=== PATIENT | male | born 1945 | race Caucasian/White ===

== ENCOUNTER 2020-09-04 09:40 | IRF | payer MEDICARE, SELFPAY ==
--- NOTE | 2020-09-04 10:21 | ADMGEN ---
This patient, Matti Vergara, was admitted to [facility] Room 230-02. Patient/family oriented to hospital policies and general routines including ID bracelet, bed and alarms, visiting hours, pain management, procedures, bathroom and other care routines, personal items, smoking policy, room service/diet, and visiting hours. Information on how to activate the Rapid Response Team has been discussed. Patient/Family are encouraged to report perceived risks to care and to ask questions if they do not understand what they are told or what they should do. patient arrived at 0940 via w/c van, accompanied by self only. belongings are with patient. Has no c/o pain.
[2020-09-04 10:33] VITALS: BMI 27.9
[2020-09-04 10:34] VITALS: BP 139/71; PULSE 78; RESP 18; TEMP 36; O2SAT 95; BMI 27.9
[2020-09-04 13:27] VITALS: BMI 27.9
[2020-09-04 14:00] VITALS: BP 111/74; PULSE 80; RESP 20; TEMP 36.2; O2SAT 94
--- NOTE | 2020-09-04 14:24 | PCNSR ---
On 09/04/20, the student, Olinda Nagel, provided care and completed [facility] documentation on this patient. I have reviewed the student's documentation and agree with the findings.
--- NOTE | 2020-09-04 15:07 | WPDREHABHP ---
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 NIHSS was [address] was unremarkable. MRI showed evidence of diffusion restriction in the left anterior medulla without flare correlation. Patient fell outside the windows of the tPA utilization. MRA showed no evidence of large vessel occlusion, though perfusion scanning showed delayed filling affecting a large portion of the left cerebellum. 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 Patient was admitted under Neurology and placed on aspirin atorvastatin. Lovenox for DVT PPX. CAROLA showed normal ejection fraction with diastolic dysfunction. Cardiology recommended a 30 day event monitor in an outpatient setting. This will need to be arranged at time of discharge from ARU. Patient was discharged from [place] to [place] on 08/01/2020. Patient began showing improvements in mobility and function. care home facility course demonstrated muscle spasm being treated with p.r.n. Flexeril and acetaminophen. Elevated transaminase felt to be due to initiation of a statin. Weight loss of approximately 25 lb. Decreased appetite due to change in taste and smell patient was placed on a Mepron sole, Reglan, and nutritional juice b.i.d. per dietary recommendation. Patient was noted to have severe profound vitamin-D deficiency and was started on agustin dosing D2 3 times per week for 1 month with repeat vitamin-D level in [facility]. Plans are for patient to be discharged home with hired caregivers 247. Patient is to follow up with [facility] as an outpatient on 09/27 at 3:55 p.m. 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 COVID the patient has not traveled outside the [place] or had contact with someone who is ill that his travel outside the [place] in the post 21 days. The patient has not traveled to an area of the [place] that is experiencing no transmission of COVID and has not had close personal contact with anyone with COVID. The patient does not have a fever nor lower expiratory respiratory illness. Negative COVID test performed on 09/03/2020. Therapy was initiated at the acute care facility and the patient transferred to us from [facility] on 09/04/2020 FALLS OR SURGERIES: the patient has had no major surgeries in the last 100 days. The patient has had no falls nor injuries from falls within the past year. PRIOR LEVEL OF FUNCTION: Eating was [INDEPENDENT] Oral Care was [INDEPENDENT] Toileting Hygiene was [INDEPENDENT] Shower/Bathing was [INDEPENDENT] Upper Body Dressing was [INDEPENDENT] Lower Body Dressing was [INDEPENDENT] Donning/Clancy Footwear was [INDEPENDENT] Rolling Left and Right was [INDEPENDENT] Sit to Lying was [INDEPENDENT] Lying to Sitting was [INDEPENDENT] Sit to Stand was [INDEPENDENT] Bed to Chair Transfers was [INDEPENDENT] Toilet Transfers was [INDEPENDENT] Walking was [INDEPENDENT] [>500 feet] with [NO DEVICE] Wheelchair Mobility was [NOT APPLICABLE PRIOR TO ADMISSION] Stairs were [INDEPENDENT] 12 steps CURRENT LEVEL OF FUNCTION: Eating was setup Oral Care was set Toileting Hygiene was substantial to max assist Shower/Bathing was substantial to max assist Upper Body Dressing was partial to moderate assist Lower Body Dressing was substantial to max assist Donning/Clancy Footwear was dependent Rolling Left and Right was partial to moderate assist Sit to Lying was partial to moderate assist Lying to Sitting was partial to moderate ass
[2020-09-04 18:05] LABS: Vitamin D 25 Hydroxy 44.5 ng/mL
[2020-09-04 21:30] VITALS: PULSE 82; RESP 18; O2SAT 95
[2020-09-04 22:00] VITALS: BP 121/81; PULSE 82; RESP 18; TEMP 36.3; O2SAT 95
[2020-09-05 05:38] LABS: Basophils Absolute Auto 0.1 K/mm3 (0.0-0.1); Basophils Percent Auto 0.9 % (0.2-1.2); Eosinophils Absolute Auto 0.2 K/mm3 (0-0.3); Eosinophils Percent Auto 2.2 % (0-4.4); Hematocrit 45.8 % (42.0-52.0); Hemoglobin 15.4 g/dL (14.0-18.0); Immature Granulocyte Absolute 0.03 K/mm3 (0.00-0.031); Immature Granulocyte Percent A 0.3 % (0-0.5); Lymphocytes Absolute Auto 1.81 K/mm3 (0.9-3.2); Lymphocytes Percent Auto 20.2 % (18.3-44.2); Mean Corpuscular HGB Conc 33.6 g/dl (32-36); Mean Corpuscular Hemoglobin 30.1 pg (26-34); Mean Corpuscular Volume 89.6 fl (80-100); Mean Platelet Volume 11.3 fl (7.4-10.4); Monocytes Absolute Auto 1.6 K/mm3 (0.1-0.6); Monocytes Percent Auto 17.3 % (2.6-8.5); Neutrophils Absolute Auto 5.3 K/mm3 (1.3-6.7); Neutrophils Percent Auto 59.1 % (45.5-73.1); Platelet Count Result 180 k/mm3 (150-375); Red Blood Count 5.11 M/mm3 (4.6-6.20)
[2020-09-05 05:40] LABS: Alanine Aminotransferase 96 U/L (4-50); Albumin Level 3.7 g/dL (3.5-5.1); Alkaline Phosphatase 100 U/L (38-126); Anion Gap 7 mmol/L (8-16); Aspartate Amino Transferase 59 U/L (17-59); Bilirubin,Total 1.1 mg/dL (0.2-1.3); Blood Urea Nitrogen 9 mg/dL (9-20); Calcium 9.7 mg/dL (8.4-10.2); Carbon Dioxide 28 mmol/L (22-30); Chloride 100 mmol/L (98-107); Cholesterol 104 mg/dL (0-200); Estimated CRCL calculation 76 ml/min; Estimated Glomerular Filt Rate > 60; Glucose 102 mg/dL (75-110); HDL Direct 32 mg/dL; Potassium 3.8 mmol/L (3.4-5.0); Sodium 135 mmol/L (137-145); Triglycerides 83 mg/dL (<150)
[2020-09-05 05:51] LABS: LDL Cholesterol Direct 47 mg/dL
[2020-09-05 06:00] VITALS: BP 140/74; PULSE 76; RESP 18; TEMP 36.1; O2SAT 97
[2020-09-05 08:00] VITALS: PULSE 76; RESP 18; O2SAT 97
[2020-09-05] MEDS: ATORVASTATIN 40 MG TABLET 80 MG PO (09:48)
[2020-09-05] MEDS: PANTOPRAZOLE 40 MG TABLET PO (09:48)
[2020-09-05] MEDS: ASPIRIN 325 MG TABLET PO (09:48)
[2020-09-05] MEDS: POTASSIUM CHLORIDE 20 MEQ TABLET.ER PO (09:48)
[2020-09-05] MEDS: amLODIPine BESYLATE 5 MG TABLET PO (09:49)
[2020-09-05] MEDS: polyethylene glycoL 3350 17 GM POWD.PACK PO (09:49)
[2020-09-05] MEDS: METOCLOPRAMIDE HCL 5 MG TABLET PO (09:49)
[2020-09-05 14:00] VITALS: BP 147/72; PULSE 82; RESP 20; TEMP 36.5; O2SAT 97
--- NOTE | 2020-09-05 17:08 | WPDNEURORHBP ---
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 NIHSS was [address] was unremarkable. MRI showed evidence of diffusion restriction in the left anterior medulla without flare correlation. Patient fell outside the windows of the tPA utilization. MRA showed no evidence of large vessel occlusion, though perfusion scanning showed delayed filling affecting a large portion of the left cerebellum. 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 Patient was admitted under Neurology and placed on aspirin, atorvastatin. Lovenox for DVT PPX. CAROLA showed normal ejection fraction with diastolic dysfunction. Cardiology recommended a 30 day event monitor in an outpatient setting. This will need to be arranged at time of discharge from ARU. Patient was discharged from [facility] to [facility] on 08/01/2020. Patient began showing improvements in mobility and function. snf facility course demonstrated muscle spasm being treated with p.r.n. Flexeril and acetaminophen. Elevated transaminase felt to be due to initiation of a statin. Weight loss of approximately 25 lb. Decreased appetite due to change in taste and smell patient was placed on a Mepron sole, Reglan, and nutritional juice b.i.d. per dietary recommendation. Patient was noted to have severe profound vitamin-D deficiency and was started on agustin dosing D2 3 times per week for 1 month with repeat vitamin-D level in [facility]. Plans are for patient to be discharged home with hired caregivers 247. Patient is to follow up with [facility] as an outpatient on 09/27 at 3:55 p.m. 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 Patient has poor appetite. Review of Systems Constitutional: Constitutional: Reports weakness ENT: Reports dysphagia ( resolved) Cardiovascular: Cardiovascular: Reports no additional cardiovascular complaints Respiratory: Respiratory: Reports no additional respiratory complaints Gastrointestinal: Gastrointestinal: Reports dysphagia ( resolved) Genitourinary: Genitourinary: Reports no additional male genitourinary complaints Neurologic: Reports weakness Psychiatric: Psychiatric: Reports no additional psychiatric complaints Functional Status Ambulation Ability Ambulation Assistive Devices: Parallel Bars Exam Const: General: comfortable and no acute distress Eyes: EOM: EOMs intact bilaterally Neck: Neck: supple Resp: Auscultation: clear to auscultation bilaterally Cardio: Rate: regular rate Rhythm: regular rhythm GI: Auscultation: normal bowel sounds Other: Obese Neuro: Cognition (Neuro): abnormal cognition Speech: normal speech Other: Right upper extremity is in a flexor synergy pattern. Deep tendon reflexes are brisk to the right upper extremity. Shoulder shrug is trace. Elbow flexion and extension are 2/5 wrist flexion and extension is 1/5. Finger flexion is 2/5 with extension 0/5. Right hip extension is 3 flexion is 2/5 knee flexion and extension are 1/5 ankle 0/5 Extrem: Other: LUE/LLE 4/5 Psych: Affect: normal affect Objective Data Vital Signs Vital Signs: Vital Signs - 24 hr 09/04/20 21:30 09/04/20 22:00 09/05/20 06:00 Temperature 36.3 C L 36.1 C L Pulse Rate 82 82 76 Respiratory Rate 18 18 18 Blood Pressure 121/81 140/74 Pulse Oximetry 95 95 97 09/05/20 08:00 09/05/20 14:00 Temperature 36.5 C Pulse Rate 76 82 Respiratory Rate 18 20 Blood Pressure 147/72 H Pulse Oximetry 97 97 Intake/Output Intake/Output: Intake & Output 09/02/20 09/03/20 09/04/20 09/05/20 23:59 23:59 23:59 23:59 Intake Total 240 120 Balance 240 120 Meds/Results Medica
[2020-09-05 20:00] VITALS: PULSE 77; RESP 16; O2SAT 97
[2020-09-05 21:39] VITALS: BP 129/88; PULSE 77; RESP 16; TEMP 36.1; O2SAT 97
[2020-09-06 06:00] VITALS: BP 117/68; PULSE 73; RESP 16; TEMP 36.1; O2SAT 97
[2020-09-06] MEDS: ASPIRIN 325 MG TABLET PO (10:01)
[2020-09-06] MEDS: PANTOPRAZOLE 40 MG TABLET PO (10:01)
[2020-09-06] MEDS: POTASSIUM CHLORIDE 20 MEQ TABLET.ER PO (10:01)
[2020-09-06] MEDS: amLODIPine BESYLATE 5 MG TABLET PO (10:01)
[2020-09-06] MEDS: ATORVASTATIN 40 MG TABLET 80 MG PO (10:01)
[2020-09-06] MEDS: polyethylene glycoL 3350 17 GM POWD.PACK PO (10:02)
[2020-09-06] MEDS: METOCLOPRAMIDE HCL 5 MG TABLET PO (10:02)
[2020-09-06 14:00] VITALS: BP 155/86; PULSE 78; RESP 18; TEMP 36.2; O2SAT 99
--- NOTE | 2020-09-06 14:33 | RPD ---
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 The patient requires physician services for medical oversight and coordination of care. Emotional needs will be monitored as depression is a common sequelae of stroke. The patient needs physician monitoring and treatment of monitoring for adverse reactions to new medications, monitoring of infection, monitoring of skin integrity, vitamin D deficiency, muscle spasms, new onset anorexia, weight loss, neurological issues, cardiac, hypertension, and pain control. The patient requires nursing services for frequent neuro checks, anticoagulation therapy, medication management and education, pressure relief and skin care management, monitoring of labs, bowel and bladder training, and fall/safety precautions. Deficits include: ADLs, Balance, Cognition, Endurance, Mobility, Pain Management, ROM, Safety, Speech, Strength, Transfers Screen Vent Binder/Case Management for: Discharge Planning and Patient/Family Counseling Physical Therapy: 5 days per week for 60 minutes for the patient's length of stay. Treatments may include: Therapeutic Exercise, Gait Training, Neuromuscular Re-education, Transfer Training, Community Reintegration, Bed Mobility, Patient/Family Education, Wheelchair Mobility Group Therapy/Concurrent Therapy Rationales: -Improve attention span during functional activities in a distracted environment. -Enhance problem solving and/or adequate judgment skills during functional activities in a distracted environment. -Promote increased safety awareness in a distracted environment to reduce fall risk with functional tasks, transfers, and ambulation to allow a more safe, self-sufficient return to the home environment. -Improve dynamic balance skills to promote safety and independence with functional activities in a distracted environment for maximum gain. Occupational Therapy: 5 days per week for 60 minutes for the patient's length of stay. Treatments may include: Therapeutic Exercise, Therapeutic Activity, Cognitive Training, Self-Care Transfer Training, Community Reintegration, Home Management, Patient/Family Education, Wheelchair Mobility Training, Energy Conservation Training Group Therapy/Concurrent Therapy Rationales: -Allow therapist to observe and teach generalization and carry-over of skills learned in individual therapy. -Enhance problem solving and sequencing skills during therapeutic activities in a distracted environment. -Promote increased safety awareness in a realistic setting to reduce fall risk with functional tasks due to visual and verbal distractions. -Increase functional level with ADLs, ADL transfers and use of adaptive equipment through therapeutic activities with others while promoting safety to allow a more safe, self-sufficient return home. Speech Therapy: 5 days per week for 60 minutes for the patient's length of stay. Treatments may include: Dysphasia Therapy, Speech/Language/Communication Therapy, Cognitive Training, Patient/Family Education Group Therapy/Concurrent Therapy - Rationale: -Allow therapist to observe and teach generalization and carry-over of skills learned in individual therapy. -Improve comprehension skills with complex or abstract ideas through discussion in a realistic setting. -Enhance problem solving skills with complex issues during activities in a distracted environment. -Promote increased memory skills and con
--- NOTE | 2020-09-06 15:26 | WPDNEURORHBP ---
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 NIHSS was [address] was unremarkable. MRI showed evidence of diffusion restriction in the left anterior medulla without flare correlation. Patient fell outside the windows of the tPA utilization. MRA showed no evidence of large vessel occlusion, though perfusion scanning showed delayed filling affecting a large portion of the left cerebellum. 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 Patient was admitted under Neurology and placed on aspirin, atorvastatin. Lovenox for DVT PPX. CAROLA showed normal ejection fraction with diastolic dysfunction. Cardiology recommended a 30 day event monitor in an outpatient setting. This will need to be arranged at time of discharge from ARU. Patient was discharged from [place] to [place] on 08/01/2020. Patient began showing improvements in mobility and function. [facility] demonstrated muscle spasm being treated with p.r.n. Flexeril and acetaminophen. Elevated transaminase felt to be due to initiation of a statin. Weight loss of approximately 25 lb. Decreased appetite due to change in taste and smell patient was placed on omeprazole, Reglan, and nutritional juice b.i.d. per dietary recommendation. Patient noted to have severe profound vitamin-D deficiency and was started on agustin dosing D2 3 times per week for 1 month with repeat vitamin-D level prior to transfer. Patient's Vit D on admission was sufficient. Will supplement with Vit D and multivitamin Plans are for patient to be discharged home with hired caregivers 247. Appetite remains poor. Will continue to follow. Functional Status Ambulation Ability Ambulation Assistive Devices: Parallel Bars Exam Const: General: comfortable and no acute distress Eyes: EOM: EOMs intact bilaterally Neck: Neck: supple Resp: Auscultation: clear to auscultation bilaterally Cardio: Rate: regular rate Rhythm: regular rhythm GI: Auscultation: normal bowel sounds Other: Obese Neuro: Cognition (Neuro): abnormal cognition Speech: normal speech Other: Right upper extremity is in a flexor synergy pattern. Deep tendon reflexes are brisk to the right upper extremity. Shoulder shrug is trace. Elbow flexion and extension are 2/5 wrist flexion and extension is 1/5. Finger flexion is 2/5 with extension 0/5. Right hip extension is 3 flexion is 2/5 knee flexion and extension are 1/5 ankle 0/5 Extrem: Other: LUE/LLE 4/5 Psych: Affect: normal affect Objective Data Vital Signs Vital Signs: Vital Signs - 24 hr 09/05/20 20:00 09/05/20 21:39 09/06/20 06:00 Temperature 36.1 C L 36.1 C L Pulse Rate 77 77 73 Respiratory Rate 16 16 16 Blood Pressure 129/88 117/68 Pulse Oximetry 97 97 97 09/06/20 14:00 Temperature 36.2 C L Pulse Rate 78 Respiratory Rate 18 Blood Pressure 155/86 H Pulse Oximetry 99 Intake/Output Intake/Output: Intake & Output 09/03/20 09/04/20 09/05/20 09/06/20 23:59 23:59 23:59 23:59 Intake Total 240 240 560 Balance 240 240 560 Meds/Results Medications: Active Medications Generic Name Dose Route Start Last Admin Trade Name Freq PRN Reason Stop Dose Admin Acetaminophen 650 mg 09/04/20 15:53 Acetaminophen 325 Mg Tablet PO Q4H PRN Pain (Scale Score 1-3) Amlodipine Besylate 5 mg 09/05/20 09:00 09/06/20 10:01 Amlodipine Besylate 5 Mg Tablet PO 5 mg DAILY LUI Administration Aspirin 325 mg 09/05/20 09:00 09/06/20 10:01 Aspirin 325 Mg Tablet PO 325 mg DAILY LUI Administration Atorvastatin Calcium 80 mg 09/05/20 09:00 09/06/20 10:01 Atorvastatin 40 Mg Tablet PO 80 mg DAILY LUI Administration Dronabinol 0 mg 09/05/20 16:30 09/06/20 12:38
[2020-09-06 20:50] VITALS: PULSE 77; RESP 18; O2SAT 95
[2020-09-06 21:41] VITALS: BP 121/65; PULSE 77; RESP 18; TEMP 36; O2SAT 95
[2020-09-07 06:00] VITALS: BP 104/59; PULSE 65; RESP 16; TEMP 36.6; O2SAT 96
[2020-09-07] MEDS: MULTIVITAMINS THERAPEUTIC TAB (*BKC) 1 TABLET PO (10:02)
[2020-09-07] MEDS: METOCLOPRAMIDE HCL 5 MG TABLET PO (10:02)
[2020-09-07] MEDS: amLODIPine BESYLATE 5 MG TABLET PO (10:02)
[2020-09-07] MEDS: POTASSIUM CHLORIDE 20 MEQ TABLET.ER PO (10:02)
[2020-09-07] MEDS: ATORVASTATIN 40 MG TABLET 80 MG PO (10:02)
[2020-09-07] MEDS: PANTOPRAZOLE 40 MG TABLET PO (10:02)
[2020-09-07] MEDS: ASPIRIN 325 MG TABLET PO (10:02)
[2020-09-07] MEDS: polyethylene glycoL 3350 17 GM POWD.PACK PO (10:03)
--- NOTE | 2020-09-07 11:52 | PCNFU ---
Nutrition Follow-Up Complete: Nutrition Diagnosis: Difficulty swallowing related to recent stroke as evidenced by patient consuming 20% of meals and stating having troubles swallowing. Goal: Patient to consume at least 75% of meals. Goal was not met, patient is consuming an average of 50% of his meals. Will continue to motivate. Pt current nutrition is Regular, Level 7 Diet, which is appropriate per speech therapy, with a Frozen Treat supplement BID. Nutrition recommendation: Continue with current diet plan and supplement. Last recorded weight is 96.1 kg. Bowel Motility: Last reported on 09/06 Labs Reviewed: Na (135) Meds Noted: Norvasc, Lipitor, Marinol, Reglan, Zofran, Senokot, Protonix, Miralax, Potassium Chloride Additional Notes: Patient reported poor appetite, but continues to try to consume his meals. He currently consume about 50% of his meals. Patient stated he likes the Frozen Treat supplement, so will continue sending that BID. Will follow up in 5 days.
--- NOTE | 2020-09-07 12:41 | PCNSR ---
On 09/07/20, the student, Olinda Nagel, provided care and completed [facility] documentation on this patient. I have reviewed the student's documentation and agree with the findings.
[2020-09-07 14:00] VITALS: BP 117/64; PULSE 84; RESP 14; TEMP 36.6; O2SAT 98
--- NOTE | 2020-09-07 15:29 | WPDNEURORHBP ---
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 NIHSS was [address] was unremarkable. MRI showed evidence of diffusion restriction in the left anterior medulla without flare correlation. Patient fell outside the windows of the tPA utilization. MRA showed no evidence of large vessel occlusion, though perfusion scanning showed delayed filling affecting a large portion of the left cerebellum. 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 Patient was admitted under Neurology and placed on aspirin, atorvastatin. Lovenox for DVT PPX. CAROLA showed normal ejection fraction with diastolic dysfunction. Cardiology recommended a 30 day event monitor in an outpatient setting. This will need to be arranged at time of discharge from ARU. Patient was discharged from [place] to [place] on 08/01/2020. Patient began showing improvements in mobility and function. residential facility course demonstrated muscle spasm being treated with p.r.n. Flexeril and acetaminophen. Elevated transaminase felt to be due to initiation of a statin. Weight loss of approximately 25 lb. Decreased appetite due to change in taste and smell patient was placed on omeprazole, Reglan, and nutritional juice b.i.d. per dietary recommendation. Patient noted to have severe profound vitamin-D deficiency and was started on agustin dosing D2 3 times per week for 1 month with repeat vitamin-D level prior to transfer. Patient's Vit D on admission was sufficient. Will supplement with Vit D and multivitamin Plans are for patient to be discharged home with hired caregivers 247. Appetite remains poor. Will obtain calorie count Functional Status Ambulation Ability Ability to Ambulate 10 Feet: Minimum Assistance X 1 Ambulation Assistive Devices: Parallel Bars Exam Const: General: comfortable and no acute distress Eyes: EOM: EOMs intact bilaterally Neck: Neck: supple Resp: Auscultation: clear to auscultation bilaterally Cardio: Rate: regular rate Rhythm: regular rhythm GI: Auscultation: normal bowel sounds Other: Obese Neuro: Cognition (Neuro): abnormal cognition Speech: normal speech Other: Right upper extremity is in a flexor synergy pattern. Deep tendon reflexes are brisk to the right upper extremity. Shoulder shrug is trace. Elbow flexion and extension are 2/5 wrist flexion and extension is 1/5. Finger flexion is 2/5 with extension 0/5. Right hip extension is 3 flexion is 2/5 knee flexion and extension are 1/5 ankle 0/5 Endurance is improving Extrem: Other: LUE/LLE 4/5 Psych: Affect: normal affect Objective Data Vital Signs Vital Signs: Vital Signs - 24 hr 09/06/20 20:50 09/06/20 21:41 09/07/20 06:00 Temperature 36.0 C L 36.6 C Pulse Rate 77 77 65 Respiratory Rate 18 18 16 Blood Pressure 121/65 104/59 L Pulse Oximetry 95 95 96 Intake/Output Intake/Output: Intake & Output 09/04/20 09/05/20 09/06/20 09/07/20 23:59 23:59 23:59 23:59 Intake Total 240 240 560 Balance 240 240 560 Meds/Results Medications: Active Medications Generic Name Dose Route Start Last Admin Trade Name Freq PRN Reason Stop Dose Admin Acetaminophen 650 mg 09/04/20 15:53 Acetaminophen 325 Mg Tablet PO Q4H PRN Pain (Scale Score 1-3) Amlodipine Besylate 5 mg 09/05/20 09:00 09/07/20 10:02 Amlodipine Besylate 5 Mg Tablet PO 5 mg DAILY LUI Administration Aspirin 325 mg 09/05/20 09:00 09/07/20 10:02 Aspirin 325 Mg Tablet PO 325 mg DAILY LUI Administration Atorvastatin Calcium 80 mg 09/05/20 09:00 09/07/20 10:02 Atorvastatin 40 Mg Tablet PO 80 mg DAILY LUI Administration Dronabinol 0 mg 09/05/20 16:30 09/07/20 12:47 Dronabinol (*Crx) 2.5 Mg Capsule PO 2.5 m
--- NOTE | 2020-09-07 15:37 | PCDIET ---
Consult for calorie count received. Will follow up 09/10/20 with results.
[2020-09-07 22:00] VITALS: BP 106/43; PULSE 74; RESP 16; TEMP 36.2; O2SAT 98
[2020-09-08 06:00] VITALS: BP 107/61; PULSE 65; RESP 16; TEMP 36.2; O2SAT 94
[2020-09-08] MEDS: ATORVASTATIN 40 MG TABLET 80 MG PO (09:38)
[2020-09-08] MEDS: METOCLOPRAMIDE HCL 5 MG TABLET PO (09:38)
[2020-09-08] MEDS: MULTIVITAMINS THERAPEUTIC TAB (*BKC) 1 TABLET PO (09:38)
[2020-09-08] MEDS: amLODIPine BESYLATE 5 MG TABLET PO (09:38)
[2020-09-08] MEDS: ASPIRIN 325 MG TABLET PO (09:38)
[2020-09-08] MEDS: PANTOPRAZOLE 40 MG TABLET PO (09:38)
[2020-09-08] MEDS: polyethylene glycoL 3350 17 GM POWD.PACK PO (09:39)
[2020-09-08] MEDS: POTASSIUM CHLORIDE 20 MEQ TABLET.ER PO (09:39)
--- NOTE | 2020-09-08 11:53 | WPDNEURORHBP ---
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 NIHSS was [address] was unremarkable. MRI showed evidence of diffusion restriction in the left anterior medulla without flare correlation. Patient fell outside the windows of the tPA utilization. MRA showed no evidence of large vessel occlusion, though perfusion scanning showed delayed filling affecting a large portion of the left cerebellum. 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 Patient was admitted under Neurology and placed on aspirin, atorvastatin. Lovenox for DVT PPX. CAROLA showed normal ejection fraction with diastolic dysfunction. Cardiology recommended a 30 day event monitor in an outpatient setting. This will need to be arranged at time of discharge from ARU. Patient was discharged from [place] to [place] on 08/01/2020. Patient began showing improvements in mobility and function. care home facility course demonstrated muscle spasm being treated with p.r.n. Flexeril and acetaminophen. Elevated transaminase felt to be due to initiation of a statin. Weight loss of approximately 25 lb. Decreased appetite due to change in taste and smell patient was placed on omeprazole, Reglan, and nutritional juice b.i.d. per dietary recommendation. Patient noted to have severe profound vitamin-D deficiency and was started on agustin dosing D2 3 times per week for 1 month with repeat vitamin-D level prior to transfer. Patient's Vit D on admission was sufficient. Will supplement with Vit D and multivitamin Plans are for patient to be discharged home with hired caregivers 247. Appetite remains poor. Will obtain calorie count Review of Systems Constitutional: Constitutional: Reports weakness ENT: Reports dysphagia ( resolved) Cardiovascular: Cardiovascular: Reports no additional cardiovascular complaints Respiratory: Respiratory: Reports no additional respiratory complaints Gastrointestinal: Gastrointestinal: Reports dysphagia ( resolved) Comments: poor appetite Genitourinary: Genitourinary: Reports no additional male genitourinary complaints Neurologic: Reports weakness Psychiatric: Psychiatric: Reports no additional psychiatric complaints Functional Status Ambulation Ability Ability to Ambulate 10 Feet: Minimum Assistance X 1 Ambulation Assistive Devices: Parallel Bars Exam Const: General: comfortable and no acute distress Eyes: EOM: EOMs intact bilaterally Neck: Neck: supple Resp: Auscultation: clear to auscultation bilaterally Cardio: Rate: regular rate Rhythm: regular rhythm GI: Auscultation: normal bowel sounds Other: Obese Neuro: Cognition (Neuro): abnormal cognition Speech: normal speech Other: Right upper extremity is in a flexor synergy pattern. Deep tendon reflexes are brisk to the right upper extremity. Shoulder shrug is trace. Elbow flexion and extension are 2/5 wrist flexion and extension is 1/5. Finger flexion is 2/5 with extension 0/5. Right hip extension is 3 flexion is 2/5 knee flexion and extension are 1/5 ankle 0/5 Transfers vary to dependent to min assist Extrem: Other: LUE/LLE 4/5 Psych: Affect: normal affect Objective Data Vital Signs Vital Signs: Vital Signs - 24 hr 09/07/20 14:00 09/07/20 22:00 09/08/20 06:00 Temperature 36.6 C 36.2 C L 36.2 C L Pulse Rate 84 74 65 Respiratory Rate 14 16 16 Blood Pressure 117/64 106/43 L 107/61 Pulse Oximetry 98 98 94 Intake/Output Intake/Output: Intake & Output 09/05/20 09/06/20 09/07/20 09/08/20 23:59 23:59 23:59 23:59 Intake Total 240 560 240 Balance 240 560 240 Meds/Results Medications: Active Medications Generic Name Dose Route Start Last Admin Trade Name Freq PRN Reason Stop Dose Admin Acetaminoph
[2020-09-08 14:00] VITALS: BP 123/71; PULSE 73; RESP 18; TEMP 36.2; O2SAT 98
[2020-09-08 21:52] VITALS: BP 134/67; PULSE 66; RESP 16; TEMP 36.1; O2SAT 99
[2020-09-09 06:00] VITALS: BP 106/58; PULSE 72; RESP 18; TEMP 35.9; O2SAT 99
[2020-09-09] MEDS: ATORVASTATIN 40 MG TABLET 80 MG PO (10:07)
[2020-09-09] MEDS: ASPIRIN 325 MG TABLET PO (10:07)
[2020-09-09] MEDS: amLODIPine BESYLATE 5 MG TABLET PO (10:07)
[2020-09-09] MEDS: PANTOPRAZOLE 40 MG TABLET PO (10:07)
[2020-09-09] MEDS: MULTIVITAMINS THERAPEUTIC TAB (*BKC) 1 TABLET PO (10:07)
[2020-09-09] MEDS: POTASSIUM CHLORIDE 20 MEQ TABLET.ER PO (10:07)
[2020-09-09] MEDS: METOCLOPRAMIDE HCL 5 MG TABLET PO (10:07)
[2020-09-09] MEDS: polyethylene glycoL 3350 17 GM POWD.PACK PO (10:08)
[2020-09-09 14:00] VITALS: BP 136/70; PULSE 84; RESP 14; TEMP 36.2; O2SAT 96
--- NOTE | 2020-09-09 15:56 | WPDNEURORHBP ---
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 The patient is a 74-year-old male with past medical history of hypertension who presented to [facility] on 07/22/2020 with right hemiplegia. NIHSS was [address] was unremarkable. MRI showed evidence of diffusion restriction in the left anterior medulla without flare correlation. Patient fell outside the windows of the tPA utilization. MRA showed no evidence of large vessel occlusion, though perfusion scanning showed delayed filling affecting a large portion of the left cerebellum. 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 Patient was admitted under Neurology and placed on aspirin, atorvastatin. Lovenox for DVT PPX. CAROLA showed normal ejection fraction with diastolic dysfunction. Cardiology recommended a 30 day event monitor in an outpatient setting. This will need to be arranged at time of discharge from ARU. Patient was discharged from [place] to [place] on 08/01/2020. Patient began showing improvements in mobility and function. [facility] facility course demonstrated muscle spasm being treated with p.r.n. Flexeril and acetaminophen. Elevated transaminase felt to be due to initiation of a statin. Weight loss of approximately 25 lb. Decreased appetite due to change in taste and smell patient was placed on omeprazole, Reglan, and nutritional juice b.i.d. per dietary recommendation. Patient noted to have severe profound vitamin-D deficiency and was started on augstin dosing D2 3 times per week for 1 month with repeat vitamin-D level prior to transfer. Patient's Vit D on admission was sufficient. Will supplement with Vit D and multivitamin Plans are for patient to be discharged home with hired caregivers 247. Appetite slightly improved. Transfers were at min assist of 2. Review of Systems Constitutional: Constitutional: Reports weakness ENT: Reports dysphagia ( resolved) Cardiovascular: Cardiovascular: Reports no additional cardiovascular complaints Respiratory: Respiratory: Reports no additional respiratory complaints Gastrointestinal: Gastrointestinal: Reports dysphagia ( resolved) Genitourinary: Genitourinary: Reports no additional male genitourinary complaints Neurologic: Reports weakness Psychiatric: Psychiatric: Reports no additional psychiatric complaints Functional Status Ambulation Ability Ability to Ambulate 10 Feet: Minimum Assistance X 1 Ambulation Assistive Devices: Parallel Bars Exam Const: General: comfortable and no acute distress Eyes: EOM: EOMs intact bilaterally Neck: Neck: supple Resp: Auscultation: clear to auscultation bilaterally Cardio: Rate: regular rate Rhythm: regular rhythm GI: Auscultation: normal bowel sounds Other: Obese Neuro: Cognition (Neuro): abnormal cognition Speech: normal speech Other: Right upper extremity is in a flexor synergy pattern. Deep tendon reflexes are brisk to the right upper extremity. Shoulder shrug is trace. Elbow flexion and extension are 2/5 wrist flexion and extension is 1/5. Finger flexion is 2/5 with extension 0/5. Right hip extension is 3 flexion is 2/5 knee flexion and extension are 1/5 ankle 0/5 Transfers min assist of two. Patient was in parallel bars Extrem: Other: LUE/LLE 4/5 Psych: Affect: normal affect Objective Data Vital Signs Vital Signs: Vital Signs - 24 hr 09/08/20 21:52 09/09/20 06:00 09/09/20 14:00 Temperature 36.1 C L 35.9 C L 36.2 C L Pulse Rate 66 72 84 Respiratory Rate 16 18 14 Blood Pressure 134/67 106/58 L 136/70 Pulse Oximetry 99 99 96 Intake/Output Intake/Output: Intake & Output 09/06/20 09/07/20 09/08/20 09/09/20 23:59 23:59 23:59 23:59 Intake Total 560 240 440 240 Balance 560 240 440 240 Meds/Results Medications: Active Medications Generic Name Dose Route Start Last Admin Trade Name Freq PRN Reason Stop Do
[2020-09-09 20:00] VITALS: PULSE 73; RESP 16; O2SAT 96
[2020-09-09 22:00] VITALS: BP 123/58; PULSE 73; RESP 16; TEMP 36.7; O2SAT 96
[2020-09-10 06:00] VITALS: BP 124/63; PULSE 71; RESP 16; TEMP 36.3; O2SAT 96
[2020-09-10] MEDS: amLODIPine BESYLATE 5 MG TABLET PO (09:45)
[2020-09-10] MEDS: METOCLOPRAMIDE HCL 5 MG TABLET PO (09:45)
[2020-09-10] MEDS: MULTIVITAMINS THERAPEUTIC TAB (*BKC) 1 TABLET PO (09:45)
[2020-09-10] MEDS: polyethylene glycoL 3350 17 GM POWD.PACK PO (09:45)
[2020-09-10] MEDS: PANTOPRAZOLE 40 MG TABLET PO (09:46)
[2020-09-10] MEDS: ASPIRIN 325 MG TABLET PO (09:46)
[2020-09-10] MEDS: POTASSIUM CHLORIDE 20 MEQ TABLET.ER PO (09:46)
[2020-09-10] MEDS: ATORVASTATIN 40 MG TABLET 80 MG PO (10:08)
--- NOTE | 2020-09-10 13:02 | PCDIET ---
Nutrition Follow-Up Complete: Nutrition Diagnosis: Difficulty swallowing related to recent stroke as evidenced by patient consuming 20% of meals and stating having troubles swallowing. Nutrition Goal: Patient to consume at least 75% of meals. Goal in progress. Total intake on 09/08/20 (only 2 meal records saved) was 452kcal and 23g protein. Total intake on 09/09/20 was 862kcal and 27g protein (3 meals). Last recorded weight is 96.1 kg. Recommend obtaining new weight. Bowel Motility: Last BM on 09/08/20. Labs Reviewed: No new labs available. Meds Noted: Norvasc, Lipitor, Marinol, Reglan, MVI, Protonix, KCl, Senna Additional Notes: No documented skin breakdown. Nutrition Monitoring and Evaluation: Will follow up in 1 day with calorie count results.
[2020-09-10 14:00] VITALS: BP 107/49; PULSE 96; RESP 18; TEMP 36.1; O2SAT 100
--- NOTE | 2020-09-10 17:25 | WPDNEURORHBP ---
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 The patient is a 74-year-old male with past medical history of hypertension who presented to [facility] on 07/22/2020 with right hemiplegia. NIHSS was [address] was unremarkable. MRI showed evidence of diffusion restriction in the left anterior medulla without flare correlation. Patient fell outside the windows of the tPA utilization. MRA showed no evidence of large vessel occlusion, though perfusion scanning showed delayed filling affecting a large portion of the left cerebellum. 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 Patient was admitted under Neurology and placed on aspirin, atorvastatin. Lovenox for DVT PPX. CAROLA showed normal ejection fraction with diastolic dysfunction. Cardiology recommended a 30 day event monitor in an outpatient setting. This will need to be arranged at time of discharge from ARU. Patient was discharged from [place] to [place] on 08/01/2020. Patient began showing improvements in mobility and function. longterm facility course demonstrated muscle spasm being treated with p.r.n. Flexeril and acetaminophen. Elevated transaminase felt to be due to initiation of a statin. Weight loss of approximately 25 lb. Decreased appetite due to change in taste and smell patient was placed on omeprazole, Reglan, and nutritional juice b.i.d. per dietary recommendation. Patient noted to have severe profound vitamin-D deficiency and was started on agustin dosing D2 3 times per week for 1 month with repeat vitamin-D level prior to transfer. Patient's Vit D on admission was sufficient. Will supplement with Vit D and multivitamin Plans are for patient to be discharged home with hired caregivers 247. Patient more talkative today. Patient voices no complaints. Review of Systems Constitutional: Constitutional: Reports weakness ENT: Reports dysphagia ( resolved) Cardiovascular: Cardiovascular: Reports no additional cardiovascular complaints Respiratory: Respiratory: Reports no additional respiratory complaints Gastrointestinal: Gastrointestinal: Reports dysphagia ( resolved) Genitourinary: Genitourinary: Reports no additional male genitourinary complaints Neurologic: Reports weakness Psychiatric: Psychiatric: Reports no additional psychiatric complaints Functional Status Ambulation Ability Ability to Ambulate 10 Feet: Minimum Assistance X 1 Ambulation Assistive Devices: Parallel Bars Exam Const: General: comfortable and no acute distress Eyes: EOM: EOMs intact bilaterally Neck: Neck: supple Resp: Auscultation: clear to auscultation bilaterally Cardio: Rate: regular rate Rhythm: regular rhythm GI: Auscultation: normal bowel sounds Other: Obese Neuro: Cognition (Neuro): abnormal cognition Speech: normal speech Other: Right upper extremity is in a flexor synergy pattern. Deep tendon reflexes are brisk to the right upper extremity. Shoulder shrug is trace. Elbow flexion and extension are 2/5 wrist flexion and extension is 1/5. Finger flexion is 2/5 with extension 0/5. Right hip extension is 3 flexion is 2/5 knee flexion and extension are 1/5 ankle 0/5 Extrem: Other: LUE/LLE 4/5 Psych: Affect: normal affect Objective Data Vital Signs Vital Signs: Vital Signs - 24 hr 09/09/20 20:00 09/09/20 22:00 09/10/20 06:00 Temperature 36.7 C 36.3 C L Pulse Rate 73 73 71 Respiratory Rate 16 16 16 Blood Pressure 123/58 L 124/63 Pulse Oximetry 96 96 96 09/10/20 14:00 Temperature 36.1 C L Pulse Rate 96 Respiratory Rate 18 Blood Pressure 107/49 L Pulse Oximetry 100 Intake/Output Intake/Output: Intake & Output 09/07/20 09/08/20 09/09/20 09/10/20 23:59 23:59 23:59 23:59 Intake Total 240 440 360 480 Balance 240 440 360 480 Meds/Results Medications: Active Medications Generic Name Dose Route Start Las
[2020-09-10 22:00] VITALS: BP 133/85; PULSE 100; RESP 18; TEMP 36.1; O2SAT 96
[2020-09-11 06:00] VITALS: BP 114/65; PULSE 91; RESP 18; TEMP 36.1; O2SAT 96
[2020-09-11 08:00] VITALS: PULSE 91; RESP 18; O2SAT 96
[2020-09-11] MEDS: POTASSIUM CHLORIDE 20 MEQ TABLET.ER PO (10:27)
[2020-09-11] MEDS: ASPIRIN 325 MG TABLET PO (10:27)
[2020-09-11] MEDS: ATORVASTATIN 40 MG TABLET 80 MG PO (10:27)
[2020-09-11] MEDS: PANTOPRAZOLE 40 MG TABLET PO (10:29)
[2020-09-11] MEDS: METOCLOPRAMIDE HCL 5 MG TABLET PO (10:29)
[2020-09-11] MEDS: polyethylene glycoL 3350 17 GM POWD.PACK PO (10:30)
[2020-09-11] MEDS: amLODIPine BESYLATE 5 MG TABLET PO (10:30)
[2020-09-11] MEDS: MULTIVITAMINS THERAPEUTIC TAB (*BKC) 1 TABLET PO (10:30)
--- NOTE | 2020-09-11 10:53 | PCNFU ---
Nutrition Follow-Up Complete: Nutrition Diagnosis: Difficulty swallowing related to recent stroke as evidenced by patient consuming 20% of meals and stating having troubles swallowing. Nutrition Goal:Patient to consume at least 75% of meals. Goal was not met. Patient has been consuming around 25% of his meals. Nutrition recommendation: Add Ensure Clear (8 grams of protein and 240 calories) to patient's meal for breakfast. Continue Frozen Treat supplement twice a day, as patient is consuming it. Last recorded weight is 96.1 kg. Bowel Motility: Last documented on 09/11 Labs Reviewed: 09/05 Na (135) Meds Noted:Norvasc, Lipitor, Marinol, Reglan, Zofran, Protonix, Miralax, Senna, Potassium Chloride, Multi Vitamin Additional Notes: From the meals that have been documented, on 09/10 patient's combined nutrition for breakfast and dinner was 11.65 grams of protein and 324 calories. On 09/11, patient consumed 9.25 grams of protein and 150 calories for his breakfast only. Patient has been consuming at least 25% of supplements given, so recommend an additional supplement for breakfast to increase patient's intake. Will follow up in 3 days.
--- NOTE | 2020-09-11 11:41 | PCNSR ---
On 09/11/20, the student, Olinda Nagel, provided care and completed [facility] documentation on this patient. I have reviewed the student's documentation and agree with the findings.
[2020-09-11 14:00] VITALS: BP 117/59; PULSE 89; RESP 20; TEMP 36.3; O2SAT 97
--- NOTE | 2020-09-11 15:47 | WPDNEURORHBP ---
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 The patient is a 74-year-old male with past medical history of hypertension who presented to [facility] on 07/22/2020 with right hemiplegia. NIHSS was [address] was unremarkable. MRI showed evidence of diffusion restriction in the left anterior medulla without flare correlation. Patient fell outside the windows of the tPA utilization. MRA showed no evidence of large vessel occlusion, though perfusion scanning showed delayed filling affecting a large portion of the left cerebellum. 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 Patient was admitted under Neurology and placed on aspirin, atorvastatin. Lovenox for DVT PPX. CAROLA showed normal ejection fraction with diastolic dysfunction. Cardiology recommended a 30 day event monitor in an outpatient setting. This will need to be arranged at time of discharge from ARU. Patient was discharged from [place] to [place] on 08/01/2020. Patient began showing improvements in mobility and function. [facility] facility course demonstrated muscle spasm being treated with p.r.n. Flexeril and acetaminophen. Elevated transaminase felt to be due to initiation of a statin. Weight loss of approximately 25 lb. Decreased appetite due to change in taste and smell patient was placed on omeprazole, Reglan, and nutritional juice b.i.d. per dietary recommendation. Patient noted to have severe profound vitamin-D deficiency and was started on agustin dosing D2 3 times per week for 1 month with repeat vitamin-D level prior to transfer. Patient's Vit D on admission was sufficient. Will supplement with Vit D and multivitamin Plans are for patient to be discharged home with hired caregivers 247. Patient more talkative today. Patient voices no complaints. Review of Systems Constitutional: Constitutional: Reports weakness ENT: Reports dysphagia ( resolved) Cardiovascular: Cardiovascular: Reports no additional cardiovascular complaints Respiratory: Respiratory: Reports no additional respiratory complaints Gastrointestinal: Gastrointestinal: Reports dysphagia ( resolved) Genitourinary: Genitourinary: Reports no additional male genitourinary complaints Neurologic: Reports weakness Psychiatric: Psychiatric: Reports no additional psychiatric complaints Functional Status Ambulation Ability Ability to Ambulate 10 Feet: Minimum Assistance X 1 Ambulation Assistive Devices: Parallel Bars Exam Const: General: comfortable and no acute distress Eyes: EOM: EOMs intact bilaterally Neck: Neck: supple Resp: Auscultation: clear to auscultation bilaterally Cardio: Rate: regular rate Rhythm: regular rhythm GI: Auscultation: normal bowel sounds Other: Obese Neuro: Cognition (Neuro): abnormal cognition Speech: normal speech Other: Right upper extremity is in a flexor synergy pattern. Deep tendon reflexes are brisk to the right upper extremity. Shoulder shrug is trace. Elbow flexion and extension are 2/5 wrist flexion and extension is 1/5. Finger flexion is 2/5 with extension 0/5. Right hip extension is 3 flexion is 2/5 knee flexion and extension are 1/5 ankle 0/5 Extrem: Other: LUE/LLE 4/5 Psych: Affect: normal affect Objective Data Vital Signs Vital Signs: Vital Signs - 24 hr 09/10/20 22:00 09/11/20 06:00 09/11/20 08:00 Temperature 36.1 C L 36.1 C L Pulse Rate 100 91 91 Respiratory Rate 18 18 18 Blood Pressure 133/85 114/65 Pulse Oximetry 96 96 96 09/11/20 14:00 Temperature 36.3 C L Pulse Rate 89 Respiratory Rate 20 Blood Pressure 117/59 L Pulse Oximetry 97 Intake/Output Intake/Output: Intake & Output 09/08/20 09/09/20 09/10/20 09/11/20 23:59 23:59 23:59 23:59 Intake Total 440 360 600 480 Balance 440 360 600 480 Meds/Results Medications: Active Medications Generic Name Dose Route Start Las
[2020-09-11 22:00] VITALS: BP 101/61; PULSE 84; RESP 20; TEMP 36; O2SAT 94
[2020-09-12 04:50] LABS: Basophils Absolute Auto 0.1 K/mm3 (0.0-0.1); Basophils Percent Auto 0.7 % (0.2-1.2); Eosinophils Absolute Auto 0.2 K/mm3 (0-0.3); Eosinophils Percent Auto 1.8 % (0-4.4); Hematocrit 43.6 % (42.0-52.0); Hemoglobin 14.7 g/dL (14.0-18.0); Immature Granulocyte Absolute 0.05 K/mm3 (0.00-0.031); Immature Granulocyte Percent A 0.5 % (0-0.5); Lymphocytes Absolute Auto 2.14 K/mm3 (0.9-3.2); Lymphocytes Percent Auto 21.8 % (18.3-44.2); Mean Corpuscular HGB Conc 33.7 g/dl (32-36); Mean Corpuscular Hemoglobin 30.2 pg (26-34); Mean Corpuscular Volume 89.5 fl (80-100); Mean Platelet Volume 11.2 fl (7.4-10.4); Monocytes Absolute Auto 1.7 K/mm3 (0.1-0.6); Monocytes Percent Auto 17.6 % (2.6-8.5); Neutrophils Absolute Auto 5.7 K/mm3 (1.3-6.7); Neutrophils Percent Auto 57.6 % (45.5-73.1); Platelet Count Result 190 k/mm3 (150-375); Red Blood Count 4.87 M/mm3 (4.6-6.20); Red Cell Distribution Width 13.5 % (11.5-14.5); White Blood Count 9.8 K/mm3 (4.5-10.0)
[2020-09-12 05:21] LABS: Alanine Aminotransferase 59 U/L (4-50); Albumin Level 3.4 g/dL (3.5-5.1); Alkaline Phosphatase 107 U/L (38-126); Anion Gap 7 mmol/L (8-16); Aspartate Amino Transferase 50 U/L (17-59); Bilirubin,Total 1.4 mg/dL (0.2-1.3); Blood Urea Nitrogen 12 mg/dL (9-20); Calcium 9.3 mg/dL (8.4-10.2); Carbon Dioxide 25 mmol/L (22-30); Chloride 105 mmol/L (98-107); Estimated CRCL calculation 76 ml/min; Estimated Glomerular Filt Rate > 60; Glucose 104 mg/dL (75-110); Potassium 3.8 mmol/L (3.4-5.0); Sodium 137 mmol/L (137-145)
[2020-09-12 06:00] VITALS: BP 109/64; PULSE 81; RESP 16; TEMP 36; O2SAT 93
--- NOTE | 2020-09-12 08:41 | WPDNEURORHBP ---
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 The patient is a 74-year-old male with past medical history of hypertension who presented to [facility] on 07/22/2020 with right hemiplegia. NIHSS was [address] was unremarkable. MRI showed evidence of diffusion restriction in the left anterior medulla without flare correlation. Patient fell outside the windows of the tPA utilization. MRA showed no evidence of large vessel occlusion, though perfusion scanning showed delayed filling affecting a large portion of the left cerebellum. 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 Patient was admitted under Neurology and placed on aspirin, atorvastatin. Lovenox for DVT PPX. CAROLA showed normal ejection fraction with diastolic dysfunction. Cardiology recommended a 30 day event monitor in an outpatient setting. This will need to be arranged at time of discharge from ARU. Patient was discharged from [place] to [place] on 08/01/2020. Patient began showing improvements in mobility and function. long-term facility course demonstrated muscle spasm being treated with p.r.n. Flexeril and acetaminophen. Elevated transaminase felt to be due to initiation of a statin. Weight loss of approximately 25 lb. Decreased appetite due to change in taste and smell patient was placed on omeprazole, Reglan, and nutritional juice b.i.d. per dietary recommendation. Patient noted to have severe profound vitamin-D deficiency and was started on agustin dosing D2 3 times per week for 1 month with repeat vitamin-D level prior to transfer. Patient's Vit D on admission was sufficient. Will supplement with Vit D and multivitamin Plans are for patient to be discharged home with hired caregivers 247. Patient more alert. Endurance is better. Review of Systems Constitutional: Constitutional: Reports weakness ENT: Reports dysphagia ( resolved) Cardiovascular: Cardiovascular: Reports no additional cardiovascular complaints Respiratory: Respiratory: Reports no additional respiratory complaints Gastrointestinal: Gastrointestinal: Reports dysphagia ( resolved) Genitourinary: Genitourinary: Reports no additional male genitourinary complaints Neurologic: Reports weakness Psychiatric: Psychiatric: Reports no additional psychiatric complaints Functional Status Ambulation Ability Ability to Ambulate 10 Feet: Minimum Assistance X 1 Ambulation Assistive Devices: Parallel Bars Exam Const: General: comfortable and no acute distress Eyes: EOM: EOMs intact bilaterally Neck: Neck: supple Resp: Auscultation: clear to auscultation bilaterally Cardio: Rate: regular rate Rhythm: regular rhythm GI: Auscultation: normal bowel sounds Other: Obese Neuro: Cognition (Neuro): abnormal cognition Speech: normal speech Other: Right upper extremity is in a flexor synergy pattern. Deep tendon reflexes are brisk to the right upper extremity. Shoulder shrug is trace. Elbow flexion and extension are 2/5 wrist flexion and extension is 1/5. Finger flexion is 2/5 with extension 0/5. Right hip extension is 4 flexion is 2/5 knee flexion 2/5and extension are 3 /5 ankle 1/5 Extrem: Other: LUE/LLE 4/5 Psych: Affect: normal affect Objective Data Vital Signs Vital Signs: Vital Signs - 24 hr 09/11/20 14:00 09/11/20 22:00 09/12/20 06:00 Temperature 36.3 C L 36.0 C L 36.0 C L Pulse Rate 89 84 81 Respiratory Rate 20 20 16 Blood Pressure 117/59 L 101/61 109/64 Pulse Oximetry 97 94 93 Intake/Output Intake/Output: Intake & Output 09/09/20 09/10/20 09/11/20 09/12/20 23:59 23:59 23:59 23:59 Intake Total 360 600 480 240 Balance 360 600 480 240 Meds/Results Medications: Active Medications Generic Name Dose Route Start Last Admin Trade Name Keyurq PRN Reason Stop Dose Admin Acetaminophen 650 mg 09/04/20 15:53 Acetaminophen 325 Mg Tab
[2020-09-12] MEDS: amLODIPine BESYLATE 5 MG TABLET PO (10:16)
[2020-09-12] MEDS: ASPIRIN 325 MG TABLET PO (10:16)
[2020-09-12] MEDS: POTASSIUM CHLORIDE 20 MEQ TABLET.ER PO (10:17)
[2020-09-12] MEDS: MULTIVITAMINS THERAPEUTIC TAB (*BKC) 1 TABLET PO (10:18)
[2020-09-12] MEDS: PANTOPRAZOLE 40 MG TABLET PO (10:18)
[2020-09-12] MEDS: METOCLOPRAMIDE HCL 5 MG TABLET PO (10:18)
[2020-09-12] MEDS: ATORVASTATIN 40 MG TABLET 80 MG PO (10:40)
--- NOTE | 2020-09-12 11:20 | PCDIET ---
Patient still c/o feeling full. 2 meal records saved from 09/11/20 with less than 200kcal and 9g protein consumed. Encouraged small, frequent calorie dense meals and Frozen Nutritional Treat. Patient did not receive Ensure Clear with breakfast and is not willing to try it. Does not feel he could tolerate it. If medically appropriate, would consider trial of alternative appetite stimulant. If no improvement, may need to consider enteral feeds. Patient did state that peanut butter cups sound good and RD provided.
[2020-09-12 14:00] VITALS: BP 137/75; PULSE 92; RESP 16; TEMP 36.4; O2SAT 96
--- NOTE | 2020-09-12 14:08 | PCPTNOTE ---
Darline Lopez PTA completed an inpatient rehab wheelchair evaluation on Matti Vergara on 09/12/2020. The patient is unable to safely and independently ambulate household distances due to their current impairments. Their diagnosis is CVA and their impairments include decreased strength, decreased endurance, decreased range of motion, decreased balance, lower extremity weakness, and ataxia. Matti's weight bearing status is weight-bearing as tolerated on the bilateral lower legs. The patient demonstrates significant functional mobility limitations that impair their ability to participate in mobility-related activities of daily living (MRADLs), including toileting, feeding, dressing, grooming, and bathing in the customary locations in the home. These limitations cannot be sufficiently resolved by the use of an appropriately fitted cane or walker. It is recommended that the patient utilize a wheelchair for functional mobility within the home in order to facilitate optimal safety, independence and participation in all MRADL's and adequately access their home environment on a regular basis. The patient's home provides adequate access between rooms, maneuvering space, and surfaces to accommodate the recommended wheelchair. The use of a wheelchair for functional mobility is strongly recommended and the patient is receptive to using the wheelchair. The use of this wheelchair will significantly improve the patient's ability to participate in MRADLS and the patient will use it on a regular basis in the home. This will facilitate optimal safety, independence, and participation. The patient has demonstrated sufficient physical and mental capabilities needed to safely propel a manual wheelchair that is provided in the home during a typical day. Recommended Wheelchair Frame: STANDARD Recommended Wheelchair Size: 18X18 INCH WIDTH AND DEPTH, 23 INCH HEIGHT, Pt's height 6ft 1in. Recommended Wheelchair Cushion: STANDARD Wheelchair Leg Recommendations: BILATERAL SWING AWAY LEG RESTS -Anti-tippers are recommended due to patient demonstrating increased risk for falls. They would benefit from anti-tippers with added safety and stabilization. -Adjustable arm height is recommended because the patient requires an arm height that is different than that which is available using non-adjustable arms. The patient spends at least 2 hours per day in the wheelchair. Darline Lopez PTA 09/12/20 Evaluating Therapist Date I agree with and certify that the above recommendation is medically necessary. Referring Physician Date I agree with and certify that the above recommendation is medically necessary. Referring Physician Date
[2020-09-12 22:00] VITALS: BP 134/106; PULSE 84; RESP 18; TEMP 36.3; O2SAT 96
[2020-09-13 06:00] VITALS: BP 109/60; PULSE 85; RESP 16; TEMP 36; O2SAT 97
[2020-09-13 08:00] VITALS: O2SAT 96
[2020-09-13] MEDS: ASPIRIN 325 MG TABLET PO (10:47)
[2020-09-13] MEDS: METOCLOPRAMIDE HCL 5 MG TABLET PO (10:47)
[2020-09-13] MEDS: ATORVASTATIN 40 MG TABLET 80 MG PO (10:47)
[2020-09-13] MEDS: amLODIPine BESYLATE 5 MG TABLET PO (10:47)
[2020-09-13] MEDS: POTASSIUM CHLORIDE 20 MEQ TABLET.ER PO (10:47)
[2020-09-13] MEDS: polyethylene glycoL 3350 17 GM POWD.PACK PO (10:48)
[2020-09-13] MEDS: PANTOPRAZOLE 40 MG TABLET PO (10:48)
[2020-09-13] MEDS: MULTIVITAMINS THERAPEUTIC TAB (*BKC) 1 TABLET PO (10:48)
[2020-09-13 14:00] VITALS: BP 118/64; PULSE 80; RESP 18; TEMP 36.6; O2SAT 96
--- NOTE | 2020-09-13 14:14 | PCDIET ---
Patient continues to eat poorly, roughly 200kcal at each meal ticket saved. If aggressive nutritional therapy is desired, recommend enteral feeding. Will follow along closely and provide additional recommendations, as needed.
--- NOTE | 2020-09-13 15:11 | WPDNEURORHBP ---
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 The patient is a 74-year-old male with past medical history of hypertension who presented to [facility] on 07/22/2020 with right hemiplegia. NIHSS was [address] was unremarkable. MRI showed evidence of diffusion restriction in the left anterior medulla without flare correlation. Patient fell outside the windows of the tPA utilization. MRA showed no evidence of large vessel occlusion, though perfusion scanning showed delayed filling affecting a large portion of the left cerebellum. 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 Patient was admitted under Neurology and placed on aspirin, atorvastatin. Lovenox for DVT PPX. CAROLA showed normal ejection fraction with diastolic dysfunction. Cardiology recommended a 30 day event monitor in an outpatient setting. This will need to be arranged at time of discharge from ARU. Patient was discharged from [place] to [place] on 08/01/2020. Patient began showing improvements in mobility and function. retirement facility course demonstrated muscle spasm being treated with p.r.n. Flexeril and acetaminophen. Elevated transaminase felt to be due to initiation of a statin. Weight loss of approximately 25 lb. Decreased appetite due to change in taste and smell patient was placed on omeprazole, Reglan, and nutritional juice b.i.d. per dietary recommendation. Patient noted to have severe profound vitamin-D deficiency and was started on agustin dosing D2 3 times per week for 1 month with repeat vitamin-D level prior to transfer. Patient's Vit D on admission was sufficient. Will supplement with Vit D and multivitamin Plans are for patient to be discharged home with hired caregivers 247. Patient more alert. Endurance is better. Review of Systems Constitutional: Constitutional: Reports weakness ENT: Reports dysphagia ( resolved) Cardiovascular: Cardiovascular: Reports no additional cardiovascular complaints Respiratory: Respiratory: Reports no additional respiratory complaints Gastrointestinal: Gastrointestinal: Reports dysphagia ( resolved) Genitourinary: Genitourinary: Reports no additional male genitourinary complaints Neurologic: Reports weakness Psychiatric: Psychiatric: Reports no additional psychiatric complaints Functional Status Ambulation Ability Ability to Ambulate 10 Feet: Minimum Assistance X 1 Ambulation Assistive Devices: Walker, Wheeled Exam Const: General: comfortable and no acute distress Eyes: EOM: EOMs intact bilaterally Neck: Neck: supple Resp: Auscultation: clear to auscultation bilaterally Cardio: Rate: regular rate Rhythm: regular rhythm GI: Auscultation: normal bowel sounds Other: Obese Neuro: Cognition (Neuro): abnormal cognition Speech: normal speech Other: Right upper extremity is in a flexor synergy pattern. Deep tendon reflexes are brisk to the right upper extremity. Shoulder shrug is trace. Elbow flexion and extension are 2/5 wrist flexion and extension is 1/5. Finger flexion is 2/5 with extension 0/5. Right hip extension is 4 flexion is 2/5 knee flexion 2/5and extension are 3 /5 ankle 1/5 Extrem: Other: LUE/LLE 4/5 Psych: Affect: normal affect Objective Data Vital Signs Vital Signs: Vital Signs - 24 hr 09/12/20 22:00 09/13/20 06:00 09/13/20 08:00 Temperature 36.3 C L 36.0 C L Pulse Rate 84 85 Respiratory Rate 18 16 Blood Pressure 134/106 H 109/60 Pulse Oximetry 96 97 96 09/13/20 14:00 Temperature 36.6 C Pulse Rate 80 Respiratory Rate 18 Blood Pressure 118/64 Pulse Oximetry 96 Intake/Output Intake/Output: Intake & Output 09/10/20 09/11/20 09/12/20 09/13/20 23:59 23:59 23:59 23:59 Intake Total 600 480 580 440 Balance 600 480 580 440 Meds/Results Medications: Active Medications Generic Name Dose Route Start Last Admin Trade Na
[2020-09-13 22:00] VITALS: BP 101/65; PULSE 87; RESP 16; TEMP 36.2; O2SAT 91
[2020-09-14 06:00] VITALS: BP 126/62; PULSE 79; RESP 16; TEMP 36.7; O2SAT 94
[2020-09-14] MEDS: ATORVASTATIN 40 MG TABLET 80 MG PO (10:12)
[2020-09-14] MEDS: POTASSIUM CHLORIDE 20 MEQ TABLET.ER PO (10:12)
[2020-09-14] MEDS: ASPIRIN 325 MG TABLET PO (10:12)
[2020-09-14] MEDS: amLODIPine BESYLATE 5 MG TABLET PO (10:12)
[2020-09-14] MEDS: MULTIVITAMINS THERAPEUTIC TAB (*BKC) 1 TABLET PO (10:13)
[2020-09-14] MEDS: METOCLOPRAMIDE HCL 5 MG TABLET PO (10:13)
[2020-09-14] MEDS: PANTOPRAZOLE 40 MG TABLET PO (10:13)
[2020-09-14] MEDS: polyethylene glycoL 3350 17 GM POWD.PACK PO (10:13)
--- NOTE | 2020-09-14 11:20 | WPDNEURORHBP ---
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 The patient is a 74-year-old male with past medical history of hypertension who presented to [facility] on 07/22/2020 with right hemiplegia. NIHSS was [address] was unremarkable. MRI showed evidence of diffusion restriction in the left anterior medulla without flare correlation. Patient fell outside the windows of the tPA utilization. MRA showed no evidence of large vessel occlusion, though perfusion scanning showed delayed filling affecting a large portion of the left cerebellum. 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 Patient was admitted under Neurology and placed on aspirin, atorvastatin. Lovenox for DVT PPX. CAROLA showed normal ejection fraction with diastolic dysfunction. Cardiology recommended a 30 day event monitor in an outpatient setting. This will need to be arranged at time of discharge from ARU. Patient was discharged from [place] to [place] on 08/01/2020. Patient began showing improvements in mobility and function. senior care facility course demonstrated muscle spasm being treated with p.r.n. Flexeril and acetaminophen. Elevated transaminase felt to be due to initiation of a statin. Weight loss of approximately 25 lb. Decreased appetite due to change in taste and smell patient was placed on omeprazole, Reglan, and nutritional juice b.i.d. per dietary recommendation. Patient noted to have severe profound vitamin-D deficiency and was started on agustin dosing D2 3 times per week for 1 month with repeat vitamin-D level prior to transfer. Patient's Vit D on admission was sufficient. Will supplement with Vit D and multivitamin Plans are for patient to be discharged home with hired caregivers 247. Patient complains of left sided rib pain. Pain is reproduced with touching head of rib next to sternum. Patient is cooperative and in NAD Review of Systems Constitutional: Constitutional: Reports weakness ENT: Reports dysphagia ( resolved) Cardiovascular: Cardiovascular: Reports no additional cardiovascular complaints Respiratory: Respiratory: Reports no additional respiratory complaints Gastrointestinal: Gastrointestinal: Reports dysphagia ( resolved) Genitourinary: Genitourinary: Reports no additional male genitourinary complaints Neurologic: Reports weakness Psychiatric: Psychiatric: Reports no additional psychiatric complaints Functional Status Ambulation Ability Ability to Ambulate 10 Feet: Minimum Assistance X 1 Ambulation Assistive Devices: Walker, Wheeled Exam Narrative: Exam Narrative: pain with palpation over sternocostal joint. MSK edema and imbalance noted Const: General: comfortable and no acute distress Eyes: EOM: EOMs intact bilaterally Neck: Neck: supple Resp: Auscultation: clear to auscultation bilaterally Cardio: Rate: regular rate Rhythm: regular rhythm GI: Auscultation: normal bowel sounds Other: Obese Neuro: Cognition (Neuro): abnormal cognition Speech: normal speech Other: Right upper extremity is in a flexor synergy pattern. Deep tendon reflexes are brisk to the right upper extremity. Shoulder shrug is trace. Elbow flexion and extension are 2/5 wrist flexion and extension is 1/5. Finger flexion is 2/5 with extension 0/5. Right hip extension is 4 flexion is 2/5 knee flexion 2/5and extension are 3 /5 ankle 1/5 Extrem: Other: LUE/LLE 4/5 Psych: Affect: normal affect Objective Data Vital Signs Vital Signs: Vital Signs - 24 hr 09/13/20 14:00 09/13/20 22:00 09/14/20 06:00 Temperature 36.6 C 36.2 C L 36.7 C Pulse Rate 80 87 79 Respiratory Rate 18 16 16 Blood Pressure 118/64 101/65 126/62 Pulse Oximetry 96 91 94 Intake/Output Intake/Output: Intake & Output 09/11/20 09/12/20 09/13/20 09/14/20 23:59 23:59 23:59 23:59 Intake Total 480 943 680 240 Balance 480 495 680 240 Med
--- NOTE | 2020-09-14 11:46 | PCDIET ---
Nutrition Follow-Up Complete: Nutrition Diagnosis: Difficulty swallowing related to recent stroke as evidenced by patient consuming 20% of meals and stating having troubles swallowing. Nutrition Goal: Patient to consume at least 75% of meals. Goal not met. No calorie count tickets saved, but meal records indicate patient consumed 25-50% of meals on 09/13/20. While inadequate, this is somewhat improved from previous days. Recommend continuing regular diet with Frozen Nutritional Treat BID. If patient agreeable, recommend feeding tube placement for supplemental nutrition support. Jevity 1.2 at goal of 65mL/hr x 22 hours/day would provide 1716kcal and 79g protein daily which, with current intakes, would meet estimated needs. Last recorded weight is 96.1 kg. Recommend obtaining new weight. Bowel Motility: Last documented BM on 09/13/20. Labs Reviewed: Alb (3.4) Meds Noted: Norvasc, Lipitor, MVI, Miralax, Senna, KCl, Reglan, Protonix Additional Notes: No skin breakdown documented. Will continue to monitor with same goal. Nutrition Monitoring and Evaluation: Will follow up in 5 days.
[2020-09-14 14:00] VITALS: BP 116/56; PULSE 76; RESP 18; TEMP 36; O2SAT 96
[2020-09-14 16:11] LABS: SARS-CoV-2 RNA PCR Negative
[2020-09-14 20:00] VITALS: PULSE 93; RESP 16; O2SAT 94
[2020-09-14 21:03] VITALS: BP 102/62; PULSE 93; RESP 16; TEMP 35.9; O2SAT 94
[2020-09-14 22:07] LABS: Glucose Point of Care 130 mg/dl (65-105)
[2020-09-15 05:53] VITALS: BP 102/66; PULSE 82; RESP 16; TEMP 36.1; O2SAT 98
--- NOTE | 2020-09-15 09:08 | PM.DS ---
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): Code(s): I69.319 - Unspecified symptoms and signs involving cognitive functions following cerebral infarction Status: Acute Assessment and Plan: OT ST (4) Hypertension: Code(s): I10 - Essential (primary) hypertension Status: Acute Assessment and Plan: Norvasc (5) Transaminitis: Code(s): R74.01 - Elevation of levels of liver transaminase levels Status: Acute Assessment and Plan: follow labs may need to decrease dose of statin ALT 96 ALT 59 on 09/12/20 (6) Vitamin D deficiency: Code(s): E55.9 - Vitamin D deficiency, unspecified Status: Acute Assessment and Plan: sufficient Vit D level .Will add MVI with D (7) Hyperlipidemia: Code(s): E78.5 - Hyperlipidemia, unspecified Status: Acute Assessment and Plan: lipitor. Follow liver enzymes, may need to decrease (8) Weight loss: Code(s): R63.4 - Abnormal weight loss Status: Acute Assessment and Plan: follow, patient is overweight and ideal weight is imperative in view of Right hemiplegia. Appetite is poor and will need to have adequate caloric intake. Marinol trial with little change. Marinol was d/c (9) Decreased appetite: Code(s): R63.0 - Anorexia Status: Acute Assessment and Plan: Follow closely. Consider Megace at SNF (10) Hypokalemia: Code(s): E87.6 - Hypokalemia Status: Acute Assessment and Plan: On supplement. 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 The patient is a 74-year-old male with past medical history of hypertension who presented to [facility] on 07/22/2020 with right hemiplegia. NIHSS was [address] was unremarkable. MRI showed evidence of diffusion restriction in the left anterior medulla without flare correlation. Patient fell outside the windows of the tPA utilization. MRA showed no evidence of large vessel occlusion, though perfusion scanning showed delayed filling affecting a large portion of the left cerebellum. 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 Patient was admitted under Neurology and placed on aspirin, atorvastatin. Lovenox for DVT PPX. CAROLA showed normal ejection fraction with diastolic dysfunction. Cardiology recommended a 30 day event monitor in an outpatient setting. This will need to be arranged at time of discharge from ARU. Patient was discharged from [place] to [place] on 08/01/2020. Patient began showing improvements in mobility and function. snf facility course demonstrated muscle spasm being treated with p.r.n. Flexeril and acetaminophen. Elevated transaminase felt to be due to initiation of a statin. Weight loss of approximately 25 lb. Decreased appetite due to change in taste and smell patient was placed on omeprazole, Reglan, and nutritional juice b.i.d. per dietary recommendation. Patient noted to have severe profound vitamin-D deficiency and was started on agustin dosing D2 3 times per week for 1 month with repeat vitamin-D level prior to transfer. Patient's Vit D on admission was sufficient. Will supplement with Vit D and multivitamin Plans are for patient to be discharged home with hired caregivers 247. REHAB HOSPITAL COURSE Appetite remained poor. Marinol was added with little change and
[2020-09-15] MEDS: ASPIRIN 325 MG TABLET PO (09:20)
[2020-09-15] MEDS: amLODIPine BESYLATE 5 MG TABLET PO (09:20)
[2020-09-15] MEDS: POTASSIUM CHLORIDE 20 MEQ TABLET.ER PO (09:20)
[2020-09-15] MEDS: ATORVASTATIN 40 MG TABLET 80 MG PO (09:20)
[2020-09-15] MEDS: MULTIVITAMINS THERAPEUTIC TAB (*BKC) 1 TABLET PO (09:20)
--- NOTE | 2020-09-15 10:46 | PC.NURSE ---
Report called to Nikki Molina (nurse Rohini). Patient is going via [facility] to room 404. Orders faxed as well.
== END 2020-09-15 12:30 | DRG 57 ==
PROVIDERS: Admitting Provider Physical Medicine & Rehabilitation; PCP Surgery; Visit Provider Physical Medicine & Rehabilitation
DX: I69.351 Hemiplegia and hemiparesis following cerebral infarction affecting right dominant side (principal); I69.322 Dysarthria following cerebral infarction; I10 Essential (primary) hypertension; I67.1 Cerebral aneurysm, nonruptured; I44.0 Atrioventricular block, first degree; E55.9 Vitamin D deficiency, unspecified; Z87.891 Personal history of nicotine dependence; Z20.822 Contact with and (suspected) exposure to COVID-19
CPT/HCPCS: 36415; 80053; 80061; 82306; 82948; 85025; 92507; 92523; 92610; 97110; 97116; 97129; 97130; 97161; 97165; 97530; 97535; 97542; A9270; C9803; U0003; U0005

== ENCOUNTER 2020-10-08 02:00 | Inpatient (IN) | payer MEDICARE, SELFPAY ==
[2020-10-08] VITALS (16 sets, daily range): BP systolic 77–174; BP diastolic 39–141; PULSE 45–88; RESP 15–21; TEMP 36–36.8; O2SAT 19–100; BMI 23.8
--- NOTE | ~2020-10-08 | CT_ITS ---
EXAMINATION: CT abdomen pelvis wo con DATE: 10/10/2020 09:32 INDICATION: Abdominal pain and leukocytosis TECHNIQUE: Computed tomography (CT) of the abdomen and pelvis was performed without intravenous contr ast. Automated exposure control and iterative reconstruction technique were employed. The dose-length product was 1385.19 mGy-cm. COMPARISON: None FINDINGS: Small bilateral pleural effusions with dependent compressive atelectasis in the bilateral lower lobes . There is a region of less dense airspace disease at the posterior medial basilar left lower lobe wh ich could represent atelectasis although pneumonia not excludable. Band of discoid atelectasis at the lingula. Heart size is normal. No pericardial effusion. Atherosclerotic coronary artery calcificatio n. There is also aortic valve calcification. Lipomatous hypertrophy of the interatrial septum. 1.3 si milar cyst at the dome of the liver. Gallbladder is dilated to 6.3 cm with pericholecystic inflammato ry stranding which could be related to acute cholecystitis. The inflammatory stranding extends to the region of the head of the pancreas with small amount of peripancreatic fluid consistent with acute i nterstitial pancreatitis. Several tiny dystrophic calcifications in the body and tail the pancreas wh ich are likely sequela of chronic pancreatitis. Spleen and bilateral adrenal glands are normal. Likel y age-related mild bilateral renal atrophy. 3 cm parapelvic cyst at the left renal hilum. Fluid-fille d colon consistent with diarrhea. There a few scattered colonic diverticula without significant surro unding inflammatory stranding to suggest diverticulitis. There is a focal region of wall thickening a t the mid sigmoid colon which raises concern for malignancy. Gas and a Ness catheter is seen within the partially decompressed bladder. Small amount of ascites probably around the liver and in the deep pelvis. No abscess or free intraperitoneal gas. There is calcified atherosclerosis of the aorta and many of the other arteries. Moderate sized fat-containing right inguinal hernia. Several Schmorl's no malaika and chronic appearing compression fractures in the lumbar and lower thoracic spine. Mild thoracol umbar spondylosis. IMPRESSION: 1. Dilated gallbladder with pericholecystic inflammatory stranding consistent with acute cholecystiti s. Correlate for Torres sign. 2. Additional peripancreatic nonloculated fluid and stranding suspicious for acute interstitial pancr eatitis with evidence of early or chronic pancreatitis. Correlate with amylase and lipase levels. 3. Short segment of irregular wall thickening at the mid sigmoid colon suspicious for malignancy. Wou ld recommend further evaluation with colonoscopy when clinically improved. 4. Small amount of ascites in the abdomen and pelvis. 5. Moderate-sized fat-containing right inguinal hernia. Reviewed, dictated and finalized at location A. IMPRESSION: 1. Dilated gallbladder with pericholecystic inflammatory stranding consistent w ith acute cholecystitis. Correlate for Torres sign. 2. Additional peripancreatic nonloculated fluid and stranding suspicious for ac [place] interstitial pancreatitis with evidence of early or chronic pancreatitis. C orrelate with amylase and lipase levels. 3. Short segment of irregular wall thickening at the mid sigmoid colon suspicio us for malignancy. Would recommend further evaluation with colonoscopy when cli nically improved. 4. Small amount of ascites in the abdomen and pelvis. 5. Moderate-sized fat-containing right inguinal hernia.
--- NOTE | ~2020-10-08 | CT_ITS ---
EXAMINATION: CT abdomen pelvis wo/w con DATE: 10/08/2020 10:22 INDICATION: Gross hematuria TECHNIQUE: Computed tomography (CT) of the abdomen and pelvis was performed without intravenous contr ast. CT of the abdomen and pelvis was then performed with a total of 130 mL Omnipaque 350 intravenous contrast using a double-bolus technique for simultaneous opacification of the renal parenchyma and r enal collecting system. The dose-length product (DLP) was 1716.72 mGy-cm. Automated exposure control and iterative reconstruction technique were employed. COMPARISON: None FINDINGS: There is a small left pleural effusion. Minimal airspace opacities are noted in the left leonila ng base. The heart size is normal. Calcified coronary artery atherosclerosis is noted. There is a 12 mm cyst in the liver. The spleen,, gallbladder, and adrenal glands are normal. Punctate calcification s of the pancreas are consistent with chronic pancreatitis. No stones are identified in the kidneys, ureters, or bladder. There is no hydronephrosis or hydroureter. There is a Ness catheter in the blad cathryn. A large amount of mixed attenuation material is seen in the bladder on precontrast images, some of which is moderately hyperdense. On postcontrast images, there is lacelike insinuation of contrast into the area of mixed attenuation in the urinary bladder. The right ureter is not opacified. Contras t on the right does not progress beyond the renal pelvis although no definite mass is identified. The re is wall thickening of the urinary bladder. There is thrombus in the right common femoral and femoral veins. There is an area of irregular wall t hickening in the proximal sigmoid colon. There is calcified atherosclerosis of the aorta and many of the other arteries. There is no free intraperitoneal gas or evidence of bowel obstruction. No patholo gically enlarged abdominal or pelvic lymph nodes are identified. There is mild lumbar spondylosis. IMPRESSION: 1. Large amount of mixed attenuation material in the urinary bladder, likely hematoma. Underlying mas s is not excluded. 2. Partially visualized deep venous thrombosis on the right. Right lower extremity ultrasound is benigno mmended. 3. Irregular wall thickening of the sigmoid colon concerning for malignancy. Correlation with colonos copy is recommended. These findings and recommendations were discussed with Rosibel Muñoz at 1047 hours on 10/08/2020. Reviewed, dictated and finalized at location A. IMPRESSION: 1. Large amount of mixed attenuation material in the urinary bladder, likely he matoma. Underlying mass is not excluded. 2. Partially visualized deep venous thrombosis on the right. Right lower extrem ity ultrasound is recommended. 3. Irregular wall thickening of the sigmoid colon concerning for malignancy. Co rrelation with colonoscopy is recommended. These findings and recommendations were discussed with Rosibel Muñoz at 104 7 hours on 10/08/2020.
--- NOTE | ~2020-10-08 | US_ITS ---
EXAMINATION: US perc cholecystostomy w imag DATE: 10/10/2020 17:01 INDICATION: Acute cholecystitis. TECHNIQUE: Consent was obtained from a family member. The skin overlying the liver and gallbladder wa s prepped and draped in usual sterile fashion. Anesthetic was administered with 1% lidocaine subcuta neously. An 8.5 Fr catheter was inserted into the gallbladder by trocar technique. The metal stiffen er and trocar needle were removed, and the pigtail tip was locked. Bile was aspirated and sent for cu lture. The catheter was stitched to the skin with suture. There were no immediate complications. FINDINGS: Ultrasound images demonstrate the catheter within the gallbladder. 5 mL bile was aspirated. IMPRESSION: 1. Successful ultrasound-guided cholecystostomy tube placement. 2. 5 mL black bile was sent for aerobic and anaerobic cultures. 3. The catheter will be managed by Dr. Connolly. A catheter cholangiogram may be performed not less than 48 hours after tube placement if clinically indicated to assess cystic duct patency. If cholecystecto my is not eventually performed and the infectious episode has resolved, the tube may be removed over a guidewire, preferably not less than 3 weeks after placement to allow time for a mature catheter tra ct to form to prevent bile leakage and peritonitis. Reviewed, dictated and finalized at location A. IMPRESSION: 1. Successful ultrasound-guided cholecystostomy tube placement. 2. 5 mL black bile was sent for aerobic and anaerobic cultures. 3. The catheter will be managed by Dr. Connolly. A catheter cholangiogram may be pe rformed not less than 48 hours after tube placement if clinically indicated to assess cystic duct patency. If cholecystectomy is not eventually performed and the infectious episode has resolved, the tube may be removed over a guidewire, preferably not less than 3 weeks after placement to allow time for a mature cat heter tract to form to prevent bile leakage and peritonitis.
--- NOTE | ~2020-10-08 | XR_ITS ---
EXAMINATION: XR abdomen/kub 1V INDICATION: Gross hematuria TECHNIQUE: Supine views of the abdomen were obtained on three radiographs. COMPARISON: None FINDINGS: There are multiple phleboliths of the pelvis. No definite urolithiasis is identified. The b owel gas pattern is normal. The visualized lung bases are clear. There is mild osteoarthritis of the hips. IMPRESSION: 1. No urolithiasis identified. Reviewed, dictated and finalized at location A.
--- NOTE | ~2020-10-08 | US_ITS ---
EXAMINATION: US renal BI DATE: 10/08/2020 16:09 INDICATION: Hematuria. TECHNIQUE: Multiple ultrasound grayscale images of the kidneys were obtained. COMPARISON: CT abdomen and pelvis 10/08/2020 FINDINGS: The right kidney measures 12.8 x 5.2 x 5.6 cm. The left kidney measures 11.4 x 5.7 x 7.4 cm. The kidn eys demonstrate normal parenchymal echogenicity. There is no hydronephrosis. The bladder is decompres sed by a Ness catheter. IMPRESSION: 1. Normal kidney sizes. No hydronephrosis. Reviewed, dictated and finalized at location A.
--- NOTE | ~2020-10-08 | XR_ITS ---
EXAMINATION: XR catheter cholangiogram DATE: 10/15/2020 12:11 INDICATION: Acute cholecystitis. TECHNIQUE: I injected the percutaneous cholecystostomy tube with water-soluble contrast under fluoros copic guidance. 6 fluoroscopic images were obtained. Fluoroscopy exposure time was 0.4 minutes. COMPARISON: CT abdomen and pelvis 10/10/2020 FINDINGS: The percutaneous cholecystostomy tube is in expected position. There are filling defects in the gallbladder, consistent with stones versus sludge. The cystic duct is occluded. IMPRESSION: 1. Occluded cystic duct. Percutaneous cholecystostomy tube in expected position. Reviewed, dictated and finalized at location A. IMPRESSION: 1. Occluded cystic duct. Percutaneous cholecystostomy tube in expected position .
--- NOTE | ~2020-10-08 | XR_ITS ---
EXAMINATION: XR chest 1V INDICATION: Leukocytosis TECHNIQUE: AP view of the chest is obtained. COMPARISON: CT from today FINDINGS: There are patchy opacities of the lung bases. Trace pleural effusions are better visualized on the comparison CT from today. There is no pneumothorax. The heart size is normal. IMPRESSION: 1. Patchy opacities of the lung bases, consistent with atelectasis versus pneumonia. Reviewed, dictated and finalized at location A. IMPRESSION: 1. Patchy opacities of the lung bases, consistent with atelectasis versus pneum onia.
--- NOTE | ~2020-10-08 | US_ITS ---
EXAMINATION: US venous doppler [facility] DATE: 10/08/2020 12:38 INDICATION: Lower limb swelling TECHNIQUE: Abraham scale images without and with compression and Doppler images of the bilateral lower e xtremity veins were obtained. COMPARISON: None FINDINGS: There is thrombosis of the right common femoral vein, profunda femoral vein, femoral vein, popliteal vein, and posterior tibial veins. The peroneal veins are not demonstrated. The greater saphenous vein is patent. The left common femoral vein, profunda femoral vein, femoral vein, popliteal vein, posterior tibial v eins, and greater saphenous vein are patent. The peroneal veins are not demonstrated. IMPRESSION: 1. Deep venous thrombosis of the right common femoral through posterior tibial veins. 2. No evidence of deep venous thrombosis on the left. These findings were discussed with Dr. Van Marks MD at 1255 hours on 10/08/2020. Reviewed, dictated and finalized at location A. IMPRESSION: 1. Deep venous thrombosis of the right common femoral through posterior tibial veins. 2. No evidence of deep venous thrombosis on the left. These findings were discussed with Dr. Van Marks MD at 1255 hours on .
[2020-10-08 02:47] LABS: Basophils Percent Auto 0.1 % (0.2-1.2); Eosinophils Percent Auto 0.1 % (0-4.4); Hematocrit 37.6 % (42.0-52.0); Immature Granulocyte Absolute 0.12 K/mm3 (0.00-0.031); Immature Granulocyte Percent A 0.9 % (0-0.5); Lymphocytes Absolute Auto 2.05 K/mm3 (0.9-3.2); Lymphocytes Percent Auto 15.3 % (18.3-44.2); Mean Corpuscular HGB Conc 31.9 g/dl (32-36); Mean Corpuscular Hemoglobin 29.3 pg (26-34); Mean Corpuscular Volume 91.9 fl (80-100); Mean Platelet Volume 11.1 fl (7.4-10.4); Monocytes Absolute Auto 1.4 K/mm3 (0.1-0.6); Monocytes Percent Auto 10.4 % (2.6-8.5); Neutrophils Absolute Auto 9.8 K/mm3 (1.3-6.7); Neutrophils Percent Auto 73.2 % (45.5-73.1); Platelet Count Result 336 k/mm3 (150-375); Red Blood Count 4.09 M/mm3 (4.6-6.20); Red Cell Distribution Width 14.4 % (11.5-14.5); White Blood Count 13.4 K/mm3 (4.5-10.0)
[2020-10-08 02:57] LABS: Add Urine Microscopic? YES; Anion Gap 11 mmol/L (8-16); Appearance Urine Cloudy (Clear); Bilirubin Urine Negative (Negative); Blood Urea Nitrogen 31 mg/dL (9-20); Blood Urine 3+ (Negative); Calcium 9.4 mg/dL (8.4-10.2); Carbon Dioxide 23 mmol/L (22-30); Chloride 99 mmol/L (98-107); Color Urine Red (Yellow); Estimated CRCL calculation 45 ml/min; Estimated Glomerular Filt Rate 49; Glucose 124 mg/dL (75-110); Glucose Urine UA Negative (Negative); Ketones Urine Negative (Negative); Leukocyte Esterase Ur 2+ LEU/UL (Negative); Nitrate Urine Negative (Negative); Potassium 4.6 mmol/L (3.4-5.0); Protein Urine 3+ mg/dL (Negative); RBC Urine >75 /hpf (0-2); Sodium 133 mmol/L (137-145); Specific Grav Ur 1.012 (1.001-1.035); Urobilinogen Urine Negative mg/dL (<2.0); WBC Clumps Urine Present /HPF; WBC Urine >75 /hpf
[2020-10-08] MEDS: SODIUM CHLORIDE 0.9% IV 1,000 ML 999 ML IV CONT (03:23)
--- NOTE | 2020-10-08 03:55 | ED.MALEGU ---
HPI - Male Genitourinary General Chief complaint: Urogenital-Male Stated complaint: HEMATURIA Time Seen by Provider: 10/08/20 02:00 History of Present Illness HPI Narrative: Patient is a 75-year-old male who presents to the ER with hematuria. He has been having overflow incontinence over the last 24 hours that has been bloody. Patient has history of CVA with right-sided hemiplegia and issues with comprehension. Patient has no complaints of pain at this time but says he has to urinate. He is oriented x3. He takes an aspirin daily. No other blood thinners. No reports of fever. Related Data Home Medications Medication Instructions Recorded Confirmed acetaminophen [Tylenol] 650 mg PO Q4H PRN 09/04/20 09/04/20 amlodipine 5 mg PO DAILY 09/04/20 09/04/20 aspirin 325 mg PO DAILY 09/04/20 09/04/20 atorvastatin 80 mg PO DAILY 09/04/20 09/04/20 polyethylene glycol 3350 [Miralax] 17 g PO DAILY 09/04/20 09/04/20 potassium chloride 20 meq PO DAILY 09/04/20 09/04/20 sennosides [senna] 8.6 mg PO BID PRN 09/04/20 09/04/20 Allergies Allergy/AdvReac Type Severity Reaction Status Date / Time No Known Allergies Allergy Verified 09/04/20 10:32 Review of Systems Review of Systems: ROS unobtainable: Yes unobtainable due to medical condition PMFSH Past Medical History Medical History (Updated 10/08/20 @ 04:27 by Estrada Burkett MD) 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 They live in a multilevel home with 1 step to enter. The patient then has 6 stairs up or down to the bedroom or bathroom. The patient was completely independent prior to this CVA requiring no assistive device. The patient family have decided that the patient will return home after air you with assistance from family and/or hired caregivers. A contractor has been Ruben to work on home assess abilities that the patient can live on the main level of their home. Private duty caregivers will be secured for 247 care for the patient and his . Son is supportive. Patient was a former smoker quit in 1990. Smoking status: Former smoker Tobacco type: cigarettes Alcohol intake: current Drinks per week: 7 Substance use: never Gender identity (if verbalized by the patient): Male Spiritual care concerns: No Exam Narrative: Exam Narrative: GENERAL: Well-appearing, well-nourished, and in no acute distress. HEAD: Normocephalic, atraumatic. EYES: PERRL and EOMI. ENT: Mucous membranes moist. CHEST: Clear to auscultation. No respiratory distress. HEART: Regular rate and rhythm. Normal peripheral pulses. ABDOMEN: Firm distended bladder with mild discomfort, normal active bowel sounds. EXTREMITIES: Right-sided hemiplegia. No edema. SKIN: Warm, dry, no rash. NEURO: Alert and oriented x3. Course Course Emergency Course: Patient had 3400 mL of urine that was bloody removed from his bladder with three-way catheter. Clamping occurred after each 1000 mL. Patient then underwent CBI which removed some small clots. We will continue CBI and give ceftriaxone. Urology be consulted in the morning, and he will admit to hospitalist service. Vital Signs Vital signs: Vital Signs Temperature 96.8 F L 10/08/20 02:00 Pulse Rate 88 10/08/20 02:00 Respiratory Rate 18 10/08/20 02:00 Blood Pressure 117/96 H 10/08/20 02:00 Pulse Oximetry 19 L 10/08/20 02:00 Temperature 96.8 F L 10/08/20 02:00 Pulse Rate 71 10/08/20 03:24 Respiratory Rate 18 10/08/20 03:24 Blood Pressure 117/64 10/08/20 03:24 Pulse Oximetry 97 10/08/20 03:24
[2020-10-08] MEDS: SODIUM CHLORIDE 0.9% IV 1,000 ML 125 ML IV CONT (05:17)
--- NOTE | 2020-10-08 05:26 | PM.IMHP ---
H&P: HPI History of Present Illness Date/Time: 10/08/20 05:26 Chief Complaint: Hematuria Narrative: Patient is a 75-year-old male who presents to the ER for evaluation of hematuria. He has been noted to have incontinence of urine over the past day or so which has been bloody. Patient has a history of CVA with right-sided hemiplegia and is not so oriented currently. I do not know his baseline orientation. He reports no other urinary complaints like dysuria or frequency of urination. He denies any abdominal pain or any previous history of bloody urine in the past. He only takes an aspirin a day and no other anticoagulants. No history of fever or chills reported H in the ER he was catheterized with a Ness catheter removal of more than 3 L of his bladder. He had transient hypotension with this however quickly recovered. He is getting an IV fluid from the ER. Since the urine was still bloody he was started on CBI in the ER which is currently on Review of Systems Review of Systems: Narrative: - CONSTITUTIONAL: Denies weight loss, fever and chills. - HEENT: Denies changes in vision and hearing - RESPIRATORY: Denies SOB and cough. - CV: Denies palpitations and CP. - GI: Denies abdominal pain, nausea, vomiting and diarrhea. - : Denies dysuria and urinary frequency. Reports hematuria - MSK: Denies myalgia and joint pain. - SKIN: Denies rash and pruritus. - NEUROLOGICAL: Denies headache and syncope. - PSYCHIATRIC: Denies recent changes in mood. Denies anxiety and depression. 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 They live in a multilevel home with 1 step to enter. The patient then has 6 stairs up or down to the bedroom or bathroom. The patient was completely independent prior to this CVA requiring no assistive device. The patient family have decided that the patient will return home after air you with assistance from family and/or hired caregivers. A contractor has been Ruben to work on home assess abilities that the patient can live on the main level of their home. Private duty caregivers will be secured for 247 care for the patient and his . Son is supportive. Patient was a former smoker quit in 1990. Smoking packs per day: 2 Smoking cigarettes per day: 40.0 Years smoked: 20 Smoking pack-years: 40.00 Smoking status: Former smoker Tobacco type: cigarettes Alcohol intake: current Drinks per week: 3 Substance use: never Gender identity (if verbalized by the patient): Male Spiritual care concerns: No Meds Home Medications and Allergies Home Medications Medication Instructions Recorded Confirmed Type acetaminophen [Tylenol] 650 mg PO Q4H PRN 09/04/20 09/04/20 History amlodipine 5 mg PO DAILY 09/04/20 09/04/20 History aspirin 325 mg PO DAILY 09/04/20 09/04/20 History atorvastatin 80 mg PO DAILY 09/04/20 09/04/20 History polyethylene glycol 3350 [Miralax] 17 g PO DAILY 09/04/20 09/04/20 History potassium chloride 20 meq PO DAILY 09/04/20 09/04/20 History sennosides [senna] 8.6 mg PO BID PRN 09/04/20 09/04/20 History multivitamin with folic acid 1 tablet PO QAM #30 tablet 09/14/20 Rx [Thera] omeprazole 40 mg PO DAILY 10/08/20 10/08/20 History Allergies
--- NOTE | 2020-10-08 05:49 | PC.NURSE ---
This patient, Matti Vergara, was admitted to [facility] Surg Room 325-01. Patient/family oriented to hospital policies and general routines including ID bracelet, bed and alarms, visiting hours, pain management, procedures, bathroom and other care routines, personal items, smoking policy, room service/diet, and visiting hours. Information on how to activate the Rapid Response Team has been discussed. Patient/Family are encouraged to report perceived risks to care and to ask questions if they do not understand what they are told or what they should do. CBI going urine smith red and flow increased to clear urine.
--- NOTE | 2020-10-08 09:39 | PM.IMPN ---
Progress Note: A&P Assessment and Plan (1) Acute urinary retention: Code(s): R33.8 - Other retention of urine Status: Acute Assessment and Plan: Patient with 3L urine in his bladder. He did not appear to be too bothered by this to suggest neurogenic rather than obstructive process. Ness placed. Urology following. (2) Hematuria: Code(s): R31.9 - Hematuria, unspecified Status: Acute Assessment and Plan: Patient with gross heamturia. Most likely from bladder over-distention but can not exclude bladder CA or BPH. CBI running and seems to clear at times then more dark red to suggest intravesical hematoma. Possible cystoscopy for hematoma evacuation. Repeat HH today. CT A/P ordered CT showing large amount of mixed attenuation material in the urinary bladder, likely hematoma, a partially visualized RLE DVT and an irregular wall thickening of the sigmoid colon concerning for malignancy. Check BLE venous doppler. GI consult. Discuss with urology. Late entry: Spoke with Dr Snyder later in the day and he felt comfortable with Heparin. Also spoke with Dr Wall who was okay with Heparin but to stop at 7AM for colonoscopy at noon on 10/09/20. Spoke with JIA Cortes and Heparin drip started without bolus with further instructions to stop at 7AM. (3) Acute UTI: Code(s): N39.0 - Urinary tract infection, site not specified Status: Acute Assessment and Plan: UA noted. UCx collected. Being covered with Rocephin. Follow up on urine culture and narrow abx as needed. (4) GILBERTO (acute kidney injury): Code(s): N17.9 - Acute kidney failure, unspecified Status: Acute Assessment and Plan: Cr 1.4 on admission. Baseline Cr 0.8. Currently on IV fluids. Continue IV fluids but will decrease rate this morning. (5) Hemiplegia affecting right dominant side: Code(s): G81.91 - Hemiplegia, unspecified affecting right dominant side Status: Acute Assessment and Plan: Pateitn with hx of recent CVA (07/22/20). MRI showed evidence of diffusion restriction in the left anterior medulla. Patient fell outside the windows of the tPA. CAROLA showed normal ejection fraction with diastolic dysfunction. Patient currently resides at [facility]. Contineu Lipitor. Conrad hold ASA until bleeding stops. (6) Hypertension: Code(s): I10 - Essential (primary) hypertension Status: Acute Assessment and Plan: Patient's blood pressure was reviewed on 10/08. Blood pressure remains well controlled. Will continue current medications. (7) DVT prophylaxis: Code(s): Z29.9 - Encounter for prophylactic measures, unspecified Status: Acute Assessment and Plan: SCDs Subjective Date/time seen: 10/08/20 09:39 Interval history: 75yo male with hx of recent CVA here for gross hematuria and severe urine retention. Patient is alert but mildly confused and thus hx suspect. He states he has never had hematuria before. He has no hx of BPH or prostate CA. He denies weak urinary stream. No CP or SOB. No n/v. Exam Narrative: Exam Narrative: AF 97.2 107/64 84 16 97% ra Gen - NARD lying semi-recumbent in bed Chest - lungs clear anteriorly and in the flanks. nml RR. no conversational dyspnea CV - RRR S1/S2 with occas extra beat. Abd - Soft, NT/ND, Positive BS - Ness secured with dark red blood with clots in tubing at times Ext - trace right pedal edema Neuro - Alert and oriented x3 (not month). perseverates at times. thick right hemiplegia. [facility] AND [place] [facility] Psych - nml mood, odd affect Skin - Warm and dry Objective Data Vital Signs Vital Signs: Vital Signs - 24 hr 10/08/20 02:00 10/08/20 03:24 10/08/20 05:00 Temperature 96.8 F L 96.9 F L Pulse Rate 88 71 84 Respiratory Rate 18 18 18 Blood Pressure 117/96 H 117/64 114/65 Pulse Oximetry 19 L 97 99 10/08/20 05:07 Temperature 97.2 F L Pulse Rate 84
[2020-10-08 11:50] LABS: Hematocrit 31.4 % (42.0-52.0); Hemoglobin 9.8 g/dL (14.0-18.0)
--- NOTE | 2020-10-08 12:01 | WPDURCON ---
Assessment and Plan Assessment and plan (1) Acute urinary retention: Code(s): R33.8 - Other retention of urine Status: Acute Assessment and Plan: Keep 3 way catheter in at this time. Will plan to proceed to the OR for: Cystoscopy with clot evacuation. Obtain consent. keep NPO. We discussed the likelihood of a neurogenic bladder secondary to CVA and the need for a possible indwelling catheter with monthly changes indefinitely, he demonstrates an understand of this. (2) Hematuria: Code(s): R31.9 - Hematuria, unspecified Status: Acute Assessment and Plan: Unable to clear his bladder clot with manual irrigation at the bedside, this also caused him moderate to severe pain. Unfortunately, a right DVT was found, therefore he will need anticoagulation therapy or a vena cava filter placed, will discuss with Dr. Snyder and form a plan with Dr. Marks for management of the DVT and gross hematuria. (3) Acute UTI: Code(s): N39.0 - Urinary tract infection, site not specified Status: Acute Assessment and Plan: Continue IV antbiotics, tailor antibiotics to culture results. (4) GILBERTO (acute kidney injury): Code(s): N17.9 - Acute kidney failure, unspecified Status: Acute Assessment and Plan: Will continue to follow, likely to improve since blanton is now placed. Urology Consult Note HPI Date Seen: 10/08/20 Requesting Physician: Dimitri Marks MD Primary Care Provider: Patel Benavides MD Consult Narrative Narrative: Matti Vergara is a 75 year old male who presented to the ER early this morning for overflow incontinence and bloody urine x2 days and sudden inability to urinate. He was previously in inpatient rehab here at [facility]. He denies any symptoms of retention or BPH prior to his stroke or after his stroke. He was urinating well as far as he knew. He didn't get up at night excessively, urinate often during the day, have incontinence, strain, have hesitancy or UTI's. He denies dysuria, flank pain or fever at this time. Subsequently, after a 3 way blanton was placed, 3400cc of bloody urine was noted on return, his UA is indicative of a UTI, urine culture is pending, he is afebrile and creatinine is 1.40. CBI is running but not irrigating well, he continues to pass small clots, have bladder spasms and his catheter will clot off. Even with manual irrigation, it is difficult to irrigate his blanton and causes him moderate pain. His CT abdomen/pelvis reveals a large amount of mixed attenuation material in the urinary bladder, likely hematoma. Underlying mass is not excluded, a partially visualized deep venous thrombosis on the right, and irregular wall thickening of the sigmoid colon concerning for malignancy. The patient is A&O x 2, but is unaware of where he is and what month it is. He responds appropriately to all questions asked, but is unable to provide a through medical history, all information was obtained from his chart. 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
--- NOTE | 2020-10-08 12:39 | WPDANESEPPF ---
Anes - Initial Pre Proc Eval Procedure: Operation Date: 10/08/20 13:00 Proposed Procedures p Cystoscopy, Evacuation Bladder Clots - Alex Snyder MD Date/Time: 10/08/20 12:40 Surgeon: Dimitri Marks MD Pre Op Diagnosis: acute urinary retention, tito, hematuria Patient Data Age: 75 Gender: M Height: 1.85 m Weight: 82.1 kg Last Vital Signs Temp 36.2 C L 10/08/20 05:07 Pulse 84 10/08/20 05:07 Resp 16 10/08/20 05:07 BP 107/64 10/08/20 05:07 Pulse Ox 97 10/08/20 05:07 Allergies Allergy/AdvReac Type Severity Reaction Status Date / Time No Known Allergies Allergy Verified 09/04/20 10:32 Home Medications Medication Instructions Recorded Confirmed Type acetaminophen [Tylenol] 650 mg PO Q4H PRN 09/04/20 10/08/20 History amlodipine 5 mg PO DAILY 09/04/20 10/08/20 History aspirin 325 mg PO DAILY 09/04/20 10/08/20 History atorvastatin 80 mg PO DAILY 09/04/20 10/08/20 History polyethylene glycol 3350 [Miralax] 17 g PO DAILY 09/04/20 10/08/20 History potassium chloride 20 meq PO DAILY 09/04/20 10/08/20 History sennosides [senna] 8.6 mg PO BID PRN 09/04/20 10/08/20 History multivitamin with folic acid 1 tablet PO QAM #30 tablet 09/14/20 10/08/20 Rx [Thera] omeprazole 40 mg PO DAILY 10/08/20 10/08/20 History Laboratory Tests 10/08/20 10/08/20 10/08/20 02:30 02:30 02:30 WBC 13.4 K/mm3 H K/mm3 (4.5-10.0) RBC 4.09 M/mm3 L M/mm3 (4.6-6.20) Hgb 12.0 g/dL L g/dL (14.0-18.0) Hct 37.6 % L % (42.0-52.0) MCV 91.9 fl fl (80-100) MCH 29.3 pg pg (26-34) MCHC 31.9 g/dl L g/dl (32-36) RDW 14.4 % % (11.5-14.5) Plt Count 336 k/mm3 D k/mm3 (150-375) MPV 11.1 fl H fl (7.4-10.4) Immature Gran % (Auto) 0.9 % H % (0-0.5) Neut % (Auto) 73.2 % H % (45.5-73.1) Lymph % (Auto) 15.3 % L % (18.3-44.2) Lee % (Auto) 10.4 % H % (2.6-8.5) Eos % (Auto) 0.1 % % (0-4.4) Baso % (Auto) 0.1 % L % (0.2-1.2) Lymph # (Auto) 2.05 K/mm3 K/mm3 (0.9-3.2) Lee # (Auto) 1.4 K/mm3 H K/mm3 (0.1-0.6) Eos # (Auto) 0.0 K/mm3 K/mm3 (0-0.3) Baso # (Auto) 0.0 K/mm3 K/mm3 (0.0-0.1) Abs Immat Gran (auto) 0.12 K/mm3 H K/mm3 (0.00-0.031) Absolute Neuts (auto) 9.8 K/mm3 H K/mm3 (1.3-6.7) Absolute Nucleated RBC 0.0 K/mm3 K/mm3 (0.0-0.012) Nucleated RBC % 0.0 % % (0.0-0.2) Sodium 133 mmol/L L mmol/L (137-145) Potassium 4.6 mmol/L mmol/L (3.4-5.0) Chloride 99 mmol/L mmol/L (98-107) Carbon Dioxide 23 mmol/L mmol/L (22-30) Anion Gap 11 mmol/L mmol/L (8-16) BUN 31 mg/dL H D mg/dL (9-20) Creatinine 1.40 mg/dL H mg/dL (0.7-1.3) Estim Creat Clear Calc 45 ml/min ml/min Estimated GFR 49 L (59 - ) Glucose 124 mg/dL H mg/dL (75-110) Calcium 9.4 mg/dL mg/dL (8.4-10.2) Urine Color Red H (Yellow) Urine Appearance Cloudy H (Clear) Urine pH 8.0 (5.0-9.0) Ur Specific [place] 1.012 (1.001-1.035) Urine Protein 3+ mg/dL H mg/dL (Negative) Urine Glucose (UA) Negative mg/dL mg/dL (Negative) Urine Ketones Negative mg/dL mg/dL (Negative) Ur Blood (Man) 3+ H (Negative) Urine Nitrate Negative (Negative) Urine Bilirubin Negative (Negative) Urine Urobilinogen Negative mg/dL mg/dL (<2.0) Leukocyte Esterase Rfl 2+ HETAL/UL H HETAL/UL (Negative) Urine RBC >75 /hpf H /hpf (0-2) Urine WBC >75 /hpf H /hpf Urine WBC Clumps Present /HPF H /HPF (None) 10/08/20 11:42 WBC RBC Hgb 9.8 g/dL L g/dL (14.0-18.0) Hct 31.4 % L % (42.0-52.0) MCV MCH M
--- NOTE | 2020-10-08 12:45 | PC.NURSE ---
To OR via stretcher.
--- NOTE | 2020-10-08 13:06 | WPDHPUPDATE1 ---
History and Physical Update Update Date/Time: 10/08/20 13:06 History and Physical has been reviewed, including an updated exam of the patient. There are NO changes in the patient's condition. Risks, benefits, and alternatives have been discussed and questions answered. Patient agrees to proceed with procedure.
[2020-10-08] MEDS: LACTATED RINGERS 1,000 ML 30 ML IV CONT (13:09)
--- NOTE | 2020-10-08 13:50 | W.PM.PROC2 ---
Procedure Note - Detailed Date of Procedure 10/08/20 Pre-op Diagnosis acute urinary retention, tito, gross hematuria Post-op Diagnosis same Procedure Performed cystoscopy with evacuation of clots Surgeon Alex Snyder MD Anesthesia MAC Indications this is a gentleman the hospital for gross hematuria and urinary retention. He has a large amount of clot in his bladder. This is unable be irrigated. He is here today for clot evacuation Findings 400 cc of clot within the bladder. No bladder pathology Description of Procedure he was correctly identified and informed consent obtained. From the operating room. He was given mac anesthesia. He is placed in dorsal thigh position. All pressure points were padded. He was given appropriate perioperative antibiotics. A time-out performed. Examination is urethra was normal. He had a small of prostate with lateral lobes. I entered his bladder. There is a large amount of clot. This was evacuated with a Kang syringe. There was for 400 cc of clot in total. Once the clot was removed I performed a cystoscopy. He had moderate trabeculations. He had a very large capacity bladder. There is no other bladder pathology. There is no tumors. There is no active bleeding. There is also no active bleeding in his prostate. I replaced a 3 way catheter to continuous bladder irrigation. He was awakened and transferred the PACU in stable condition. Implants None Estimated Blood Loss 1 Drains Yes ( 3 way catheter for CBI) Packing No Pathology none sent Complications No immediate complications Condition stable Disposition PACU
[2020-10-08] MEDS: LABETALOL HCL INJ 100 MG/20 ML VIAL 10 MG IV PUSH (14:20)
--- NOTE | 2020-10-08 14:36 | SUR.PHASEI ---
NOTE: ANY CHARTING DONE IN PACU SRATING AT 1352 UNTIL 1425 WAS DOCUMENTED BY joao DURAN
--- NOTE | 2020-10-08 15:05 | PC.NURSE ---
Back from OR via stretcher. Report received from Sonia RO. CBI infusing urine clear yellow.
--- NOTE | 2020-10-08 16:11 | WPDGICN ---
Assessment and Plan Assessment and plan (1) Abnormal CT scan, gastrointestinal tract: Code(s): R93.3 - Abnormal findings on diagnostic imaging of other parts of digestive tract Status: Acute Assessment and Plan: CT shows thckening of sigmoid colon. Malignancy must be ruled out. 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 (5) DVT (deep venous thrombosis): Code(s): I82.409 - Acute embolism and thrombosis of unspecified deep veins of unspecified lower extremity Status: Acute Assessment and Plan: Doppler shows deep vein thrombosis, right femoral to popliteal and post. tibial, thus he'll need antcoagulaton post procedures. GI Consult Note Consult date/time: 10/08/20 16:11 HPI: Matti Vergara is a 75 year old male who was initially admitted through the ER with urinary incontinence and hematuria. Hehad a CT scan showing abnormal thickening of the sgmoid colon. He denies diarrea, bloody stools, or abdominal pain. He cannot recall when he had his llast colonoscopy, but it was quite a while ago. Denies vomiting, dysphagia, or weight loss. His history is a bit disjointed His sentence structure is a bit confusing. He has overflow incontinence, a blood clot in bladder, and DVT. 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 They live in a multilevel home with 1 step to enter. The patient then has 6 stairs up or down to the bedroom or bathroom. The patient was completely independent prior to this CVA requiring no assistive device. The patient family have decided that the patient will return home after air you with assistance from family and/or hired caregivers. A contractor has been Ruben to work on home assess abilities that the patient can live on the main level of their home. Private duty caregivers will be secured for 247 care for the patient and his . Son is supportive. Patient was a former smoker quit in 1990. Smoking packs per day: 2 Smoking cigarettes per day: 40.0 Years smoked: 20 Smoking pack-years: 40.00 Smoking status: Former smoker Tobacco type: cigarettes Alcohol intake: current Drinks per week: 3 Substance use: never Gender identity (if verbalized by the patient): Male Spiritual care concerns: No Meds Home Medications and Allergies Home Medications Medication Instructions Recorded Confirmed Type acetaminophen [Tylenol] 650 mg PO Q4H PRN 09/04/20 10/08/20 History amlodipine 5 mg PO DAILY 09/04/20 10/08/20 History aspirin 325 mg PO DAILY 09/04/20 10/08/20 History atorvastatin 80 mg PO DAILY 09/04/20 10/08/20 History polyethylene
[2020-10-08] MEDS: PEG (High)/E-LYTE SOLN 4,000 ML BTL 3000 ML PO (17:24)
[2020-10-08] MEDS: PANTOPRAZOLE 40 MG TABLET PO (17:27)
[2020-10-08 18:22] LABS: Basophils Percent Auto 0.2 % (0.2-1.2); Eosinophils Absolute Auto 0.1 K/mm3 (0-0.3); Eosinophils Percent Auto 0.4 % (0-4.4); Hematocrit 31.1 % (42.0-52.0); Hemoglobin 9.9 g/dL (14.0-18.0); Immature Granulocyte Absolute 0.12 K/mm3 (0.00-0.031); Lymphocytes Absolute Auto 1.82 K/mm3 (0.9-3.2); Lymphocytes Percent Auto 15.2 % (18.3-44.2); Mean Corpuscular HGB Conc 31.8 g/dl (32-36); Mean Corpuscular Hemoglobin 29.4 pg (26-34); Mean Corpuscular Volume 92.3 fl (80-100); Monocytes Absolute Auto 1.3 K/mm3 (0.1-0.6); Neutrophils Absolute Auto 8.6 K/mm3 (1.3-6.7); Neutrophils Percent Auto 72.2 % (45.5-73.1); Platelet Count Result 261 k/mm3 (150-375); Red Blood Count 3.37 M/mm3 (4.6-6.20); Red Cell Distribution Width 14.6 % (11.5-14.5)
[2020-10-08 18:22] LABS: Hematocrit 30.5 % (42.0-52.0); Hemoglobin 9.8 g/dL (14.0-18.0)
[2020-10-08 18:32] LABS: INR 1.2; Prothrombin Time 15.5 Seconds (11.1-14.7)
[2020-10-08 18:33] LABS: Partial Thromboplastin Time 31.1 SECONDS (22.3-36.8)
[2020-10-08] MEDS: HEPARIN SOD/D5W 100 UNITS/ML 25,000 UNITS/250 ML BAG 15 UNITS IV CONT (19:01)
[2020-10-08] MEDS: SODIUM CHLORIDE 0.9% IV 1,000 ML 70 ML IV CONT (20:23)
[2020-10-08] MEDS: MORPHINE SULFATE (*CRX) 4 MG/ML INJ IV PUSH (20:31)
[2020-10-09 01:32] LABS: Hematocrit 30.5 % (42.0-52.0); Hemoglobin 9.7 g/dL (14.0-18.0)
[2020-10-09 01:44] LABS: Partial Thromboplastin Time 42.4 SECONDS (22.3-36.8)
[2020-10-09] MEDS: HEPARIN SODIUM 5,000 UNITS/ML VIAL 6500 UNITS IV PUSH (03:37)
[2020-10-09 06:00] VITALS: BP 117/60; PULSE 89; RESP 16; TEMP 37.1; O2SAT 96
[2020-10-09 06:44] LABS: Basophils Percent Auto 0.1 % (0.2-1.2); Eosinophils Percent Auto 0.1 % (0-4.4); Hemoglobin 10.8 g/dL (14.0-18.0); Immature Granulocyte Percent A 1.1 % (0-0.5); Lymphocytes Absolute Auto 0.69 K/mm3 (0.9-3.2); Lymphocytes Percent Auto 2.5 % (18.3-44.2); Mean Corpuscular HGB Conc 32.7 g/dl (32-36); Mean Corpuscular Hemoglobin 29.5 pg (26-34); Mean Corpuscular Volume 90.2 fl (80-100); Mean Platelet Volume 11.5 fl (7.4-10.4); Monocytes Absolute Auto 1.3 K/mm3 (0.1-0.6); Monocytes Percent Auto 4.7 % (2.6-8.5); Neutrophils Absolute Auto 24.7 K/mm3 (1.3-6.7); Neutrophils Percent Auto 91.5 % (45.5-73.1); Platelet Count Result 313 k/mm3 (150-375); Red Blood Count 3.66 M/mm3 (4.6-6.20); Red Cell Distribution Width 14.5 % (11.5-14.5); White Blood Count 27.1 K/mm3 (4.5-10.0)
[2020-10-09 06:52] LABS: Alanine Aminotransferase 63 U/L (4-50); Albumin Level 2.9 g/dL (3.5-5.1); Alkaline Phosphatase 264 U/L (38-126); Anion Gap 10 mmol/L (8-16); Aspartate Amino Transferase 91 U/L (17-59); Bilirubin,Total 1.2 mg/dL (0.2-1.3); Blood Urea Nitrogen 14 mg/dL (9-20); Calcium 8.4 mg/dL (8.4-10.2); Carbon Dioxide 23 mmol/L (22-30); Chloride 103 mmol/L (98-107); Estimated CRCL calculation 86 ml/min; Estimated Glomerular Filt Rate > 60; Glucose 118 mg/dL (75-110); Potassium 3.1 mmol/L (3.4-5.0); Sodium 136 mmol/L (137-145)
[2020-10-09 08:30] LABS: Partial Thromboplastin Time > 200.0 SECONDS (22.3-36.8)
[2020-10-09] MEDS: MAGNESIUM CITRATE 300 ML BTL PO (08:37)
[2020-10-09] MEDS: ATORVASTATIN 40 MG TABLET 80 MG PO (08:44)
[2020-10-09] MEDS: ASPIRIN 81 MG ENTERIC TABLET PO (08:44)
[2020-10-09] MEDS: PANTOPRAZOLE 40 MG TABLET PO (08:44)
[2020-10-09] MEDS: polyethylene glycoL 3350 17 GM POWD.PACK PO (08:44)
--- NOTE | 2020-10-09 08:51 | WPDANESPN ---
Anes - Prog Note Post-Op Date/Time: 10/09/20 08:51 Cardiovascular status: normal Respiratory status: normal Airway patency: baseline Mental status: baseline Post-Op hydration status: normal Vital Signs: Last Vital Signs Temp 37.1 C 10/09/20 06:00 Pulse 89 10/09/20 06:00 Resp 16 10/09/20 06:00 BP 117/60 10/09/20 06:00 Pulse Ox 96 10/09/20 06:00 Pain Score (VAS): 3 I/O: Intake & Output 10/08/20 10/09/20 10/09/20 23:59 07:59 15:59 Intake Total 1500 Output Total 725 2000 Balance 775 -2000 Laboratory Tests 10/09/20 06:08 10/09/20 06:08 10/08/20 10/08/20 10/08/20 11:42 18:07 18:11 WBC 12.0 H RBC 3.37 L Hgb 9.8 L 9.8 L 9.9 L Hct 31.4 L 30.5 L 31.1 L MCV 92.3 MCH 29.4 MCHC 31.8 L RDW 14.6 H Plt Count 261 MPV 11.0 H Immature Gran % (Auto) 1.0 H Neut % (Auto) 72.2 Lymph % (Auto) 15.2 L [place] % (Auto) 11.0 H Eos % (Auto) 0.4 Baso % (Auto) 0.2 Lymph # (Auto) 1.82 [place] # (Auto) 1.3 H Eos # (Auto) 0.1 Baso # (Auto) 0.0 Abs Immat Gran (auto) 0.12 H Absolute Neuts (auto) 8.6 H Absolute Nucleated RBC 0.0 Nucleated RBC % 0.0 PT INR APTT Sodium Potassium Chloride Carbon Dioxide Anion Gap BUN Creatinine Estim Creat Clear Calc Estimated GFR Glucose Calcium Total Bilirubin AST ALT Alkaline Phosphatase Total Protein Albumin 10/08/20 10/09/20 10/09/20 18:11 01:19 01:19 WBC RBC Hgb 9.7 L Hct 30.5 L MCV MCH MCHC RDW Plt Count MPV Immature Gran % (Auto) Neut % (Auto) Lymph % (Auto) [place] % (Auto) Eos % (Auto) Baso % (Auto) Lymph # (Auto) [place] # (Auto) Eos # (Auto) Baso # (Auto) Abs Immat Gran (auto) Absolute Neuts (auto) Absolute Nucleated RBC Nucleated RBC % PT 15.5 H INR 1.2 APTT 31.1 42.4 H Sodium Potassium Chloride Carbon Dioxide Anion Gap BUN Creatinine Estim Creat Clear Calc Estimated GFR Glucose Calcium Total Bilirubin AST ALT Alkaline Phosphatase Total Protein Albumin 10/09/20 10/09/20 10/09/20 06:08 06:08 07:38 WBC 27.1 H RBC 3.66 L Hgb 10.8 L Hct 33.0 L MCV 90.2 MCH 29.5 MCHC 32.7 RDW 14.5 Plt Count 313 MPV 11.5 H Immature Gran % (Auto) 1.1 H Neut % (Auto) 91.5 H Lymph % (Auto) 2.5 L [place] % (Auto) 4.7 Eos % (Auto) 0.1 Baso % (Auto) 0.1 L Lymph # (Auto) 0.69 L [place] # (Auto) 1.3 H Eos # (Auto) 0.0 Baso # (Auto) 0.0 Abs Immat Gran (auto) 0.30 H Absolute Neuts (auto) 24.7 H Absolute Nucleated RBC 0.0 Nucleated RBC % 0.0 PT INR APTT > 200.0 H* Sodium 136 L Potassium 3.1 L Chloride 103 Carbon Dioxide 23 Anion Gap 10 BUN 14 D Creatinine 0.70 Estim Creat Clear Calc 86 Estimated GFR > 60 Glucose 118 H Calcium 8.4 Total Bilirubin 1.2 AST 91 H ALT 63 H Alkaline Phosphatase 264 H Total Protein 6.0 L Albumin 2.9 L Post-procedural complaints: none Patient Feedback: Patient satisfied with anesthetic care.
--- NOTE | 2020-10-09 10:56 | PM.IMPN ---
Progress Note: A&P Assessment and Plan (1) DVT (deep venous thrombosis): Code(s): I82.409 - Acute embolism and thrombosis of unspecified deep veins of unspecified lower extremity Status: Acute Assessment and Plan: CT scan showing a partially visualized deep venous thrombosis on the right. Bilateral lower extremity ultrasound performed showing DVT of the right common femoral through posterior tibial veins. Once it was okay with Urology, Heparin started. Transition to Eliquis when able. (2) Abnormal CT scan, gastrointestinal tract: Code(s): R93.3 - Abnormal findings on diagnostic imaging of other parts of digestive tract Status: Acute Assessment and Plan: CT scan also showed an irregular wall thickening of the sigmoid colon concerning for malignancy. GI consulted with plans for colo today but no stool output with prep. Prep continues with possible colo in the morning. Appreciate GI input (3) Leukocytosis: Code(s): D72.829 - Elevated white blood cell count, unspecified Status: Acute Assessment and Plan: WBC 13K on admission and better last night. THis morning however, WBC jumped to 27K. No diarrhea despite prep. Related to infectious process less likely. Demargination from [facility]? Will follow for now. (4) Anemia: Code(s): D64.9 - Anemia, unspecified Status: Acute Assessment and Plan: Acute blood loss from the hematuria. Hgb 12 on admisison but has dropped to 9-10 range and appears to be remaining stable. Follow. 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 Monitor for now (6) Hematuria: Code(s): R31.9 - Hematuria, unspecified Status: Acute Assessment and Plan: Patient with gross hematuria. CT scan showing a large amount of mixed attenuation material in the urinary bladder, likely hematoma. Cystoscopy performed 10/08 with large clot evacuation (400cc). No active bleeding once clot removed. Urine is clearing. Toelrating the Heparin drip. Appreciate Urology input. Will need to be home with Ness. (7) Acute urinary retention: Code(s): R33.8 - Other retention of urine Status: Acute Assessment and Plan: Patient with 3L urine in his bladder. He did not appear to be too bothered by this to suggest neurogenic rather than obstructive process. Ness placed. As above. Urology following. (8) Acute UTI: Code(s): N39.0 - Urinary tract infection, site not specified Status: Acute Assessment and Plan: UA noted. UCx collected. Being covered with Rocephin. Follow up on urine culture and narrow abx as needed. (9) GILBERTO (acute kidney injury): Code(s): N17.9 - Acute kidney failure, unspecified Status: Acute Assessment and Plan: Cr 1.4 on admission. Baseline Cr 0.8. Currently on IV fluids. Cr better at 0.7 today. Monitor. (10) Hemiplegia affecting right dominant side: Code(s): G81.91 - Hemiplegia, unspecified affecting right dominant side Status: Acute Assessment and Plan: Pateitn with hx of recent CVA (07/22/20). MRI showed evidence of diffusion restriction in the left anterior medulla. Patient fell outside the windows of the tPA. CAROLA showed normal ejection fraction with diastolic dysfunction. Patient currently resides at [facility]. [facility] and ASA. (11) Hypertension: Code(s): I10 - Essential (primary) hypertension Status: Acute Assessment and Plan: Patient's blood pressure was reviewed on 10/09. Blood pressure was high yesterday after the procedure to 174/141. He did receive Labetolol kiel-operative. His BP dropped to 7
[2020-10-09] MEDS: SODIUM CHLORIDE 0.9% IV 1,000 ML 70 ML IV CONT (11:22)
--- NOTE | 2020-10-09 11:59 | WPDUROPN2 ---
Progress Note: A&P Assessment and Plan (1) Acute UTI: Code(s): N39.0 - Urinary tract infection, site not specified Status: Acute Assessment and Plan: Continue IV antibiotics, tailor to culture sensitivity. Will continue to monitor. (2) Hematuria: Code(s): R31.9 - Hematuria, unspecified Status: Acute Assessment and Plan: Improved, continue CBI, ok to wean to off when urine is clear. If urine would then return bloody, restart CBI. Will continue to monitor. (3) Acute urinary retention: Code(s): R33.8 - Other retention of urine Status: Acute Assessment and Plan: Likely secondary to recent CVA, will plan to keep blanton in place and do monthly changes until urodynamics can be done. We cannot perform urodynamics until he is able to get himself up to the exam table. 400cc of clot were removed from his bladder yesterday, this as resulted in normalizing his creatinine from 1.40 to 0.70, in addition to the catheter placement. Subjective Subjective Date/Time Seen: 10/09/20 11:59 POD #1 Cystoscopy with clot evacuation. Patient's urine appears much less bloody today and is without clots, although it appears cloudy. It is draining well to gravity on slow CBI. He is very lethargic today and is responsive but not willing to answer questions. Review of Systems Review of Systems: ROS unobtainable: Yes unobtainable due to medical condition Exam Resp: Effort & Inspection: normal respiratory effort Cardio: Rate: regular rate GI: GI Palp: Yes Soft to palpation and No Tenderness to palpation present (GI) : General: Yes bladder normal to inspection and Yes no CVA tenderness Urinary Catheter: Urinary Catheter: patent and draining, urine cloudy and urine red Extrem: General: edema right Objective Data Vital Signs Vital Signs: Vital Signs - 24 hr 10/08/20 13:52 10/08/20 14:05 10/08/20 14:20 Temperature 97.6 F Pulse Rate 87 83 80 Respiratory Rate 18 21 H Blood Pressure 126/107 H 174/137 H Pulse Oximetry 100 100 10/08/20 14:25 10/08/20 14:37 10/08/20 14:40 Temperature Pulse Rate 82 53 L 56 L Respiratory Rate 16 15 15 Blood Pressure 172/141 H 100/83 96/42 L Pulse Oximetry 98 100 99 10/08/20 15:05 10/08/20 15:20 10/08/20 15:50 Temperature 97.4 F L 97.6 F 97.6 F Pulse Rate 75 70 68 Respiratory Rate 16 16 16 Blood Pressure 77/39 L 88/50 L 92/48 L Pulse Oximetry 100 100 100 10/08/20 16:50 10/08/20 22:00 10/08/20 22:01 Temperature 97.8 F 98.2 F 98.2 F Pulse Rate 45 L 68 68 Respiratory Rate 16 16 18 Blood Pressure 98/60 L 123/61 123/61 Pulse Oximetry 100 97 97 10/09/20 06:00 Temperature 98.7 F Pulse Rate 89 Respiratory Rate 16 Blood Pressure 117/60 Pulse Oximetry 96 Intake/Output Intake/Output: Intake & Output 10/06/20 10/07/20 10/08/20 10/09/20 23:59 23:59 23:59 23:59 Intake Total 2650 1060 Output Total 2825 1999 [facility] [phone] Meds/Results Medications: Active Medications Generic Name Dose Route Start Last Admin Trade Name Freq PRN Reason Stop Dose Admin Acetaminophen 650 mg 10/08/20 06:06 Acetaminophen 325 Mg Tablet PO Q4H PRN Pain (Scale Score 1-3) Hydrocodone Bitart/Acetaminophen 1 tab 10/08/20 04:06 Hydrocodone/Acetaminophen (*Crx) 5-325 Mg Tablet PO Q4H PRN Pain Rated 4-6 Aspirin 81 mg 10/08/20 09:00 10/09/20 08:44 Aspirin 81 Mg Enteric Tablet PO 81 mg QAM LUI Administration Atorvastatin Calcium 80 mg 10/08/20 09:00 10/09/20 08:44 Atorvastatin 40 Mg Tablet PO 80 mg DAILY LUI Administration Fentanyl Citrate 25 mcg 10/08/20 12:39 Fentanyl Citrate Inj (*Crx) 100 Mcg/2 Ml Vial IV PUSH Q2M PRN Pain Heparin Sodium (Porcine) 6,500 units 10/08/20 18:02 10/09/20 03:37 Heparin Sodium 5,000 Units/Ml Vial IV PUSH 6,500 units PRN PRN Administration aPTT less than 55 seconds Heparin Sodium (Porcine) 3,500 units
[2020-10-09] MEDS: HEPARIN SOD/D5W 100 UNITS/ML 25,000 UNITS/250 ML BAG 16 UNITS IV CONT (15:00)
[2020-10-09 15:38] VITALS: BP 111/57; PULSE 103; RESP 14; TEMP 36.4; O2SAT 96
[2020-10-09 16:30] LABS: Partial Thromboplastin Time > 200.0 SECONDS (22.3-36.8)
[2020-10-09 22:00] VITALS: BP 116/84; PULSE 103; RESP 18; TEMP 36.7; O2SAT 95
[2020-10-10] VITALS (7 sets, daily range): BP systolic 103–118; BP diastolic 48–71; PULSE 70–105; RESP 18–20; TEMP 36.4–37.2; O2SAT 91–96
[2020-10-10 00:03] LABS: Partial Thromboplastin Time > 200.0 SECONDS (22.3-36.8)
[2020-10-10] MEDS: HEPARIN SOD/D5W 100 UNITS/ML 25,000 UNITS/250 ML BAG 12 UNITS IV CONT (01:15)
[2020-10-10] MEDS: SODIUM CHLORIDE 0.9% IV 1,000 ML 70 ML IV CONT ×2 (01:20→17:21)
[2020-10-10] MEDS: MORPHINE SULFATE (*CRX) 4 MG/ML INJ IV PUSH (03:14)
[2020-10-10 06:28] LABS: Hematocrit 31.7 % (42.0-52.0); Hemoglobin 10.7 g/dL (14.0-18.0); Immature Granulocyte Absolute 1.83 K/mm3 (0.00-0.031); Immature Granulocyte Percent A 3.4 % (0-0.5); Lymphocytes Percent Auto 1.9 % (18.3-44.2); Mean Corpuscular HGB Conc 33.8 g/dl (32-36); Mean Corpuscular Hemoglobin 30.5 pg (26-34); Mean Corpuscular Volume 90.3 fl (80-100); Mean Platelet Volume 10.9 fl (7.4-10.4); Monocytes Absolute Auto 1.9 K/mm3 (0.1-0.6); Monocytes Percent Auto 3.6 % (2.6-8.5); Neutrophils Absolute Auto 48.5 K/mm3 (1.3-6.7); Neutrophils Percent Auto 91.1 % (45.5-73.1); Platelet Count Result 268 k/mm3 (150-375); Red Blood Count 3.51 M/mm3 (4.6-6.20); Red Cell Distribution Width 14.8 % (11.5-14.5)
[2020-10-10 06:47] LABS: Alanine Aminotransferase 50 U/L (4-50); Albumin Level 2.8 g/dL (3.5-5.1); Alkaline Phosphatase 247 U/L (38-126); Anion Gap 6 mmol/L (8-16); Aspartate Amino Transferase 74 U/L (17-59); Bilirubin,Total 1.5 mg/dL (0.2-1.3); Blood Urea Nitrogen 17 mg/dL (9-20); Calcium 8.1 mg/dL (8.4-10.2); Carbon Dioxide 26 mmol/L (22-30); Chloride 105 mmol/L (98-107); Estimated CRCL calculation 68 ml/min; Estimated Glomerular Filt Rate > 60; Glucose 127 mg/dL (75-110); Magnesium 2.2 mg/dL (1.6-2.3); Phosphorus 3.1 mg/dL (2.5-4.5); Potassium 3.1 mmol/L (3.4-5.0); Sodium 137 mmol/L (137-145)
[2020-10-10 06:49] LABS: Platelet Estimate Adequate (Adequate); White Blood Count 53.3 K/mm3 (4.5-10.0)
[2020-10-10 06:50] LABS: Acanthocytes 1+ (NORMAL); Burr Cells 1+ (NORMAL); Ovalocytes 1+ (NORMAL)
[2020-10-10 07:07] LABS: Partial Thromboplastin Time > 200.0 SECONDS (22.3-36.8)
[2020-10-10 07:38] LABS: CRP 35.1 mg/dL (<1.0)
[2020-10-10 07:45] LABS: Folic Acid 3.3 ng/mL (2.76->20)
--- NOTE | 2020-10-10 07:49 | PC.NURSE ---
Dr. Marks paged to make aware of critical elevated WBC count, and PTT of 200. message left. waiting for response.
--- NOTE | 2020-10-10 09:00 | PM.IMPN ---
Progress Note: A&P Assessment and Plan (1) Leukocytosis: Code(s): D72.829 - Elevated white blood cell count, unspecified Status: Acute Assessment and Plan: WBC 13K on admission but increased to 27K yesterday. No fever or major concerns on exam to suggest source. No diarrhea to suggest CDiff. CT A/P did not show concern for infectious process. This morning however, WBC jumped to 53K with 91% PMNs; CRP 35. Still no diarrhea despite prep. Still no fevers. BP stable. Hgb stable. UOP difficult to assess given the CBI. Has more abd pain. Given his recent procedure, will repeat CT today. Also add CXR. And check BCx. CT scan showing evidence of acute cholecystitis. CXR findings more likely related to atelectasis. Lipase ordered. LA 1.7. Will change to Unasyn. GenSurg consult. Check RUQ. RN could not give oral potassium so she asked for IV. potassium 20mEq IV ordered. Follow WBC (2) DVT (deep venous thrombosis): Code(s): I82.409 - Acute embolism and thrombosis of unspecified deep veins of unspecified lower extremity Status: Acute Assessment and Plan: CT scan showing a partially visualized deep venous thrombosis on the right. Bilateral lower extremity ultrasound performed showing DVT of the right common femoral through posterior tibial veins. Heparin drip started after given the okay from Urology. Continue the same. Transition to Eliquis when able. Heparin >200 for multiple draws so Heparin held. Hgb stable and no evidence of recurrent bleeding (3) Abnormal CT scan, gastrointestinal tract: Code(s): R93.3 - Abnormal findings on diagnostic imaging of other parts of digestive tract Status: Acute Assessment and Plan: CT scan also showed an irregular wall thickening of the sigmoid colon concerning for malignancy. GI consulted with plans for colonoscopy. Appreciate GI input (4) Anemia: Code(s): D64.9 - Anemia, unspecified Status: Acute Assessment and Plan: Acute blood loss from the hematuria. Hgb 12 on admission but has dropped to 10 range and appears to be remaining stable. Follow. (5) Hematuria: Code(s): R31.9 - Hematuria, unspecified Status: Acute Assessment and Plan: Patient with gross hematuria. CT scan showing a large amount of mixed attenuation material in the urinary bladder, likely hematoma. Cystoscopy performed 10/08 with large clot evacuation (400cc). No active bleeding once clot removed. Urine is clearing. Tolerating the Heparin drip. Appreciate Urology input. Will need to be home with Ness. (6) Acute urinary retention: Code(s): R33.8 - Other retention of urine Status: Acute Assessment and Plan: Patient with 3L urine in his bladder. He did not appear to be too bothered by this to suggest neurogenic rather than obstructive process. Ness placed. As above. Urology following. (7) Acute UTI: Code(s): N39.0 - Urinary tract infection, site not specified Status: Acute Assessment and Plan: UA noted. UCx growing coag-negative staph. Being covered with Rocephin. Follow up on urine culture sensitivities. (8) GILBERTO (acute kidney injury): Code(s): N17.9 - Acute kidney failure, unspecified Status: Acute Assessment and Plan: Cr 1.4 on admission. Baseline Cr 0.8. Acute kidney injury related to obstructive process. Treated with Ness placement and IV fluids. Cr stable at 0.9 today. Monitor. (9) Hypertension: Code(s): I10 - Essential (primary) hypertension Status: Acute Assessment and Plan: Patient's blood pressure was reviewed on 10/10. Blood pressure was elevated after the procedure (10/08) to 174/141 and he did receive Labetolol kiel-operative. His BP dropped to 77/39 when back on the floor. BP did recover and has since remained well controlled. Amlodipine remains on hold. Will continue to monitor. (10) Cognitiv
[2020-10-10 10:46] LABS: Lactic Acid Reflex 1.7 mmol/L (0.7-2.1)
[2020-10-10 12:42] LABS: Partial Thromboplastin Time 113.6 SECONDS (22.3-36.8)
[2020-10-10 12:44] LABS: Lipase 145 U/L (23-300)
[2020-10-10 12:44] LABS: Procalcitonin 1.4 ng/mL
[2020-10-10] MEDS: AMPICILLIN SULB 3 GM/NS 100 ML 3 GM/100 ML VIAL IVPB ×2 (12:46→17:21)
--- NOTE | 2020-10-10 13:02 | WPDUROPN2 ---
Progress Note: A&P Assessment and Plan (1) Acute UTI: Code(s): N39.0 - Urinary tract infection, site not specified Status: Acute Assessment and Plan: Continue IV antibiotics, tailor to urine culture results when sensitivity is done. Likely the cause of his hematuria episode. (2) Hematuria: Code(s): R31.9 - Hematuria, unspecified Status: Acute Assessment and Plan: Improving, continue to irrigate manually PRN until clear and CBI is running. Wean CBI to off if urine clears, if bleeding restarts, restart CBI. D/t the need for heparin and anticoagulants for DVT, I suspect this will take some time to resolve. (3) Acute urinary retention: Code(s): R33.8 - Other retention of urine Status: Acute Assessment and Plan: Likley secondary to CVA, also it is likely this caused his UTI after being left untreated. 3400cc of urine was drained in the ER initially. WIll need to wear a catheter indefinitely with monthly catheter changes. Subjective Subjective Date/Time Seen: 10/10/20 13:02 POD #2 Cystoscopy with clot evacuation. Patient's urine appears much less bloody today and is without clots, although it appears cloudy and is clogging the catheter intermittently, which is cleared by manual irrigation. It is draining well to gravity on slow CBI. He is very lethargic today and is responsive but not willing to answer questions. Urine culture shows growth of coagulase negative staphylococcus, no sensitivity report at this time. Review of Systems Review of Systems: ROS unobtainable: Yes unobtainable due to medical condition Exam Resp: Effort & Inspection: normal respiratory effort Cardio: Rate: regular rate GI: GI Palp: Yes Soft to palpation and No Tenderness to palpation present (GI) : General: Yes no CVA tenderness Urinary Catheter: Urinary Catheter: patent and draining, urine cloudy and urine red Extrem: General: no edema Objective Data Vital Signs Vital Signs: Vital Signs - 24 hr 10/09/20 15:38 10/09/20 22:00 10/10/20 06:00 Temperature 97.6 F 98.0 F 97.6 F Pulse Rate 103 H 103 H 101 H Respiratory Rate 14 18 18 Blood Pressure 111/57 L 116/84 110/48 L Pulse Oximetry 96 95 96 Intake/Output Intake/Output: Intake & Output 06/20/21 06/21/21 06/22/21 06/23/21 23:59 23:59 23:59 23:59 Intake Total 2650 1420 1250 Output Total 2829 4340 177 Balance -837 -2670 -141 Meds/Results Medications: Active Medications Generic Name Dose Route Start Last Admin Trade Name Freq PRN Reason Stop Dose Admin Acetaminophen 650 mg 10/08/20 06:06 Acetaminophen 325 Mg Tablet PO Q4H PRN Pain (Scale Score 1-3) Hydrocodone Bitart/Acetaminophen 1 tab 10/08/20 04:06 Hydrocodone/Acetaminophen (*Crx) 5-325 Mg Tablet PO Q4H PRN Pain Rated 4-6 Aspirin 81 mg 10/08/20 09:00 10/10/20 12:59 Aspirin 81 Mg Enteric Tablet PO Not Given QAM [facility] Atorvastatin Calcium 80 mg 10/08/20 09:00 10/10/20 12:59 Atorvastatin 40 Mg Tablet PO Not Given DAILY [facility] Fentanyl Citrate 25 mcg 10/08/20 12:39 Fentanyl Citrate Inj (*Crx) 100 Mcg/2 Ml Vial IV PUSH Q2M PRN Pain Heparin Sodium (Porcine) 6,500 units 10/08/20 18:02 10/09/20 03:37 Heparin Sodium 5,000 Units/Ml Vial IV PUSH 6,500 units PRN PRN Administration aPTT less than 55 seconds Heparin Sodium (Porcine) 3,500 units 10/08/20 18:02 Heparin Sodium 5,000 Units/Ml Vial IV PUSH PRN PRN aPTT 55 - 70 seconds Hydromorphone HCl 0.25 mg 10/08/20 12:39 Hydromorphone Hcl Inj (*Crx) 1 Mg/Ml Syr IV PUSH Q5M PRN Pain Sodium Chloride 1,000 mls @ 70 mls/hr 10/08/20 04:10 10/10/20 01:20 Normal Saline Iv IV CONT 70 mls/hr .[id number] LUI Administration Heparin Sodium/Dextrose 25,000 units in 250 mls @ 12 mls/hr 10/08/20 18:05 10/10/20 01:15 Heparin Sodium/D5w 100 Units/Ml IV CONT 1,200 units/hr .[id number] LUI 12 mls/hr
--- NOTE | 2020-10-10 13:46 | PM.CNGS ---
Assessment and Plan Assessment and plan (1) Acute cholecystitis: Code(s): K81.0 - Acute cholecystitis Status: Acute Assessment and Plan: Patient with worsening leukocytosis that was significantly elevated today to 53,300. CT scan of the abdomen and pelvis showed evidence of acute cholecystitis. This appears to be the likely source of his leukocytosis. Given the patient's recent stroke and anticoagulation for his DVT, he would be a higher risk surgical cadidate I have discussed the patient's case and plan of care with Dr. Connolly, who has also spoke with the Radiologist regarding the possibility of placing a percutaneous cholecystostomy tube. Due to the progression of the disease process and the significant leukocytosis, the patient needs urgent intervention. The Radiologist agreed and is able to perform an image-guided percutaneous cholecystostomy tube placement today, which will treat the acute cholecystitis. We would recommend proceeding with this today. Continue IV Unasyn. We will continue to hold the Heparin drip and keep him NPO for the procedure. He will need a laparoscopic cholecystectomy eventually, with the timing of surgery depending on how he progresses. Dr. Connolly will discuss the plan with the family. Thank you for allowing us to see the patient in consultation and we will continue to follow along with you. (2) Leukocytosis: Code(s): D72.829 - Elevated white blood cell count, unspecified Status: Acute Assessment and Plan: WBC count up to 53,300 today. Likely related to the acute cholecystitis. See plan above. Continue broad-spectrum IV abx and trend labs. (3) DVT (deep venous thrombosis): Code(s): I82.409 - Acute embolism and thrombosis of unspecified deep veins of unspecified lower extremity Status: Acute Assessment and Plan: DVT of the right common femoral vein extending to the posterior tibial veins. Treated with a Heparin drip following cystoscopy, but this has been on hold since this morning due to supratherapeutic levels of his PTT. Continue to hold in preparation for percutaneous cholecystostomy tube placement today. 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 This puts him at a higher risk for cardiovascular events with surgery/anesthesia since this occurred about 2 months ago. This contributes to the benefit of proceeding with percutaneous cholecystostomy tube placement versus cholecystectomy. (5) Abnormal CT scan, gastrointestinal tract: Code(s): R93.3 - Abnormal findings on diagnostic imaging of other parts of digestive tract Status: Acute Assessment and Plan: GI following and was planning a colonoscopy today. Dr. Connolly has spoke with GI and they are holding off on the colonoscopy today. Treating the acute cholecystitis would take precedence over evaluating the sigmoid colon abnormality. (6) Hematuria: Code(s): R31.9 - Hematuria, unspecified Status: Acute Assessment and Plan: Urology following. May be prolonged considering the anticoagulation. CBI in place. (7) Acute UTI: Code(s): N39.0 - Urinary tract infection, site not specified Status: Acute Assessment and Plan: Urine culture showing growth of coagulase negative staphylococcus, not S. saprophyticus. Continue IV abx and management per Urology/Hospitalist. They feel this is the cause of his hematuria. (8) Acute urinary retention: Code(s): R33.8 - Other retention of urine Status: Acute Assessment and Plan: Urology following and feels this is likely related to his stroke and he will need a chronic indwelling urinary catheter. (9) GILBERTO (acute kidney injury): Code(s): N17.9 - Acute kidney failure, unspecified Status: Acute Assessment and Plan: GILBERTO on admission, improv
--- NOTE | 2020-10-10 16:08 | PM.PNGS ---
Progress Note: A&P Assessment and Plan (1) Acute cholecystitis: Code(s): K81.0 - Acute cholecystitis Status: Acute Assessment and Plan: severe leukocytosis with right upper quadrant tenderness and gallbladder distension. Plan to proceed with image guided cholecystostomy tube placement today. Discussed with radiologist who agrees to proceed. (2) Acute UTI: Code(s): N39.0 - Urinary tract infection, site not specified Status: Acute Assessment and Plan: Receiving antibiotics. (3) Hematuria: Code(s): R31.9 - Hematuria, unspecified Status: Acute Assessment and Plan: Has Ness catheter with continuous bladder irrigation. (4) DVT (deep venous thrombosis): Code(s): I82.409 - Acute embolism and thrombosis of unspecified deep veins of unspecified lower extremity Status: Acute Assessment and Plan: Right lower extremity (5) Chronic anticoagulation: Code(s): Z79.01 - intermission coordinator (current) use of anticoagulants Status: Acute Assessment and Plan: heparin drip has been off since 11/06 this morning. 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 If colon cancer is found, could possibly perform sigmoidectomy and cholecystectomy at the same procedure. Subjective Subjective Date/Time Seen: 10/10/20 16:08 Interval history: Patient is a 75-year-old man who was a long-term 2 pack per day smoker. In early July he experienced a significant stroke that resulted in right hemiparesis. He still has an intracranial aneurysm. He was admitted for rehab but was having overflow incontinence of bloody urine. He was admitted for this on October 08. He was taken to surgery by Urology and about 400 cc of clot in his urinary bladder were extracted. No intrinsic pathology such as a neoplasm was noted in the bladder. It was felt to be due to significant hemorrhagic cystitis. He also is expected to need chronic Ness catheter. Subsequently, he was noted to have a right common femoral DVT. He was started on IV heparin Anticoagulation. The patient's admitting CT scan showed thickening of the discrete area in the sigmoid colon suspicious for malignancy. He was noted to be anemic with a normal MCV. Dr. Wall had him scheduled for a colonoscopy today. Patient took the bowel prep but had very little output. His white blood cell count on admission was 12,000. yesterday it increased to 27,100. today his white cell count is up to 53,300. C reactive protein is elevated to 35.1. Patient is complaining of right upper quadrant abdominal pain. He has impaired cognition due to his recent stroke. Repeat CT scan today shows severe acute cholecystitis with inflammation of the head of the pancreas likely secondary to cholecystitis. Serum lipase is normal. LFTs are mildly abnormal. APTT on heparin drip was over 200 since yesterday morning. Heparin drip was discontinued this morning about 20 after 7. Repeat APTT at noon today is 113.6. I spoke with Dr. Wall who is cancelling the colonoscopy. I also spoke with Dr. Maria, radiologist. He or Dr. Lopez are willing to place percutane
--- NOTE | 2020-10-10 16:54 | PC.NURSE ---
Patient returned from /S at 1656.
[2020-10-10] MEDS: PANTOPRAZOLE SODIUM IV 40 MG VIAL IV PUSH (20:27)
[2020-10-11] MEDS: AMPICILLIN SULB 3 GM/NS 100 ML 3 GM/100 ML VIAL IVPB ×4 (00:18→17:44)
[2020-10-11] MEDS: MORPHINE SULFATE (*CRX) 4 MG/ML INJ IV PUSH (03:33)
--- NOTE | 2020-10-11 03:50 | PC.NURSE ---
Pt pulled off cholecystotomy drain dressing. Sutures intact, new dressing applied.
[2020-10-11 06:16] VITALS: BP 124/62; PULSE 58; RESP 20; TEMP 36.3; O2SAT 93
[2020-10-11 06:34] LABS: Basophils Absolute Auto 0.1 K/mm3 (0.0-0.1); Basophils Percent Auto 0.2 % (0.2-1.2); Hematocrit 25.7 % (42.0-52.0); Hemoglobin 8.5 g/dL (14.0-18.0); Immature Granulocyte Absolute 1.39 K/mm3 (0.00-0.031); Immature Granulocyte Percent A 3.8 % (0-0.5); Lymphocytes Absolute Auto 1.23 K/mm3 (0.9-3.2); Lymphocytes Percent Auto 3.3 % (18.3-44.2); Mean Corpuscular HGB Conc 33.1 g/dl (32-36); Mean Corpuscular Hemoglobin 29.6 pg (26-34); Mean Corpuscular Volume 89.5 fl (80-100); Mean Platelet Volume 11.3 fl (7.4-10.4); Monocytes Absolute Auto 2.1 K/mm3 (0.1-0.6); Monocytes Percent Auto 5.6 % (2.6-8.5); Neutrophils Absolute Auto 32.2 K/mm3 (1.3-6.7); Neutrophils Percent Auto 87.1 % (45.5-73.1); Platelet Count Result 220 k/mm3 (150-375); Red Blood Count 2.87 M/mm3 (4.6-6.20); Red Cell Distribution Width 14.7 % (11.5-14.5); White Blood Count 36.9 K/mm3 (4.5-10.0)
[2020-10-11 06:40] LABS: Partial Thromboplastin Time 35.5 SECONDS (22.3-36.8)
[2020-10-11 06:42] LABS: Alanine Aminotransferase 48 U/L (4-50); Albumin Level 2.4 g/dL (3.5-5.1); Alkaline Phosphatase 230 U/L (38-126); Anion Gap 6 mmol/L (8-16); Aspartate Amino Transferase 81 U/L (17-59); Bilirubin,Total 1.1 mg/dL (0.2-1.3); Blood Urea Nitrogen 21 mg/dL (9-20); Calcium 7.5 mg/dL (8.4-10.2); Carbon Dioxide 26 mmol/L (22-30); Chloride 109 mmol/L (98-107); Estimated CRCL calculation 68 ml/min; Estimated Glomerular Filt Rate > 60; Glucose 102 mg/dL (75-110); Magnesium 2.7 mg/dL (1.6-2.3); Phosphorus 2.1 mg/dL (2.5-4.5); Potassium 3.1 mmol/L (3.4-5.0); Sodium 141 mmol/L (137-145)
[2020-10-11 07:16] LABS: Platelet Estimate Adequate (Adequate)
[2020-10-11 07:17] LABS: Crenated RBC 2+ (NORMAL)
[2020-10-11 07:18] LABS: Anisocytosis 1+ (NORMAL)
[2020-10-11 08:00] VITALS: O2SAT 93
[2020-10-11] MEDS: PANTOPRAZOLE SODIUM IV 40 MG VIAL IV PUSH ×2 (09:27→21:58)
--- NOTE | 2020-10-11 10:11 | PM.IMPN ---
Progress Note: A&P Assessment and Plan (1) Acute cholecystitis: Code(s): K81.0 - Acute cholecystitis Status: Acute Assessment and Plan: WBC 13K on admission but increased to 27K then jumped to 53K with 91% PMNs; CRP 35. No diarrhea despite prep. No fevers. BP stable. He was having more abdominal pain so CT repeated showing evidence of acute cholecystitis. CXR findings more likely related to atelectasis. Lipase normal. LA 1.7. Changed to Unasyn. GenSurg consulted and cholecystostomy tube placed. WBC better today. Continue Unasyn. (2) Leukocytosis: Code(s): D72.829 - Elevated white blood cell count, unspecified Status: Acute Assessment and Plan: Leukocytosis related to above. Improved today (3) DVT (deep venous thrombosis): Code(s): I82.409 - Acute embolism and thrombosis of unspecified deep veins of unspecified lower extremity Status: Acute Assessment and Plan: CT scan showing a partially visualized deep venous thrombosis on the right. Bilateral lower extremity ultrasound performed showing DVT of the right common femoral through posterior tibial veins. Heparin drip started after given the okay from Urology. Continue the same. Transition to Eliquis when able. Hgb has dropped but no evidence of recurrent bleeding. Repeat HH later today (4) Abnormal CT scan, gastrointestinal tract: Code(s): R93.3 - Abnormal findings on diagnostic imaging of other parts of digestive tract Status: Chronic Assessment and Plan: CT scan also showed an irregular wall thickening of the sigmoid colon concerning for malignancy. GI consulted with plans for colonoscopy. Appreciate GI input (5) Anemia: Code(s): D64.9 - Anemia, unspecified Status: Chronic Assessment and Plan: Acute blood loss from the hematuria. Hgb 12 on admission but has dropped to 8.5. Could be getting fluid overloaded. Follow. (6) Hematuria: Code(s): R31.9 - Hematuria, unspecified Status: Acute Assessment and Plan: Patient with gross hematuria. CT scan showing a large amount of mixed attenuation material in the urinary bladder, likely hematoma. Cystoscopy performed 10/08 with large clot evacuation (400cc). No active bleeding once clot removed. Urine is clear. Tolerating the Heparin drip. Appreciate Urology input. Will need to be home with Ness. (7) Acute urinary retention: Code(s): R33.8 - Other retention of urine Status: Acute Assessment and Plan: Patient with 3L urine in his bladder. He did not appear to be too bothered by this to suggest neurogenic rather than obstructive process. Ness placed. As above. Urology following. (8) Acute UTI: Code(s): N39.0 - Urinary tract infection, site not specified Status: Acute Assessment and Plan: UA noted. UCx growing coag-negative staph. Currently on IV abx. (9) GILBERTO (acute kidney injury): Code(s): N17.9 - Acute kidney failure, unspecified Status: Acute Assessment and Plan: Cr 1.4 on admission. Baseline Cr 0.8. Acute kidney injury related to obstructive process. Treated with Ness placement and IV fluids. Cr stable at 0.9 today. Monitor. (10) Hypertension: Code(s): I10 - Essential (primary) hypertension Status: Acute Assessment and Plan: Patient's blood pressure was reviewed on 10/11. Blood pressure was elevated after the procedure (10/08) to 174/141 and he did receive Labetolol kiel-operative. His BP dropped to 77/39 when back on the floor. BP did recover and has since remained well controlled. Amlodipine remains on hold. Will continue to monitor. (11) CVA (cerebral vascular accident): Code(s): I63.9 - Cerebral infarction, unspecified Status: Chronic Assessment and Plan: Patient with hx of recent CVA (07/22/20). MRI showed evidence of diffusion restriction in the left anterior m
--- NOTE | 2020-10-11 10:47 | PM.PNGS ---
Progress Note: A&P Assessment and Plan (1) Acute cholecystitis: Code(s): K81.0 - Acute cholecystitis Status: Acute Assessment and Plan: S/p percutaneous cholecystostomy tube placement on 10/10/20, which is draining well. WBC down to 36,900 today. Cultures pending. Okay from our standpoint to restart the Heparin drip tomorrow morning if his hemoglobin does not continue to trend down. Continue IV antibiotics. Monitor trend in labs. Expect the need for cholecystectomy in the future, which can be planned after having the results from the colonoscopy. (2) Abnormal CT scan, gastrointestinal tract: Code(s): R93.3 - Abnormal findings on diagnostic imaging of other parts of digestive tract Status: Chronic Assessment and Plan: Would agree with moving forward with a colonoscopy to evaluate potential sigmoid colon cancer. This should likely be the next step and maybe this could be done while Heparin drip is on hold, if possible by GI. Will await colonoscopy results prior to deciding when to proceed with cholecystectomy. This would potentially allow both surgeries to be done simultaneously if any surgical intervention is needed for the sigmoid colon abnormality. (3) Acute UTI: Code(s): N39.0 - Urinary tract infection, site not specified Status: Acute Assessment and Plan: Receiving antibiotics. (4) Hematuria: Code(s): R31.9 - Hematuria, unspecified Status: Acute Assessment and Plan: Has Ness catheter with continuous bladder irrigation. Urine appears clear/yellow today. (5) DVT (deep venous thrombosis): Code(s): I82.409 - Acute embolism and thrombosis of unspecified deep veins of unspecified lower extremity Status: Acute Assessment and Plan: Right lower extremity (6) Chronic anticoagulation: Code(s): Z79.01 - [facility] (current) use of anticoagulants Status: Acute Assessment and Plan: PTT > 200 yesterday and was held prior to the procedure. PTT 35.5 this morning. Hgb had a significant drop this morning. No obvious bleeding. Okay to restart the Heparin drip tomorrow morning if hgb remains stable. 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 Hospitalist repeating H/H later today. No obvious signs of active bleeding, although his PTT yesterday was supratherapeutic on the Heparin drip. Monitor labs. See plan above. Additional Plan I have discussed the plan of care with Dr. Connolly. Subjective Subjective Date/Time Seen: 10/11/20 10:30 Patient reports: afebrile Interval history: 75yoM with history of recent CVA in July 2020. Patient seen today and is still lethargic. He does wake up with light physical stimuli but did not answer my questions verbally. He did shake his head no when asking him if he is having any pain. Still NPO and heparin drip is on hold. No acute events overnight. Review of Systems Review of Systems: ROS unobtainable: Yes unobtainable due to medical condition Exam Const: General: no acute distress and ill appearing Orientation/consciousness: lethargic GI: Inspection: non-distended GI Palp: Yes Soft to palpation, Yes Tenderness to palpation present (GI) (grimacing with palpation of RUQ near ricky tube) and No Guarding due to palpation present (GI) Auscultation: normal bowel sounds Other: Percutaneous cholec
[2020-10-11] MEDS: KCL 20 MEQ/D5/0.9% SOD CHL 1,000 ML 70 ML IV CONT (11:23)
--- NOTE | 2020-10-11 11:44 | PCSTNOTE ---
Please refer to the Bedside Swallow Evaluation in the EMR. Please note, silent aspiration cannot be ruled out at bedside.
--- NOTE | 2020-10-11 12:24 | WPDUROPN2 ---
Progress Note: A&P Assessment and Plan (1) Leukocytosis: Code(s): D72.829 - Elevated white blood cell count, unspecified Status: Acute Assessment and Plan: Improvement noted, continue IV antibiotics. (2) Acute urinary retention: Code(s): R33.8 - Other retention of urine Status: Acute Assessment and Plan: Will plan to keep bl[place] in local [employer], secondary to CVA. Will need monthly changes. (3) Hematuria: Code(s): R31.9 - Hematuria, unspecified Status: Acute Assessment and Plan: CBI was turned off since urine was clear on a slow drip. Ok to restart CBI if hematuria restarts, otherwise keep CBI off if urine remains clear. (4) Acute UTI: Code(s): N39.0 - Urinary tract infection, site not specified Status: Acute Subjective Subjective Date/Time Seen: 10/11/20 12:24 POD #3 Cystoscopy with clot evacuation. Patient's urine appears clear and is draining to gravity with slow CBI running. He is very lethargic today and is only responsive to physical stimuli, not to his name. Urine culture shows growth of coagulase negative staphylococcus, sensitive to Oxicillin and he continues on Ampicillin with significant WBC improvement today. Review of Systems Review of Systems: ROS unobtainable: Yes unobtainable due to medical condition and unobtainable due to mental status Exam Resp: Effort & Inspection: normal respiratory effort Cardio: Rate: regular rate : General: Yes no CVA tenderness Urinary Catheter: Urinary Catheter: patent and draining and urine clear Extrem: General: edema right Objective Data Vital Signs Vital Signs: Vital Signs - 24 hr 10/10/20 14:00 10/10/20 16:55 10/10/20 17:10 Temperature 98.9 F 98.1 F 98.3 F Pulse Rate 70 103 H 105 H Respiratory Rate 20 20 18 Blood Pressure 104/59 L 112/71 111/56 L Pulse Oximetry 91 92 95 10/10/20 17:40 10/10/20 18:40 10/10/20 22:00 Temperature 98.1 F 98.3 F 98.5 F Pulse Rate 100 78 100 Respiratory Rate 18 18 18 Blood Pressure 118/51 L 109/65 103/52 L Pulse Oximetry 95 91 93 10/11/20 06:16 10/11/20 08:00 Temperature 97.4 F L Pulse Rate 58 L Respiratory Rate 20 Blood Pressure 124/62 Pulse Oximetry 93 93 Intake/Output Intake/Output: Intake & Output 10/08/20 10/09/20 10/10/20 10/11/20 23:59 23:59 23:59 23:59 Intake Total 2650 1420 2450 100 Output Total 2825 5200 3740 845 [facility] [phone] Meds/Results Medications: Active Medications Generic Name Dose Route Start Last Admin Trade Name Freq PRN Reason Stop Dose Admin Acetaminophen 650 mg 10/08/20 06:06 Acetaminophen 325 Mg Tablet PO Q4H PRN Pain (Scale Score 1-3) Hydrocodone Bitart/Acetaminophen 1 tab 10/08/20 04:06 Hydrocodone/Acetaminophen (*Crx) 5-325 Mg Tablet PO Q4H PRN Pain Rated 4-6 Aspirin 81 mg 10/08/20 09:00 10/11/20 11:30 Aspirin 81 Mg Enteric Tablet PO Not Given QAM [facility] Atorvastatin Calcium 80 mg 10/08/20 09:00 10/11/20 11:30 Atorvastatin 40 Mg Tablet PO Not Given DAILY [facility] Fentanyl Citrate 25 mcg 10/08/20 12:39 Fentanyl Citrate Inj (*Crx) 100 Mcg/2 Ml Vial IV PUSH Q2M PRN Pain Heparin Sodium (Porcine) 6,500 units 10/08/20 18:02 10/09/20 03:37 Heparin Sodium 5,000 Units/Ml Vial IV PUSH 6,500 units PRN PRN Administration aPTT less than 55 seconds Heparin Sodium (Porcine) 3,500 units 10/08/20 18:02 Heparin Sodium 5,000 Units/Ml Vial IV PUSH PRN PRN aPTT 55 - 70 seconds Hydromorphone HCl 0.25 mg 10/08/20 12:39 Hydromorphone Hcl Inj (*Crx) 1 Mg/Ml Syr IV PUSH Q5M PRN Pain Heparin Sodium/Dextrose 25,000 units in 250 mls @ 12 mls/hr 10/08/20 18:05 10/10/20 01:15 Heparin Sodium/D5w 100 Units/Ml IV CONT 1,200 units/hr .[id number] LUI 12 mls/hr Administration Protocol 1,200 UNITS/HR Ampicillin Sodium/Sulbactam Sodium 3 gm in 100 mls @ 200 mls/hr 10/10/20 12
[2020-10-11 13:27] LABS: Hematocrit 25.9 % (42.0-52.0); Hemoglobin 8.3 g/dL (14.0-18.0)
[2020-10-11 14:00] VITALS: BP 91/54; PULSE 63; RESP 18; TEMP 36.5; O2SAT 93
[2020-10-11] MEDS: POTASSIUM/PHOSPHORUS/SODIUM 1.5 GM PACKET 1 PACKET PO (17:42)
[2020-10-11 21:59] VITALS: BP 123/67; PULSE 50; RESP 20; TEMP 36.1; O2SAT 91
[2020-10-12] MEDS: AMPICILLIN SULB 3 GM/NS 100 ML 3 GM/100 ML VIAL IVPB ×4 (00:40→18:56)
[2020-10-12] MEDS: KCL 20 MEQ/D5/0.9% SOD CHL 1,000 ML 70 ML IV CONT (03:33)
[2020-10-12 05:57] VITALS: BP 123/90; PULSE 81; RESP 18; TEMP 36.4; O2SAT 93
[2020-10-12 06:42] LABS: Basophils Absolute Auto 0.1 K/mm3 (0.0-0.1); Basophils Percent Auto 0.2 % (0.2-1.2); Eosinophils Absolute Auto 0.1 K/mm3 (0-0.3); Eosinophils Percent Auto 0.2 % (0-4.4); Hematocrit 26.9 % (42.0-52.0); Hemoglobin 8.5 g/dL (14.0-18.0); Immature Granulocyte Absolute 1.05 K/mm3 (0.00-0.031); Immature Granulocyte Percent A 3.7 % (0-0.5); Lymphocytes Absolute Auto 1.56 K/mm3 (0.9-3.2); Lymphocytes Percent Auto 5.5 % (18.3-44.2); Mean Corpuscular HGB Conc 31.6 g/dl (32-36); Mean Corpuscular Hemoglobin 28.9 pg (26-34); Mean Corpuscular Volume 91.5 fl (80-100); Mean Platelet Volume 11.1 fl (7.4-10.4); Monocytes Absolute Auto 1.8 K/mm3 (0.1-0.6); Monocytes Percent Auto 6.2 % (2.6-8.5); Neutrophils Absolute Auto 23.7 K/mm3 (1.3-6.7); Neutrophils Percent Auto 84.2 % (45.5-73.1); Platelet Count Result 206 k/mm3 (150-375); Red Blood Count 2.94 M/mm3 (4.6-6.20); Red Cell Distribution Width 15.3 % (11.5-14.5); White Blood Count 28.2 K/mm3 (4.5-10.0)
[2020-10-12 07:03] LABS: Albumin Level 2.4 g/dL (3.5-5.1); Anion Gap 4 mmol/L (8-16); Blood Urea Nitrogen 15 mg/dL (9-20); Calcium 7.3 mg/dL (8.4-10.2); Carbon Dioxide 28 mmol/L (22-30); Chloride 111 mmol/L (98-107); Estimated CRCL calculation 86 ml/min; Estimated Glomerular Filt Rate > 60; Glucose 102 mg/dL (75-110); Phosphorus 1.4 mg/dL (2.5-4.5); Potassium 2.8 mmol/L (3.4-5.0); Sodium 143 mmol/L (137-145)
[2020-10-12 08:00] VITALS: PULSE 81; RESP 18; O2SAT 93
[2020-10-12] MEDS: HYDROcodone/acetaminophen (*CRX) 5-325 MG TABLET 1 TAB PO (08:06)
[2020-10-12] MEDS: ASPIRIN 81 MG ENTERIC TABLET PO (08:07)
[2020-10-12] MEDS: ATORVASTATIN 40 MG TABLET 80 MG PO (08:07)
[2020-10-12] MEDS: MULTIVITAMINS THERAPEUTIC TAB (*BKC) 1 TABLET PO (08:07)
[2020-10-12] MEDS: PANTOPRAZOLE SODIUM IV 40 MG VIAL IV PUSH ×2 (08:08→21:01)
[2020-10-12] MEDS: SODIUM PHOSPHATE 20 MM in DEXTROSE 5% IN WATER 250 ML 50 MM IVPB (08:13)
--- NOTE | 2020-10-12 08:40 | PM.PNGS ---
Progress Note: A&P Assessment and Plan (1) Acute cholecystitis: Code(s): K81.0 - Acute cholecystitis Status: Acute Assessment and Plan: Continues to improve after cholecystostomy tube placed. Will advance diet. No plans for cholecystectomy on this admission. (2) DVT (deep venous thrombosis): Code(s): I82.409 - Acute embolism and thrombosis of unspecified deep veins of unspecified lower extremity Status: Acute Assessment and Plan: Okay to restart heparin drip. (3) Chronic anticoagulation: Code(s): Z79.01 - [facility] (current) use of anticoagulants Status: Acute Assessment and Plan: Okay to restart anticoagulation. Can use longer term agents although patient still may be getting colonoscopy. No plans for cholecystectomy on this admission. 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): Code(s): I69.319 - Unspecified symptoms and signs involving cognitive functions following cerebral infarction Status: Chronic (6) Hemiplegia affecting right dominant side: Code(s): G81.91 - Hemiplegia, unspecified affecting right dominant side Status: Chronic Subjective Subjective Date/Time Seen: 10/12/20 06:40 Patient reports: feels better, pain is less and tolerating liquids well Review of Systems Constitutional: Constitutional: Denies chills, Denies fever(s) and Denies headache(s) Gastrointestinal: Gastrointestinal: Reports as per HPI, Reports abdominal pain (Less pain than before) and Denies vomiting Exam Const: General: cooperative, comfortable and no acute distress Nutritional Appearance: thin Orientation/consciousness: lethargic GI: Inspection: non-distended, scaphoid and other (Catheter drainage more green then black now) GI Palp: Yes Soft to palpation, Yes Tenderness to palpation present (GI) (At pigtail catheter site, less tender right upper quadrant), No Guarding due to palpation present (GI) and No Rebound tenderness present Auscultation: normal bowel sounds Extrem: General: no calf tenderness and no edema Objective Data Vital Signs Vital Signs: Vital Signs - 24 hr 10/11/20 14:00 10/11/20 21:59 10/12/20 05:57 Temperature 36.5 C 36.1 C L 36.4 C Pulse Rate 63 50 L 81 Respiratory Rate 18 20 18 Blood Pressure 91/54 L 123/67 123/90 Pulse Oximetry 93 91 93 Intake/Output Intake/Output: Intake & Output 10/09/20 10/10/20 10/11/20 10/12/20 23:59 23:59 23:59 23:59 Intake Total 1420 2450 1180 1320 Output Total 5200 3740 4210 1290 Balance -3780 -1290 -3030 30 Meds/Results Medications: Active Medications Generic Name Dose Route Start Last Admin Trade Name Freq PRN Reason Stop Dose Admin Acetaminophen 650 mg 10/08/20 06:06 Acetaminophen 325 Mg Tablet PO Q4H PRN Pain (Scale Score 1-3) Hydrocodone Bitart/Acetaminophen 1 tab 10/08/20 04:06 10/12/20 08:06 Hydrocodone/Acetaminophen (*Crx) 5-325 Mg Tablet PO 1 tab Q4H PRN Administration Pain Rated 4-6 Aspirin 81 mg 10/08/20 09:00 10/12/20 08:07 Aspirin 81 Mg Enteric Tablet PO 81 mg QAM LUI Administration Atorvastatin Calcium 80 mg 10/08/20 09:00 10/12/20 08:07 Atorvastatin 40 Mg Tablet PO 80 mg DAILY LUI Administration Bisacodyl 10 mg 10/11/20 17:00 10/12/20 08:07 Bisacodyl 5 Mg Tablet Ec PO 10/13/20 06:00 Not Given TID LUI Fentanyl Citrate 25 mcg 10/08/20 12:39 Fentanyl Citrate Inj (*Crx) 100 Mcg/2 Ml Vial IV PUSH Q2M PRN Pain Heparin Sodium (Porcine) 6,500 units 10/08/20 18:02 10/09/20 03:37 Heparin Sodium 5,000 Units/Ml Vial IV PUSH 6,500 units PRN PRN Administration aPTT less than 55 seconds Heparin Sodium (Porcine) 3,500 units 10/08/20 18:02 Heparin Sodium 5,000 Units/Ml Vial IV PUSH PRN PRN aPTT 55 - 70 seconds Hyd
--- NOTE | 2020-10-12 10:06 | PM.IMPN ---
Progress Note: A&P Assessment and Plan (1) Acute cholecystitis: Code(s): K81.0 - Acute cholecystitis Status: Acute Assessment and Plan: WBC 13K on admission but increased to 27K then jumped to 53K with 91% PMNs; CRP 35. No diarrhea despite prep. No fevers. BP stable. He was having more abdominal pain so CT repeated showing evidence of acute cholecystitis. CXR findings more likely related to atelectasis. Lipase normal. LA 1.7. Changed to Unasyn. GenSurg consulted and cholecystostomy tube placed 10/10. WBC trending down. Continue Unasyn. (2) Leukocytosis: Code(s): D72.829 - Elevated white blood cell count, unspecified Status: Acute Assessment and Plan: Leukocytosis related to above. Improved today (3) DVT (deep venous thrombosis): Code(s): I82.409 - Acute embolism and thrombosis of unspecified deep veins of unspecified lower extremity Status: Acute Assessment and Plan: CT scan showing a partially visualized deep venous thrombosis on the right. Bilateral lower extremity ultrasound performed showing DVT of the right common femoral through posterior tibial veins. Heparin drip started after given the okay from Urology. Drip was held for cholecysostomy tube placement but was resumed today. Continue the same. Transition to Eliquis when able. Hgb has dropped to 8.5 but stable. No evidence of recurrent bleeding. Follow (4) Abnormal CT scan, gastrointestinal tract: Code(s): R93.3 - Abnormal findings on diagnostic imaging of other parts of digestive tract Status: Chronic Assessment and Plan: CT scan also showed an irregular wall thickening of the sigmoid colon concerning for malignancy. GI consulted with plans for colonoscopy but unclear when this is planned. No recent notes. Appreciate GI input (5) Anemia: Code(s): D64.9 - Anemia, unspecified Status: Chronic Assessment and Plan: Acute blood loss from the hematuria. Hgb 12 on admission but has dropped to 8.5. Could be getting fluid overloaded. Follow. Stop IV fluids (6) Hematuria: Code(s): R31.9 - Hematuria, unspecified Status: Acute Assessment and Plan: Patient with gross hematuria. CT scan showing a large amount of mixed attenuation material in the urinary bladder, likely hematoma. Cystoscopy performed 10/08 with large clot evacuation (400cc). No active bleeding with clot removal and CBI. Urine is clear. Tolerating the Heparin drip. Appreciate Urology input. Will need to be discharged with Enss. (7) Acute urinary retention: Code(s): R33.8 - Other retention of urine Status: Acute Assessment and Plan: Patient with 3L urine in his bladder. He did not appear to be too bothered by this to suggest neurogenic rather than obstructive process. Ness placed. As above. Urology following. (8) Acute UTI: Code(s): N39.0 - Urinary tract infection, site not specified Status: Acute Assessment and Plan: UA noted. UCx growing coag-negative staph. Probably a contaminant. UTI ruled out (9) GILBERTO (acute kidney injury): Code(s): N17.9 - Acute kidney failure, unspecified Status: Acute Assessment and Plan: Cr 1.4 on admission. Baseline Cr 0.8. Acute kidney injury related to obstructive process. Treated with Ness placement and IV fluids. Cr stable at 0.7 today. Monitor. Stop IV fluids (10) Hypertension: Code(s): I10 - Essential (primary) hypertension Status: Acute Assessment and Plan: Patient's blood pressure was reviewed on 10/12. Blood pressure was elevated after the procedure (10/08) to 174/141 and he did receive Labetalol kiel-operative. His BP dropped to 77/39 when back on the floor. BP did recover and has since been still soft at times but overall well controlled. Amlodipine remains on hold. Will continue to monitor. (11) CVA (cerebral vascular accident):
--- NOTE | 2020-10-12 11:51 | WPDGIPROGNO ---
Progress Note: A&P Assessment and Plan (1) Electrolyte abnormality: Code(s): E87.8 - Other disorders of electrolyte and fluid balance, not elsewhere classified Status: Acute Assessment and Plan: his potassium is now down to 2.8. He is receiving a potassium infusion (2) Acute cholecystitis: Code(s): K81.0 - Acute cholecystitis Status: Acute Assessment and Plan: a drain has been placed. At this point surgery is not planning cholecystectomy in the near future (3) Anemia: Code(s): D64.9 - Anemia, unspecified Status: Chronic Assessment and Plan: colonoscopy had been considered earlier in the week but it appears that at this point it is not practical or feasible in his current state. (4) Abnormal CT scan, gastrointestinal tract: Code(s): R93.3 - Abnormal findings on diagnostic imaging of other parts of digestive tract Status: Chronic Assessment and Plan: At some point we need to look at his sigmoid colon to determine whether not there is a mass. More often than not those things are over read by Radiology, but he does need to have his colon examined at some point in time (5) DVT (deep venous thrombosis): Code(s): I82.409 - Acute embolism and thrombosis of unspecified deep veins of unspecified lower extremity Status: Acute Subjective Date/time seen: 10/12/20 11:51 he had cholecystostomy tube placed by interventional Radiology 2 days ago. His white count remains elevated but is slowly coming down. He could not tell me whether not he had finally had a bowel movement. I spoke to his nurse the told me that although he had not had any response to peg solution we gave a few days ago, he has had watery stools since given Sanchez blocks and I prescribed yesterday. There has been no blood seen. He also is on continuous bladder irrigation since his cysto. he cannot give me a reliable history, remains rather taciturn. Review of Systems Review of Systems: All systems reviewed & are unremarkable except as noted in HPI and below Exam Const: General: confusion and lethargic Nutritional Appearance: overweight Limitations: altered mental status ( he could not give me any details about his history. ) Other: he could not recall having had a cholecystostomy drain placed GI: Inspection: other ( somewhat rounded) GI Palp: Yes abdominal tenderness ( vaguely sensitive throughout) and No Guarding due to palpation present (GI) Auscultation: normal bowel sounds Rectal Exam: deferred Other: I was prepared to remove the fecal impaction until his nurse told me that he has had multiple loose stools. Also the patient did not think that he could get onto his side without a great deal of difficulty Objective Data Vital Signs Vital Signs: Vital Signs - 24 hr 10/11/20 14:00 10/11/20 21:59 10/12/20 05:57 Temperature 36.5 C 36.1 C L 36.4 C Pulse Rate 63 50 L 81 Respiratory Rate 18 20 18 Blood Pressure 91/54 L 123/67 123/90 Pulse Oximetry 93 91 93 10/12/20 08:00 Temperature Pulse Rate 81 Respiratory Rate 18 Blood Pressure Pulse Oximetry 93 Intake/Output Intake/Output: Intake & Output 10/09/20 10/10/20 10/11/20 10/12/20 23:59 23:59 23:59 23:59 Intake Total 1420 2450 1180 1560 Output Total 5200 3740 4210 1290 Balance -3780 -1290 -3030 270 Meds/Results Medications: Active Medications Generic Name Dose Route Start Last Admin Trade Name Freq PRN Reason Stop Dose Admin Acetaminophen 650 mg 10/08/20 06:06 Acetaminophen 325 Mg Tablet PO Q4H PRN Pain (Scale Score 1-3) Hydrocodone Bitart/Acetaminophen 1 tab 10/08/20 04:06 10/12/20 08:06 Hydrocodone/Acetaminophen (*Crx) 5-325 Mg Tablet PO 1 tab Q4H PRN Administration Pain Rated 4-6 Aspirin 81 mg 10/08/20 09:00 10/12/20 08:07 Aspirin 81 Mg Enteric Tablet PO 81 mg QAM LUI Administration Atorvastatin Calcium 80 mg 10/08/20 09:00 10/12/20 08:07 Dimitry
--- NOTE | 2020-10-12 13:49 | WPDUROPN2 ---
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 (3) Hematuria: Code(s): R31.9 - Hematuria, unspecified Status: Acute Assessment and Plan: improved. (4) Acute UTI: Code(s): N39.0 - Urinary tract infection, site not specified Status: Acute Assessment and Plan: Continue IV antibiotic therapy. (5) GILBERTO (acute kidney injury): Code(s): N17.9 - Acute kidney failure, unspecified Status: Acute Assessment and Plan: Improved Subjective Subjective Date/Time Seen: 10/12/20 13:49 POD #4 Cystoscopy with clot evacuation. Patient's urine appears clear and is draining to gravity with slow CBI running. He is much more alert today, sitting up and feeding himself a clear liquid diet. Urine culture shows growth of coagulase negative staphylococcus, sensitive to Oxicillin and he continues on Ampicillin with continued WBC improvement today. Review of Systems Review of Systems: ROS unobtainable: Yes unobtainable due to mental status Exam Resp: Effort & Inspection: normal respiratory effort Cardio: Rate: regular rate GI: GI Palp: Yes Soft to palpation and No Tenderness to palpation present (GI) Urinary Catheter: Urinary Catheter: patent and draining and urine pink Extrem: General: edema right Objective Data Vital Signs Vital Signs: Vital Signs - 24 hr 10/11/20 14:00 10/11/20 21:59 10/12/20 05:57 Temperature 97.7 F 97 F L 97.6 F Pulse Rate 63 50 L 81 Respiratory Rate 18 20 18 Blood Pressure 91/54 L 123/67 123/90 Pulse Oximetry 93 91 93 10/12/20 08:00 Temperature Pulse Rate 81 Respiratory Rate 18 Blood Pressure Pulse Oximetry 93 Intake/Output Intake/Output: Intake & Output 10/09/20 10/10/20 10/11/20 10/12/20 23:59 23:59 23:59 23:59 Intake Total 1420 2450 1180 1560 Output Total 5200 3740 4210 1290 Balance -3780 -1290 -3030 270 Meds/Results Medications: Active Medications Generic Name Dose Route Start Last Admin Trade Name Freq PRN Reason Stop Dose Admin Acetaminophen 650 mg 10/08/20 06:06 Acetaminophen 325 Mg Tablet PO Q4H PRN Pain (Scale Score 1-3) Hydrocodone Bitart/Acetaminophen 1 tab 10/08/20 04:06 10/12/20 08:06 Hydrocodone/Acetaminophen (*Crx) 5-325 Mg Tablet PO 1 tab Q4H PRN Administration Pain Rated 4-6 Aspirin 81 mg 10/08/20 09:00 10/12/20 08:07 Aspirin 81 Mg Enteric Tablet PO 81 mg QAM LUI Administration Atorvastatin Calcium 80 mg 10/08/20 09:00 10/12/20 08:07 Atorvastatin 40 Mg Tablet PO 80 mg DAILY LUI Administration Bisacodyl 10 mg 10/11/20 17:00 10/12/20 08:07 Bisacodyl 5 Mg Tablet Ec PO 10/13/20 06:00 Not Given TID [facility] Fentanyl Citrate 25 mcg 10/08/20 12:39 Fentanyl Citrate Inj (*Crx) 100 Mcg/2 Ml Vial IV PUSH Q2M PRN Pain Heparin Sodium (Porcine) 6,500 units 10/08/20 18:02 10/09/20 03:37 Heparin Sodium 5,000 Units/Ml Vial IV PUSH 6,500 units PRN PRN Administration aPTT less than 55 seconds Heparin Sodium (Porcine) 3,500 units 10/08/20 18:02 Heparin Sodium 5,000 Units/Ml Vial IV PUSH PRN PRN aPTT 55 - 70 seconds Hydromorphone HCl 0.25 mg 10/08/20 12:39 Hydromorphone Hcl Inj (*Crx) 1 Mg/Ml Syr IV PUSH Q5M PRN Pain Heparin Sodium/Dextrose 25,000 units in 250 mls @ 12 mls/hr 10/08/20 18:05 10/10/20 01:15 Heparin Sodium/D5w 100 Units/Ml IV CONT 1,200 units/hr .[id number] LUI 12 mls/hr Administration Protocol 1,200 UNITS/HR Ampicillin Sodium/Sulbactam Sodium 3 gm in 100 mls @ 200 mls/hr 10/10/20 12:00 10/12/20 05:56 Unasyn 3 Gm/Ns 100 Ml IVPB 200 mls/hr Q6HR [facility] Admini
[2020-10-12 14:41] VITALS: O2SAT 95
[2020-10-12 15:42] VITALS: BP 103/56; PULSE 55; RESP 16; TEMP 35.7; O2SAT 93
[2020-10-12 20:00] VITALS: PULSE 53; RESP 18; O2SAT 98
[2020-10-12 20:36] LABS: Magnesium 2.3 mg/dL (1.6-2.3); Phosphorus 2.6 mg/dL (2.5-4.5); Potassium 2.8 mmol/L (3.4-5.0)
[2020-10-13] VITALS: BP 122/56; PULSE 53; RESP 18; TEMP 35.8; O2SAT 98
[2020-10-13] MEDS: AMPICILLIN SULB 3 GM/NS 100 ML 3 GM/100 ML VIAL IVPB ×4 (00:20→18:45)
[2020-10-13 06:38] LABS: Hematocrit 28.1 % (42.0-52.0); Mean Corpuscular Volume 90.6 fl (80-100); Platelet Count Result 240 k/mm3 (150-375); Red Cell Distribution Width 15.5 % (11.5-14.5); White Blood Count 18.1 K/mm3 (4.5-10.0)
[2020-10-13 06:49] LABS: Albumin Level 2.5 g/dL (3.5-5.1); Anion Gap 4 mmol/L (8-16); Blood Urea Nitrogen 10 mg/dL (9-20); Calcium 7.7 mg/dL (8.4-10.2); Carbon Dioxide 26 mmol/L (22-30); Chloride 109 mmol/L (98-107); Estimated CRCL calculation 86 ml/min; Estimated Glomerular Filt Rate > 60; Glucose 83 mg/dL (75-110); Magnesium 2.3 mg/dL (1.6-2.3); Phosphorus 2.4 mg/dL (2.5-4.5); Potassium 3.3 mmol/L (3.4-5.0); Sodium 139 mmol/L (137-145)
[2020-10-13 08:00] VITALS: BP 112/76; PULSE 86; RESP 16; TEMP 35.8; O2SAT 93
[2020-10-13] MEDS: ONDANSETRON INJ 4 MG/2 ML VIAL IV PUSH (08:24)
[2020-10-13] MEDS: POTASSIUM CHLORIDE 20 MEQ PACKET (FOR LIQUID) 40 MEQ PO (09:15)
[2020-10-13] MEDS: polyethylene glycoL 3350 17 GM POWD.PACK PO (09:16)
[2020-10-13] MEDS: ATORVASTATIN 40 MG TABLET 80 MG PO (09:16)
[2020-10-13] MEDS: PANTOPRAZOLE SODIUM IV 40 MG VIAL IV PUSH (09:16)
[2020-10-13] MEDS: MULTIVITAMINS THERAPEUTIC TAB (*BKC) 1 TABLET PO (09:17)
[2020-10-13] MEDS: ASPIRIN 81 MG ENTERIC TABLET PO (09:17)
--- NOTE | 2020-10-13 10:01 | PM.PNGS ---
Progress Note: A&P Assessment and Plan (1) Acute cholecystitis: Code(s): K81.0 - Acute cholecystitis Status: Acute Assessment and Plan: continues to improve although patient complains of some nausea this morning. Could advance diet later today if this resolves. He only took in 580 cc yesterday which is not much. Continue to monitor. Possibly advance to low-fat diet tomorrow. Continue cholecystostomy tube to gravity for now. (2) Abnormal CT scan, gastrointestinal tract: Code(s): R93.3 - Abnormal findings on diagnostic imaging of other parts of digestive tract Status: Chronic Assessment and Plan: CT suggestive of sigmoid malignancy. I would advocate for pursuing colonoscopy on this admission to determine if there is a colon cancer present or not. This could be an important to determining factor in whether surgery should be done for this and or his gallbladder in the near future. If no colonoscopy, consider contrast enema. (3) Chronic anticoagulation: Code(s): Z79.01 - [facility] (current) use of anticoagulants Status: Chronic Assessment and Plan: Heparin drip still on hold. Okay to resume heparin drip from my perspective. Can always be stopped for colonoscopy if this to be done. (4) CVA (cerebral vascular accident): Code(s): I63.9 - Cerebral infarction, unspecified Status: Chronic Assessment and Plan: Associated right hemiparesis. Occurred in July. Ideally prefer to defer surgery until 6 months after an acute stroke. 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 Subjective Subjective Date/Time Seen: 10/13/20 10:01 Patient reports: nausea and afebrile Review of Systems Gastrointestinal: Gastrointestinal: Denies abdominal pain, Denies constipation and Reports nausea Exam GI: Inspection: scaphoid and other ( Cholecystostomy tube draining dark green bile) GI Palp: Yes Soft to palpation and Yes Tenderness to palpation present (GI) ( minimal tenderness mostly associated with cholecystostomy tube.) Auscultation: normal bowel sounds Objective Data Vital Signs Vital Signs: Vital Signs - 24 hr 10/12/20 14:41 10/12/20 15:42 10/12/20 20:00 Temperature 35.7 C L Pulse Rate 55 L 53 L Respiratory Rate 16 18 Blood Pressure 103/56 L Pulse Oximetry 95 93 98 10/13/20 00:00 10/13/20 08:00 Temperature 35.8 C L 35.8 C L Pulse Rate 53 L 86 Respiratory Rate 18 16 Blood Pressure 122/56 L 112/76 Pulse Oximetry 98 93 Intake/Output Intake/Output: Intake & Output 10/10/20 10/11/20 10/12/20 10/13/20 23:59 23:59 23:59 23:59 Intake Total 2450 1180 8480 680 Output Total 3740 4210 7520 300 Balance -1290 -3030 960 380 Meds/Results Medications: Active Medications Generic Name Dose Route Start Last Admin Trade Name Freq PRN Reason Stop Dose Admin Acetaminophen 650 mg 10/08/20 06:06 Acetaminophen 325 Mg Tablet PO Q4H PRN Pain (Scale Score 1-3) Hydrocodone Bitart/Acetaminophen 1 tab 10/08/20 04:06 10/12/20 08:06 Hydrocodone/Acetaminophen (*Crx) 5-325 Mg Tablet PO 1 tab Q4H PRN Administration Pain Rated 4-6 Aspirin 81 mg 10/08/20 09:00 10/13/20 09:17 Aspirin 81 Mg Enteric Tablet PO 81 mg QAM LUI Administration Atorvastatin Calcium 80 mg 10/08/20 09:00 10/13/20 09:16 Atorvastatin 40 Mg Tablet PO 80 mg DAILY LUI Administration Heparin
--- NOTE | 2020-10-13 12:29 | PM.IMPN ---
Progress Note: A&P Assessment and Plan (1) Acute cholecystitis: Code(s): K81.0 - Acute cholecystitis Status: Acute Assessment and Plan: WBC 13K on admission but increased to 27K then jumped to 53K with 91% PMNs; CRP 35. No diarrhea despite prep. No fevers. BP stable. He was having more abdominal pain so CT repeated showing evidence of acute cholecystitis. CXR findings more likely related to atelectasis. Lipase normal. LA 1.7. Changed to Unasyn. GenSurg consulted and cholecystostomy tube placed 10/10. WBC trending down. Continue Unasyn. (2) Leukocytosis: Code(s): D72.829 - Elevated white blood cell count, unspecified Status: Acute Assessment and Plan: Leukocytosis related to above. Improved today (3) DVT (deep venous thrombosis): Code(s): I82.409 - Acute embolism and thrombosis of unspecified deep veins of unspecified lower extremity Status: Acute Assessment and Plan: CT scan showing a partially visualized deep venous thrombosis on the right. Bilateral lower extremity ultrasound performed showing DVT of the right common femoral through posterior tibial veins. Heparin drip started after given the okay from Urology. Drip was held for cholecysostomy tube placement but was resumed afterwards. Continue and transition to Eliquis when able. Hgb has dropped to 8.5 but stable. No evidence of recurrent bleeding. 10/13: hgb 9.0. (4) Abnormal CT scan, gastrointestinal tract: Code(s): R93.3 - Abnormal findings on diagnostic imaging of other parts of digestive tract Status: Chronic Assessment and Plan: CT scan also showed an irregular wall thickening of the sigmoid colon concerning for malignancy. GI consulted with plans for colonoscopy when medically stable, possibly as outpatient. (5) Anemia: Code(s): D64.9 - Anemia, unspecified Status: Chronic Assessment and Plan: Acute blood loss from the hematuria. Hgb 12 on admission but has dropped to 8.5. 10/13 hgb 9.0. (6) Hematuria: Code(s): R31.9 - Hematuria, unspecified Status: Acute Assessment and Plan: Patient with gross hematuria. CT scan showing a large amount of mixed attenuation material in the urinary bladder, likely hematoma. Cystoscopy performed 10/08 with large clot evacuation (400cc). No active bleeding with clot removal and CBI. Urine is clear. Tolerating the Heparin drip. Will need to be discharged with Ness. (7) Acute urinary retention: Code(s): R33.8 - Other retention of urine Status: Chronic Assessment and Plan: Patient with 3L urine in his bladder. He did not appear to be too bothered by this to suggest neurogenic rather than obstructive process. Ness placed. As above. Urology following. (8) Acute UTI: Code(s): N39.0 - Urinary tract infection, site not specified Status: Acute Assessment and Plan: UA noted. UCx growing coag-negative staph. Probably a contaminant. UTI ruled out (9) GILBERTO (acute kidney injury): Code(s): N17.9 - Acute kidney failure, unspecified Status: Acute Assessment and Plan: Cr 1.4 on admission. Baseline Cr 0.8. Acute kidney injury related to obstructive process. Treated with Ness placement and IV fluids. Cr stable at 0.7 10/13. F/u renal function panel. (10) Hypertension: Code(s): I10 - Essential (primary) hypertension Status: Acute Assessment and Plan: Patient's blood pressure was reviewed on 10/13. Blood pressure was elevated after the procedure (10/08) to 174/141 and he did receive Labetalol kiel-operative. His BP dropped to 77/39 when back on the floor. BP did recover and has since been still soft at times but overall well controlled. Amlodipine remains on hold. Will continue to monitor. (11) CVA (cerebral vascular accident): Code(s): I63.9 - Cerebral infarction, unspecified Status: Chronic As
--- NOTE | 2020-10-13 13:54 | WPDUROPN2 ---
Progress Note: A&P Assessment and Plan (1) Acute urinary retention: Code(s): R33.8 - Other retention of urine Status: Chronic (2) Hematuria: Code(s): R31.9 - Hematuria, unspecified Status: Acute Assessment and Plan: Hematuria and clot retention s/p clot evac - urine is now yellow/clear on minimal CBI - will wean CBI to off today and cap third port - complete treatment for UTI - continue blanton for now due to history of retention Subjective Subjective Date/Time Seen: 10/13/20 13:54 Doing well. Urine is now clear on minimal CBI Review of Systems Review of Systems: All systems reviewed & are unremarkable except as noted in HPI and below Exam Const: General: cooperative, comfortable and no acute distress Chest: Chest palpation & inspection: normal inspection of the chest Resp: Effort & Inspection: normal respiratory effort : Penis: Yes normal penis Urinary Catheter: Urinary Catheter: patent and draining and urine clear (clear yellow on minimal CBI) Objective Data Vital Signs Vital Signs: Vital Signs - 24 hr 10/12/20 14:41 10/12/20 15:42 10/12/20 20:00 Temperature 35.7 C L Pulse Rate 55 L 53 L Respiratory Rate 16 18 Blood Pressure 103/56 L Pulse Oximetry 95 93 98 10/13/20 00:00 10/13/20 08:00 Temperature 35.8 C L 35.8 C L Pulse Rate 53 L 86 Respiratory Rate 18 16 Blood Pressure 122/56 L 112/76 Pulse Oximetry 98 93 Intake/Output Intake/Output: Intake & Output 10/10/20 10/11/20 10/12/20 10/13/20 23:59 23:59 23:59 23:59 Intake Total 2450 1180 8480 680 Output Total 3740 4210 7520 300 Balance -1290 -3030 960 380 Meds/Results Medications: Active Medications Generic Name Dose Route Start Last Admin Trade Name Freq PRN Reason Stop Dose Admin Acetaminophen 650 mg 10/08/20 06:06 Acetaminophen 325 Mg Tablet PO Q4H PRN Pain (Scale Score 1-3) Hydrocodone Bitart/Acetaminophen 1 tab 10/08/20 04:06 10/12/20 08:06 Hydrocodone/Acetaminophen (*Crx) 5-325 Mg Tablet PO 1 tab Q4H PRN Administration Pain Rated 4-6 Aspirin 81 mg 10/08/20 09:00 10/13/20 09:17 Aspirin 81 Mg Enteric Tablet PO 81 mg QAM LUI Administration Atorvastatin Calcium 80 mg 10/08/20 09:00 10/13/20 09:16 Atorvastatin 40 Mg Tablet PO 80 mg DAILY LUI Administration Heparin Sodium (Porcine) 6,500 units 10/08/20 18:02 10/09/20 03:37 Heparin Sodium 5,000 Units/Ml Vial IV PUSH 6,500 units PRN PRN Administration aPTT less than 55 seconds Heparin Sodium (Porcine) 3,500 units 10/08/20 18:02 Heparin Sodium 5,000 Units/Ml Vial IV PUSH PRN PRN aPTT 55 - 70 seconds Hydromorphone HCl 0.25 mg 10/08/20 12:39 Hydromorphone Hcl Inj (*Crx) 1 Mg/Ml Syr IV PUSH Q5M PRN Pain Heparin Sodium/Dextrose 25,000 units in 250 mls @ 12 mls/hr 10/08/20 18:05 10/10/20 01:15 Heparin Sodium/D5w 100 Units/Ml IV CONT 1,200 units/hr .[id number] LUI 12 mls/hr Administration Protocol 1,200 UNITS/HR Ampicillin Sodium/Sulbactam Sodium 3 gm in 100 mls @ 200 mls/hr 10/10/20 12:00 10/13/20 13:28 Unasyn 3 Gm/Ns 100 Ml IVPB 200 mls/hr Q6HR LUI Administration Morphine Sulfate 4 mg 10/08/20 04:06 10/11/20 03:33 Morphine Sulfate (*Crx) 4 Mg/Ml Inj IV PUSH 4 mg Q2H PRN Administration Pain Rated 7-10 Multivitamins Therapeutic 1 tablet 10/08/20 09:00 10/13/20 09:17 Multivitamins Therapeutic Tab (*Bkc) PO 1 tablet QAM LUI Administration Ondansetron HCl 4 mg 10/08/20 04:06 10/13/20 08:24 Ondansetron Inj 4 Mg/2 Ml Vial IV PUSH 4 mg Q4H PRN Administration Nausea Ondansetron HCl 4 mg 10/08/20 12:39 Ondansetron Inj 4 Mg/2 Ml Vial IV PUSH ONCE PRN Nausea Pantoprazole Sodium 40 mg 10/13/20 21:00 Pantoprazole 40 Mg Tablet PO Q12HR LUI Polyethylene Glycol 17 gm 10/08/20 09:00 10/13/20 09:16 Polyethylene Glycol 3350 17 Gm Powd.Pack PO
[2020-10-13 14:08] VITALS: BP 107/64; PULSE 80; RESP 18; TEMP 35.8; O2SAT 96
[2020-10-13] MEDS: PANTOPRAZOLE 40 MG TABLET PO (21:20)
[2020-10-14] VITALS: BP 102/58; PULSE 90; RESP 18; TEMP 37.3; O2SAT 95
[2020-10-14] MEDS: AMPICILLIN SULB 3 GM/NS 100 ML 3 GM/100 ML VIAL IVPB ×4 (00:45→17:53)
[2020-10-14 06:46] LABS: Hematocrit 26.1 % (42.0-52.0); Hemoglobin 8.4 g/dL (14.0-18.0); Mean Corpuscular HGB Conc 32.2 g/dl (32-36); Mean Corpuscular Hemoglobin 29.1 pg (26-34); Mean Corpuscular Volume 90.3 fl (80-100); Mean Platelet Volume 10.4 fl (7.4-10.4); Platelet Count Result 220 k/mm3 (150-375); Red Blood Count 2.89 M/mm3 (4.6-6.20); Red Cell Distribution Width 15.6 % (11.5-14.5); White Blood Count 12.3 K/mm3 (4.5-10.0)
[2020-10-14 07:02] LABS: Albumin Level 2.4 g/dL (3.5-5.1); Anion Gap 4 mmol/L (8-16); Blood Urea Nitrogen 11 mg/dL (9-20); Calcium 7.7 mg/dL (8.4-10.2); Carbon Dioxide 26 mmol/L (22-30); Chloride 106 mmol/L (98-107); Estimated CRCL calculation 86 ml/min; Estimated Glomerular Filt Rate > 60; Glucose 73 mg/dL (75-110); Phosphorus 2.9 mg/dL (2.5-4.5); Potassium 3.1 mmol/L (3.4-5.0); Sodium 136 mmol/L (137-145)
--- NOTE | 2020-10-14 07:41 | WPDUROPN2 ---
Progress Note: A&P Assessment and Plan (1) Acute UTI: Code(s): N39.0 - Urinary tract infection, site not specified Status: Acute (2) Hematuria: Code(s): R31.9 - Hematuria, unspecified Status: Acute Assessment and Plan: Hematuria resolved and CBI is off. Will disconnect CBI and cap the third port. Continue blanton for now. Abx for UTI and cholecystitis per primary team. Subjective Subjective Date/Time Seen: 10/14/20 07:41 No complaints. Urine is yellow off of CBI Review of Systems Review of Systems: All systems reviewed & are unremarkable except as noted in HPI and below Exam Const: General: cooperative and no acute distress Resp: Effort & Inspection: normal respiratory effort Urinary Catheter: Urinary Catheter: urine clear Objective Data Vital Signs Vital Signs: Vital Signs - 24 hr 10/13/20 08:00 10/13/20 14:08 10/14/20 00:00 Temperature 35.8 C L 35.8 C L 37.3 C Pulse Rate 86 80 90 Respiratory Rate 16 18 18 Blood Pressure 112/76 107/64 102/58 L Pulse Oximetry 93 96 95 Intake/Output Intake/Output: Intake & Output 10/11/20 10/12/20 10/13/20 10/14/20 23:59 23:59 23:59 23:59 Intake Total 1180 8480 3760 100 Output Total 4210 7520 2500 360 Balance -3030 960 1260 -260 Meds/Results Medications: Active Medications Generic Name Dose Route Start Last Admin Trade Name Freq PRN Reason Stop Dose Admin Acetaminophen 650 mg 10/08/20 06:06 Acetaminophen 325 Mg Tablet PO Q4H PRN Pain (Scale Score 1-3) Hydrocodone Bitart/Acetaminophen 1 tab 10/08/20 04:06 10/12/20 08:06 Hydrocodone/Acetaminophen (*Crx) 5-325 Mg Tablet PO 1 tab Q4H PRN Administration Pain Rated 4-6 Aspirin 81 mg 10/08/20 09:00 10/13/20 09:17 Aspirin 81 Mg Enteric Tablet PO 81 mg QAM LUI Administration Atorvastatin Calcium 80 mg 10/08/20 09:00 10/13/20 09:16 Atorvastatin 40 Mg Tablet PO 80 mg DAILY LUI Administration Heparin Sodium (Porcine) 6,500 units 10/08/20 18:02 10/09/20 03:37 Heparin Sodium 5,000 Units/Ml Vial IV PUSH 6,500 units PRN PRN Administration aPTT less than 55 seconds Heparin Sodium (Porcine) 3,500 units 10/08/20 18:02 Heparin Sodium 5,000 Units/Ml Vial IV PUSH PRN PRN aPTT 55 - 70 seconds Hydromorphone HCl 0.25 mg 10/08/20 12:39 Hydromorphone Hcl Inj (*Crx) 1 Mg/Ml Syr IV PUSH Q5M PRN Pain Heparin Sodium/Dextrose 25,000 units in 250 mls @ 12 mls/hr 10/08/20 18:05 10/10/20 01:15 Heparin Sodium/D5w 100 Units/Ml IV CONT 1,200 units/hr .[id number] LUI 12 mls/hr Administration Protocol 1,200 UNITS/HR Ampicillin Sodium/Sulbactam Sodium 3 gm in 100 mls @ 200 mls/hr 10/10/20 12:00 10/14/20 06:08 Unasyn 3 Gm/Ns 100 Ml IVPB 200 mls/hr Q6HR LUI Administration Morphine Sulfate 4 mg 10/08/20 04:06 10/11/20 03:33 Morphine Sulfate (*Crx) 4 Mg/Ml Inj IV PUSH 4 mg Q2H PRN Administration Pain Rated 7-10 Multivitamins Therapeutic 1 tablet 10/08/20 09:00 10/13/20 09:17 Multivitamins Therapeutic Tab (*Bkc) PO 1 tablet QAM LUI Administration Ondansetron HCl 4 mg 10/08/20 04:06 10/13/20 08:24 Ondansetron Inj 4 Mg/2 Ml Vial IV PUSH 4 mg Q4H PRN Administration Nausea Ondansetron HCl 4 mg 10/08/20 12:39 Ondansetron Inj 4 Mg/2 Ml Vial IV PUSH ONCE PRN Nausea Pantoprazole Sodium 40 mg 10/13/20 21:00 10/13/20 21:20 Pantoprazole 40 Mg Tablet PO 40 mg Q12HR LUI Administration Polyethylene Glycol 17 gm 10/08/20 09:00 10/13/20 09:16 Polyethylene Glycol 3350 17 Gm Powd.Pack PO 17 gm DAILY LUI Administration Senna 8.6 mg 10/08/20 06:06 Sennosides 8.6 Mg Tablet PO BID PRN Constipation Radiology Results: ITS Impressions Abdomen X-Ray 10/08/20 10:07 IMPRESSION: 1. No urolithiasis identified. Venous Doppler Study 10/08/20 12:50 IMPRESSION: 1. Deep venous thrombosi
[2020-10-14 07:56] LABS: Vitamin D 25 Hydroxy 16.3 ng/mL
[2020-10-14 08:00] VITALS: BP 100/45; PULSE 78; RESP 14; TEMP 36.9; O2SAT 100
[2020-10-14] MEDS: POTASSIUM CHLORIDE 20 MEQ TABLET 40 MEQ PO ×2 (08:30→13:21)
[2020-10-14] MEDS: MULTIVITAMINS THERAPEUTIC TAB (*BKC) 1 TABLET PO (09:06)
[2020-10-14] MEDS: PANTOPRAZOLE 40 MG TABLET PO ×2 (09:06→20:10)
[2020-10-14] MEDS: ATORVASTATIN 40 MG TABLET 80 MG PO (09:06)
[2020-10-14] MEDS: ASPIRIN 81 MG ENTERIC TABLET PO (09:06)
--- NOTE | 2020-10-14 11:35 | PM.IMPN ---
Progress Note: A&P Assessment and Plan (1) Acute cholecystitis: Code(s): K81.0 - Acute cholecystitis Status: Acute Assessment and Plan: WBC 13K on admission but increased to 27K then jumped to 53K with 91% PMNs; CRP 35. No diarrhea despite prep. No fevers. BP stable. He was having more abdominal pain so CT repeated showing evidence of acute cholecystitis. CXR findings more likely related to atelectasis. Lipase normal. LA 1.7. Changed to Unasyn. GenSurg consulted and cholecystostomy tube placed 10/10. WBC trending down. 10/14 12.3k. Continue Unasyn. (2) Hematuria: Qualifiers: Hematuria type: gross Qualified Code(s): R31.0 - Gross hematuria Code(s): R31.9 - Hematuria, unspecified Status: Acute Assessment and Plan: Patient with gross hematuria. CT scan showing a large amount of mixed attenuation material in the urinary bladder, likely hematoma. Cystoscopy performed 10/08 with large clot evacuation (400cc). No active bleeding with clot removal and CBI. Urine is clear. Tolerated anticoagulation with Heparin drip witn not further bleeding. 10/14 CBI stopped. 10/14 PM Eliquis started and heparin stopped. Will need to be discharged with Ness. (3) DVT (deep venous thrombosis): Qualifiers: DVT location: lower extremity Affected thrombotic vein of extremity: femoral Chronicity: chronic Laterality: right Qualified Code(s): I82.511 - Chronic embolism and thrombosis of right femoral vein Code(s): I82.409 - Acute embolism and thrombosis of unspecified deep veins of unspecified lower extremity Status: Acute Assessment and Plan: CT scan showing a partially visualized deep venous thrombosis on the right. Bilateral lower extremity ultrasound performed showing DVT of the right common femoral through posterior tibial veins. Heparin drip started after given the okay from Urology. Drip was held for cholecysostomy tube placement but was resumed afterwards. Hgb has dropped to 8.5 but stable. No evidence of recurrent bleeding. 10/13: hgb 9.0.. 10/14 Hgb 8.4 10/14 Stop heparin and start Eliquis. (4) Electrolyte abnormality: Code(s): E87.8 - Other disorders of electrolyte and fluid balance, not elsewhere classified Status: Acute Assessment and Plan: 10/12: K 2.8, 10/13 3.3 after replacement. Additional PO KCL 40 mEq ordered. 10/14 K 3.1, PO KCL 40mEq x 2 ordered. Albumin, phos, calcium all low. But calcium corrects to WNL when albumin is considered. Likely due to malnutrition. 10/14 25-OH D 16.3, so replacement therapy initiated Monitor phos with refeeding. F/u renal function panel (5) Leukocytosis: Qualifiers: Leukocytosis type: unspecified Qualified Code(s): D72.829 - Elevated white blood cell count, unspecified Code(s): D72.829 - Elevated white blood cell count, unspecified Status: Acute Assessment and Plan: Leukocytosis related to above. Improved today (6) Abnormal CT scan, gastrointestinal tract: Code(s): R93.3 - Abnormal findings on diagnostic imaging of other parts of digestive tract Status: Chronic Assessment and Plan: CT scan also showed an irregular wall thickening of the sigmoid colon concerning for malignancy. GI consulted with plans for colonoscopy when medically stable, possibly as outpatient. (7) Anemia: Qualifiers: Other causes of anemia: acute posthemorrhagic Anemia type: other cause Qualified Code(s): D62 - Acute posthemorrhagic anemia Code(s): D64.9 - Anemia, unspecified Status: Chronic Assessment and Plan: Acute blood loss from the hematuria. Hgb 12 on admission but has dropped to 8.5. 10/13 hgb 9.0. 10/14 hgb 8.4. (8) Acute urinary retention: Code(s): R33.8 - Other retention of urine Status: Chronic Assessment and Plan: Patient with 3L urine in his bladder. He did not appear to be too bothered by t
[2020-10-14] MEDS: ERGOCALCIFEROL 50,000 UNIT CAPSULE 50000 UNITS PO (13:20)
--- NOTE | 2020-10-14 14:22 | PM.PNGS ---
Progress Note: A&P Assessment and Plan (1) Acute cholecystitis: Code(s): K81.0 - Acute cholecystitis Status: Acute Assessment and Plan: essentially resolved with cholecystostomy tube. Will get the catheter injection cholecystogram tomorrow to assessed patency of cystic duct. Will definitely be discharged with cholecystostomy tube in place. Only question is whether it will be open to drainage or capped. (2) Abnormal CT scan, gastrointestinal tract: Code(s): R93.3 - Abnormal findings on diagnostic imaging of other parts of digestive tract Status: Chronic Assessment and Plan: Suspicious area in sigmoid colon noted on CT scan. Possible colon cancer. Recommend either colonoscopy or contrast enema prior to discharge. Anticoagulation has been held. Would consider proceeding with colonoscopy now. (3) Chronic anticoagulation: Code(s): Z79.01 - long term (current) use of anticoagulants Status: Chronic Assessment and Plan: Okay to resume anticoagulation unless going to head with colonoscopy. No need to hold anticoagulation for gallbladder issues. 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): Code(s): I69.319 - Unspecified symptoms and signs involving cognitive functions following cerebral infarction Status: Chronic Subjective Subjective Date/Time Seen: 10/14/20 14:22 Post Op day: 4 ( Cholecystostomy tube placed 10/10/2020) Patient reports: no new complaints, feels better, pain is less, bowel movement and afebrile Review of Systems Review of Systems: All systems reviewed & are unremarkable except as noted in HPI and below Constitutional: Constitutional: Denies chills, Denies fever(s), Denies headache(s) and Reports increased appetite Gastrointestinal: Gastrointestinal: Reports as per HPI, Reports abdominal pain ( pain gone, uncomfortable from drainage catheter), Denies heartburn, Denies diarrhea and Denies nausea Neurologic: Reports abnormal gait, Reports lack of coordination and Reports focal weakness Exam Const: General: comfortable, no acute distress, alert and awake Nutritional Appearance: overweight GI: Inspection: non-distended and other ( dark green draining from cholecystostomy tube) GI Palp: Yes Soft to palpation, Yes Tenderness to palpation present (GI) ( minimal tenderness and this is at exit site of drainage catheter), No Guarding due to palpation present (GI), No Hernia present, No Palpable mass present and No Rebound tenderness present Auscultation: normal bowel sounds Extrem: General: no calf tenderness and no edema Objective Data Vital Signs Vital Signs: Vital Signs - 24 hr 10/14/20 00:00 10/14/20 08:00 Temperature 37.3 C 36.9 C Pulse Rate 90 78 Respiratory Rate 18 14 Blood Pressure 102/58 L 100/45 L Pulse Oximetry 95 100 Intake/Output Intake/Output: Intake & Output 10/11/20 10/12/20 10/13/20 10/14/20 23:59 23:59 23:59 23:59 Intake Total 1180 8480 3760 440 Output Total 4210 7520 2500 360 Balance -3030 960 1260 80 Meds/Results Medications: Active Medications Generic Name Dose Route Start Last Admin Trade Name Freq PRN Reason Stop Dose Admin Acetaminophen 650 mg 10/08/20 06:06 Acetaminophen 325 Mg Tablet PO Q4H PRN Pain (Scale Score 1-3) Hydrocodone Bitart/Acetaminophen 1 tab 10/08/20 04:06 10/12/20 08:06 Hydrocodone/Acetaminophen (*Crx) 5-325 Mg Tablet PO 1 tab Q4H PRN Administration Pain Rated 4-6 Apixaban 5 mg 10/14/20 21:00 Apixaban 5 Mg Tablet PO Q12HR [facility] Aspirin 81 mg 10/08/20 09:00 10/14/20 09:06 Aspirin 81 Mg Enteric Tablet PO 81 mg [facility] A
[2020-10-14] MEDS: APIXABAN 5 MG TABLET PO (20:10)
[2020-10-14 22:00] VITALS: BP 118/57; PULSE 73; RESP 20; TEMP 36.9; O2SAT 97
[2020-10-15] VITALS (7 sets, daily range): BP systolic 109–134; BP diastolic 51–86; PULSE 67–94; RESP 18–21; TEMP 35.9–36.6; O2SAT 94–99; BMI 23.8
[2020-10-15] MEDS: AMPICILLIN SULB 3 GM/NS 100 ML 3 GM/100 ML VIAL IVPB ×3 (00:10→12:43)
[2020-10-15 06:24] LABS: Hematocrit 25.2 % (42.0-52.0); Mean Corpuscular HGB Conc 31.7 g/dl (32-36); Mean Corpuscular Volume 91.3 fl (80-100); Mean Platelet Volume 10.6 fl (7.4-10.4); Platelet Count Result 225 k/mm3 (150-375); Red Blood Count 2.76 M/mm3 (4.6-6.20); Red Cell Distribution Width 15.8 % (11.5-14.5); White Blood Count 9.6 K/mm3 (4.5-10.0)
[2020-10-15 06:44] LABS: Albumin Level 2.4 g/dL (3.5-5.1); Anion Gap 3 mmol/L (8-16); Blood Urea Nitrogen 9 mg/dL (9-20); Calcium 7.7 mg/dL (8.4-10.2); Carbon Dioxide 27 mmol/L (22-30); Chloride 106 mmol/L (98-107); Estimated CRCL calculation 99 ml/min; Estimated Glomerular Filt Rate > 60; Glucose 69 mg/dL (75-110); Phosphorus 3.4 mg/dL (2.5-4.5); Potassium 3.3 mmol/L (3.4-5.0); Sodium 136 mmol/L (137-145)
--- NOTE | 2020-10-15 07:03 | WPDUROPN2 ---
Progress Note: A&P Assessment and Plan (1) Acute UTI: Code(s): N39.0 - Urinary tract infection, site not specified Status: Acute (2) Hematuria: Qualifiers: Hematuria type: gross Qualified Code(s): R31.0 - Gross hematuria Code(s): R31.9 - Hematuria, unspecified Status: Acute Assessment and Plan: Urine remains clear off CBI. Given his history of urinary retention, would leave catheter indwelling until his other issues are significantly improved Subjective Subjective Date/Time Seen: 10/15/20 07:03 Tolerating cathter Review of Systems Cardiovascular: Cardiovascular: Denies chest pain, Denies lightheadedness, Denies palpitations and Denies dyspnea Respiratory: Respiratory: Denies dyspnea Gastrointestinal: Gastrointestinal: Denies diarrhea, Denies nausea and Denies vomiting Genitourinary: Genitourinary: Denies hematuria and Denies dysuria Endocrine: Endocrine: Denies palpitations Exam Const: General: no acute distress Resp: Effort & Inspection: normal respiratory effort GI: Inspection: non-distended GI Palp: No abdominal tenderness and No Guarding due to palpation present (GI) Auscultation: normal bowel sounds Urinary Catheter: Urinary Catheter: patent and draining and urine clear Objective Data Vital Signs Vital Signs: Vital Signs - 24 hr 10/14/20 08:00 10/14/20 22:00 10/15/20 05:52 Temperature 98.5 F 98.4 F 97.9 F Pulse Rate 78 73 94 Respiratory Rate 14 20 20 Blood Pressure 100/45 L 118/57 L 117/51 L Pulse Oximetry 100 97 94 Intake/Output Intake/Output: Intake & Output 10/12/20 10/13/20 10/14/20 10/15/20 23:59 23:59 23:59 23:59 Intake Total 8480 3760 890 125 Output Total 7520 2500 760 200 Balance 960 1260 130 -75 Meds/Results Medications: Active Medications Generic Name Dose Route Start Last Admin Trade Name Freq PRN Reason Stop Dose Admin Acetaminophen 650 mg 10/08/20 06:06 Acetaminophen 325 Mg Tablet PO Q4H PRN Pain (Scale Score 1-3) Hydrocodone Bitart/Acetaminophen 1 tab 10/08/20 04:06 10/12/20 08:06 Hydrocodone/Acetaminophen (*Crx) 5-325 Mg Tablet PO 1 tab Q4H PRN Administration Pain Rated 4-6 Apixaban 5 mg 10/14/20 21:00 10/14/20 20:10 Apixaban 5 Mg Tablet PO 5 mg Q12HR LUI Administration Aspirin 81 mg 10/08/20 09:00 10/14/20 09:06 Aspirin 81 Mg Enteric Tablet PO 81 mg QAM LUI Administration Atorvastatin Calcium 80 mg 10/08/20 09:00 10/14/20 09:06 Atorvastatin 40 Mg Tablet PO 80 mg DAILY LUI Administration Ergocalciferol 50,000 unit 10/14/20 09:00 10/14/20 13:20 Ergocalciferol 50,000 Unit Capsule PO 50,000 unit WEEKLY@0900 [facility] Administration Hydromorphone HCl 0.25 mg 10/08/20 12:39 Hydromorphone Hcl Inj (*Crx) 1 Mg/Ml Syr IV PUSH Q5M PRN Pain Ampicillin Sodium/Sulbactam Sodium 3 gm in 100 mls @ 200 mls/hr 10/10/20 12:00 10/15/20 05:20 Unasyn 3 Gm/Ns 100 Ml IVPB 200 mls/hr Q6HR LUI Administration Morphine Sulfate 4 mg 10/08/20 04:06 10/11/20 03:33 Morphine Sulfate (*Crx) 4 Mg/Ml Inj IV PUSH 4 mg Q2H PRN Administration Pain Rated 7-10 Multivitamins Therapeutic 1 tablet 10/08/20 09:00 10/14/20 09:06 Multivitamins Therapeutic Tab (*Bkc) PO 1 tablet QAM [facility] [place] Administration Ondansetron HCl 4 mg 10/08/20 04:06 10/13/20 08:24 Ondansetron Inj 4 Mg/2 Ml Vial IV PUSH 4 mg Q4H PRN Administration Nausea Ondansetron HCl 4 mg 10/08/20 12:39 Ondansetron Inj 4 Mg/2 Ml Vial IV PUSH ONCE PRN Nausea Pantoprazole Sodium 40 mg 10/13/20 21:00 10/14/20 20:10 Pantoprazole 40 Mg Tablet PO 40 mg Q12HR LUI Administration Polyethylene Glycol 17 gm 10/08/20 09:00 10/14/20 09:07 Polyethylene Glycol 3350 17 Gm Powd.Pack PO Not Given DAILY [facility] Senna 8.6 mg 10/08/20 06:06 Sennosides 8.6 Mg Tablet PO BID PRN Constipation Radiology Results: ITS
--- NOTE | 2020-10-15 08:11 | PM.PNGS ---
Progress Note: A&P Assessment and Plan (1) Acute cholecystitis: Code(s): K81.0 - Acute cholecystitis Status: Acute Assessment and Plan: Appears to have resolved after cholecystostomy tube placed. To have catheter injection today to assess cystic duct patency. If patent can try clamping cholecystostomy tube tomorrow. Tube will need to be in a minimum of 3 weeks. (2) Abnormal CT scan, gastrointestinal tract: Code(s): R93.3 - Abnormal findings on diagnostic imaging of other parts of digestive tract Status: Chronic Assessment and Plan: Suggestive of sigmoid colon cancer. Recommend colonoscopy or at least barium enema this admission. (3) CVA (cerebral vascular accident): Qualifiers: CVA mechanism: unspecified Qualified Code(s): I63.9 - Cerebral infarction, unspecified Code(s): I63.9 - Cerebral infarction, unspecified Status: Chronic (4) Chronic anticoagulation: Code(s): Z79.01 - technician terminal and repeater (current) use of anticoagulants Status: Chronic Assessment and Plan: Okay to resume from surgical perspective. 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): Code(s): I69.319 - Unspecified symptoms and signs involving cognitive functions following cerebral infarction Status: Chronic Subjective Subjective Date/Time Seen: 10/15/20 08:11 Patient reports: no new complaints and other ( Poor appetite) Review of Systems Review of Systems: All systems reviewed & are unremarkable except as noted in HPI and below Constitutional: Constitutional: Denies chills, Denies fever(s), Denies headache(s) and Reports poor appetite Gastrointestinal: Gastrointestinal: Reports as per HPI, Denies abdominal pain and Denies nausea Exam Const: General: cooperative, comfortable, no acute distress and awake GI: Inspection: non-distended and other ( minimal fluid in pigtail bag this morning.) GI Palp: Yes Soft to palpation, No Tenderness to palpation present (GI), No Guarding due to palpation present (GI) and No Rebound tenderness present Auscultation: normal bowel sounds Objective Data Vital Signs Vital Signs: Vital Signs - 24 hr 10/14/20 22:00 10/15/20 05:52 Temperature 36.9 C 36.6 C Pulse Rate 73 94 Respiratory Rate 20 20 Blood Pressure 118/57 L 117/51 L Pulse Oximetry 97 94 Intake/Output Intake/Output: Intake & Output 10/12/20 10/13/20 10/14/20 10/15/20 23:59 23:59 23:59 23:59 Intake Total 8480 3760 890 125 Output Total 7520 2500 760 200 Balance 960 1260 130 -75 Meds/Results Medications: Active Medications Generic Name Dose Route Start Last Admin Trade Name Freq PRN Reason Stop Dose Admin Acetaminophen 650 mg 10/08/20 06:06 Acetaminophen 325 Mg Tablet PO Q4H PRN Pain (Scale Score 1-3) Hydrocodone Bitart/Acetaminophen 1 tab 10/08/20 04:06 10/12/20 08:06 Hydrocodone/Acetaminophen (*Crx) 5-325 Mg Tablet PO 1 tab Q4H PRN Administration Pain Rated 4-6 Apixaban 5 mg 10/14/20 21:00 10/14/20 20:10 Apixaban 5 Mg Tablet PO 5 mg Q12HR LUI Administration Aspirin 81 mg 10/08/20 09:00 10/14/20 09:06 Aspirin 81 Mg Enteric Tablet PO 81 mg QAM LUI Administration Atorvastatin Calcium 80 mg 10/08/20 09:00 10/14/20 09:06 Atorvastatin 40 Mg Tablet PO 80 mg DAILY LUI Administration Ergocalciferol 50,000 unit 10/14/20 09:00 10/14/20 13:20 Ergocalciferol 50,000 Unit Capsule PO 50,000 unit WEEKLY@0900 LUI Administration Hydromorphone HCl 0.25 mg 10/08/20 12:39 Hydromorphone Hcl Inj (*Crx) 1 Mg/Ml Syr IV PUSH Q5M PRN Pain Ampicillin Sodium/Sulbactam Sodium 3 gm in 100 mls @ 200 mls/hr 10/10/20 12:00 10/15/20 05:20 Unasyn 3 Gm/Ns 100 Ml IVPB 200 mls/hr Q6HR LUI Administration Morphine Sulfate 4 mg 10/08/20 04:06 10/11/20 03:33 Morphine Sulfate (*Crx) 4 Mg/Ml Inj IV PUSH 4 mg Q2H PRN Administration Pain Rat
--- NOTE | 2020-10-15 09:38 | PCSTNOTE ---
Therapist attempted to see patient and he reported he was on the bedpan; upon return, patient was leaving for procedure.
[2020-10-15] MEDS: LACTATED RINGERS 1,000 ML 150 ML IV CONT (10:01)
--- NOTE | 2020-10-15 10:11 | WPDANESEPPF ---
Anes - Initial Pre Proc Eval Procedure: Operation Date: 10/08/20 13:00 Proposed Procedures p Cystoscopy, Evacuation Bladder Clots - Alex Snyder MD Operation Date: 10/10/20 11:45 Proposed Procedures p Colonoscopy - Mckay Wall MD Operation Date: 10/10/20 14:30 Proposed Procedures p Laparoscopic Cholecystectomy,Possible Open - Eddie Connolly MD Operation Date: 10/15/20 10:45 Proposed Procedures p Colonoscopy - Mckay Wall MD Date/Time: 10/15/20 10:11 Surgeon: Dimitri Marks MD Pre Op Diagnosis: acute urinary retention, tito, hematuria Patient Data Age: 75 Gender: M Height: 1.85 m Weight: 82.1 kg Last Vital Signs Temp 96.7 F L 10/15/20 09:54 Pulse 68 10/15/20 09:54 Resp 20 10/15/20 09:54 BP 109/53 L 10/15/20 09:54 Pulse Ox 96 10/15/20 09:54 Allergies Allergy/AdvReac Type Severity Reaction Status Date / Time No Known Allergies Allergy Verified 10/15/20 09:51 Home Medications Medication Instructions Recorded Confirmed Type acetaminophen [Tylenol] 650 mg PO Q4H PRN 09/04/20 10/08/20 History amlodipine 5 mg PO DAILY 09/04/20 10/08/20 History aspirin 325 mg PO DAILY 09/04/20 10/08/20 History atorvastatin 80 mg PO DAILY 09/04/20 10/08/20 History polyethylene glycol 3350 [Miralax] 17 g PO DAILY 09/04/20 10/08/20 History potassium chloride 20 meq PO DAILY 09/04/20 10/08/20 History sennosides [senna] 8.6 mg PO BID PRN 09/04/20 10/08/20 History multivitamin with folic acid 1 tablet PO QAM #30 tablet 09/14/20 10/08/20 Rx [Thera] omeprazole 40 mg PO DAILY 10/08/20 10/08/20 History Laboratory Tests 10/15/20 10/15/20 05:48 05:48 WBC 9.6 K/mm3 K/mm3 (4.5-10.0) RBC 2.76 M/mm3 L M/mm3 (4.6-6.20) Hgb 8.0 g/dL L g/dL (14.0-18.0) Hct 25.2 % L % (42.0-52.0) MCV 91.3 fl fl (80-100) MCH 29.0 pg pg (26-34) MCHC 31.7 g/dl L g/dl (32-36) RDW 15.8 % H % (11.5-14.5) Plt Count 225 k/mm3 k/mm3 (150-375) MPV 10.6 fl H fl (7.4-10.4) Sodium 136 mmol/L L mmol/L (137-145) Potassium 3.3 mmol/L L mmol/L (3.4-5.0) Chloride 106 mmol/L mmol/L (98-107) Carbon Dioxide 27 mmol/L mmol/L (22-30) Anion Gap 3 mmol/L L mmol/L (8-16) BUN 9 mg/dL mg/dL (9-20) Creatinine 0.60 mg/dL L mg/dL (0.7-1.3) Estim Creat Clear Calc 99 ml/min ml/min Estimated GFR > 60 (59 - ) Glucose 69 mg/dL L mg/dL (75-110) Calcium 7.7 mg/dL L mg/dL (8.4-10.2) Phosphorus 3.4 mg/dL mg/dL (2.5-4.5) Albumin 2.4 g/dL L g/dL (3.5-5.1) Patient hx anesthesia problems: none Family hx anesthesia problems: none [facility] Past Medical History Medical History (Updated 10/14/20 @ 11:44 by Jeff Galvan MD) 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 They live in a multilevel home with 1 step to enter. The patient then has 6 stairs up or down to the bedroom or bathroom. The patient was completely independent prior to this CVA requiring no assistive device. The patient family have decided that the patient will return home after air you with assistance from family and/or hired caregivers. A contractor has been Ruben to work on home assess abilities that the patient can live on the main level of their home. Private duty caregivers will be secured for 247 care for the patient and his . Son is supportive. Patient was a former smoker quit in 1990. Smoking packs
--- NOTE | 2020-10-15 10:56 | SUR.OPER ---
pt turned to left side after intial propofol given due to pt co right arm pain. wedge placed behind back, blanket between knees, blanton and drainage bag secured.
[2020-10-15] MEDS: PANTOPRAZOLE 40 MG TABLET PO (12:42)
[2020-10-15] MEDS: MULTIVITAMINS THERAPEUTIC TAB (*BKC) 1 TABLET PO (12:42)
[2020-10-15] MEDS: ATORVASTATIN 40 MG TABLET 80 MG PO (12:43)
[2020-10-15] MEDS: ASPIRIN 81 MG ENTERIC TABLET PO (12:43)
[2020-10-15] MEDS: polyethylene glycoL 3350 17 GM POWD.PACK PO (12:43)
--- NOTE | 2020-10-15 13:09 | PCNSR ---
On 10/15/20, the student,Olinda Nagel, provided care and completed [facility] documentation on this patient. I have reviewed the student's documentation and agree with the findings.
[2020-10-15] MEDS: POTASSIUM CHLORIDE 20 MEQ TABLET 40 MEQ PO (14:48)
--- NOTE | 2020-10-15 14:49 | PM.DS ---
DS: Admitting Diagnosis Admitting Diagnosis Admitting Diagnosis: Hematuria DS: Discharge Diagnosis Discharge Diagnosis (1) Acute cholecystitis: Code(s): K81.0 - Acute cholecystitis Status: Acute Assessment and Plan: WBC 13K on admission but increased to 53K with 91% PMNs; CRP 35. No diarrhea. No fevers. BP was stable. He was having more abdominal pain so CT of the abdomen was repeated showing evidence of acute cholecystitis. CXR findings more likely related to atelectasis. Lipase normal. LA 1.7. Abx changed to Unasyn. GenSurg consulted and cholecystostomy tube placed 10/10. WBC normalized. Doischarge with cholecystoscopy tube in place. Follow up with General Surgery (2) Hematuria: Qualifiers: Hematuria type: gross Qualified Code(s): R31.0 - Gross hematuria Code(s): R31.9 - Hematuria, unspecified Status: Acute Assessment and Plan: Patient with gross hematuria. CT scan showing a large amount of mixed attenuation material in the urinary bladder, likely hematoma. Cystoscopy performed 10/08 with large clot evacuation (400cc). No active bleeding with clot removal and CBI. Urine remained clear. Tolerated anticoagulation with Heparin drip with not further bleeding. CBI stopped 10/14. Changed to Eliquis. To be discharged with Ness and plan for followup with Urology. (3) DVT (deep venous thrombosis): Qualifiers: DVT location: lower extremity Affected thrombotic vein of extremity: femoral Chronicity: chronic Laterality: right Qualified Code(s): I82.511 - Chronic embolism and thrombosis of right femoral vein Code(s): I82.409 - Acute embolism and thrombosis of unspecified deep veins of unspecified lower extremity Status: Acute Assessment and Plan: CT scan showing a partially visualized deep venous thrombosis on the right. Bilateral lower extremity ultrasound performed showing DVT of the right common femoral through posterior tibial veins. Heparin drip started after given the okay from Urology. Drip was held for cholecysostomy tube placement but was resumed afterwards. Hgb has dropped to 8.5 but stable in the 8-9 range. No evidence of recurrent bleeding. Heparin converted to Eliquis (no higher dose given due to patient being on Heparin for about 7 days prior). (4) Electrolyte abnormality: Code(s): E87.8 - Other disorders of electrolyte and fluid balance, not elsewhere classified Status: Acute Assessment and Plan: Patient with persistent hypokalemia. This appears to be more chronic in that the patient takes oral potassium daily. Phosphorous low at times and was also replaced. Magnesium remained normal. (5) Leukocytosis: Qualifiers: Leukocytosis type: unspecified Qualified Code(s): D72.829 - Elevated white blood cell count, unspecified Code(s): D72.829 - Elevated white blood cell count, unspecified Status: Acute Assessment and Plan: Leukocytosis related to above. WBC normal now (6) Colonic mass: Code(s): K63.89 - Other specified diseases of intestine Status: Acute Assessment and Plan: CT scan on admission also showed an irregular wall thickening of the sigmoid colon concerning for malignancy. GI consulted with plans for colonoscopy. This was completed on 10/15 showing a partially obstructing 55mm mass in the mid sigmoid colon. Multiple biopsies were obtained. Family was notified of this finding. Discussed with GI. General surgery aware. CEA ordered. Follow up with General Surgery as outpatient for definitive treatment. Pathology pending. (7) Anemia: Qualifiers: Anemia type: other cause Other causes of anemia: acute posthemorrhagic Qualified Code(s): D62 - Acute posthemorrhagic anemia Code(s): D64.9 - Anemia, unspecified Status: Chronic Assessment and Plan: Acute blood loss from the hematuria. Hgb 12 on admission but mueller
[2020-10-15 15:58] LABS: Carcinoembryonic Antigen 4.3 ng/mL (0.0-3.0)
--- NOTE | 2020-10-16 09:57 | PC.NURSE ---
Anaerobic- negative CEA high at 4.3. Dr. Marks aware and results faxed to .
--- NOTE | 2020-10-24 10:16 | PC.NURSE ---
PAthology shows Colonic adenocarcinoma. Faxed to Dr. Benavides. Dr. Selina fuller.
== END 2020-10-15 18:00 | DRG 699 ==
LOC: ANHED 02:33 → ANH3MEDSUR 04:23
PROVIDERS: Internal Medicine; Internal Medicine Gastroenterology; Surgery; Urology; Admitting Provider Internal Medicine; Emergency Provider Emergency Medicine; PCP Family Medicine; Visit Provider Internal Medicine
PROC: 0TCB8ZZ Extirpation of Matter from Bladder, Via Natural or Artificial Opening Endoscopic (ICD-10-PCS; CPT 52001; principal; 2020-10-08 13:00)
PROC: 0DJD8ZZ Inspection of Lower Intestinal Tract, Via Natural or Artificial Opening Endoscopic (ICD-10-PCS; CPT 45330; 2020-10-15 10:45)
DX: N32.89 Other specified disorders of bladder (principal); N39.0 Urinary tract infection, site not specified; N17.9 Acute kidney failure, unspecified; I69.351 Hemiplegia and hemiparesis following cerebral infarction affecting right dominant side; I82.411 Acute embolism and thrombosis of right femoral vein; I82.431 Acute embolism and thrombosis of right popliteal vein; I82.441 Acute embolism and thrombosis of right tibial vein; D62 Acute posthemorrhagic anemia; K81.0 Acute cholecystitis; Z87.891 Personal history of nicotine dependence; I10 Essential (primary) hypertension; E78.5 Hyperlipidemia, unspecified; E87.6 Hypokalemia; N31.9 Neuromuscular dysfunction of bladder, unspecified; B95.7 Other staphylococcus as the cause of diseases classified elsewhere; K63.89 Other specified diseases of intestine
CPT/HCPCS: 36415; 47490; 47531; 71045; 74018; 74176; 74178; 76775; 80048; 80053; 80069; 81001; 82306; 82378; 82607; 82746; 83605; 83690; 83735; 84100; 84132; 84145; 84443; 85014; 85018; 85025; 85027; 85610; 85730; 86140; 87040; 87070; 87075; 87077; 87086; 87088; 87186; 87205; 88108; 88305; 92526; 92610; 93970; 96361; 96365; 99285; A9270; C9113; G0378; J0295; J0696; J1644; J2270; J2405; J2704; J3480; J7030; J7060; J7120; Q9967

== ENCOUNTER 2020-12-05 20:37 | Inpatient (IN) | payer MEDICARE, SELFPAY ==
--- NOTE | ~2020-12-05 | CT_ITS ---
EXAMINATION: CT abdomen pelvis wo con DATE: 12/06/2020 15:02 INDICATION: Cholelithiasis. Elevated lactic acid. TECHNIQUE: Computed tomography (CT) of the abdomen and pelvis was performed without intravenous contr ast. Automated exposure control and iterative reconstruction technique were employed. The dose-length product was 936.35 mGy-cm. COMPARISON: CT abdomen and pelvis 10/10/2020, 10/08/2020 FINDINGS: The visualized portions of the lung bases demonstrate mild atelectasis. There is a small le ft pleural effusion. The heart size is normal. There are coronary artery calcifications. No pericardi al effusion. There is diffuse hepatic steatosis. The gallbladder is normal in size. There is scarring anterolateral to the gallbladder from the recent cholecystostomy tube, which is no longer present. T he spleen, pancreas, adrenal glands, and right kidney are normal. There are peripelvic cysts in the l eft kidney measuring up to 2.9 cm. There is no urolithiasis. The prostate is mildly enlarged. Again s een is diffuse bladder wall thickening, likely secondary to chronic outlet obstruction. There is a ri ght inguinal hernia containing fat. There is focal wall thickening of the sigmoid colon. There are sc attered diverticula in the colon. The appendix is normal. There are no pathologically enlarged lymph nodes. There is no free intraperitoneal fluid. The Ness catheter balloon is inflated in the urethra. There is moderate thoracic spondylosis and mild lumbar spondylosis. There are numerous chronic compr ession fractures in the spine. IMPRESSION: 1. Ness catheter balloon inflated in the urethra. 2. Focal wall thickening of the sigmoid colon suspicious for primary adenocarcinoma. 3. Small left pleural effusion. 4. Normal-sized gallbladder with recently removed cholecystostomy tube. Reviewed, dictated and finalized at location B. IMPRESSION: 1. Ness catheter balloon inflated in the urethra. 2. Focal wall thickening of the sigmoid colon suspicious for primary adenocarci noma. 3. Small left pleural effusion. 4. Normal-sized gallbladder with recently removed cholecystostomy tube.
[2020-12-05 20:37] VITALS: BP 99/66; PULSE 115; RESP 15; TEMP 37.2; O2SAT 98
--- NOTE | 2020-12-05 21:00 | ED.GENADULT ---
HPI - General Adult General Chief complaint: Unspecified Stated complaint: gall bladder drain pulled out Time Seen by Provider: 12/05/20 20:50 Source: EMS and RN notes reviewed Mode of arrival: EMS Limitations: dementia History of Present Illness HPI narrative: 75-year-old sent from a fpc for dislodged cholecystostomy tube earlier this evening. Patient is unaware of how it happened. He presently has no complaints. Not much of history could be obtained from the patient as well. Onset (ago): unknown Related Data Home Medications Medication Instructions Recorded Confirmed acetaminophen [Tylenol] 650 mg PO Q4H PRN 09/04/20 11/08/20 amlodipine 5 mg PO DAILY 09/04/20 11/08/20 atorvastatin 80 mg PO DAILY 09/04/20 11/08/20 polyethylene glycol 3350 [Miralax] 17 g PO DAILY 09/04/20 11/08/20 potassium chloride 20 meq PO DAILY 09/04/20 11/08/20 sennosides [senna] 8.6 mg PO BID PRN 09/04/20 11/08/20 omeprazole 40 mg PO DAILY 10/08/20 11/08/20 Allergies Allergy/AdvReac Type Severity Reaction Status Date / Time No Known Allergies Allergy Verified 11/08/20 08:29 Review of Systems Review of Systems: ROS unobtainable: Yes unobtainable due to medical condition PMFSH Past Medical History Medical History 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 They live in a multilevel home with 1 step to enter. The patient then has 6 stairs up or down to the bedroom or bathroom. The patient was completely independent prior to this CVA requiring no assistive device. The patient family have decided that the patient will return home after air you with assistance from family and/or hired caregivers. A contractor has been Ruben to work on home assess abilities that the patient can live on the main level of their home. Private duty caregivers will be secured for 247 care for the patient and his . Son is supportive. Patient was a former smoker quit in 1990. Smoking packs per day: 2 Smoking cigarettes per day: 40.0 Years smoked: 20 Smoking pack-years: 40.00 Smoking status: Former smoker Tobacco type: cigarettes Alcohol intake: current Drinks per week: 3 Substance use: never Gender identity (if verbalized by the patient): Male Spiritual care concerns: No Exam Narrative: GENERAL: Well-appearing, thin , and in no acute distress. HEAD: Normocephalic, atraumatic. EYES: PERRLA and EOMI. NECK: Supple. CHEST: Clear to auscultation. No respiratory distress. HEART: Regular rate and rhythm. No murmur heard. Normal peripheral pulses. ABDOMEN: Soft, has a dislodged cholecystostomy tube EXTREMITIES: Normal range of motion. No edema. SKIN: Warm, dry, no rash. has Ness cath NEURO: No focal deficits. Alert . PSYCH: Normal mood and affect. Course Course Emergency Course: I discussed with Dr. Connolly about the dislodged catheter. Advised to place occlusive dressing, patient can be discharged however patient has found to have elevated lactic acid and was hypotensive with 1 L of fluid his blood pressure has gradually picked up I repeated another liter of normal saline repeated his lactic acid and is much higher than the earlier. Discussed with Dr. Auguste agreed to admit the patient meanwhile we will continue to hydrate. I do not think he is septic appears to be more dehydration. Vital Signs Vital signs: Vital Signs Temperature 37.2 C 12/05/20 20:37 Pulse Rate 115 H 12/05/20 20:37 Respiratory Rate 15
[2020-12-05] MEDS: SODIUM CHLORIDE 0.9% IV 1,000 ML 999 ML IV CONT ×2 (21:15→22:52)
[2020-12-05 21:24] LABS: Basophils Percent Auto 0.3 % (0.2-1.2); Eosinophils Percent Auto 1.2 % (0-4.4); Hematocrit 43.8 % (42.0-52.0); Hemoglobin 13.6 g/dL (14.0-18.0); Immature Granulocyte Absolute 0.02 K/mm3 (0.00-0.031); Immature Granulocyte Percent A 0.6 % (0-0.5); Lymphocytes Absolute Auto 0.83 K/mm3 (0.9-3.2); Lymphocytes Percent Auto 25.3 % (18.3-44.2); Mean Corpuscular HGB Conc 31.1 g/dl (32-36); Mean Corpuscular Hemoglobin 28.8 pg (26-34); Mean Corpuscular Volume 92.8 fl (80-100); Mean Platelet Volume 9.9 fl (7.4-10.4); Monocytes Percent Auto 1.2 % (2.6-8.5); Neutrophils Absolute Auto 2.3 K/mm3 (1.3-6.7); Neutrophils Percent Auto 71.4 % (45.5-73.1); Platelet Count Result 253 k/mm3 (150-375); Red Blood Count 4.72 M/mm3 (4.6-6.20); Red Cell Distribution Width 16.7 % (11.5-14.5); White Blood Count 3.3 K/mm3 (4.5-10.0)
[2020-12-05 21:35] LABS: Lactic Acid Reflex 3.5 mmol/L (0.7-2.1)
[2020-12-05 21:41] LABS: Alanine Aminotransferase 44 U/L (4-50); Albumin Level 3.1 g/dL (3.5-5.1); Alkaline Phosphatase 181 U/L (38-126); Anion Gap 9 mmol/L (8-16); Aspartate Amino Transferase 85 U/L (17-59); Bilirubin,Total 0.8 mg/dL (0.2-1.3); Blood Urea Nitrogen 7 mg/dL (9-20); Calcium 8.7 mg/dL (8.4-10.2); Carbon Dioxide 21 mmol/L (22-30); Chloride 101 mmol/L (98-107); Estimated Glomerular Filt Rate > 60; Glucose 90 mg/dL (65-110); Potassium 3.6 mmol/L (3.4-5.0); Sodium 131 mmol/L (137-145)
[2020-12-05 21:46] VITALS: BP 123/62; PULSE 113; RESP 17; O2SAT 97
[2020-12-05 22:50] VITALS: BP 97/60; PULSE 108; RESP 19; O2SAT 97
[2020-12-05 23:30] VITALS: BP 112/57; PULSE 113; RESP 15; O2SAT 97
--- NOTE | 2020-12-05 23:39 | PC.NURSE ---
EDP removed stitches holding tube in place. Gauze dressing applied.
[2020-12-05 23:53] LABS: Lactic Acid Reflex 5.4 mmol/L (0.7-2.1)
[2020-12-06] VITALS (14 sets, daily range): BP systolic 76–136; BP diastolic 41–83; PULSE 95–122; RESP 14–32; TEMP 36.8–37.3; O2SAT 93–100; BMI 22.4
[2020-12-06 00:22] LABS: Reflex Lactic Acid Yes or No Add Lactic
--- NOTE | 2020-12-06 00:49 | PM.IMHP ---
H&P: HPI History of Present Illness Date/Time: 12/06/20 00:49 Chief Complaint: Drain malfunction Narrative: This is a 75-year-old male with past medical history significant for advanced dementia, long term resident, GERD, dyslipidemia, on chronic anticoagulation. Patient was admitted to the hospital back in September of this year he was found to have a dilated gallbladder and signs of cholecystitis patient had drain placed and is scheduled for cholecystectomy in December and sent back to his nursing however the patient was brought in today after he was noted decreased output of the drain in emergency room the drain was put out. Patient is going to stay for monitoring after he was found to have an elevated lactic acid. Patient is unable to provide any history due to his advanced dementia history has been obtained from medical records and emergency room records. 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 They live in a multilevel home with 1 step to enter. The patient then has 6 stairs up or down to the bedroom or bathroom. The patient was completely independent prior to this CVA requiring no assistive device. The patient family have decided that the patient will return home after air you with assistance from family and/or hired caregivers. A contractor has been Ruben to work on home assess abilities that the patient can live on the main level of their home. Private duty caregivers will be secured for 247 care for the patient and his . Son is supportive. Patient was a former smoker quit in 1990. Smoking packs per day: 2 Smoking cigarettes per day: 40.0 Years smoked: 20 Smoking pack-years: 40.00 Smoking status: Former smoker Tobacco type: cigarettes Alcohol intake: current Drinks per week: 3 Substance use: never Gender identity (if verbalized by the patient): Male Spiritual care concerns: No Meds Home Medications and Allergies Home Medications Medication Instructions Recorded Confirmed Type acetaminophen [Tylenol] 650 mg PO Q4H PRN 09/04/20 11/08/20 History amlodipine 5 mg PO DAILY 09/04/20 11/08/20 History atorvastatin 80 mg PO DAILY 09/04/20 11/08/20 History polyethylene glycol 3350 [Miralax] 17 g PO DAILY 09/04/20 11/08/20 History potassium chloride 20 meq PO DAILY 09/04/20 11/08/20 History sennosides [senna] 8.6 mg PO BID PRN 09/04/20 11/08/20 History multivitamin with folic acid 1 tablet PO QAM #30 tablet 09/14/20 11/08/20 Rx [Thera] omeprazole 40 mg PO DAILY 10/08/20 11/08/20 History amoxicillin-pot clavulanate 1 tablet PO Q8H #14 tablet 10/15/20 11/08/20 Rx [Augmentin] apixaban [Eliquis] 5 mg PO Q12HR #60 tablet 10/15/20 11/08/20 Rx aspirin 81 mg PO QAM #30 tablet 10/15/20 11/08/20 Rx ergocalciferol (vitamin D2) 50,000 unit PO WEEKLY@0900 #7 cap 10/15/20 11/08/20 Rx [Vitamin D2] erythromycin 500 mg tablet 1,000 mg PO .COMPLEX #6 tablet 11/14/20 Rx neomycin 500 mg tablet See Rx Instructions .ROUTE 11/14/20 Rx .COMPLEX #6 tablet Allergies Allergy/AdvReac Type Severity Reaction Status Date / Time No Known Allergies Allergy Verified 11/08/20 08:29 Vital Signs Vital Signs - 24 hr 12/05/20 20:37 12/05/20 21:46 12/05/20 22:50 Temperature 99.0 F Pulse Rate 115 H 113 H 108 H Respiratory Rate 15 17
[2020-12-06 01:17] LABS: Add Urine Microscopic? YES; Appearance Urine Cloudy (Clear); Bacteria Urine 2+ /hpf; Bilirubin Urine Negative (Negative); Blood Urine 1+ (Negative); Color Urine Amber (Yellow); Glucose Urine UA Negative (Negative); Ketones Urine Negative (Negative); Leukocyte Esterase Ur 3+ LEU/UL (Negative); Mucus Urine Heavy /lpf; Nitrate Urine Negative (Negative); Protein Urine 2+ mg/dL (Negative); Specific Grav Ur 1.012 (1.001-1.035); Squamous Epithelial Cell Urine Rare /hpf (Few); Urobilinogen Urine Negative mg/dL (<2.0); WBC Clumps Urine Present /HPF; WBC Urine 21-30 /hpf
[2020-12-06] MEDS: SODIUM CHLORIDE 0.9% IV 1,000 ML 125 ML IV CONT ×2 (01:47→11:18)
[2020-12-06 03:12] LABS: Lactic Acid Reflex 4.1 mmol/L (0.7-2.1)
--- NOTE | 2020-12-06 03:36 | ADMGEN ---
This patient, Matti Vergara, was admitted to IMU Room 205-02. Patient/family oriented to hospital policies and general routines including ID bracelet, bed and alarms, visiting hours, pain management, procedures, bathroom and other care routines, personal items, smoking policy, room service/diet, and visiting hours. Information on how to activate the Rapid Response Team has been discussed. Patient/Family are encouraged to report perceived risks to care and to ask questions if they do not understand what they are told or what they should do.
[2020-12-06 13:16] LABS: Lactic Acid Reflex 2.7 mmol/L (0.7-2.1)
[2020-12-06 16:02] LABS: Reflex Lactic Acid Yes or No Add Lactic
[2020-12-06 16:05] LABS: EDCOVIDSCREEN Negative (Negative)
[2020-12-06 17:09] LABS: Lactic Acid 1.7 mmol/L (0.7-2.1)
--- NOTE | 2020-12-06 18:44 | PM.IMPN ---
Progress Note: A&P Assessment and Plan (1) Lactic acid acidosis: Code(s): E87.2 - Acidosis Status: Acute Assessment and Plan: Likely secondary to dehydration No obvious source of infection Urine is clean Receiving IV fluids Continue to monitor 12/06/20 18:44 Chief Complaint: Drain malfunction Narrative: This is a 75-year-old male with past medical history significant for advanced dementia, care home resident, GERD, dyslipidemia, on chronic anticoagulation. Patient was admitted to the hospital back in September of this year he was found to have a dilated gallbladder and signs of cholecystitis patient had drain placed and is scheduled for cholecystectomy in December and sent back to his nursing however the patient was brought in today after he was noted decreased output of the drain in emergency room the drain was put out. Patient is going to stay for monitoring after he was found to have an elevated lactic acid. Patient is unable to provide any history due to his advanced dementia history has been obtained from medical records and emergency room records. patient with severe dementia unable to provide review of symptom, has a lactic acid of 7 etiology uncertain however it is trending down to 1.7, to further evaluate patient had a CT scan of the abdomen did not show any ischemia, will continue to monitor patient and further recommendation to follow. (2) Hypotension: Qualifiers: Hypotension type: hypotension due to hypovolemia Qualified Code(s): I95.89 - Other hypotension; E86.1 - Hypovolemia Code(s): I95.9 - Hypotension, unspecified Status: Acute Assessment and Plan: Fluid resuscitation (3) Chronic indwelling Ness catheter: Code(s): Z97.8 - Presence of other specified devices Status: Acute Assessment and Plan: Ness catheter care Continue to monitor (4) CVA (cerebral vascular accident): Qualifiers: CVA mechanism: unspecified Qualified Code(s): I63.9 - Cerebral infarction, unspecified Code(s): I63.9 - Cerebral infarction, unspecified Status: Chronic Assessment and Plan: Unchanged (5) DVT (deep venous thrombosis): Qualifiers: DVT location: lower extremity Affected thrombotic vein of extremity: femoral Chronicity: chronic Laterality: right Qualified Code(s): I82.511 - Chronic embolism and thrombosis of right femoral vein Code(s): I82.409 - Acute embolism and thrombosis of unspecified deep veins of unspecified lower extremity Status: Acute Assessment and Plan: Continue apixaban (6) 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): Code(s): I69.319 - Unspecified symptoms and signs involving cognitive functions following cerebral infarction Status: Chronic Assessment and Plan: Supportive care (7) Acute cholecystitis: Code(s): K81.0 - Acute cholecystitis Status: Acute Assessment and Plan: Patient is status post cholecystostomy Drain was dislodged and now has been removed Patient is scheduled for cholecystectomy in December Continue to monitor Subjective Date/time seen: 12/06/20 18:44 Chief Complaint: Drain malfunction Narrative: This is a 75-year-old male with past medical history significant for advanced dementia, care home resident, GERD, dyslipidemia, on chronic anticoagulation. Patient was admitted to the hospital back in September of this year he was found to have a dilated gallbladder and signs of cholecystitis patient had drain placed and is scheduled for cholecystectomy in December and sent back to his nursing however the patient was brought in today after he was noted decreased output of the drain in emergency room the drain was put out. Patient is going to stay for monitoring after he was found to have an elevated lactic acid. Patient is unable to provide any history due to his advanced dementia history has been obtained from [facility]
[2020-12-06] MEDS: SODIUM CHLORIDE 0.9% IV 1,000 ML 75 ML IV CONT (18:51)
[2020-12-07] VITALS: BP 94/51; PULSE 94; RESP 16; TEMP 36.4; O2SAT 100
[2020-12-07] MEDS: WATER FOR IRRIGATION, STERILE 1,000 ML BOTTLE 1000 ML (00:47)
[2020-12-07] MEDS: ERTAPENEM 1 GM/NS 50 ML 1 GM/50 ML BAG IVPB ×2 (01:29→22:28)
--- NOTE | 2020-12-07 01:50 | PC.NURSE ---
This patient, Matti Vergara, was transferred [id number] on 12/07/20 at 0151. Personal belongings sent with patient. Report given to Receiving RN. Appropriate documentation sent with patient.
--- NOTE | 2020-12-07 02:12 | PC.NURSE ---
This patient, Matti Vergara, was admitted to 3 Med Surg Room 332-02 @0150. Report taken from Olinda in IMU. Patient/family oriented to hospital policies and general routines including ID bracelet, bed and alarms, visiting hours, pain management, procedures, bathroom and other care routines, personal items, smoking policy, room service/diet, and visiting hours. Information on how to activate the Rapid Response Team has been discussed. Patient/Family are encouraged to report perceived risks to care and to ask questions if they do not understand what they are told or what they should do.
[2020-12-07 06:00] VITALS: BP 98/56; PULSE 90; RESP 18; TEMP 36.2; O2SAT 100
[2020-12-07 06:47] LABS: Hematocrit 31.5 % (42.0-52.0); Mean Corpuscular HGB Conc 31.7 g/dl (32-36); Mean Corpuscular Hemoglobin 28.3 pg (26-34); Mean Corpuscular Volume 89.2 fl (80-100); Mean Platelet Volume 10.9 fl (7.4-10.4); Platelet Count Result 220 k/mm3 (150-375); Red Blood Count 3.53 M/mm3 (4.6-6.20); Red Cell Distribution Width 17.3 % (11.5-14.5); White Blood Count 21.1 K/mm3 (4.5-10.0)
[2020-12-07 07:17] LABS: Anion Gap 4 mmol/L (8-16); Blood Urea Nitrogen 12 mg/dL (9-20); Calcium 7.5 mg/dL (8.4-10.2); Carbon Dioxide 23 mmol/L (22-30); Chloride 110 mmol/L (98-107); Estimated CRCL calculation 83 ml/min; Estimated Glomerular Filt Rate > 60; Glucose 76 mg/dL (65-110); Potassium 3.3 mmol/L (3.4-5.0); Sodium 137 mmol/L (137-145)
[2020-12-07] MEDS: POTASSIUM CHLORIDE 20 MEQ TABLET.ER PO ×2 (09:09→17:38)
[2020-12-07] MEDS: polyethylene glycoL 3350 17 GM POWD.PACK PO (09:09)
[2020-12-07] MEDS: ASPIRIN 81 MG ENTERIC TABLET PO (09:09)
[2020-12-07] MEDS: FERROUS SULFATE 324 MG TABLET PO (09:09)
[2020-12-07] MEDS: MULTIVITAMINS THERAPEUTIC TAB (*BKC) 1 TABLET PO (09:09)
[2020-12-07] MEDS: SODIUM CHLORIDE 0.9% IV 1,000 ML 75 ML IV CONT ×2 (09:22→20:20)
[2020-12-07 14:00] VITALS: BP 105/69; PULSE 81; RESP 14; TEMP 36.3; O2SAT 98
[2020-12-07 14:19] LABS: Band Neutrophils Percent 3 % (0-6); Lymphocytes Absolute Manual 1.47 K/mm3 (1.1-4.5); Monocytes Absolute Manual 0.84 K/mm3 (0.1-0.90); Monocytes Percent Manual 4 % (3-9); Neutrophils Absolute Manual 18.77 K/mm3 (1.3-6.7); Neutrophils Percent Manual 86 % (46-73); Platelet Estimate Adequate (Adequate); Total Cells Counted 100
--- NOTE | 2020-12-07 14:57 | PM.IMPN ---
Progress Note: A&P Assessment and Plan (1) Lactic acid acidosis: Code(s): E87.2 - Acidosis Status: Acute Assessment and Plan: Likely secondary to dehydration No obvious source of infection Urine is clean Receiving IV fluids Continue to monitor 12/06/20 18:44 Chief Complaint: Drain malfunction Narrative: This is a 75-year-old male with past medical history significant for advanced dementia, group home resident, GERD, dyslipidemia, on chronic anticoagulation. Patient was admitted to the hospital back in September of this year he was found to have a dilated gallbladder and signs of cholecystitis patient had drain placed and is scheduled for cholecystectomy in December and sent back to his nursing however the patient was brought in today after he was noted decreased output of the drain in emergency room the drain was put out. Patient is going to stay for monitoring after he was found to have an elevated lactic acid. Patient is unable to provide any history due to his advanced dementia history has been obtained from medical records and emergency room records. 12/07/20 patient is 75-year-old male her head into group home he has drain placed his in gallbladder and apparently drain was dislodged and patient presented emergency department, surgery recommended to place occlusive tape on the on the hole and patient can be discharge back to group home and there was no significant drainage the wound, however patient's lactic was significantley elevated into 7 however patient has no complaint and unable to provide any review of symptoms or history, patient was gently hydrated and symptoms improved with last lactic acid level to 1.7 however etiology uncertain to further evaluate patient had CT scan of abdomen showed no significant pathology to attribute to elevated lactic acid levels, patient was monitored overnight if remains clinically stable, however his white counts have climb to 21 compared 3 yesterday. however patient remains clinically stable has no complaint, patient is being treated with Ertapenem, will continue to monitor will follow-up on blood culture urine culture further recommendation to follow (2) Hypotension: Qualifiers: Hypotension type: hypotension due to hypovolemia Qualified Code(s): I95.89 - Other hypotension; E86.1 - Hypovolemia Code(s): I95.9 - Hypotension, unspecified Status: Acute Assessment and Plan: Fluid resuscitation (3) Chronic indwelling Ness catheter: Code(s): Z97.8 - Presence of other specified devices Status: Acute Assessment and Plan: Ness catheter care Continue to monitor (4) CVA (cerebral vascular accident): Qualifiers: CVA mechanism: unspecified Qualified Code(s): I63.9 - Cerebral infarction, unspecified Code(s): I63.9 - Cerebral infarction, unspecified Status: Chronic Assessment and Plan: Unchanged (5) DVT (deep venous thrombosis): Qualifiers: Affected thrombotic vein of extremity: femoral Chronicity: chronic DVT location: lower extremity Laterality: right Qualified Code(s): I82.511 - Chronic embolism and thrombosis of right femoral vein Code(s): I82.409 - Acute embolism and thrombosis of unspecified deep veins of unspecified lower extremity Status: Acute Assessment and Plan: Continue apixaban (6) 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
[2020-12-07] MEDS: ATORVASTATIN 40 MG TABLET 80 MG PO (17:38)
[2020-12-07] MEDS: PANTOPRAZOLE 40 MG TABLET PO (17:38)
[2020-12-07] MEDS: MIRTAZAPINE 15 MG TABLET PO (20:19)
[2020-12-07 22:00] VITALS: BP 94/58; PULSE 85; RESP 18; TEMP 36.9; O2SAT 99
[2020-12-08 06:00] VITALS: BP 125/55; PULSE 58; RESP 16; TEMP 36.7; O2SAT 100
[2020-12-08] MEDS: FERROUS SULFATE 324 MG TABLET PO (11:02)
[2020-12-08] MEDS: polyethylene glycoL 3350 17 GM POWD.PACK PO (11:02)
[2020-12-08] MEDS: POTASSIUM CHLORIDE 20 MEQ TABLET.ER PO ×2 (11:02→17:56)
[2020-12-08] MEDS: SODIUM CHLORIDE 0.9% IV 1,000 ML 75 ML IV CONT ×2 (11:02→21:13)
[2020-12-08] MEDS: MULTIVITAMINS THERAPEUTIC TAB (*BKC) 1 TABLET PO (11:02)
[2020-12-08] MEDS: ASPIRIN 81 MG ENTERIC TABLET PO (11:02)
[2020-12-08 14:00] VITALS: BP 131/62; PULSE 75; RESP 18; TEMP 37.2; O2SAT 100
--- NOTE | 2020-12-08 14:16 | PM.IMPN ---
Progress Note: A&P Assessment and Plan (1) Bacteremia due to Gram-negative bacteria: Code(s): R78.81 - Bacteremia Status: Acute Assessment and Plan: E coli and P mirabilis Likely source is GI TRACT: colon mass vs gallblader. Urinary tract less likely. CT ABD/PELVIS W/O EVIDENCE FOR PERFORATION OR ABSCESS Received ertapenem 12/07 x 2. 8/ begin CEFTRIAXONE for DAY 2 OF 7 IV ANTIBIOTICS (2) Acute UTI: Code(s): N39.0 - Urinary tract infection, site not specified Status: Acute Assessment and Plan: Proteus in culture Primary UTI vs hematogenous spread from GNR bacteremia (3) Sepsis: Qualifiers: Sepsis type: Escherichia coli Sepsis acute organ dysfunction status: with acute organ dysfunction Severe sepsis acute organ dysfunction type: unspecified Severe sepsis shock status: with septic shock Qualified Code(s): A41.51 - Sepsis due to Escherichia coli [E. coli]; R65.21 - Severe sepsis with septic shock Code(s): A41.9 - Sepsis, unspecified organism Status: Acute Assessment and Plan: Tachycardia, hypotension, lactic acidosis, leukopenia followed by leukocytosis Source of infection is GI tract (4) Colon adenocarcinoma: Code(s): C18.9 - Malignant neoplasm of colon, unspecified Status: Acute Assessment and Plan: SIGMOID Biopsy proven Possible source of current bacteremia POOR SURGICAL CANDIDATE 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 E coli and proteus in blood. Proteus in urine. 09/2020 placement of blanton for urinary retention. 12/08 visit: Denied pain. Chronic right hemiparesis. Incontinent. No cp or sob or edema. No bleeding. No gi/gu c/o otherwise. Review of Systems Review of Systems: All systems reviewed & are unremarkable except as noted in HPI and below Exam Narrative: HEENT: PERRL, sclerae nonicteric, pharyngeal mucosa pink and intact NECK: No JVD CHEST: Clear to auscultation. Normal effort. HEART: NL S1/S2, regular, no murmur ABDOMEN: BS+, soft, nontender, no mass, no bruits, RUQ former drain site covered. EXTREMITIES: No cyanosis, pitting edema, or clubbing. NEUROLOGIC: CN intact and symmetric to inspection. MUSCULOSKELETAL: Right hemiplegia PSYCH: Alert. Oriented to person, NOT to place and time ([facility], 2002) Objective Data Vital Signs Vital Signs: Vital Signs - 24 hr 12/07/20 22:00 12/08/20 06:00 Temperature 98.5 F 98.0 F Pulse Rate 85 58 L Respiratory Rate 18 16 Blood Pressure 94/58 L 125/55 L Pulse Oximetry 99 100 Intake/Output Intake/Output: Intake & Output 12/05/20 12/06/20 12/07/20 12/08/20 23:59 23:59 23:59 23:59 Intake Total 1999 2150 3030 1190 Output Total 450 450 251 Balance 1999 4664 7855 000 Meds/Results Medications: Active Medications Generic Name Dose Route Start
[2020-12-08] MEDS: PANTOPRAZOLE 40 MG TABLET PO (17:56)
[2020-12-08] MEDS: ATORVASTATIN 40 MG TABLET 80 MG PO (17:56)
[2020-12-08 18:04] VITALS: O2SAT 93
[2020-12-08] MEDS: MIRTAZAPINE 15 MG TABLET PO (21:13)
[2020-12-08 22:00] VITALS: BP 111/79; PULSE 83; RESP 18; TEMP 36.9; O2SAT 100
[2020-12-09 05:20] VITALS: BP 133/69; PULSE 75; RESP 18; TEMP 36.7; O2SAT 100
[2020-12-09 06:57] LABS: Hematocrit 32.8 % (42.0-52.0); Hemoglobin 10.6 g/dL (14.0-18.0); Mean Corpuscular HGB Conc 32.3 g/dl (32-36); Mean Corpuscular Hemoglobin 28.7 pg (26-34); Mean Corpuscular Volume 88.9 fl (80-100); Mean Platelet Volume 10.8 fl (7.4-10.4); Platelet Count Result 207 k/mm3 (150-375); Red Blood Count 3.69 M/mm3 (4.6-6.20); White Blood Count 9.7 K/mm3 (4.5-10.0)
[2020-12-09 07:16] LABS: Anion Gap 4 mmol/L (8-16); Blood Urea Nitrogen 5 mg/dL (9-20); Calcium 7.5 mg/dL (8.4-10.2); Carbon Dioxide 22 mmol/L (22-30); Chloride 106 mmol/L (98-107); Estimated CRCL calculation 137 ml/min; Estimated Glomerular Filt Rate > 60; Glucose 74 mg/dL (65-110); Potassium 3.1 mmol/L (3.4-5.0); Sodium 132 mmol/L (137-145)
[2020-12-09] MEDS: polyethylene glycoL 3350 17 GM POWD.PACK PO (08:47)
[2020-12-09] MEDS: POTASSIUM CHLORIDE 20 MEQ TABLET.ER 40 MEQ PO ×2 (08:47→17:53)
[2020-12-09] MEDS: ASPIRIN 81 MG ENTERIC TABLET PO (08:47)
[2020-12-09] MEDS: FERROUS SULFATE 324 MG TABLET PO (08:47)
[2020-12-09] MEDS: MULTIVITAMINS THERAPEUTIC TAB (*BKC) 1 TABLET PO (08:48)
--- NOTE | 2020-12-09 12:52 | PM.IMPN ---
Progress Note: A&P Assessment and Plan (1) Bacteremia due to Gram-negative bacteria: Code(s): R78.81 - Bacteremia Status: Acute Assessment and Plan: E coli and P mirabilis Likely source is GI TRACT: colon mass vs gallblader. Urinary tract less likely. CT ABD/PELVIS W/O EVIDENCE FOR PERFORATION OR ABSCESS Received ertapenem 12/07 x 2. 8/ begin CEFTRIAXONE for DAY 3 OF 7 IV ANTIBIOTICS (2) Acute UTI: Code(s): N39.0 - Urinary tract infection, site not specified Status: Acute Assessment and Plan: Proteus in culture Primary UTI vs hematogenous spread from GNR bacteremia (3) Sepsis: Qualifiers: Sepsis type: Escherichia coli Sepsis acute organ dysfunction status: with acute organ dysfunction Severe sepsis acute organ dysfunction type: unspecified Severe sepsis shock status: with septic shock Qualified Code(s): A41.51 - Sepsis due to Escherichia coli [E. coli]; R65.21 - Severe sepsis with septic shock Code(s): A41.9 - Sepsis, unspecified organism Status: Acute Assessment and Plan: Tachycardia, hypotension, lactic acidosis, leukopenia followed by leukocytosis Source of infection is GI tract (4) Colon adenocarcinoma: Code(s): C18.9 - Malignant neoplasm of colon, unspecified Status: Acute Assessment and Plan: SIGMOID Biopsy proven Possible source of current bacteremia POOR SURGICAL CANDIDATE 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 E coli and proteus in blood. Proteus in urine. 09/2020 placement of blanton for urinary retention. 12/09 visit: Denied pain. Chronic right hemiparesis. Incontinent. Blanton in place. No cp or sob or edema. No bleeding. No gi/gu c/o otherwise. Review of Systems Review of Systems: All systems reviewed & are unremarkable except as noted in HPI and below Exam Narrative: HEENT: PERRL, sclerae nonicteric, pharyngeal mucosa pink and intact NECK: No JVD CHEST: Clear to auscultation. Normal effort. HEART: NL S1/S2, regular, no murmur ABDOMEN: BS+, soft, nontender, no mass, no bruits, RUQ former drain site covered. EXTREMITIES: No cyanosis, pitting edema, or clubbing. NEUROLOGIC: CN intact and symmetric to inspection. MUSCULOSKELETAL: Right hemiplegia PSYCH: Alert. Oriented to person, NOT to place and time. Objective Data Vital Signs Vital Signs: Vital Signs - 24 hr 12/08/20 14:00 12/08/20 18:04 12/08/20 22:00 Temperature 98.9 F 98.5 F Pulse Rate 75 83 Respiratory Rate 18 18 Blood Pressure 131/62 111/79 Pulse Oximetry 100 93 100 12/09/20 05:20 Temperature 98.0 F Pulse Rate 75 Respiratory Rate 18 Blood Pressure 133/69 Pulse Oximetry 100 Intake/Output Intake/Output: Intake & Output 12/06/20 12/07/20 12/08/20 0
[2020-12-09 14:00] VITALS: BP 120/55; PULSE 90; RESP 20; TEMP 35.7; O2SAT 98
[2020-12-09] MEDS: SODIUM CHLORIDE 0.9% IV 1,000 ML 75 ML IV CONT (15:45)
[2020-12-09] MEDS: ATORVASTATIN 40 MG TABLET 80 MG PO (17:53)
[2020-12-09] MEDS: PANTOPRAZOLE 40 MG TABLET PO (17:53)
[2020-12-09 20:00] VITALS: PULSE 90; RESP 20; O2SAT 98
[2020-12-10 06:00] VITALS: BP 114/47; PULSE 85; RESP 18; TEMP 36.1; O2SAT 99
[2020-12-10 07:13] LABS: Hematocrit 33.2 % (42.0-52.0); Hemoglobin 10.9 g/dL (14.0-18.0); Mean Corpuscular HGB Conc 32.8 g/dl (32-36); Mean Corpuscular Hemoglobin 28.5 pg (26-34); Mean Corpuscular Volume 86.7 fl (80-100); Mean Platelet Volume 11.3 fl (7.4-10.4); Platelet Count Result 201 k/mm3 (150-375); Red Blood Count 3.83 M/mm3 (4.6-6.20); Red Cell Distribution Width 17.2 % (11.5-14.5); White Blood Count 8.2 K/mm3 (4.5-10.0)
[2020-12-10] MEDS: POTASSIUM CHLORIDE 20 MEQ TABLET.ER 40 MEQ PO (08:41)
[2020-12-10] MEDS: ERGOCALCIFEROL 50,000 UNIT CAPSULE 50000 UNITS PO (08:41)
[2020-12-10] MEDS: ASPIRIN 81 MG ENTERIC TABLET PO (08:41)
[2020-12-10] MEDS: MULTIVITAMINS THERAPEUTIC TAB (*BKC) 1 TABLET PO (08:41)
[2020-12-10] MEDS: SODIUM CHLORIDE 0.9% IV 1,000 ML 75 ML IV CONT (08:41)
[2020-12-10] MEDS: FERROUS SULFATE 324 MG TABLET PO (08:41)
[2020-12-10] MEDS: polyethylene glycoL 3350 17 GM POWD.PACK PO (08:44)
[2020-12-10 10:27] LABS: Anion Gap 6 mmol/L (8-16); Calcium 7.8 mg/dL (8.4-10.2); Carbon Dioxide 21 mmol/L (22-30); Chloride 104 mmol/L (98-107); Estimated CRCL calculation 137 ml/min; Estimated Glomerular Filt Rate > 60; Glucose 75 mg/dL (65-110); Magnesium 1.4 mg/dL (1.6-2.3); Potassium 3.4 mmol/L (3.4-5.0); Sodium 131 mmol/L (137-145)
[2020-12-10 10:30] LABS: Blood Urea Nitrogen < 2 mg/dL (9-20)
[2020-12-10 14:00] VITALS: BP 108/50; PULSE 80; RESP 18; TEMP 36.6; O2SAT 94
--- NOTE | 2020-12-10 14:02 | PM.IMPN ---
Progress Note: A&P Assessment and Plan (1) Bacteremia due to Gram-negative bacteria: Code(s): R78.81 - Bacteremia Status: Acute Assessment and Plan: E coli and P mirabilis Likely source is GI TRACT: colon mass vs gallblader. Urinary tract less likely. CT ABD/PELVIS W/O EVIDENCE FOR PERFORATION OR ABSCESS Received ertapenem 12/07 x 2. 8 begin CEFTRIAXONE for DAY 4 OF 7 IV ANTIBIOTICS (2) Acute UTI: Code(s): N39.0 - Urinary tract infection, site not specified Status: Acute Assessment and Plan: Proteus in culture Primary UTI vs hematogenous spread from GNR bacteremia (3) Electrolyte abnormality: Code(s): E87.8 - Other disorders of electrolyte and fluid balance, not elsewhere classified Status: Acute Assessment and Plan: Hypokalemia 12/10 3.4, continue PO replacement Hypomagnesemia 12/10 1.4, IV mag 2 gm (4) Colon adenocarcinoma: Code(s): C18.9 - Malignant neoplasm of colon, unspecified Status: Acute Assessment and Plan: SIGMOID Biopsy proven Possible source of current bacteremia POOR SURGICAL CANDIDATE 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 Code(s): G81.91 - Hemiplegia, unspecified affecting right dominant side Status: Chronic Assessment and Plan: Stable (8) 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 coli]; R65.21 - Severe sepsis with septic shock Code(s): A41.9 - Sepsis, unspecified organism Status: Acute Assessment and Plan: Tachycardia, hypotension, lactic acidosis, leukopenia followed by leukocytosis Source of infection is GI tract Subjective Date/time seen: 12/10/20 14:02 Interval history: Admitted with sepsis and bacteremia and uti. E coli and proteus in blood. Proteus in urine. 09/2020 placement of blanton for urinary retention. 12/10 visit: Denied pain. Chronic right hemiparesis. Incontinent. Blanton in place. No cp or sob or edema. No bleeding. No gi/gu c/o otherwise. Review of Systems Review of Systems: ROS unobtainable: Yes unobtainable due to medical condition (Advanced dementia) Exam Narrative: HEENT: PERRL, sclerae nonicteric, pharyngeal mucosa pink and intact NECK: No JVD CHEST: Clear to auscultation. Normal effort. HEART: NL S1/S2, regular, no murmur ABDOMEN: BS+, soft, nontender, no mass, no bruits, RUQ former drain site covered. EXTREMITIES: No cyanosis, pitting edema, or clubbing. NEUROLOGIC: CN intact and symmetric to inspection. MUSCULOSKELETAL: Right hemiplegia PSYCH: Alert. Oriented to person, NOT to place and time. Objective Data Vital Signs Vital Signs: Vital Signs - 24 hr 12/09/20 20:00 12/10/20 06:00 Temperature 97.0 F L Pulse Rate 90 85 Respiratory Rate 20 18 Blood Pr
[2020-12-10] MEDS: MAGNESIUM SULF 2 GM/WATER 50ML 2 GM/50 ML BAG IVPB (16:29)
[2020-12-10 20:00] VITALS: PULSE 84; RESP 20; O2SAT 100
[2020-12-10 20:22] VITALS: BP 125/52; PULSE 84; RESP 20; TEMP 36.3; O2SAT 100
[2020-12-10] MEDS: MIRTAZAPINE 15 MG TABLET PO (21:28)
[2020-12-11 04:27] VITALS: BP 104/53; PULSE 80; RESP 20; TEMP 36.6; O2SAT 100
[2020-12-11 06:51] LABS: Hematocrit 35.2 % (42.0-52.0); Hemoglobin 11.1 g/dL (14.0-18.0); Mean Corpuscular HGB Conc 31.5 g/dl (32-36); Mean Corpuscular Hemoglobin 28.7 pg (26-34); Mean Platelet Volume 11.1 fl (7.4-10.4); Platelet Count Result 166 k/mm3 (150-375); Red Blood Count 3.87 M/mm3 (4.6-6.20); Red Cell Distribution Width 17.2 % (11.5-14.5); White Blood Count 7.5 K/mm3 (4.5-10.0)
[2020-12-11 07:25] LABS: Anion Gap 4 mmol/L (8-16); Calcium 7.7 mg/dL (8.4-10.2); Carbon Dioxide 20 mmol/L (22-30); Chloride 110 mmol/L (98-107); Estimated CRCL calculation 137 ml/min; Estimated Glomerular Filt Rate > 60; Glucose 63 mg/dL (65-110); Magnesium 1.7 mg/dL (1.6-2.3); Potassium 3.6 mmol/L (3.4-5.0); Sodium 134 mmol/L (137-145)
[2020-12-11] MEDS: MULTIVITAMINS THERAPEUTIC TAB (*BKC) 1 TABLET PO (09:38)
[2020-12-11] MEDS: SACCHAROMYCES BOULARDII 250 MG CAPSULE PO ×2 (09:38→17:14)
[2020-12-11] MEDS: POTASSIUM CHLORIDE 20 MEQ TABLET.ER 40 MEQ PO ×2 (09:38→17:14)
[2020-12-11] MEDS: FERROUS SULFATE 324 MG TABLET PO (09:39)
[2020-12-11] MEDS: ASPIRIN 81 MG ENTERIC TABLET PO (09:39)
[2020-12-11] MEDS: polyethylene glycoL 3350 17 GM POWD.PACK PO (10:44)
--- NOTE | 2020-12-11 11:02 | PM.IMPN ---
Progress Note: A&P Assessment and Plan (1) Bacteremia due to Gram-negative bacteria: Code(s): R78.81 - Bacteremia Status: Acute Assessment and Plan: E coli and P mirabilis Likely source is GI TRACT: colon mass vs gallblader. Urinary tract less likely. CT ABD/PELVIS W/O EVIDENCE FOR PERFORATION OR ABSCESS Received ertapenem 12/07 x 2. 8 begin CEFTRIAXONE for DAY 5 OF 7 IV ANTIBIOTICS Due to concern re: recurrent bacteremia from GI source, upon discharge consider continuing PO antibiotic (cefdinir) and probiotic until cholecystectomy and hemicolectomy on 12/31/2020. (2) Acute UTI: Code(s): N39.0 - Urinary tract infection, site not specified Status: Acute Assessment and Plan: Proteus in culture Primary UTI vs hematogenous spread from GNR bacteremia (3) Electrolyte abnormality: Code(s): E87.8 - Other disorders of electrolyte and fluid balance, not elsewhere classified Status: Acute Assessment and Plan: Hypokalemia 12/10 3.4, continue PO replacement Hypomagnesemia 12/10 1.4, IV mag 2 gm (4) Colon adenocarcinoma: Code(s): C18.9 - Malignant neoplasm of colon, unspecified Status: Acute Assessment and Plan: SIGMOID Biopsy proven Possible source of current bacteremia Surgery scheduled for 12/31/2020. 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 Code(s): G81.91 - Hemiplegia, unspecified affecting right dominant side Status: Chronic Assessment and Plan: Stable (8) 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 coli]; R65.21 - Severe sepsis with septic shock Code(s): A41.9 - Sepsis, unspecified organism Status: Acute Assessment and Plan: Tachycardia, hypotension, lactic acidosis, leukopenia followed by leukocytosis Source of infection is GI tract Subjective Date/time seen: 12/11/20 11:02 Interval history: Admitted with sepsis and bacteremia and uti. E coli and proteus in blood. Proteus in urine. 09/2020 placement of blanton for urinary retention. 12/11 visit: Denied pain. Chronic right hemiparesis. Incontinent. Blanton in place. No cp or sob or edema. No bleeding. No gi/gu c/o otherwise. Review of Systems Review of Systems: All systems reviewed & are unremarkable except as noted in HPI and below Exam Narrative: HEENT: PERRL, sclerae nonicteric, pharyngeal mucosa pink and intact NECK: No JVD CHEST: Clear to auscultation. Normal effort. HEART: NL S1/S2, regular, no murmur ABDOMEN: BS+, soft, nontender, no mass, no bruits, RUQ former drain site covered. EXTREMITIES: No cyanosis, pitting edema, or clubbing. NEUROLOGIC: CN intact and symmetric to inspection. MUSCULOSKELETAL: Right hemiplegia PSYCH: Alert. Oriented to person, NOT to place an
[2020-12-11 11:13] LABS: Blood Urea Nitrogen < 2 mg/dL (9-20)
[2020-12-11 14:00] VITALS: BP 102/75; PULSE 67; RESP 16; TEMP 36.6; O2SAT 96
[2020-12-11] MEDS: ATORVASTATIN 40 MG TABLET 80 MG PO (17:14)
[2020-12-11] MEDS: PANTOPRAZOLE 40 MG TABLET PO (17:14)
[2020-12-11] MEDS: SODIUM CHLORIDE 0.9% IV 1,000 ML 75 ML IV CONT ×2 (17:32→17:33)
[2020-12-11] MEDS: MIRTAZAPINE 15 MG TABLET PO (21:00)
[2020-12-11] MEDS: QUEtiapine FUMARATE 25 MG TABLET PO (21:00)
[2020-12-11 22:00] VITALS: BP 104/43; PULSE 91; RESP 20; TEMP 36.9; O2SAT 99
[2020-12-12 06:00] VITALS: BP 129/89; PULSE 88; RESP 20; TEMP 36.6; O2SAT 100
[2020-12-12 06:08] LABS: Hematocrit 35.9 % (42.0-52.0); Hemoglobin 11.5 g/dL (14.0-18.0); Mean Corpuscular Hemoglobin 28.1 pg (26-34); Mean Corpuscular Volume 87.8 fl (80-100); Mean Platelet Volume 10.1 fl (7.4-10.4); Platelet Count Result 254 k/mm3 (150-375); Red Blood Count 4.09 M/mm3 (4.6-6.20); Red Cell Distribution Width 17.2 % (11.5-14.5); White Blood Count 6.4 K/mm3 (4.5-10.0)
[2020-12-12 06:26] LABS: Anion Gap 5 mmol/L (8-16); Calcium 8.2 mg/dL (8.4-10.2); Carbon Dioxide 24 mmol/L (22-30); Chloride 105 mmol/L (98-107); Estimated CRCL calculation 137 ml/min; Estimated Glomerular Filt Rate > 60; Glucose 91 mg/dL (65-110); Magnesium 1.8 mg/dL (1.6-2.3); Potassium 4.2 mmol/L (3.4-5.0); Sodium 134 mmol/L (137-145)
[2020-12-12] MEDS: SODIUM CHLORIDE 0.9% IV 1,000 ML 75 ML IV CONT ×2 (06:44→20:49)
[2020-12-12 06:48] LABS: Blood Urea Nitrogen < 2 mg/dL (9-20)
--- NOTE | 2020-12-12 08:02 | P.CDI_ITS ---
CDI Query Clarification Request -UTI has been documented -Chronic indwelling blanton catheter has been documented Please clarify if UTI is: * Related to/due to chronic indwelling catheter * Not related to/due to chronic indwelling catheter * Unable to determine <Jillian Stone RN - Last Filed: 12/12/20 08:04> Unable to determine Proteus in urine on arrival to hospital <Claudia Pelaez MD - Last Filed: 12/12/20 18:05>
--- NOTE | 2020-12-12 08:02 | WPDCDIQUERY2 ---
CDI Query Clarification Request -UTI has been documented -Chronic indwelling blanton catheter has been documented Please clarify if UTI is: Related to/due to chronic indwelling catheter Not related to/due to chronic indwelling catheter Unable to determine <Jillian Stone RN - Last Filed: 12/12/20 08:04> Unable to determine Proteus in urine on arrival to hospital <Claudia Pelaez MD - Last Filed: 12/12/20 18:05>
[2020-12-12] MEDS: MULTIVITAMINS THERAPEUTIC TAB (*BKC) 1 TABLET PO (09:33)
[2020-12-12] MEDS: SACCHAROMYCES BOULARDII 250 MG CAPSULE PO ×2 (09:33→17:33)
[2020-12-12] MEDS: ASPIRIN 81 MG ENTERIC TABLET PO (09:33)
[2020-12-12] MEDS: POTASSIUM CHLORIDE 20 MEQ TABLET.ER 40 MEQ PO ×2 (09:33→17:34)
[2020-12-12] MEDS: FERROUS SULFATE 324 MG TABLET PO (09:34)
[2020-12-12 14:00] VITALS: BP 100/56; PULSE 89; RESP 16; TEMP 36.8; O2SAT 94
[2020-12-12] MEDS: ATORVASTATIN 40 MG TABLET 80 MG PO (17:36)
[2020-12-12] MEDS: PANTOPRAZOLE 40 MG TABLET PO (17:37)
--- NOTE | 2020-12-12 18:05 | PM.IMPN ---
Progress Note: A&P Assessment and Plan (1) Bacteremia due to Gram-negative bacteria: Code(s): R78.81 - Bacteremia Status: Acute Assessment and Plan: E coli and P mirabilis Likely source is GI TRACT: colon mass vs gallblader. Urinary tract less likely. CT ABD/PELVIS W/O EVIDENCE FOR PERFORATION OR ABSCESS Received ertapenem 12/07 x 2. 8 begin CEFTRIAXONE for DAY 5 OF 7 IV ANTIBIOTICS Due to concern re: recurrent bacteremia from GI source, upon discharge consider continuing PO antibiotic (cefdinir) and probiotic until cholecystectomy and hemicolectomy on 12/31/2020. (2) Acute UTI: Code(s): N39.0 - Urinary tract infection, site not specified Status: Acute Assessment and Plan: Proteus in culture Primary UTI vs hematogenous spread from GNR bacteremia (3) Electrolyte abnormality: Code(s): E87.8 - Other disorders of electrolyte and fluid balance, not elsewhere classified Status: Acute Assessment and Plan: Hypokalemia 12/10 3.4, continue PO replacement Hypomagnesemia 12/10 1.4, IV mag 2 gm (4) Colon adenocarcinoma: Code(s): C18.9 - Malignant neoplasm of colon, unspecified Status: Acute Assessment and Plan: SIGMOID Biopsy proven Possible source of current bacteremia Surgery scheduled for 12/31/2020. 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 Code(s): G81.91 - Hemiplegia, unspecified affecting right dominant side Status: Chronic Assessment and Plan: Stable (8) 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 coli]; R65.21 - Severe sepsis with septic shock Code(s): A41.9 - Sepsis, unspecified organism Status: Acute Assessment and Plan: Tachycardia, hypotension, lactic acidosis, leukopenia followed by leukocytosis Source of infection is GI tract Additional Plan 12/12/2020 patient being treated with IV antibiotics for his sepsis secondary to bacteremia and UTI patient is growing E coli and Proteus in blood and Proteus in urine. His chronic indwelling Ness catheter has been changed since admission. Patient is nontoxic appearing and cooperative to interview although secondary to advanced dementia unable to provide any meaningful history. RN is bedside and reports that overnight he had some agitation that was improved with Seroquel. Continue current care Seroquel q.h.s. Ceftriaxone day 6 of 7 DC home on p.o. antibiotic therapy Patient anticipated to have surgical intervention on 12/31/2020 Time Spent With Patient Time with patient: 25 - 35 minutes Subjective Date/time seen: 12/12/20 18:05 Patient is nontoxic appearing and cooperative to interview although secondary to advanced dementia unable to provide any meaningful history. RN is bedside
[2020-12-12] MEDS: QUEtiapine FUMARATE 25 MG TABLET PO (20:49)
[2020-12-12] MEDS: MIRTAZAPINE 15 MG TABLET PO (20:49)
[2020-12-12 21:13] VITALS: BP 110/88; PULSE 93; RESP 18; TEMP 36.3; O2SAT 99
[2020-12-13 05:05] VITALS: BP 126/69; PULSE 79; RESP 17; TEMP 36.6; O2SAT 100
[2020-12-13 06:27] LABS: Basophils Percent Auto 0.7 % (0.2-1.2); Eosinophils Absolute Auto 0.3 K/mm3 (0-0.3); Eosinophils Percent Auto 4.5 % (0-4.4); Hematocrit 32.5 % (42.0-52.0); Hemoglobin 10.5 g/dL (14.0-18.0); Immature Granulocyte Absolute 0.02 K/mm3 (0.00-0.031); Immature Granulocyte Percent A 0.3 % (0-0.5); Lymphocytes Absolute Auto 2.44 K/mm3 (0.9-3.2); Lymphocytes Percent Auto 42.6 % (18.3-44.2); Mean Corpuscular HGB Conc 32.3 g/dl (32-36); Mean Corpuscular Hemoglobin 28.8 pg (26-34); Mean Corpuscular Volume 89.3 fl (80-100); Mean Platelet Volume 10.3 fl (7.4-10.4); Monocytes Absolute Auto 0.9 K/mm3 (0.1-0.6); Monocytes Percent Auto 15.4 % (2.6-8.5); Neutrophils Absolute Auto 2.1 K/mm3 (1.3-6.7); Neutrophils Percent Auto 36.5 % (45.5-73.1); Platelet Count Result 233 k/mm3 (150-375); Red Blood Count 3.64 M/mm3 (4.6-6.20); Red Cell Distribution Width 17.4 % (11.5-14.5); White Blood Count 5.7 K/mm3 (4.5-10.0)
[2020-12-13 06:51] LABS: Anion Gap 2 mmol/L (8-16); Calcium 7.7 mg/dL (8.4-10.2); Carbon Dioxide 24 mmol/L (22-30); Chloride 109 mmol/L (98-107); Estimated CRCL calculation 137 ml/min; Estimated Glomerular Filt Rate > 60; Glucose 83 mg/dL (65-110); Potassium 3.5 mmol/L (3.4-5.0); Sodium 135 mmol/L (137-145)
[2020-12-13 07:52] LABS: Blood Urea Nitrogen < 2 mg/dL (9-20)
[2020-12-13 10:19] VITALS: O2SAT 98
[2020-12-13] MEDS: POTASSIUM CHLORIDE 20 MEQ TABLET.ER 40 MEQ PO ×2 (10:19→17:53)
[2020-12-13] MEDS: polyethylene glycoL 3350 17 GM POWD.PACK PO (10:19)
[2020-12-13] MEDS: SACCHAROMYCES BOULARDII 250 MG CAPSULE PO ×2 (10:20→17:53)
[2020-12-13] MEDS: MULTIVITAMINS THERAPEUTIC TAB (*BKC) 1 TABLET PO (10:20)
[2020-12-13] MEDS: FERROUS SULFATE 324 MG TABLET PO (10:20)
[2020-12-13] MEDS: ASPIRIN 81 MG ENTERIC TABLET PO (10:20)
[2020-12-13] MEDS: SODIUM CHLORIDE 0.9% IV 1,000 ML 75 ML IV CONT ×2 (10:23→23:16)
--- NOTE | 2020-12-13 12:39 | PCNWS ---
Weekly nutritional screen. Patient is tolerating current diet of regular. Last day of IV antibiotics is this Thursday. No further nutritional needs at this time.
[2020-12-13 14:00] VITALS: BP 132/73; PULSE 80; RESP 16; TEMP 36.2; O2SAT 100
--- NOTE | 2020-12-13 16:27 | PM.IMPN ---
Progress Note: A&P Assessment and Plan (1) Bacteremia due to Gram-negative bacteria: Code(s): R78.81 - Bacteremia Status: Acute Assessment and Plan: E coli and P mirabilis Likely source is GI TRACT: colon mass vs gallblader. Urinary tract less likely. CT ABD/PELVIS W/O EVIDENCE FOR PERFORATION OR ABSCESS Received ertapenem 12/07 x 2. 8 begin CEFTRIAXONE for DAY 6 OF 7 IV ANTIBIOTICS Due to concern re: recurrent bacteremia from GI source, upon discharge consider continuing PO antibiotic (cefdinir) and probiotic until cholecystectomy and hemicolectomy on 12/31/2020. (2) Acute UTI: Code(s): N39.0 - Urinary tract infection, site not specified Status: Acute Assessment and Plan: Proteus in culture Primary UTI vs hematogenous spread from GNR bacteremia (3) Electrolyte abnormality: Code(s): E87.8 - Other disorders of electrolyte and fluid balance, not elsewhere classified Status: Acute Assessment and Plan: Hypokalemia 12/10 3.4, continue PO replacement Hypomagnesemia 12/10 1.4, IV mag 2 gm (4) Colon adenocarcinoma: Code(s): C18.9 - Malignant neoplasm of colon, unspecified Status: Acute Assessment and Plan: SIGMOID Biopsy proven Possible source of current bacteremia Surgery scheduled for 12/31/2020. (5) Chronic cholecystitis: Code(s): K81.1 - Chronic cholecystitis Status: Acute Assessment and Plan: Cholecystostomy drain placed 09/2020 Dislodged 12/05 Currently c/o sx's (6) CVA (cerebral vascular accident): Qualifiers: CVA mechanism: unspecified Qualified Code(s): I63.9 - Cerebral infarction, unspecified Code(s): I63.9 - Cerebral infarction, unspecified Status: Chronic (7) Hemiplegia affecting right dominant side: Qualifiers: Cerebrovascular disease type: cerebral infarction Hemiplegia etiology: late effect of cerebrovascular disease Hemiplegia type: flaccid Qualified Code(s): I69.351 - 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 side Code(s): G81.91 - Hemiplegia, unspecified affecting right dominant side Status: Chronic Assessment and Plan: Stable (8) 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 coli]; R65.21 - Severe sepsis with septic shock Code(s): A41.9 - Sepsis, unspecified organism Status: Acute Assessment and Plan: Tachycardia, hypotension, lactic acidosis, leukopenia followed by leukocytosis Source of infection is GI tract Additional Plan 12/12/2020 patient being treated with IV antibiotics for his sepsis secondary to bacteremia and UTI patient is growing E coli and Proteus in blood and Proteus in urine. His chronic indwelling Ness catheter has been changed since admission. Patient is nontoxic appearing and cooperative to interview although secondary to advanced dementia unable to provide any meaningful history. RN is bedside and reports that overnight he had some agitation that was improved with Seroquel. Continue current care Seroquel q.h.s. Ceftriaxone day 6 of 7 DC home on p.o. antibiotic therapy Patient anticipated to have surgical intervention on 12/31/2020 12/13/2020 patient received last dose of IV Rocephin tomorrow and then anticipate discharge with his chronic indwelling Ness catheter [facility] Continue current care Subjective Date/time seen: 12/13/20 16:27 Patient doing okay
[2020-12-13] MEDS: ATORVASTATIN 40 MG TABLET 80 MG PO (17:52)
[2020-12-13] MEDS: PANTOPRAZOLE 40 MG TABLET PO (17:53)
[2020-12-13 22:00] VITALS: BP 127/72; PULSE 69; RESP 18; TEMP 36.5; O2SAT 98
[2020-12-13] MEDS: MIRTAZAPINE 15 MG TABLET PO (23:15)
[2020-12-13] MEDS: QUEtiapine FUMARATE 25 MG TABLET PO (23:15)
[2020-12-14 06:00] VITALS: BP 131/75; PULSE 67; RESP 18; TEMP 36.3; O2SAT 97
[2020-12-14 07:15] LABS: Basophils Percent Auto 0.6 % (0.2-1.2); Eosinophils Absolute Auto 0.2 K/mm3 (0-0.3); Eosinophils Percent Auto 2.8 % (0-4.4); Hematocrit 39.7 % (42.0-52.0); Hemoglobin 12.3 g/dL (14.0-18.0); Immature Granulocyte Absolute 0.04 K/mm3 (0.00-0.031); Immature Granulocyte Percent A 0.6 % (0-0.5); Lymphocytes Absolute Auto 2.26 K/mm3 (0.9-3.2); Lymphocytes Percent Auto 35.6 % (18.3-44.2); Mean Corpuscular Hemoglobin 28.3 pg (26-34); Mean Corpuscular Volume 91.5 fl (80-100); Mean Platelet Volume 10.8 fl (7.4-10.4); Monocytes Absolute Auto 0.8 K/mm3 (0.1-0.6); Monocytes Percent Auto 12.8 % (2.6-8.5); Neutrophils Percent Auto 47.6 % (45.5-73.1); Platelet Count Result 241 k/mm3 (150-375); Red Blood Count 4.34 M/mm3 (4.6-6.20); Red Cell Distribution Width 17.4 % (11.5-14.5); White Blood Count 6.3 K/mm3 (4.5-10.0)
[2020-12-14 07:35] LABS: Anion Gap 5 mmol/L (8-16); Calcium 7.9 mg/dL (8.4-10.2); Carbon Dioxide 21 mmol/L (22-30); Chloride 108 mmol/L (98-107); Estimated CRCL calculation 137 ml/min; Estimated Glomerular Filt Rate > 60; Glucose 79 mg/dL (65-110); Potassium 3.9 mmol/L (3.4-5.0); Sodium 134 mmol/L (137-145)
--- NOTE | 2020-12-14 08:21 | PM.DS ---
DS: Admitting Diagnosis Admitting Diagnosis (1) Lactic acid acidosis: Code(s): E87.2 - Acidosis Status: Acute Assessment and Plan: Likely secondary to dehydration No obvious source of infection Urine is clean Receiving IV fluids Continue to monitor (2) Hypotension: Qualifiers: Hypotension type: hypotension due to hypovolemia Qualified Code(s): I95.89 - Other hypotension; E86.1 - Hypovolemia Code(s): I95.9 - Hypotension, unspecified Status: Acute Assessment and Plan: Fluid resuscitation (3) Chronic indwelling Ness catheter: Code(s): Z97.8 - Presence of other specified devices Status: Acute Assessment and Plan: Ness catheter care Continue to monitor (4) CVA (cerebral vascular accident): Qualifiers: CVA mechanism: unspecified Qualified Code(s): I63.9 - Cerebral infarction, unspecified Code(s): I63.9 - Cerebral infarction, unspecified Status: Chronic Assessment and Plan: Unchanged (5) DVT (deep venous thrombosis): Qualifiers: DVT location: lower extremity Affected thrombotic vein of extremity: femoral Chronicity: chronic Laterality: right Qualified Code(s): I82.511 - Chronic embolism and thrombosis of right femoral vein Code(s): I82.409 - Acute embolism and thrombosis of unspecified deep veins of unspecified lower extremity Status: Acute Assessment and Plan: Continue apixaban (6) 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): Code(s): I69.319 - Unspecified symptoms and signs involving cognitive functions following cerebral infarction Status: Chronic Assessment and Plan: Supportive care (7) Acute cholecystitis: Code(s): K81.0 - Acute cholecystitis Status: Acute Assessment and Plan: Patient is status post cholecystostomy Drain was dislodged and now has been removed Patient is scheduled for cholecystectomy in December Continue to monitor DS: Discharge Diagnosis Discharge Diagnosis (1) Chronic cholecystitis: Code(s): K81.1 - Chronic cholecystitis Status: Acute (2) Bacteremia due to Gram-negative bacteria: Code(s): R78.81 - Bacteremia Status: Acute (3) Sepsis: Qualifiers: Sepsis type: Escherichia coli Sepsis acute organ dysfunction status: with acute organ dysfunction Severe sepsis acute organ dysfunction type: unspecified Severe sepsis shock status: with septic shock Qualified Code(s): A41.51 - Sepsis due to Escherichia coli [E. coli]; R65.21 - Severe sepsis with septic shock Code(s): A41.9 - Sepsis, unspecified organism Status: Acute (4) Lactic acid acidosis: Code(s): E87.2 - Acidosis Status: Acute (5) Hypotension: Qualifiers: Hypotension type: hypotension due to hypovolemia Qualified Code(s): I95.89 - Other hypotension; E86.1 - Hypovolemia Code(s): I95.9 - Hypotension, unspecified Status: Acute (6) Chronic indwelling Ness catheter: Code(s): Z97.8 - Presence of other specified devices Status: Acute (7) Colon adenocarcinoma: Code(s): C18.9 - Malignant neoplasm of colon, unspecified Status: Acute (8) Colonic mass: Code(s): K63.89 - Other specified diseases of intestine Status: Acute (9) Electrolyte abnormality: Code(s): E87.8 - Other disorders of electrolyte and fluid balance, not elsewhere classified Status: Acute (10) Chronic 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
[2020-12-14 09:12] LABS: Blood Urea Nitrogen < 2 mg/dL (9-20)
[2020-12-14] MEDS: ASPIRIN 81 MG ENTERIC TABLET PO (09:48)
[2020-12-14] MEDS: MULTIVITAMINS THERAPEUTIC TAB (*BKC) 1 TABLET PO (09:48)
[2020-12-14] MEDS: SACCHAROMYCES BOULARDII 250 MG CAPSULE PO (09:48)
[2020-12-14] MEDS: FERROUS SULFATE 324 MG TABLET PO (09:48)
[2020-12-14] MEDS: POTASSIUM CHLORIDE 20 MEQ TABLET.ER 40 MEQ PO (09:48)
[2020-12-14 12:03] LABS: EDCOVIDSCREEN Negative (Negative)
[2020-12-14 13:59] VITALS: BP 113/68; PULSE 78; RESP 16; TEMP 36.4; O2SAT 99
== END 2020-12-14 15:50 | DRG 698 ==
LOC: ANHED 12-06 00:21 → ANH3MEDSUR 12-14 08:20 → ANHIMU 12-18 14:10
PROVIDERS: Family Medicine; Internal Medicine; Admitting Provider Internal Medicine; Emergency Provider Family Medicine; PCP Family Medicine; Visit Provider Hospitalist
DX: T83.511A Infection and inflammatory reaction due to indwelling urethral catheter, initial encounter (principal); A41.51 Sepsis due to Escherichia coli [E. coli]; R65.21 Severe sepsis with septic shock; E87.2 Acidosis; I82.511 Chronic embolism and thrombosis of right femoral vein; K81.0 Acute cholecystitis; I69.351 Hemiplegia and hemiparesis following cerebral infarction affecting right dominant side; C18.7 Malignant neoplasm of sigmoid colon; N39.0 Urinary tract infection, site not specified; Z20.822 Contact with and (suspected) exposure to COVID-19; I69.319 Unspecified symptoms and signs involving cognitive functions following cerebral infarction; E78.5 Hyperlipidemia, unspecified; I10 Essential (primary) hypertension; F03.90 Unspecified dementia, unspecified severity, without behavioral disturbance, psychotic disturbance, mood disturbance, and anxiety; K21.9 Gastro-esophageal reflux disease without esophagitis; I95.89 Other hypotension; E86.1 Hypovolemia; E87.6 Hypokalemia; E83.42 Hypomagnesemia; Z79.01 Long term (current) use of anticoagulants; Z79.899 Other long term (current) drug therapy; Z87.891 Personal history of nicotine dependence
CPT/HCPCS: 36415; 74176; 80048; 80053; 81001; 83605; 83735; 85025; 85027; 87040; 87077; 87086; 87088; 87186; 87426; 96360; 96361; 99285; A9270; C9803; J0696; J1335; J3475; J7030

== ENCOUNTER 2020-12-19 08:09 | Outpatient (CLI) | payer MEDICARE, SELFPAY ==
--- NOTE | ~2020-12-19 | XR_ITS ---
EXAMINATION: XR chest 2V DATE: 12/19/2020 10:19 INDICATION: Hypertension TECHNIQUE: AP and lateral views of the chest are obtained. COMPARISON: 10/10/[address], 12/06/2020 FINDINGS: There are minimal left basilar airspace opacities. A small left pleural effusion is present . There is no pneumothorax. The heart size is normal. Calcified atherosclerosis is noted. There is mi ld thoracic spondylosis. IMPRESSION: 1. Small left pleural effusion with minimal left basilar atelectasis. Reviewed, dictated and finalized at location A.
--- NOTE | 2020-12-19 09:40 | ECG_ITS ---
Measurements Intervals [place] Rate: 100 P: 78 ND: 151 QRS: 70 QRSD: 86 T: 44 QT: 358 QTc: 462 Interpretive Statements SINUS TACHYCARDIA INCOMPLETE RIGHT BUNDLE BRANCH BLOCK LOW QRS VOLTAGE IN PRECORDIAL LEADS ST-T WAVE ABNORMALITY IN ANTERIOR LEADS- CONSIDER ISCHEMIA ABNORMAL ECG Electronically Signed On 12-19-2020 10:15:07 CDT by Donny Sherman D.O.
[2020-12-19 10:30] LABS: Hematocrit 38.4 % (42.0-52.0); Hemoglobin 12.2 g/dL (14.0-18.0); Mean Corpuscular HGB Conc 31.8 g/dl (32-36); Mean Corpuscular Hemoglobin 28.1 pg (26-34); Mean Corpuscular Volume 88.5 fl (80-100); Mean Platelet Volume 10.1 fl (7.4-10.4); Platelet Count Result 417 k/mm3 (150-375); Red Blood Count 4.34 M/mm3 (4.6-6.20); White Blood Count 6.1 K/mm3 (4.5-10.0)
[2020-12-19 12:03] LABS: Alanine Aminotransferase 118 U/L (4-50); Albumin Level 2.9 g/dL (3.5-5.1); Alkaline Phosphatase 201 U/L (38-126); Amylase 77 U/L (30-110); Aspartate Amino Transferase 121 U/L (17-59); Bilirubin,Total 0.5 mg/dL (0.2-1.3); Lipase 117 U/L (23-300)
[2020-12-19 12:33] LABS: Carcinoembryonic Antigen 7.8 ng/mL (0.0-3.0)
== END 2020-12-19 08:10 | disposition home or self-care (01) ==
LOC: ANHSURGERY 08:11
PROVIDERS: PCP Family Medicine; Visit Provider Surgery
DX: Z01.818 Encounter for other preprocedural examination (principal); K80.00 Calculus of gallbladder with acute cholecystitis without obstruction; J90 Pleural effusion, not elsewhere classified; J98.11 Atelectasis; R94.31 Abnormal electrocardiogram [ECG] [EKG]
CPT/HCPCS: 36415; 71046; 80076; 82150; 82378; 83690; 85027; 86850; 86900; 86901; 93005

== ENCOUNTER 2021-01-16 22:11 | Emergency (ER) | payer MEDICARE, SELFPAY ==
--- NOTE | ~2021-01-16 | CT_ITS ---
EXAMINATION: CT brain wo con DATE: 01/17/2021 00:50 INDICATION: Ground-level fall. History of cerebrovascular accident. TECHNIQUE: Computed tomography (CT) of the head was performed without intravenous contrast. The mA wa s adjusted according to patient size. Iterative reconstruction technique was employed. Exam dose: 60 5.33 mGy-cm total exam DLP. COMPARISON: None FINDINGS: There is central and cortical cerebral and cerebellar volume loss. Minimal basal ganglia calcification. There is nonspecific diminished attenuation of the cerebral white matter, likely due to chronic small vessel ischemic changes. Bilateral carotid siphon internal carotid artery calcifications are noted. No intracranial mass lesion or hemorrhage or cerebrovascular accident is evident. No subdural or epid ural hematoma. No fracture or bone destruction of the cranial vault. Included paranasal sinuses and mastoid air cells are unremarkable. IMPRESSION: Cerebral atherosclerosis and chronic small vessel ischemic changes of the cerebral white matter Cerebral and cerebellar volume loss No acute intracranial finding Reviewed, dictated and finalized at Location A. Reviewed, dictated and finalized at location B.
--- NOTE | ~2021-01-16 | XR_ITS ---
EXAMINATION: XR knee RT 3V DATE: 01/17/2021 00:36 INDICATION: Right knee pain post fall TECHNIQUE: Anteroposterior, oblique and crosstable lateral views of the right knee were obtained COMPARISON: None. FINDINGS: Alignment is normal. No fracture. Joint spaces appear normal on nonweightbearing imaging. Enthesophy cat at the anterior tibial tuberosity and at the proximal distal patella. No joint effusion/layering lipohemarthrosis. Soft tissues are unremarkable. IMPRESSION: 1. No right knee joint effusion or acute osseous abnormality. Reviewed, dictated and finalized at location A.
--- NOTE | ~2021-01-16 | CT_ITS ---
EXAMINATION: CT cervical spine wo con DATE: 01/17/2021 00:51 INDICATION: Fall. Neck injury. TECHNIQUE: Computed tomography (CT) of the cervical spine was performed without intravenous contrast. Automated exposure control and iterative reconstruction technique were employed. Exam dose: 271.34 mGy-cm total exam DLP. COMPARISON: None FINDINGS: C1 and C2 are normally aligned and the odontoid process is intact. There is moderately severe degenerative disc disease at C3-4, C4-5, C6-7. There is severe degenerativ e disc disease at C5-6 with minimal associated retrolisthesis. There is moderately severe degenerative disc disease at C7-T1 with minimal anterolisthesis. There is degenerative change at the apophyseal joints, more prominent on the left. There is fusion of the left C4-5 apophyseal joints and left C6-7 apophyseal joints. No fracture or dislocation IMPRESSION: Prominent cervical spondylosis; no fracture or dislocation Reviewed, dictated and finalized at Location A. Reviewed, dictated and finalized at location B.
--- NOTE | ~2021-01-16 | XR_ITS ---
EXAMINATION: XR hip RT 2V w AP pelvis DATE: 01/17/2021 00:49 INDICATION: Right hip pain post fall TECHNIQUE: Anteroposterior view of the pelvis and anteroposterior and frog-leg lateral views of the r ight hip were obtained. COMPARISON: None. FINDINGS: Alignment is normal. No fracture. Mild bilateral hip and sacroiliac joint osteoarthritis. Multiple ph leboliths in the pelvis. IMPRESSION: 1. Mild bilateral hip and sacroiliac osteoarthritis. No acute osseous abnormality. Reviewed, dictated and finalized at location A. IMPRESSION: 1. Mild bilateral hip and sacroiliac osteoarthritis. No acute osseous abnormali ty.
--- NOTE | ~2021-01-16 | XR_ITS ---
EXAMINATION: XR shoulder RT min 2V DATE: 01/17/2021 00:37 INDICATION: Right shoulder pain post fall TECHNIQUE: AP internally rotated, AP oblique externally rotated and transscapular Y views of the righ t shoulder were obtained. COMPARISON: None FINDINGS: Normal alignment. No fracture.Mild glenohumeral osteoarthritis. Moderate acromioclavicular osteoarth ritis. Visualized portion of the right lung are clear. Soft tissues are unremarkable. IMPRESSION: Right shoulder osteoarthritis. No acute osseous abnormality. Reviewed, dictated and finalized at location A.
[2021-01-16 22:16] VITALS: PULSE 98; RESP 17; TEMP 36.6; O2SAT 98
[2021-01-16 23:50] VITALS: BP 128/92; PULSE 114; RESP 18; O2SAT 96
[2021-01-17 01:19] VITALS: BP 103/58; PULSE 94; RESP 16; O2SAT 98
--- NOTE | 2021-01-17 02:51 | ED.FALL ---
HPI - Fall General Chief Complaint: Fall Stated Complaint: fall and ams Time Seen by Provider: 01/16/21 22:45 Source: patient, EMS and RN notes reviewed Mode of arrival: EMS Limitations: other (History of CVA with right hemiplegia) History of Present Illness HPI Narrative: Patient came to the emergency room by ambulance from [facility] because of a fall. Patient was trying to walk without recovery assistant and had a fall on the right side. Apparently patient complaining of right knee pain and right neck pain. Patient denies loss of consciousness or head injury Related Data Home Medications Medication Instructions Recorded Confirmed acetaminophen [Tylenol] 650 mg PO Q4H PRN 09/04/20 01/16/21 atorvastatin 80 mg PO QPM 09/04/20 01/16/21 polyethylene glycol 3350 [Miralax] 17 g PO DAILY 09/04/20 01/16/21 potassium chloride 20 meq PO BID 09/04/20 01/16/21 sennosides [senna] 8.6 mg PO BID PRN 09/04/20 01/16/21 omeprazole 40 mg PO QPM 10/08/20 01/16/21 ferrous sulfate 324 mg PO DAILY 12/06/20 01/16/21 mirtazapine [Remeron] 15 mg PO HS 12/06/20 01/16/21 erythromycin 1,000 mg PO DIRECTED 12/19/20 01/16/21 neomycin 1,000 mg PO DIRECTED 12/19/20 01/16/21 Allergies Allergy/AdvReac Type Severity Reaction Status Date / Time No Known Allergies Allergy Verified 01/16/21 10:46 Review of Systems Review of Systems: ROS unobtainable: Yes unobtainable due to mental status PMFSH Past Medical History Medical History 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 They live in a multilevel home with 1 step to enter. The patient then has 6 stairs up or down to the bedroom or bathroom. The patient was completely independent prior to this CVA requiring no assistive device. The patient family have decided that the patient will return home after air you with assistance from family and/or hired caregivers. A contractor has been Ruben to work on home assess abilities that the patient can live on the main level of their home. Private duty caregivers will be secured for 247 care for the patient and his . Son is supportive. Patient was a former smoker quit in 1990. Smoking packs per day: 2 Smoking cigarettes per day: 40.0 Years smoked: 20 Smoking pack-years: 40.00 Smoking status: Former smoker Tobacco type: cigarettes Smoking end date: 10/18/89 Alcohol intake: never Drinks per week: 3 Alcohol use details: SOCIALLY IN PAST Substance use: never Substance use type: does not use Gender identity (if verbalized by the patient): Male Spiritual care concerns: No Exam Narrative: General appearance: Well-developed, well-nourished Skin: Normal color Head: Normocephalic, nontraumatic Eyes: Clear conjunctiva ENT: Oropharynx normal, ears normal, nose normal Neck: Supple, nontender Chest and respiratory: Airway patent, no respiratory distress, no accessory muscle use Heart: Regular rate/rhythm Abdomen: Soft, nontender, no organomegaly, quiet bowel sounds Vascular: Normal peripheral pulses, normal capillary refill. Musculoskeletal: Right hemiplegia, right knee showed no swelling, bruises, deformity. Right shoulder showed the same, pain with movement Neurologic: Alert and oriented to his name only
[2021-01-17 02:56] VITALS: BP 103/86; PULSE 89; RESP 15; O2SAT 97
--- NOTE | 2021-01-17 03:45 | PC.NURSE ---
called [facility] to request transport. [id number]
--- NOTE | 2021-01-17 05:01 | PC.NURSE ---
[facility] here.
[2021-01-17 05:14] VITALS: BP 117/76; PULSE 96; RESP 15; O2SAT 98
== END 2021-01-17 05:20 ==
PROVIDERS: Emergency Provider Emergency Medicine; PCP Family Medicine
DX: S80.01XA Contusion of right knee, initial encounter (principal); I69.919 Unspecified symptoms and signs involving cognitive functions following unspecified cerebrovascular disease; I69.951 Hemiplegia and hemiparesis following unspecified cerebrovascular disease affecting right dominant side; E78.5 Hyperlipidemia, unspecified; I10 Essential (primary) hypertension; Z87.891 Personal history of nicotine dependence; M16.0 Bilateral primary osteoarthritis of hip; M47.818 Spondylosis without myelopathy or radiculopathy, sacral and sacrococcygeal region; M19.011 Primary osteoarthritis, right shoulder; I67.2 Cerebral atherosclerosis; M47.812 Spondylosis without myelopathy or radiculopathy, cervical region; W18.30XA Fall on same level, unspecified, initial encounter
CPT/HCPCS: 70450; 72125; 73030; 73502; 73562; 99284

== ENCOUNTER 2021-02-01 07:39 | Outpatient (CLI) | payer MEDICARE, SELFPAY ==
--- NOTE | ~2021-02-01 | NM_ITS ---
EXAMINATION: NM rodri stress w perfusion DATE: 02/01/2021 12:40 INDICATION: Abnormal electrocardiogram TECHNIQUE: Rest images were obtained following intravenous administration of 9.3 mCi Tc99m tetrofosmi n (Myoview). The patient was infused intravenously with Lexiscan (Regadenoson). Then, 27.7 mCi Tc99m tetrofosmin (Myoview) was administered intravenously, and stress images were obtained. Data was recon structed into short axis and horizontal and vertical long axis SPECT images. Gated SPECT images were also obtained. COMPARISON: None. FINDINGS: There is no definite reversible or fixed perfusion abnormality to suggest ischemia or infar ction. There is normal left ventricular chamber size, wall motion and ejection fraction. Left ventr icular ejection fraction measures 63%. IMPRESSION: 1. Normal myocardial perfusion at rest and during stress. 2. Left ventricular ejection fraction measuring 63%. Reviewed, dictated and finalized at location A.
--- NOTE | 2021-02-01 07:49 | EST_ITS ---
Patient Info Name: Matti Vergara Age: 75 years : 1945 Gender: Male Ht: 71 in Wt: 160 lbs BSA: 1.91 m2 HR: 86 bpm BP: 110 / 71 mmHg Heart Rhythm: Sinus Rhythm Exam Date: 02/01/2021 10:13 AM Exam Location: [facility] Stress Patient Status: Outpatient Admit Date: 02/01/2021 Staff Ordering Physician: Donny Sherman DO Attending Provider: Donny Sherman DO Exercise Technologist: Giana Ma CT Exercise Physician: Donny Sherman DO Exam Type: CA stress rodri w NM Study Info Indications R07.9 - Chest pain, unspecified A regadenoson stress test was performed. Summary 1. 1. Negative lexiscan stress test for ischemic ST changes by ECG criteria. 2. 2. Stable hemodynamics throughout the test. 3. 3. Nuclear scan to follow and will be reported separately. Please correlate with it. 4. 4. Patient informed of the above results. Protocol: Lexiscan Stress ECG Details Stage: REST Duration (min): 0 min : 52 sec HR (bpm): 85 SBP (mmHg): 110 DBP (mmHg): 71 Stage: REST Duration (min): 13 min : 6 sec HR (bpm): 86 SBP (mmHg): 110 DBP (mmHg): 71 Stage: STAGE 1 Duration (min): 1 min : 0 sec HR (bpm): 98 SBP (mmHg): 110 DBP (mmHg): 81 Stage: RECOVERY Duration (min): 1 min : 0 sec HR (bpm): 96 SBP (mmHg): 110 DBP (mmHg): 81 Stage: RECOVERY Duration (min): 2 min : 0 sec HR (bpm): 102 SBP (mmHg): 170 DBP (mmHg): 92 Stage: RECOVERY Duration (min): 2 min : 54 sec HR (bpm): 96 SBP (mmHg): 172 DBP (mmHg): 99 Rest HR: 86 bpm Peak HR: 104 bpm Rest Sys BP: 110 mmHg Peak Sys BP: 172 mmHg Max Pred HR: 143 bpm % Max Pred HR: 73 % Target HR: 122 bpm Max RPP: 17,888 bpm*mmHg Termination Reason: Completed protocol Cardiac Symptoms: Shortness of breath Total Time: 1 min : 0 sec Rest Sloan BP: 71 mmHg Peak Sloan BP: 99 mmHg Total Dose: 0.4 mg Resting ECG Sinus rhythm with sinus arrhythmia. Stress ECG No ST changes. Arrhythmias None. Report Signatures
--- NOTE | 2021-02-01 07:50 | ECHO_ITS ---
Patient Info Name: Matti Vergara Age: 75 years : 1945 Gender: Male Ht: 73 in Wt: 160 lbs BSA: 1.93 m2 HR: 85 bpm BP: 119 / 68 mmHg Heart Rhythm: Sinus Rhythm Technical Quality: Poor Exam Date: 02/01/2021 8:09 AM Exam Location: [facility] Pulmonary Patient Status: Outpatient Admit Date: 02/01/2021 Staff Ordering Physician: Donny Sherman DO Shoe Repairman: Candice Allison RDCS Attending Provider: Donny Sherman DO Exam Type: CA echo doppler color flow Study Info Indications R94.31 - Abnormal electrocardiogram ECG EKG Complete two-dimensional, color flow and Doppler transthoracic echocardiogram is performed. Summary 1. Complete two-dimensional, color flow and Doppler transthoracic echocardiogram is performed. 2. Technically suboptimal study due to poor sonographic images. 3. Subcostal images were not obtained. 4. Left ventricular chamber dimension is normal. 5. Left ventricular systolic function is normal, estimated at 60-65%. 6. The left ventricular diastolic function is grade I diastolic dysfunction. 7. E/e' 10 is mildly elevated. Left Ventricle Subcostal images were not obtained. E/e' 10 is mildly elevated. Technically suboptimal study due to poor sonographic images. Left ventricular chamber dimension is normal. Left ventricular systolic function is normal, estimated at 60-65%. The left ventricular diastolic function is grade I diastolic dysfunction. Right Ventricle Right ventricular chamber dimension is normal. Right ventricular systolic function is normal. Left Atria Left atrial chamber dimension is normal. Right Atria Right atrial chamber dimension is normal. Aortic Valve The aortic valve is trileaflet. There is no aortic valve stenosis. There is no aortic valve regurgitation. Pulmonic Valve There is no pulmonic regurgitation. Mitral Valve There is no mitral valve stenosis. There is no mitral valve regurgitation. Tricuspid Valve There is no tricuspid valve regurgitation. Pericardium/Pleural There is no pericardial effusion. Inferior Vena Cava Inferior vena cava is not well visualized. Aorta The aortic root size at the sinus of Valsalva is normal. Left Ventricular Outflow Tract Name Value Normal LVOT 2D LVOT Diameter 2.0 cm LVOT Doppler LVOT Peak Gradient 1 mmHg LVOT Mean Gradient 1 mmHg LVOT VTI 13 cm LVOT VTI/AV VTI Ratio 0.8 LVOT Stroke Volume 41 ml LVOT CO 2.9 l/min LVOT CI 1.5 l/min/m2 Pulmonic Valve Name Value Normal RVOT Doppler RVOT Peak Gradient 2 mmHg PV Doppler PV Pea
== END 2021-02-01 07:40 | disposition home or self-care (01) ==
PROVIDERS: PCP Family Medicine; Visit Provider Internal Medicine Cardiovascular Disease
DX: R94.31 Abnormal electrocardiogram [ECG] [EKG] (principal)
CPT/HCPCS: 78452; 93017; 93306; A9502; J2785

== ENCOUNTER → 2021-03-13 13:10 | Outpatient (CLI) | payer MEDICARE, SELFPAY ==
--- NOTE | ~2021-03-13 | CT_ITS ---
EXAMINATION: CT abdomen pelvis w con DATE: 03/13/2021 14:04 INDICATION: Malignant neoplasm of colon. TECHNIQUE: Computed tomography (CT) of the abdomen and pelvis was performed with 100 mL Omnipaque 350 intravenous contrast. Automated exposure control and iterative reconstruction technique were employe d. The dose-length product was 694.25 mGy-cm. COMPARISON: CT abdomen and pelvis 12/06/2020 FINDINGS: The visualized portions of the lung bases demonstrate mild atelectasis. No pleural effusion . The heart size is normal. There are coronary artery calcifications. No pericardial effusion. There is a 15 mm cyst in the liver. The gallbladder is decompressed. The spleen, pancreas, adrenal glands, and right kidney are normal. There are peripelvic cysts in left kidney measuring up to 2.9 cm. The bl adder is impressed by a Ness catheter. The prostate is mildly enlarged. There is prominent fat in ri ght inguinal canal that may be a hernia. There is focal wall thickening of sigmoid colon. There are s cattered diverticula in the colon. The appendix is normal. There are no pathologically enlarged lymph nodes. There is no free intraperitoneal fluid. There is mild thoracolumbar spondylosis. There is mil d chronic height loss of multiple vertebral bodies. IMPRESSION: 1. Stable focal wall thickening of the sigmoid colon, consistent with biopsy-proven adenocarcinoma. Reviewed, dictated and finalized at location B. CTOR OF ARCHITECTURE IMPRESSION: 1. Stable focal wall thickening of the sigmoid colon, consistent with biopsy-pr oven adenocarcinoma.
[2021-03-13 13:41] LABS: Estimated Glomerular Filt Rate > 60
== END ==
PROVIDERS: PCP Family Medicine; Visit Provider Surgery
DX: C18.9 Malignant neoplasm of colon, unspecified (principal)
CPT/HCPCS: 74177; Q9967

== ENCOUNTER → 2021-03-18 09:02 | Outpatient (CLI) | payer MEDICARE, SELFPAY ==
--- NOTE | ~2021-03-18 | US_ITS ---
EXAMINATION: US abdomen limited EXAM DATE: 03/18/2021 09:36 INDICATION: K81.1 - Chronic cholecystitis. TECHNIQUE: Multiple grayscale and Doppler images of the abdomen right upper quadrant were obtained (b y a technologist who performed the scan) and subsequently reviewed. Comparison is made to prior exami nation from 10/10/2020. Correlation was made with CT 03/13/2021. FINDINGS: The pancreatic head and body are normal in appearance. The pancreatic tail is not visualized. The l iver has normal echogenicity and contour. There are no focal liver lesions identified. There is no evidence of intrahepatic biliary duct dilation. Portal venous flow was seen in the hepatopedal, nor mal direction and has normal Doppler waveform. No right-sided hydronephrosis. Common bile duct measures 5 mm, which is normal. Gallbladder is undistended, has echogenic wall thick ening at 7 mm (edema typically has hypoechoic wall). Patient did have a cholecystostomy tube on prior ultrasound. No pericholecystic fluid. Technologist performing exam reports patient did not demonstra te sonographic Torres's sign. Please note that this sign is less reliable in patients who have recei farooq pain medication. IMPRESSION: Small gallbladder with wall thickening, some debris. Chronic cholecystitis. Reviewed, dictated and finalized at location A. RONMENTAL HEALTH NURSE IMPRESSION: Small gallbladder with wall thickening, some debris. Chronic cholec ystitis.
== END ==
PROVIDERS: PCP Family Medicine; Visit Provider Surgery
DX: K81.1 Chronic cholecystitis (principal)
CPT/HCPCS: 76705

== ENCOUNTER 2021-03-20 11:40 | Inpatient (IN) | payer MEDICARE, SELFPAY ==
[2021-03-13 11:49] VITALS: BP 113/72; PULSE 76; RESP 18; TEMP 36.9; O2SAT 92; BMI 22.1
--- NOTE | 2021-03-13 12:19 | PC.NURSE ---
Report to the Outpatient Waiting Room, entrance under the green pavilion located off [facility], at time ___8:00AM____ on date ___03/20/21____. OR Time: ___10:00AM . - You and your visitor will be asked a series of questions to screen for COVID 19 for your protection. - A mask is required within the hospital. - Only one visitor is allowed at this time. Patient visitors will be guided where to wait when not with patient. Preoperative COVID Testing Requirements: No COVID Test needed if: (proof is required; if not received patient will have Rapid Test prior to entry) - Patient has received COVID Vaccine at least 14 days prior to procedure date or - Patient has positive COVID test result within last 90 days of surgery date. COVID Test needed if above criteria is not met If not COVID vaccinated a COVID test must be conducted within 72 hours of surgery and patient is asked to isolate self from time of testing until procedure. You will go to the [facility] for your COVID testing. The [facility] site is located at the corner of [address] [facility]. You will only be called if COVID results are positive and your surgeon may reschedule your elective surgery date. Patients may have clear liquids (water, carbonated beverages, clear teas, apple juice) until 3 hours prior to surgery with a maximum of 20 ounces. - No food from midnight until time of surgery - Infants may have breast milk until 4 hours before surgery, infant formula 6 hours prior to surgery. - Children will be allowed to drink immediately following surgery. If applicable, please bring a bottle or sippy cup to assist with drinking. Juice, water, soda, and popsicles are readily available. For infants on formula, please bring formula the day of surgery. Pacifiers are allowed. Take the following medications with a SIP of water the morning of surgery: NONE Medications to discontinue per physician ALL VITAMINS/SUPLLEMENTS 3 DAYS PRE-OP, HOLD ELIQUIS 2 DAYS PRE-OP, CONTINUE ASPIRIN Date to take last dose Please no make-up, nail syriac, hairspray, perfume, deodorant, or body powder the day of surgery. No jewelry (including any body piercings) or valuables the day of surgery, leave them at home. Please take a shower or bath the night before, or the morning of, surgery with an antibacterial soap. Wear comfortable, loose fitting clothing. Children are encouraged to wear pajamas. - Jewelry must be removed prior to entering the operating room. Rings and piercings that are not removed may be cut off. - The hospital will not accept responsibility for valuables. - Please leave all valuables, including medications, at home the day of surgery. If you are going home after surgery, a licensed cdl a driver must drive you home. - NO public transportation without another adult. - We recommend that an adult stay with you for 24 hours following discharge. - We also recommend that you do not drive, make important decision, drink alcoholic beverages, or take any drugs that were not prescribed by your health care provider for at least 24 hours after your discharge time. For Pediatric surgeries, we recommend two adults accompany the child home (only one inside the building at this time). Follow any additional instructions given to you from your surgeon. Telephone instructions given to __PATIENT & SISTER-ALEXANDRA and asked if any additional questions and then verbalized understanding. Patient advised to call surgeon office or pre surgery nurse liaison [phone] if any additional questions.
[2021-03-13 13:04] LABS: Basophils Absolute Auto 0.1 K/mm3 (0.0-0.1); Basophils Percent Auto 0.7 % (0.2-1.2); Eosinophils Absolute Auto 0.1 K/mm3 (0-0.3); Eosinophils Percent Auto 1.9 % (0-4.4); Hematocrit 43.8 % (42.0-52.0); Hemoglobin 14.2 g/dL (14.0-18.0); Immature Granulocyte Absolute 0.02 K/mm3 (0.00-0.031); Immature Granulocyte Percent A 0.3 % (0-0.5); Lymphocytes Percent Auto 28.2 % (18.3-44.2); Mean Corpuscular HGB Conc 32.4 g/dl (32-36); Mean Corpuscular Hemoglobin 31.6 pg (26-34); Mean Corpuscular Volume 97.3 fl (80-100); Mean Platelet Volume 9.8 fl (7.4-10.4); Monocytes Absolute Auto 0.8 K/mm3 (0.1-0.6); Neutrophils Absolute Auto 4.3 K/mm3 (1.3-6.7); Neutrophils Percent Auto 57.9 % (45.5-73.1); Platelet Count Result 302 k/mm3 (150-375); Red Cell Distribution Width 14.1 % (11.5-14.5); White Blood Count 7.4 K/mm3 (4.5-10.0)
[2021-03-13 13:20] LABS: Alanine Aminotransferase 12 U/L (4-50); Albumin Level 4.4 g/dL (3.5-5.1); Alkaline Phosphatase 99 U/L (38-126); Amylase 63 U/L (30-110); Anion Gap 8 mmol/L (8-16); Aspartate Amino Transferase 22 U/L (17-59); Bilirubin,Total 0.6 mg/dL (0.2-1.3); Blood Urea Nitrogen 11 mg/dL (9-20); Calcium 9.8 mg/dL (8.4-10.2); Carbon Dioxide 29 mmol/L (22-30); Chloride 100 mmol/L (98-107); Estimated Glomerular Filt Rate > 60; Glucose 104 mg/dL (65-110); Lipase 64 U/L (23-300); Potassium 4.2 mmol/L (3.4-5.0); Sodium 137 mmol/L (137-145)
[2021-03-13 13:51] LABS: Carcinoembryonic Antigen 4.9 ng/mL (0.0-3.0)
--- NOTE | 2021-03-19 15:55 | PM.IMHP ---
H&P: HPI History of Present Illness Date/Time: 03/19/21 15:55 Chief Complaint: Sigmoid colon cancer, history cholecystitis Narrative: patient is a 75-year-old man who currently resides at [facility] in [facility]. 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 This left him with weakness and some cognitive impairment. He presented to [facility] October 08 of this year with a large clot in his bladder. He also had a right common femoral DVT and was on anticoagulation with a heparin drip. The clot was evacuated and the bleeding controlled. We saw him as he then developed severe acute cholecystitis. He was not in condition for laparoscopic cholecystectomy at that time and underwent placement of a cholecystostomy tube which was successful in resolving the cholecystitis. On his CT scan during that admission, an abnormality was noted in the wall of the sigmoid colon suspicious for potential cancer. on October 15, 2020 he underwent a flexible sigmoidoscopy and was found to have a partially obstructing sigmoid colon cancer at about 55 cm. This was biopsied and was should found to be adenocarcinoma. It was moderately to well differentiated. It had no MSI, KRAS or BRAF V600 mutations. Patient was seen in my office in October and plans were made to proceed with laparoscopic cholecystectomy with sigmoid colon resection. Due to the pandemic, his surgery was delayed. He came to the emergency room at [place] December 05, 2020 having pulled out his cholecystostomy tube. He was admitted and had a low blood pressure with increased lactate but this resolved after a saline bolus. He was thought to have sepsis from a UTI. Blood cultures were positive for E coli and Proteus urine culture was positive for Proteus. He improved and was discharged on 12/14/2020. His preoperative EKG was concerning for cardiac risk. He was seen by Dr. Sherman at the end of December. He had both a Lexiscan and a cardiac echo on February 01. Both of these were negative for any significant coronary artery disease. He is also known to have a 3 mm intracranial aneurysm which is stable. He continues to take Eliquis anticoagulation and is taken to surgery at this time for hand access laparoscopic sigmoidectomy. He has not had any discernible gallbladder disease since his cholecystostomy tube came out in November. Plan is to possibly proceed with laparoscopic cholecystectomy after sigmoidectomy, provided this does not prolong the overall operating time to any significant degree and the patient is stable following sigmoidectomy. 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) Neurologic: Reports as per HPI, Reports focal weakness, Reports memory loss and Reports other ( cognitive impairment status post CVA last July) Hematologic/Lymphatic: Hematologic/Lymphatic: Reports as per HPI, Reports easy bleeding, Reports easy bruising and Reports other ( takes Eliquis for DVT) [facility] Past Medical History Medical History 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 They live in a multilevel home with 1 step to enter. The patient then has 6 stairs up or down to the be
[2021-03-20] VITALS (13 sets, daily range): BP systolic 102–146; BP diastolic 53–83; PULSE 67–84; RESP 14–18; TEMP 36.2–36.9; O2SAT 20–100
[2021-03-20] MEDS: LACTATED RINGERS 1,000 ML 30 ML IV CONT ×3 (08:45→14:21)
[2021-03-20] MEDS: ACETAMINOPHEN 500 MG TABLET 1000 MG PO (08:47)
[2021-03-20] MEDS: KETOROLAC 15 MG/ML VIAL (*BKC) IV PUSH (08:47)
--- NOTE | 2021-03-20 09:16 | WPDANESEPPF ---
Anes - Initial Pre Proc Eval Procedure: Operation Date: 03/20/21 10:00 Proposed Procedures p Hand Assisted Laparoscopic Sigmoidectomy - Eddie Connolly MD s Possible Laparoscopic Cholecystectomy - Eddie Connolly MD Date/Time: 03/20/21 09:16 Surgeon: Eddie Connolly MD Pre Op Diagnosis: chronic cholecystitis, colon CA Patient Data Age: 75 Gender: M Height: 1.83 m Weight: 74 kg Last Vital Signs Temp 98.5 F 03/13/21 11:49 Pulse 76 03/13/21 11:49 Resp 18 03/13/21 11:49 BP 113/72 03/13/21 11:49 Pulse Ox 92 03/13/21 11:49 Allergies Allergy/AdvReac Type Severity Reaction Status Date / Time No Known Allergies Allergy Verified 03/20/21 09:37 Home Medications Medication Instructions Recorded Confirmed Type acetaminophen [Tylenol] 650 mg PO Q4H PRN 09/04/20 03/20/21 History atorvastatin 80 mg PO QPM 09/04/20 03/20/21 History potassium chloride 20 meq PO BID 09/04/20 03/20/21 History sennosides [senna] 8.6 mg PO BID PRN 09/04/20 03/20/21 History multivitamin with folic acid 1 tablet PO QAM #30 tablet 09/14/20 03/20/21 Rx [Thera] omeprazole 40 mg PO QPM 10/08/20 03/20/21 History ergocalciferol (vitamin D2) 50,000 unit PO WEEKLY@0900 #7 cap 10/15/20 03/20/21 Rx [Vitamin D2] ferrous sulfate 324 mg PO DAILY 12/06/20 03/20/21 History mirtazapine [Remeron] 15 mg PO HS 12/06/20 03/20/21 History quetiapine [Seroquel] 25 mg PO HS 30 Days #30 tablet 12/14/20 03/20/21 Rx apixaban [Eliquis] 5 mg PO BID 03/13/21 03/20/21 History aspirin 81 mg PO DAILY 03/13/21 03/20/21 History Patient hx anesthesia problems: none Family hx anesthesia problems: none Results Review: All pre-operative results and documents have been reviewed as part of the pre-operative evaluation. 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 They live in a multilevel home with 1 step to enter. The patient then has 6 stairs up or down to the bedroom or bathroom. The patient was completely independent prior to this CVA requiring no assistive device. The patient family have decided that the patient will return home after air you with assistance from family and/or hired caregivers. A contractor has been Ruben to work on home assess abilities that the patient can live on the main level of their home. Private duty caregivers will be secured for 247 care for the patient and his . Son is supportive. Patient was a former smoker quit in 1990. Smoking packs per day: 1.5 Smoking cigarettes per day: 30.0 Years smoked: 28 Smoking pack-years: 42.00 Smoking status: Former smoker Tobacco type: cigarettes Smoking end date: 07/19/20 Alcohol intake: former Drinks per week: 3 Alcohol use details: SOCIAL DRINKER IN PAST Substance use: never Substance use type: does not use Living arrangements: jail Gender identity (if verbalized by the patient): Male Spiritual care concerns: No Anes - Eval Final PreProcedure Day of Procedure 03/20/21 09:16 Patient weight: normal Heart: regular rate and rhythm Lungs: clear to auscultation Airway: Mallampati scale class II Neurological: alert and oriented Last oral intake: >/= 8 hours ASA classification: III Emergent: no Anesthetic plan: proceed Anesthesia type and monitoring: general ETT and standard monitoring Results Review: All pre-operative results and documents have been reviewed as part of the pre-operat
--- NOTE | 2021-03-20 09:43 | WPDHPUPDATE1 ---
History and Physical Update Update Date/Time: 03/20/21 09:43 History and Physical has been reviewed, including an updated exam of the patient. There are NO changes in the patient's condition. Risks, benefits, and alternatives have been discussed and questions answered. Patient agrees to proceed with procedure.
[2021-03-20] MEDS: ALVIMOPAN 12 MG CAPSULE PO (09:50)
[2021-03-20] MEDS: ceFAZolin 2 GM/D5W 50 ML 2 GM/50 ML BAG IVPB (10:30)
[2021-03-20] MEDS: BUPIVACAINE HCL 0.5% PF 30 ML VIAL INFILTRATE (11:21)
--- NOTE | 2021-03-20 14:18 | SUR.OPER ---
Noted that the patient blanton catheter bag had red tinged urine. Dr. Connolly informed and instructions received to monitor consistency
--- NOTE | 2021-03-20 14:32 | W.PM.PROC2 ---
Procedure Note - Detailed Date of Procedure 03/20/21 Pre-op Diagnosis Sigmoid colon CA, history cholecystitis Post-op Diagnosis other (Left colon cancer, history cholecystitis) Procedure Performed Hand access laparoscopic left colon resection with hand-sewn end-to-end anastomosis Surgeon Eddie Connolly MD [employer] Lizeth Webster [employer] Anesthesia general and local (0.5% Marcaine) Indications Patient is a 75-year-old man who had a stroke last July and has some right-sided weakness as well as cognitive impairment. Last September he was found to have a left colon cancer at 55 cm on flexible sigmoidoscopy. CEA level preoperatively was about 8. CT scan of the abdomen and pelvis with IV contrast done recently did not show evidence of metastatic disease. The patient in September had severe acute cholecystitis treated with a cholecystostomy tube. He is taken to surgery now for laparoscopic sigmoid colon resection and possibly laparoscopic cholecystectomy. Findings The tumor was actually in the mid to distal descending colon more proximal than the sigmoid. It had evidence of full-thickness wall penetration and possibly some direct lymphatic spread. There was no evidence of distant metastasis. Review of the gallbladder showed extensive adhesions of omentum and the appearance of a difficult additional surgery. It was decided to hold off on cholecystectomy at this time. Description of Procedure The patient was taken to surgery and induced into general anesthesia. He was placed in lithotomy in [facility]. He has a chronic indwelling Ness catheter which was protected. He had rectal irrigation and a rectal tube placed. The abdomen was prepped and draped. The proposed incision for the hand access port in the lower abdominal midline was marked on the skin. Local was infiltrated in this area. Incision was made dissection was carried down through the subcutaneous and through the midline fascia. Cautery was used for hemostasis. We dissected deep to the rectus abdominis muscle and then dissected through the peritoneum into the peritoneal cavity. This opening was extended the length of the hand access port wound. Cautery was again used for hemostasis. The Jeff wound guard was then placed. The GelPort was placed. With the hand in the abdomen, a 5 mm left mid abdominal port was placed. We insufflated through this and then placed a midline periumbilical 5 mm trocar as well as a right-sided 5 mm trocar. Patient was placed in mild Trendelenburg. There were quite a few adhesions to the left lateral sidewall of the descending colon. The tumor was easily found and was very hard. It was not adherent to any adjacent tissues. The adhesions to the left colon were taken down using the LigaSure. The LigaSure was used for centrally all the intra-abdominal dissection and coagulation. Once the left colon was mobilized from the left lateral sidewall we dissected in the retroperitoneum near the upper pelvis and found the ureter. The ureter was carefully protected through the surgery. Nearly all the left colon almost to the splenic flexure was mobilized using the LigaSure. There was plenty of colon to perform a resection including the origin of the inferior mesenteric artery and still have enough colon for primary anastomosis without mobilizing the splenic flexure. We continued our dissection fully mobilizing the descending colon and sigmoid. I then chose areas distal to the tumor and proximal to the tumor to make our proximal and distal lines of resection. The mesentery to each of these areas of colon were dissected and divided using the LigaSure. I found the inferior mesenteric artery very near the aorta. It was dissected near its origin. I then used the LigaSure to divide the inferior mesenteric artery near its origin. We then also divided mesentery above and below the mesenteric artery. We ran into some additional bleeding with branches just cephalad to the inferior mese
--- NOTE | 2021-03-20 15:46 | ADMGEN ---
This patient, Matti Vergara, was admitted to -. Patient/family oriented to hospital policies and general routines including ID bracelet, bed and alarms, visiting hours, pain management, procedures, bathroom and other care routines, personal items, smoking policy, room service/diet, and visiting hours. Information on how to activate the Rapid Response Team has been discussed. Patient/Family are encouraged to report perceived risks to care and to ask questions if they do not understand what they are told or what they should do.
[2021-03-20] MEDS: LACTATED RINGERS 1,000 ML 80 ML IV CONT (17:03)
[2021-03-20] MEDS: POTASSIUM CHLORIDE 20 MEQ TABLET.ER PO (17:04)
[2021-03-20] MEDS: ATORVASTATIN 40 MG TABLET 80 MG PO (17:30)
[2021-03-20] MEDS: QUEtiapine FUMARATE 25 MG TABLET PO (20:18)
[2021-03-20] MEDS: MIRTAZAPINE 15 MG TABLET PO (20:18)
--- NOTE | 2021-03-20 22:00 | WPDCN ---
Assessment and Plan Assessment and plan (1) Adenocarcinoma of sigmoid colon: Code(s): C18.7 - Malignant neoplasm of sigmoid colon Status: Acute Assessment and Plan: Postoperative day 0, status post hand access laparoscopic left colon resection with hand-sewn end-to-end anastomosis. Wound care and pain control will be deferred to Dr. Connolly. Pathology pending. 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 Resume when okay with primary service. (3) History of cerebrovascular accident: Code(s): Z86.73 - Personal history of transient ischemic attack (TIA), and cerebral infarction without residual deficits Status: Acute Assessment and Plan: With resultant right hemiplegia and cognitive deficit. (4) Chronic indwelling Ness catheter: Code(s): Z97.8 - Presence of other specified devices Status: Chronic Assessment and Plan: Monitor I/O. (5) Hyperlipidemia: Code(s): E78.5 - Hyperlipidemia, unspecified Status: Acute Assessment and Plan: Resume statin when tolerating p.o.. Additional Plan Thank you for allowing us to participate in this patient's care. Please do not hesitate to contact us with any questions. Supervising physician for this medical consultation is Dr. Nuha House. HPI Data of Consult Date/Time: 03/20/21 22:00 Requesting Physician: Eddie Connolly MD Primary Care Provider: Patel Benavides MD Consult Narrative Narrative: This is a 75-year-old male with history of stroke in July 2020 with resultant right hemiplegia and cognitive deficit, hypertension, dyslipidemia, anemia, and colon cancer whom the hospitalist service has been consulted for postoperative medical management. He was initially found to have an abnormality in the wall of the sigmoid colon suspicious for malignancy on CT back in September of this year when he was admitted with hematuria. During that stay he also developed severe acute cholecystitis though he was deemed not an ideal surgical candidate at that time thus he was managed with antibiotics and cholecystostomy tube. He underwent flexible sigmoidoscopy on 10/07/2020 and was found of partially obstructing sigmoid colon mass with pathology showing moderately to well-differentiated adenocarcinoma of the colon. Due to the COVID pandemic and another hospitalization for sepsis related to urinary tract infection his surgery was delayed. Preoperative EKG was concerning for cardiac risk and a subsequent Lexiscan and echocardiogram on February 01 which were unremarkable. His surgery was finally scheduled for today and he is now status post hand access laparoscopic left colon resection with hand-sewn end-to-end anastomosis per Dr. Connolly. His surgery was performed under general and local anesthesia with no immediate complications documented an estimated blood loss of 100 mL. At the time my evaluation he is resting comfortably and has only minimal discomfort in the lower abdomen. He denies fever, chills, sweats, chest pain, shortness of breath, nausea, and vomiting. Review of Systems Review of Systems: Twelve systems were reviewed. Somewhat limited as he is forgetful from his cognitive deficit since his stroke. He denies recent illness. No sick contacts. Except as documented, all other systems were reviewed and are negative. [facility] Past Medical History Medical History (Updated 03/20/21 @ 23:34 by Chandni Harrison PA-C) Acute cholecystitis (09/2020) Treated with antibiotics and cholecystostomy tube. 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 Patien
[2021-03-20 23:16] LABS: Add Urine Microscopic? YES; Appearance Urine Cloudy (Clear); Bilirubin Urine Negative (Negative); Blood Urine 3+ (Negative); Color Urine Yellow (Yellow); Glucose Urine UA Negative (Negative); Ketones Urine Negative (Negative); Leukocyte Esterase Ur 3+ LEU/UL (Negative); Mucus Urine Rare /lpf; Nitrate Urine Negative (Negative); Protein Urine 2+ mg/dL (Negative); RBC Urine >75 /hpf (0-2); Specific Grav Ur 1.017 (1.001-1.035); Squamous Epithelial Cell Urine Rare /hpf (Few); Urobilinogen Urine Negative mg/dL (<2.0); WBC Urine >75 /hpf
[2021-03-21 01:01] VITALS: BP 132/63; PULSE 79; RESP 20; TEMP 36.1; O2SAT 99
[2021-03-21 05:10] VITALS: BP 115/54; PULSE 70; RESP 18; TEMP 36; O2SAT 96
[2021-03-21 06:17] LABS: Hematocrit 34.4 % (42.0-52.0); Hemoglobin 11.6 g/dL (14.0-18.0); Mean Corpuscular HGB Conc 33.7 g/dl (32-36); Mean Corpuscular Hemoglobin 31.4 pg (26-34); Mean Corpuscular Volume 93.2 fl (80-100); Mean Platelet Volume 10.3 fl (7.4-10.4); Platelet Count Result 255 k/mm3 (150-375); Red Blood Count 3.69 M/mm3 (4.6-6.20); Red Cell Distribution Width 13.2 % (11.5-14.5)
[2021-03-21 06:43] LABS: Anion Gap 7 mmol/L (8-16); Blood Urea Nitrogen 14 mg/dL (9-20); Calcium 9.5 mg/dL (8.4-10.2); Carbon Dioxide 26 mmol/L (22-30); Chloride 104 mmol/L (98-107); Estimated CRCL calculation 70 ml/min; Estimated Glomerular Filt Rate > 60; Glucose 119 mg/dL (65-110); Potassium 4.3 mmol/L (3.4-5.0); Sodium 137 mmol/L (137-145)
[2021-03-21] MEDS: PANTOPRAZOLE 40 MG TABLET PO (08:40)
[2021-03-21] MEDS: POTASSIUM CHLORIDE 20 MEQ TABLET.ER PO (08:40)
[2021-03-21] MEDS: FERROUS SULFATE 324 MG TABLET PO (08:40)
[2021-03-21] MEDS: ENOXAPARIN 40 MG/0.4 ML SYRINGE SUB-Q (08:40)
[2021-03-21] MEDS: ASPIRIN 81 MG CHEWABLE TABLET PO (08:40)
[2021-03-21] MEDS: LACTATED RINGERS 1,000 ML 80 ML IV CONT (08:41)
--- NOTE | 2021-03-21 08:45 | PC.NURSE ---
when assessing pt and passing meds, pt was becoming agitated with papers he claims were given to him by his sister. He wanted me to yell at my sister about this nonsense. When asked, pt was able to state his name; however, he did not know his birthday, what year it was, or where he was or why he was here. Pt began reading from the aforementioned papers and then stated that he was at [facility].
[2021-03-21 09:10] VITALS: BP 112/56; PULSE 69; RESP 18; TEMP 36.7; O2SAT 91
--- NOTE | 2021-03-21 09:47 | PM.PNGS ---
Progress Note: A&P Assessment and Plan (1) Colon adenocarcinoma: Code(s): C18.9 - Malignant neoplasm of colon, unspecified Status: Chronic Assessment and Plan: POD#1 and doing well. Pain well-controlled. Will advance to a regular diet and stop his IV fluids. Plan to get him up to the chair today with assistance. Will order PT/OT. Pathology pending. (2) History of acute cholecystitis: Code(s): Z87.19 - Personal history of other diseases of the digestive system Status: Chronic Assessment and Plan: During surgery, the gallbladder appeared to have extensive omental adhesions and would likely be a difficult additional surgery, therefore the cholecystectomy was deferred at that time. (3) Chronic indwelling Ness catheter: Code(s): Z97.8 - Presence of other specified devices Status: Chronic Assessment and Plan: Continue chronic urinary catheter, monitor I/O. 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 Continue prophylactic dosed Lovenox for now. (5) DVT (deep venous thrombosis): Qualifiers: DVT location: lower extremity Affected thrombotic vein of extremity: femoral Chronicity: chronic Laterality: right Qualified Code(s): I82.511 - Chronic embolism and thrombosis of right femoral vein Code(s): I82.409 - Acute embolism and thrombosis of unspecified deep veins of unspecified lower extremity Status: Chronic Assessment and Plan: Right common femoral DVT diagnosed in October 08, 2020. (6) CVA (cerebral vascular accident): Qualifiers: CVA mechanism: unspecified Qualified Code(s): I63.9 - Cerebral infarction, unspecified Code(s): I63.9 - Cerebral infarction, unspecified Status: Chronic Assessment and Plan: Cerebellar infarct July 2020. Hospitalist consulted for post-operative medical management. Appreciate help. 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): Code(s): I69.319 - Unspecified symptoms and signs involving cognitive functions following cerebral infarction Status: Chronic (8) Hemiplegia affecting right dominant side: Qualifiers: Hemiplegia type: flaccid Hemiplegia etiology: late effect of cerebrovascular disease Cerebrovascular disease type: cerebral infarction Qualified Code(s): I69.351 - 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 side Code(s): G81.91 - Hemiplegia, unspecified affecting right dominant side Status: Chronic Additional Plan I have discussed the patient's case and plan of care with Dr. Angela. Subjective Subjective Date/Time Seen: 03/21/21 09:00 Post Op day: 1 (ANG left colon resection with hand-sewn end-to-end anastomosis) Interval history: This is a 75 yo male with history of stroke in July 2020 with resultant right hemiplegia and cognitive deficit, as well as other medical problems, who was found to have left colon cancer and presented for a hand assisted laparoscopic left colon resection yesterday by Dr. angela. Chart reviewed. The patient is now seen and examined on the medical floor. On my exam, he appears comfortable and is alert. History is limited due to his residual affects of a stroke. He denies any pain at this time. He has no specific complaints. He has a chronic indwelling Ness catheter with adequate urine output overnight. Vital signs stable. Review of Systems Review of Systems: ROS unobtainable: Yes unobtainable due to medical condition Exam Const: General: comfortable, no acute distress, alert and awake Orientation/consciousness: oriented to person and oriented to place Resp: Effort & Inspection: normal respiratory effort Auscultation: clear to auscultation bilaterally Cardio: Rate: regular rate Rhythm: regular rhythm GI: Insp
--- NOTE | 2021-03-21 10:05 | PM.IMPN ---
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 Status: Chronic Assessment and Plan: Patient is on apixaban for history of right lower extremity DVT Resume when okay with primary service (3) History of cerebrovascular accident: Code(s): Z86.73 - Personal history of transient ischemic attack (TIA), and cerebral infarction without residual deficits Status: Acute Assessment and Plan: With resultant right hemiplegia and cognitive deficit (4) Chronic indwelling Ness catheter: Code(s): Z97.8 - Presence of other specified devices Status: Chronic Assessment and Plan: Monitor I/O (5) Hyperlipidemia: Code(s): E78.5 - Hyperlipidemia, unspecified Status: Acute Assessment and Plan: Resume statin Additional Plan Code status: FULL Subjective Date/time seen: 03/21/21 10:05 Interval history: Pt seen this a.m.; sister at the bedside; pain controlled; no new complaints Review of Systems Review of Systems: All systems reviewed & are unremarkable except as noted in HPI and below Exam Const: General: no acute distress, alert and awake Orientation/consciousness: patient oriented x3 HENMT: Head: normocephalic and atraumatic Ears: hearing grossly normal bilaterally and external ears normal Face and sinus: face symmetric Mouth: Yes Normal oral and palatal mucosa present Eyes: EOM: EOMs intact bilaterally Neck: Neck: full ROM, trachea midline and no JVD Chest: Chest palpation & inspection: normal inspection of the chest Resp: Effort & Inspection: normal respiratory effort Auscultation: clear to auscultation bilaterally Cardio: Jugular venous distension: no JVD Rate: regular rate Rhythm: regular rhythm Heart sounds: S1 normal heart sound present and S2 normal heart sound present GI: Inspection: other (surical site with no sign of infection; wound margins approximated; DB inta) GI Palp: Yes Soft to palpation Auscultation: normal bowel sounds : General: Yes no CVA tenderness Skin: General skin exam: normal color Rashes: no rashes Neuro: General: patient oriented x3 and other (right sided hemiplegia) Cognition (Neuro): abnormal cognition Speech: normal speech Extrem: General: no clubbing, cyanosis or edema Psych: Appearance: grossly normal Affect: normal affect Judgement: Good judgement present (Psych) Objective Data Vital Signs Vital Signs: Vital Signs - 24 hr 03/20/21 14:21 03/20/21 14:35 03/20/21 14:50 Temperature 36.5 C Pulse Rate 83 79 79 Respiratory Rate 14 18 18 Blood Pressure 141/68 H 132/69 135/63 Pulse Oximetry 100 100 100 03/20/21 15:05 03/20/21 15:20 03/20/21 15:30 Temperature Pulse Rate 75 78 74 Respiratory Rate 16 14 15 Blood Pressure 146/64 H 130/79 127/73 Pulse Oximetry 98 98 97 03/20/21 15:55 03/20/21 16:10 03/20/21 16:40 Temperature 36.3 C L 36.4 C 36.4 C Pulse Rate 73 76 81 Respiratory Rate 14 14 14 Blood Pressure 123/65 114/62 130/83 Pulse Oximetry 100 100 100 03/20/21 17:40 03/20/21 20:00 03/20/21 21:10 Temperature 36.4 C 36.2 C L Pulse Rate 78 84 84 Respiratory Rate 16 18 18 Blood Pressure 117/76 132/53 L Pulse Oximetry 100 20 L 20 L 03/21/21 01:01 03/21/21 05:10 03/21/21 09:10 Temperature 36.1 C L 36.0 C L 36.7 C Pulse Rate 79 70 69 Respiratory Rate 20 18 18 Blood Pressure 132/63 115/54 L 112/56 L Pulse Oximetry 99 96 91 Intake/Output Intake/Output: Intake & Output 03/18/21 03/19/21 03/20/21 03/21/21 23:59 23:59 23:59 23:59 Intake Total 4080 1290 Output Total 1999 Balance 6319
[2021-03-21 10:53] VITALS: BMI 21.9
--- NOTE | 2021-03-21 12:19 | PCOTNOTE ---
Spoke with care coordination, nursing, pt. and family, pt. is detention resident of [facility], and is dependent at baseline. Pt. orders for OT/PT to be canceled due to pt. being at baseline and therefore not appropriate for acute OT/PT services.
[2021-03-21 13:10] VITALS: BP 114/54; PULSE 67; RESP 18; TEMP 36.7; O2SAT 91
--- NOTE | 2021-03-21 13:40 | P.PNAN_ITS ---
Anes - Prog Note Post-Op Date/Time: 03/21/21 13:40 Cardiovascular status: normal Respiratory status: normal Airway patency: baseline Mental status: other (family at bedside states pt is slightly more confused than normal. pt oriented but somewhat inappropriate) Post-Op hydration status: normal Vital Signs: Last Vital Signs Temp 98.0 F 03/21/21 13:10 Pulse 67 03/21/21 13:10 Resp 18 03/21/21 13:10 BP 114/54 L 03/21/21 13:10 Pulse Ox 91 03/21/21 13:10 Pain Score (VAS): 4 I/O: Intake & Output 03/20/21 03/21/21 03/21/21 23:59 07:59 15:59 Intake Total 770 35 2297 Output Total 75 2000 Balance 515 -1950 1480 Laboratory Tests 03/21/21 05:48 03/21/21 05:48 03/20/21 03/21/21 03/21/21 22:55 05:48 05:48 WBC 13.0 H RBC 3.69 L Hgb 11.6 L Hct 34.4 L MCV 93.2 MCH 31.4 MCHC 33.7 RDW 13.2 Plt Count 255 MPV 10.3 Sodium 137 Potassium 4.3 Chloride 104 Carbon Dioxide 26 Anion Gap 7 L BUN 14 Creatinine 0.80 Estim Creat Clear Calc 70 Estimated GFR > 60 Glucose 119 H Calcium 9.5 Urine Color Yellow Urine Appearance Cloudy H Urine pH 5.0 Ur Specific [place] 1.017 Urine Protein 2+ H Urine Glucose (UA) Negative Urine Ketones Negative Ur Blood (Man) 3+ H Urine Nitrate Negative Urine Bilirubin Negative Urine Urobilinogen Negative Leukocyte Esterase Rfl 3+ H Urine RBC >75 H Urine WBC >75 H Ur Squamous Epith Cells Rare Urine Mucus Rare Post-procedural complaints: none Patient Feedback: Patient satisfied with anesthetic care.
--- NOTE | 2021-03-21 17:08 | PC.NURSE ---
pt refused to take his medication. pt stated that I was attempting to poison him. I assured him that I was not but he continued to state that he had no idea what the pills were (despite being told repeatedly) or what they were for (despite being told in great detail repeatedly). Pt stated that he absolutely will not take those I will only eat the tomatoes.
[2021-03-21 17:10] VITALS: BP 112/52; PULSE 67; RESP 18; TEMP 36.7; O2SAT 93
--- NOTE | 2021-03-21 17:32 | PC.NURSE ---
the PLY BANDER called out for my immediate assistance because pt ripped his IV out of his arm and was bleeding everywhere. I attempted to stop the bleeding and pt swung at me and told me to leave him alone. I continued to attempt to stop the bleeding and pt began yelling at me. Once the bleeding stopped, I tried to clean the blood off of pt's skin but he pulled his arm away and tried to push me away again yelling at me to leave him alone. The charge nurse was in the room to provide additional support at this time and reiterated that we were trying to stop the bleeding and clean the blood off of him to which he stated, it is fine but she's (referring to me) going to do whatever she wants anyway.
--- NOTE | 2021-03-21 17:36 | PC.NURSE ---
a few minutes after pt ripped his IV out of his arm, he began pulling his chronic blanton out. We have attempted to stop him but he has become quite belligerent and is yelling at and swinging at staff.
[2021-03-21] MEDS: MIRTAZAPINE 15 MG TABLET PO (20:11)
[2021-03-21] MEDS: ALVIMOPAN 12 MG CAPSULE PO (20:12)
[2021-03-21] MEDS: QUEtiapine FUMARATE 25 MG TABLET PO (20:12)
[2021-03-21 21:10] VITALS: BP 111/58; PULSE 72; RESP 18; TEMP 37.2; O2SAT 97
[2021-03-22 03:08] VITALS: BP 111/59; PULSE 63; RESP 18; TEMP 36.6; O2SAT 100
[2021-03-22 06:00] LABS: Hematocrit 33.6 % (42.0-52.0); Hemoglobin 10.9 g/dL (14.0-18.0); Mean Corpuscular HGB Conc 32.4 g/dl (32-36); Mean Corpuscular Hemoglobin 30.4 pg (26-34); Mean Corpuscular Volume 93.9 fl (80-100); Mean Platelet Volume 10.3 fl (7.4-10.4); Platelet Count Result 250 k/mm3 (150-375); Red Blood Count 3.58 M/mm3 (4.6-6.20); Red Cell Distribution Width 13.4 % (11.5-14.5); White Blood Count 10.6 K/mm3 (4.5-10.0)
[2021-03-22 06:10] LABS: Anion Gap 7 mmol/L (8-16); Blood Urea Nitrogen 11 mg/dL (9-20); Calcium 8.9 mg/dL (8.4-10.2); Carbon Dioxide 26 mmol/L (22-30); Chloride 107 mmol/L (98-107); Estimated CRCL calculation 79 ml/min; Estimated Glomerular Filt Rate > 60; Glucose 98 mg/dL (65-110); Potassium 3.5 mmol/L (3.4-5.0); Sodium 140 mmol/L (137-145)
[2021-03-22] MEDS: FERROUS SULFATE 324 MG TABLET PO (08:18)
[2021-03-22] MEDS: POTASSIUM CHLORIDE 20 MEQ TABLET.ER PO ×2 (08:18→17:20)
[2021-03-22] MEDS: ALVIMOPAN 12 MG CAPSULE PO (08:19)
[2021-03-22] MEDS: ENOXAPARIN 40 MG/0.4 ML SYRINGE SUB-Q (08:19)
[2021-03-22] MEDS: PANTOPRAZOLE 40 MG TABLET PO (08:19)
[2021-03-22] MEDS: ASPIRIN 81 MG CHEWABLE TABLET PO (08:19)
[2021-03-22 10:00] VITALS: BP 124/65; PULSE 80; RESP 18; TEMP 36.7; O2SAT 100
--- NOTE | 2021-03-22 11:14 | PCNFU ---
Nutrition Follow-Up Complete: Inadequate Oral intake as related to colon cancer as evidenced by poor po intake reported. Goal: Adequate Intake of at least 75% of meals/supplements Patient is progressing towards goal. We will continue current goal. Pt current nutrition is Regular with [employer]ure [employer] BID. Last recorded weight is 73.5 kg, no new weight to report. Bowel Motility:+BM reported 03/21 Labs Reviewed:Hgb 10.9,Hct 33.6 Meds Noted:KCL tablet, Entereg,Lovenox, Protonix. Skin: WNL Additional Notes: Patient is tolerating Regular diet, eating 90-100% of meals. Diet supplements of [employer] are providing patient with an additional 330 kcals 18 gms protein. Agree with diet orders. Monitoring: RD will monitor every 5 days.
--- NOTE | 2021-03-22 12:07 | PM.PNGS ---
Progress Note: A&P Assessment and Plan (1) Adenocarcinoma of sigmoid colon: Code(s): C18.7 - Malignant neoplasm of sigmoid colon Status: Chronic Assessment and Plan: pathology pending. Patient doing very well. I called and talked to his son, Santos, as well as his sister. If continues to do well, probably can go home to [facility] tomorrow. 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 (3) History of cerebrovascular accident: Code(s): Z86.73 - Personal history of transient ischemic attack (TIA), and cerebral infarction without residual deficits Status: Chronic Assessment and Plan: Mental status back at baseline. (4) History of acute cholecystitis: Code(s): Z87.19 - Personal history of other diseases of the digestive system Status: Chronic Assessment and Plan: No symptoms of cholecystitis. (5) Chronic indwelling Ness catheter: Code(s): Z97.8 - Presence of other specified devices Status: Chronic Assessment and Plan: Intact. Subjective Subjective Date/Time Seen: 03/22/21 12:07 Post Op day: 2 Patient reports: no new complaints, pain is less, tolerating a regular diet, bowel movement and afebrile Review of Systems Constitutional: Constitutional: Denies headache(s) Cardiovascular: Cardiovascular: Denies chest pain and Denies dyspnea Respiratory: Respiratory: Denies cough and Denies dyspnea Psychiatric: Psychiatric: Reports behavioral changes ( agitated yesterday afternoon around 430 or 5. Better later) and Reports mood swings Exam GI: Inspection: non-distended, incision ( all incisions dry and healing well) and scaphoid GI Palp: Yes Soft to palpation, Yes Tenderness to palpation present (GI) ( mild tenderness), No Guarding due to palpation present (GI), No Hernia present, No Palpable mass present and No Rebound tenderness present Auscultation: normal bowel sounds Extrem: General: no calf tenderness and no edema Objective Data Vital Signs Vital Signs: Vital Signs - 24 hr 03/21/21 13:10 03/21/21 17:10 03/21/21 21:10 Temperature 36.7 C 36.7 C 37.2 C Pulse Rate 67 67 72 Respiratory Rate 18 18 18 Blood Pressure 114/54 L 112/52 L 111/58 L Pulse Oximetry 91 93 97 03/22/21 03:08 03/22/21 10:00 Temperature 36.6 C 36.7 C Pulse Rate 63 80 Respiratory Rate 18 18 Blood Pressure 111/59 L 124/65 Pulse Oximetry 100 100 Intake/Output Intake/Output: Intake & Output 03/19/21 03/20/21 03/21/21 03/22/21 23:59 23:59 23:59 23:59 Intake Total 2540 2870 720 Output Total 105 3250 1000 Balance 0771 -380 -279 Meds/Results Medications: Active Medications Generic Name Dose Route Start Last Admin Trade Name Freq PRN Reason Stop Dose Admin Acetaminophen 500 mg 03/20/21 15:33 Acetaminophen 500 Mg Tablet PO Q6H PRN Mild Pain (1-3) or Fever Hydrocodone Bitart/Acetaminophen 1 tab 03/20/21 15:33 Hydrocodone/Acetaminophen (*Crx) 5-325 Mg Tablet PO Q4H PRN Pain Rated 4-6 Apixaban 5 mg 03/22/21 12:05 Apixaban 5 Mg Tablet PO Q12HR LUI Aspirin 81 mg 03/21/21 09:00 03/22/21 08:19 Aspirin 81 Mg Chewable Tablet PO 81 mg DAILY LUI Administration Atorvastatin Calcium 80 mg 03/20/21 18:00 03/21/21 17:11 Atorvastatin 40 Mg Tablet PO Not Given QPM LUI Ergocalciferol 50,000 unit 03/25/21 09:00 Ergocalciferol 50,000 Unit Capsule PO Mo@0900 LUI Ferrous Sulfate 324 mg 03/21/21 09:00 03/22/21 08:18 Ferrous Sulfate 324 Mg Tablet PO 324 mg DAILY LUI Administration Mirtazapine 15 mg 03/20/21 21:00 03/21/21 20:11 Mirtazapine 15 Mg Tablet PO 15 mg HS LUI Administration Miscellaneous Information 0 each 03/22/21 00:01 Patient On Lovenox And Eliquis - Please Verify He Needs Both XX 04/21/21 00:00 CLARIFY
--- NOTE | 2021-03-22 13:06 | PM.IMPN ---
Progress Note: A&P Assessment and Plan (1) Adenocarcinoma of sigmoid colon: Code(s): C18.7 - Malignant neoplasm of sigmoid colon Status: Chronic Assessment and Plan: POD 2 S/p left colon resection with hand-sewn end-to-end anastomosis Wound care and pain management per Pathology pending Can be discharged tomorrow as per surgery team PT/OT today (2) Chronic anticoagulation: Code(s): Z79.01 - [facility] (current) use of anticoagulants Status: Chronic Assessment and Plan: Patient is on apixaban for history of right lower extremity DVT This has been restarted (3) History of cerebrovascular accident: Code(s): Z86.73 - Personal history of transient ischemic attack (TIA), and cerebral infarction without residual deficits Status: Chronic Assessment and Plan: Right hemiplegia and cognitive deficit (4) Chronic indwelling Blanton catheter: Code(s): Z97.8 - Presence of other specified devices Status: Chronic Assessment and Plan: chronic blanton (5) Hyperlipidemia: Code(s): E78.5 - Hyperlipidemia, unspecified Status: Acute Assessment and Plan: Resume statin Subjective Date/time seen: 03/22/21 13:06 Interval history: 75-year-old man who currently resides at [facility] in [facility]. 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 This left him with weakness and some cognitive impairment. He presented to [facility] October 08 of this year with a large clot in his bladder. He also had a right common femoral DVT and was on anticoagulation with a heparin drip. The clot was evacuated and the bleeding controlled. We saw him as he then developed severe acute cholecystitis. He was not in condition for laparoscopic cholecystectomy at that time and underwent placement of a cholecystostomy tube which was successful in resolving the cholecystitis. On his CT scan during that admission, an abnormality was noted in the wall of the sigmoid colon suspicious for potential cancer. on October 15, 2020 he underwent a flexible sigmoidoscopy and was found to have a partially obstructing sigmoid colon cancer at about 55 cm. This was biopsied and was should found to be adenocarcinoma. It was moderately to well differentiated. It had no MSI, KRAS or BRAF V600 mutations. Patient was seen in my office in October and plans were made to proceed with laparoscopic cholecystectomy with sigmoid colon resection. Due to the pandemic, his surgery was delayed. He came to the emergency room at [place] December 05, 2020 having pulled out his cholecystostomy tube. He was admitted and had a low blood pressure with increased lactate but this resolved after a saline bolus. He was thought to have sepsis from a UTI. Blood cultures were positive for E coli and Proteus urine culture was positive for Proteus. He improved and was discharged on 12/14/2020. His preoperative EKG was concerning for cardiac risk. He was seen by Dr. Sherman at the end of December. He had both a Lexiscan and a cardiac echo on February 01. Both of these were negative for any significant coronary artery disease. He is also known to have a 3 mm intracranial aneurysm which is stable. He continues to take Eliquis anticoagulation and is taken to surgery at this time for hand access laparoscopic sigmoidectomy. He has not had any discernible gallbladder disease since his cholecystostomy tube came out in November. Plan is to possibly proceed with laparoscopic cholecystectomy after sigmoidectomy, provided this does not prolong the overall operating time to any significant degree and the patient is stable following sigmoidectomy. Pt is POD 2 left colon resection with hand-sewn end-to-end anastomosis pt is doing well seen by surgery team ok for discharge tomorrow. Review of Systems Review of Systems: All systems reviewed & are unremarkable except as noted in HPI and below Exam Narrative: Scott
[2021-03-22] MEDS: APIXABAN 5 MG TABLET PO ×2 (14:03→21:32)
[2021-03-22 14:05] VITALS: BP 119/54; PULSE 60; RESP 20; TEMP 37.2; O2SAT 98
[2021-03-22] MEDS: ATORVASTATIN 40 MG TABLET 80 MG PO (17:21)
[2021-03-22 20:01] VITALS: BP 105/72; PULSE 89; RESP 18; TEMP 36.6; O2SAT 97
[2021-03-22] MEDS: QUEtiapine FUMARATE 25 MG TABLET PO (21:32)
[2021-03-22] MEDS: MIRTAZAPINE 15 MG TABLET PO (21:32)
[2021-03-23 03:25] VITALS: BP 108/60; PULSE 74; RESP 18; TEMP 36.7; O2SAT 97
[2021-03-23 07:05] LABS: Hematocrit 35.1 % (42.0-52.0); Hemoglobin 11.7 g/dL (14.0-18.0); Mean Corpuscular HGB Conc 33.3 g/dl (32-36); Mean Corpuscular Volume 93.1 fl (80-100); Mean Platelet Volume 10.5 fl (7.4-10.4); Platelet Count Result 286 k/mm3 (150-375); Red Blood Count 3.77 M/mm3 (4.6-6.20); Red Cell Distribution Width 13.1 % (11.5-14.5); White Blood Count 9.2 K/mm3 (4.5-10.0)
[2021-03-23 07:12] LABS: Anion Gap 8 mmol/L (8-16); Blood Urea Nitrogen 10 mg/dL (9-20); Calcium 9.2 mg/dL (8.4-10.2); Carbon Dioxide 26 mmol/L (22-30); Chloride 103 mmol/L (98-107); Estimated CRCL calculation 79 ml/min; Estimated Glomerular Filt Rate > 60; Glucose 91 mg/dL (65-110); Potassium 3.7 mmol/L (3.4-5.0); Sodium 137 mmol/L (137-145)
[2021-03-23] MEDS: FERROUS SULFATE 324 MG TABLET PO (08:23)
[2021-03-23] MEDS: ASPIRIN 81 MG CHEWABLE TABLET PO (08:23)
[2021-03-23] MEDS: APIXABAN 5 MG TABLET PO (08:23)
[2021-03-23] MEDS: POTASSIUM CHLORIDE 20 MEQ TABLET.ER PO (08:23)
[2021-03-23] MEDS: PANTOPRAZOLE 40 MG TABLET PO (08:23)
--- NOTE | 2021-03-23 08:58 | PM.IMPN ---
Progress Note: A&P Assessment and Plan (1) Adenocarcinoma of sigmoid colon: Code(s): C18.7 - Malignant neoplasm of sigmoid colon Status: Chronic Assessment and Plan: POD 2 S/p left colon resection with hand-sewn end-to-end anastomosis Wound care and pain management per Pathology pending Can be discharged tomorrow as per surgery team PT/OT today (2) Chronic anticoagulation: Code(s): Z79.01 - intermediate (current) use of anticoagulants Status: Chronic Assessment and Plan: Patient is on apixaban for history of right lower extremity DVT This has been restarted (3) History of cerebrovascular accident: Code(s): Z86.73 - Personal history of transient ischemic attack (TIA), and cerebral infarction without residual deficits Status: Chronic Assessment and Plan: Right hemiplegia and cognitive deficit (4) Chronic indwelling Blanton catheter: Code(s): Z97.8 - Presence of other specified devices Status: Chronic Assessment and Plan: chronic blanton (5) Hyperlipidemia: Code(s): E78.5 - Hyperlipidemia, unspecified Status: Acute Assessment and Plan: Resume statin Additional Plan Code status: FULL Subjective Date/time seen: 03/23/21 08:58 Interval history: 75-year-old man who currently resides at [facility] in [facility]. 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 This left him with weakness and some cognitive impairment. He presented to [facility] October 08 of this year with a large clot in his bladder. He also had a right common femoral DVT and was on anticoagulation with a heparin drip. The clot was evacuated and the bleeding controlled. We saw him as he then developed severe acute cholecystitis. He was not in condition for laparoscopic cholecystectomy at that time and underwent placement of a cholecystostomy tube which was successful in resolving the cholecystitis. On his CT scan during that admission, an abnormality was noted in the wall of the sigmoid colon suspicious for potential cancer. on October 15, 2020 he underwent a flexible sigmoidoscopy and was found to have a partially obstructing sigmoid colon cancer at about 55 cm. This was biopsied and was should found to be adenocarcinoma. It was moderately to well differentiated. It had no MSI, KRAS or BRAF V600 mutations. Patient was seen in my office in October and plans were made to proceed with laparoscopic cholecystectomy with sigmoid colon resection. Due to the pandemic, his surgery was delayed. He came to the emergency room at [place] December 05, 2020 having pulled out his cholecystostomy tube. He was admitted and had a low blood pressure with increased lactate but this resolved after a saline bolus. He was thought to have sepsis from a UTI. Blood cultures were positive for E coli and Proteus urine culture was positive for Proteus. He improved and was discharged on 12/14/2020. His preoperative EKG was concerning for cardiac risk. He was seen by Dr. Sherman at the end of December. He had both a Lexiscan and a cardiac echo on February 01. Both of these were negative for any significant coronary artery disease. He is also known to have a 3 mm intracranial aneurysm which is stable. He continues to take Eliquis anticoagulation and is taken to surgery at this time for hand access laparoscopic sigmoidectomy. He has not had any discernible gallbladder disease since his cholecystostomy tube came out in November. Plan is to possibly proceed with laparoscopic cholecystectomy after sigmoidectomy, provided this does not prolong the overall operating time to any significant degree and the patient is stable following sigmoidectomy. Pt is POD 3 Left colon resection with hand-sewn end-to-end anastomosis pt is doing well seen by surgery team ok for discharge tomorrow. Review of Systems Review of Systems: All systems reviewed & are unremarkable except as noted in HP
--- NOTE | 2021-03-23 09:05 | PM.DS ---
DS: Admitting Diagnosis Discharge Date 03/24/2021 Admitting Diagnosis Sigmoid colon cancer, history cholecystitis DS: Discharge Diagnosis Discharge Diagnosis (1) Adenocarcinoma of sigmoid colon: Code(s): C18.7 - Malignant neoplasm of sigmoid colon Status: Chronic Assessment and Plan: POD 3 S/p left colon resection with hand-sewn end-to-end anastomosis Wound care and pain management per Pathology pending pt will follow in surgery clinic (2) Chronic anticoagulation: Code(s): Z79.01 - snf (current) use of anticoagulants Status: Chronic Assessment and Plan: Patient is on apixaban for history of right lower extremity DVT This has been restarted (3) History of cerebrovascular accident: Code(s): Z86.73 - Personal history of transient ischemic attack (TIA), and cerebral infarction without residual deficits Status: Chronic Assessment and Plan: Right hemiplegia and cognitive deficit (4) Chronic indwelling Blanton catheter: Code(s): Z97.8 - Presence of other specified devices Status: Chronic Assessment and Plan: Chronic blanton (5) Hyperlipidemia: Code(s): E78.5 - Hyperlipidemia, unspecified Status: Acute Assessment and Plan: Resume statin on discharge DS: Summary Hospital Course Hospital Course: 75-year-old man who currently resides at [facility] in [facility]. 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 This left him with weakness and some cognitive impairment. He presented to [facility] October 08 of this year with a large clot in his bladder. He also had a right common femoral DVT and was on anticoagulation with a heparin drip. The clot was evacuated and the bleeding controlled. We saw him as he then developed severe acute cholecystitis. He was not in condition for laparoscopic cholecystectomy at that time and underwent placement of a cholecystostomy tube which was successful in resolving the cholecystitis. On his CT scan during that admission, an abnormality was noted in the wall of the sigmoid colon suspicious for potential cancer. on October 15, 2020 he underwent a flexible sigmoidoscopy and was found to have a partially obstructing sigmoid colon cancer at about 55 cm. This was biopsied and was should found to be adenocarcinoma. It was moderately to well differentiated. It had no MSI, KRAS or BRAF V600 mutations. Patient was seen in my office in October and plans were made to proceed with laparoscopic cholecystectomy with sigmoid colon resection. Due to the pandemic, his surgery was delayed. He came to the emergency room at [place] December 05, 2020 having pulled out his cholecystostomy tube. He was admitted and had a low blood pressure with increased lactate but this resolved after a saline bolus. He was thought to have sepsis from a UTI. Blood cultures were positive for E coli and Proteus urine culture was positive for Proteus. He improved and was discharged on 12/14/2020. His preoperative EKG was concerning for cardiac risk. He was seen by Dr. Sherman at the end of December. He had both a Lexiscan and a cardiac echo on February 01. Both of these were negative for any significant coronary artery disease. He is also known to have a 3 mm intracranial aneurysm which is stable. He continues to take Eliquis anticoagulation and is taken to surgery at this time for hand access laparoscopic sigmoidectomy. He has not had any discernible gallbladder disease since his cholecystostomy tube came out in November. Plan is to possibly proceed with laparoscopic cholecystectomy after sigmoidectomy, provided this does not prolong the overall operating time to any significant degree and the patient is stable following sigmoidectomy. Pt is POD 3 left colon resection with hand-sewn end-to-end anastomosis pt is doing well seen by surgery team ok for discharge. Time Spent with Patient Time attestation: Total time sp
[2021-03-23 10:53] LABS: EDCOVIDSCREEN Negative (Negative)
== END 2021-03-23 12:48 | DRG 330 ==
LOC: ANH2MED 16:33
PROVIDERS: Admitting Provider Surgery; PCP Family Medicine; Visit Provider Family Medicine
PROC: 0D1E4Z4 Bypass Large Intestine to Cutaneous, Percutaneous Endoscopic Approach (ICD-10-PCS; principal; 2021-03-20 10:00)
DX: C18.7 Malignant neoplasm of sigmoid colon (principal); I69.351 Hemiplegia and hemiparesis following cerebral infarction affecting right dominant side; Z20.822 Contact with and (suspected) exposure to COVID-19; E78.5 Hyperlipidemia, unspecified; I10 Essential (primary) hypertension; E87.6 Hypokalemia; K66.0 Peritoneal adhesions (postprocedural) (postinfection); D64.9 Anemia, unspecified; I69.319 Unspecified symptoms and signs involving cognitive functions following cerebral infarction; G47.33 Obstructive sleep apnea (adult) (pediatric); I72.8 Aneurysm of other specified arteries; Z87.891 Personal history of nicotine dependence; Z87.19 Personal history of other diseases of the digestive system; Z79.01 Long term (current) use of anticoagulants; Z86.718 Personal history of other venous thrombosis and embolism; Z79.82 Long term (current) use of aspirin
CPT/HCPCS: 36415; 80048; 80076; 81001; 82150; 82378; 83690; 85025; 85027; 86850; 86900; 86901; 87086; 87088; 87426; 88309; A9270; C1713; C1729; C9803; J0690; J1100; J1170; J1650; J1885; J2250; J2405; J2704; J3010; J7030; J7120

== ENCOUNTER 2021-09-18 09:16 | Outpatient (CLI) | payer MEDICARE, SELFPAY ==
--- NOTE | ~2021-09-18 | CT_ITS ---
EXAMINATION: CT chest abdomen pelvis wo con DATE: 09/18/2021 09:46 INDICATION: History of colon cancer TECHNIQUE: Transaxial computed tomographic images of the chest, abdomen, and pelvis were obtained wit hout intravenous contrast. The dose-length product (DLP) was 1076.64 mGy-cm. Automated exposure contr ol and iterative reconstruction technique were employed. COMPARISON: 03/13/2021 FINDINGS: CHEST CT: There are patchy opacities in the upper lobes and the superior segment of the right lower lobe. There is no pleural effusion or pneumothorax. No pathologically enlarged thoracic lymph nodes are identifi ed. The heart size is normal. No pathologically enlarged thoracic lymph nodes are identified. The hea rt size is normal. There is calcified coronary artery atherosclerosis. There is advanced osteoarthrit is of the right shoulder. ABDOMEN/PELVIS CT: There is a 15 mm cyst of the liver. The spleen, pancreas, and adrenal glands are normal. The gallblad cathryn is decompressed. The right kidney is unremarkable. There is a 2 mm nonobstructing stone of the le ft kidney. Peripelvic cysts are again noted in the left kidney. There is calcified atherosclerosis of the aorta and many of the other arteries. The appendix is normal. The bladder is partially decompres sed by a Ness catheter. Gas in the urinary bladder is likely due to catheterization. There is mild w all thickening of the urinary bladder. There is a short segment of stricturing and wall thickening of the sigmoid colon in the area of the previously described malignancy with interval decrease since e comparison examination. There is minimal fat stranding of the pelvis near the sigmoid colon. IMPRESSION: 1. Wall thickening and stricturing of the sigmoid colon and area of the previously described mass wit h interval decrease, possibly related to treatment change. 2. Patchy opacities of the lungs, likely infectious or inflammatory. Follow-up CT in three months is recommended. Reviewed, dictated and finalized at location F. IMPRESSION: 1. Wall thickening and stricturing of the sigmoid colon and area of the previou sly described mass with interval decrease, possibly related to treatment change . 2. Patchy opacities of the lungs, likely infectious or inflammatory. Follow-up CT in three months is recommended.
== END 2021-09-18 09:17 | disposition home or self-care (01) ==
PROVIDERS: PCP Family Medicine; Visit Provider Internal Medicine Hematology & Oncology
DX: Z85.038 Personal history of other malignant neoplasm of large intestine (principal); R91.8 Other nonspecific abnormal finding of lung field
CPT/HCPCS: 71250; 74176

== ENCOUNTER 2021-12-26 08:35 | Outpatient (CLI) | payer MEDICARE, SELFPAY ==
--- NOTE | ~2021-12-26 | CT_ITS ---
EXAMINATION:CT diagnostic chest w con DATE: 12/26/2021 09:24 INDICATION: Lung disease. TECHNIQUE: Computed tomography (CT) of the chest was performed with 75 mL Omnipaque 350 intravenous c ontrast. Automated exposure control and iterative reconstruction technique were employed. The dose-le ngth product (DLP) was 429.62 mGy-cm. COMPARISON: Chest CT 09/18/2021 FINDINGS: There is mild scarring at the lung apices. There is mild emphysema. There is mild atelectas is bilaterally. There is mild scarring and superior segment right lower lobe. There is a 4 mm nodule in right upper lobe. There are a few nodules in left upper lobe measuring up to 4 mm. There is mild b ronchiectasis in anterior segment left upper lobe. No pleural effusion. The heart size is normal. The re are coronary artery calcifications. No pericardial effusion. There is a 12 mm cyst in the liver. T here is levoscoliosis of cervicothoracic spine. There is severe cervical spondylosis and mild thoraci c spondylosis. There is mild chronic height loss of multiple vertebral bodies. IMPRESSION: 1. Mild emphysema and mild lung scarring 2. Small pulmonary nodules, likely infection. Reviewed, dictated and finalized at location A.
[2021-12-26 09:13] LABS: Estimated Glomerular Filt Rate 59
== END 2021-12-26 08:36 | disposition home or self-care (01) ==
LOC: ANHIMG 08:45
PROVIDERS: PCP Family Medicine; Visit Provider Internal Medicine Hematology & Oncology
DX: R91.8 Other nonspecific abnormal finding of lung field (principal); J43.9 Emphysema, unspecified
CPT/HCPCS: 71260; Q9967

== ENCOUNTER 2022-01-25 12:38 | Inpatient (IN) | payer MEDICARE, SELFPAY ==
[2022-01-25] VITALS (24 sets, daily range): BP systolic 99–148; BP diastolic 54–93; PULSE 88–122; RESP 13–29; TEMP 37.2–38.2; O2SAT 95–100; BMI 25.6
--- NOTE | ~2022-01-25 | CT_ITS ---
EXAMINATION: CT brain wo con DATE: 01/25/2022 14:05 INDICATION: Transient alteration of awareness. TECHNIQUE: Computed tomography (CT) of the head was performed without intravenous contrast. The dose- length product was 908.00 mGy-cm. Automated exposure control and iterative reconstruction technique w ere employed. COMPARISON: CT dated 01/17/2021 FINDINGS: Limited study due to motion artifact. No acute intracranial hemorrhage, infarction, mass or mass effect. There is generalized atrophy. There are scattered mild periventricular and subcortical white matter changes, most likely related to small vessel ischemic disease (microangiopathy). No acut e intracranial hemorrhage, infarction or mass. Paranasal sinuses and mastoids are pneumatized. No dep ressed skull fractures. IMPRESSION: 1. No acute intracranial abnormality. 2: Chronic age-related findings. Reviewed, dictated and finalized at location A.
--- NOTE | ~2022-01-25 | US_ITS ---
US renal BI 01/30/2022 16:35 Procedure: Realtime transabdominal ultrasound of the kidneys and bladder. Indication: Rule out hydronephrosis Comparison: 03/18/[address] dated 01/28/2022 Findings: Renal echotexture is normal bilaterally without hydronephrosis, contour deforming mass or r enal calculus. There is mild left caliectasis. The right kidney measures 12.2 cm and left kidney flower ures 12.3 cm. Bladder contains a Ness catheter. Impression: 1: Mild left renal caliectasis. Reviewed, dictated and finalized at location A. Impression: 1: Mild left renal caliectasis.
--- NOTE | ~2022-01-25 | XR_ITS ---
EXAMINATION: XR retrograde pyelogram BI DATE: 01/31/2022 13:29 INDICATION: Bilateral hydronephrosis. Severe sepsis and urinary tract infection. TECHNIQUE: 8 fluoroscopic images of the abdomen and pelvis were obtained during procedure performed chaka Beltran. Radiologist was not present for the imaging or procedure. The amount of fluoroscopy t shelton used during this procedure was minutes. COMPARISON: None. FINDINGS: Cannulation of first the left and subsequently the right ureters with retrograde contrast injection d emonstrating normal bilateral ureters and renal collecting systems. There are mildly prominent bilate ral extrarenal pelvises. No hydronephrosis. No filling defects or urothelial irregularities. Several phleboliths in the pelvis. IMPRESSION: 1. Normal bilateral retrograde pyelograms. No hydronephrosis, filling defects or urothelial irregular ities. Reviewed, dictated and finalized at location B. IMPRESSION: 1. Normal bilateral retrograde pyelograms. No hydronephrosis, filling defects o r urothelial irregularities.
--- NOTE | ~2022-01-25 | XR_ITS ---
XR chest 1V portable 01/25/2022 13:19 Indication: Altered mental status. Hypertension. Procedure: AP portable chest Comparison: 12/19/2020 Findings: Heart size normal. Left basilar atelectasis. No focal pneumonia, edema or effusion. No acut e osseous abnormality. Impression: 1: Left basilar atelectasis. Reviewed, dictated and finalized at location A. Impression: 1: Left basilar atelectasis.
--- NOTE | ~2022-01-25 | CT_ITS ---
EXAMINATION: CT abdomen pelvis wo con DATE: 01/25/2022 14:05 INDICATION: Abdomen pain TECHNIQUE: Computed tomography (CT) of the abdomen and pelvis was performed without intravenous contr ast. The dose-length product was 1197.83 mGy-cm. Automated exposure control and iterative reconstruct ion technique were employed. COMPARISON: CT dated 09/18/2021. FINDINGS: There is dependent atelectasis. Heart size normal. No significant pleural or pericardial ef fusion. Study limited by motion. The liver, spleen, pancreas, adrenal glands are unremarkable. There is moderate bilateral hydroureteronephrosis. No obstructing stone is identified. There is diffuse abn ormal thickening of the bladder wall. There is a thickened tubular structure just superior to the alberto dder wall. There is a Ness catheter in the bladder. There is gas in the bladder wall. There is infla mmatory changes surrounding the thickened tubular structure which may represent bowel. There is infla mmatory changes extending inferiorly into the perirectal space. Small hiatal hernia. Moderate atheros clerosis. No lymphadenopathy. There are multiple lower thoracic vertebral compression fractures which appear chronic. There is a superior endplate compression fracture of L3 which is new compared with p rior examination. IMPRESSION: 1. Abnormal bladder wall thickening with surrounding perivesical inflammation. Findings suspicious fo r cystitis. There is a thickened tubular structure superior to the bladder which may represent bowel or possibly communicating with the bladder, suspicious for enterovesical fistula. Recommend repeat ex amination with IV and oral contrast. 2: Moderate bilateral hydronephrosis. Reviewed, dictated and finalized at location A. IMPRESSION: 1. Abnormal bladder wall thickening with surrounding perivesical inflammation. Findings suspicious for cystitis. There is a thickened tubular structure superi or to the bladder which may represent bowel or possibly communicating with the bladder, suspicious for enterovesical fistula. Recommend repeat examination wit h IV and oral contrast. 2: Moderate bilateral hydronephrosis.
--- NOTE | ~2022-01-25 | CT_ITS ---
EXAMINATION: CT abdomen pelvis w con DATE: 01/28/2022 20:57 INDICATION: follow up eval from previous CT concern for fistul TECHNIQUE: Computed tomography (CT) of the abdomen and pelvis was performed with 100 mL Omnipaque-350 intravenous contrast. Automated exposure control and iterative reconstruction technique were employe d. The dose-length product was 887.39 mGy-cm. COMPARISON: 01/25/2022. FINDINGS: Exam limited by respiratory and bowel motion artifact. Lower thorax: Senescent change. Minimal bibasilar scar/atelectasis. Aortic valve and coronary calcifi cations Liver: Simple cyst near the liver dome. Biliary/Gallbladder: Gallbladder is absent. No bile duct dilation. Pancreas: No mass or duct dilation. Spleen: Normal. Adrenals:No mass. Kidneys: Persistent bilateral pelviectasis. Perinephric inflammatory change on the left, with pelviec tasis. Bilateral urothelial enhancement. GI tract: No small or large bowel dilation. Normal appendix. Colonic wall edema affecting the sigmoid and rectum. Mesentery/Peritoneum: No ascites, mass, or free air. Mesenteric edema and stranding. Retroperitoneum: No mass. Pelvis: The bladder is decompressed with Ness catheter. Considerable wall edema and inflammation. Lo ss of the fat planes between the sigmoid and bladder (coronal image 55/114). Presacral edema. Soft Tissues: Soft tissues and body wall unremarkable. Bones: No acute osseous finding. IMPRESSION: Motion limited examination. Exam further limited by the lack of positive GI or contrast. Severe cy stitis. Distal colitis/proctitis. Ascending infection, with likely left-sided and possibly bilateral pyelonephritis. Subtle loss of the fat plane between the sigmoid and the right posterior lateral aspe ct of the bladder. Reviewed, dictated and finalized at location K. IMPRESSION: Motion limited examination. Exam further limited by the lack of positive GI or contrast. Severe cystitis. Distal colitis/proctitis. Ascending infection, wi th likely left-sided and possibly bilateral pyelonephritis. Subtle loss of the fat plane between the sigmoid and the right posterior lateral aspect of the alberto dder.
--- NOTE | 2022-01-25 12:40 | ECG_ITS ---
Measurements Intervals Alva Rate: 107 P: 57 OR: 169 QRS: 29 QRSD: 86 T: 43 QT: 346 QTc: 464 Interpretive Statements SINUS TACHYCARDIA SIGNIFICANT BASELINE / MOTION ARTIFACT INCOMPLETE RIGHT BUNDLE BRANCH BLOCK LOW QRS VOLTAGE IN PRECORDIAL LEADS [QRS DEFLECTION < 1.0 mV IN CHEST LEADS] ABNORMAL RHYTHM ECG COMPARED TO ECG 12/19/2020 09:56:59 NO SIGNIFICANT CHANGES Electronically Signed On 01-27-2022 11:16:09 CDT by Win Mehta M.D.
--- NOTE | 2022-01-25 13:03 | ED.GENADULT ---
HPI - General Adult General Chief complaint: Altered Mental Status Stated complaint: altered mental status Source: RN notes reviewed History of Present Illness HPI narrative: Patient presents emergency department from [facility] via EMS for altered mental status. Per staff the patient is normally ANO x4 and is only ANO x1-2 today. Patient has a chronic indwelling Ness catheter that had noted decreased output today as well per the staff patient currently is laying in bed he denies any pain at this time he denies any chest pain shortness of breath or abdominal pain is unable to give full history at this time secondary to his altered mental status Related Data Home Medications Medication Instructions Recorded Confirmed acetaminophen 325 mg tablet 650 mg PO Q4H PRN Pain (Scale 09/04/20 01/25/22 (Tylenol) Score 1-3) atorvastatin 80 mg tablet 80 mg PO HS 09/04/20 01/25/22 potassium chloride 20 mEq 20 meq PO BID 09/04/20 01/25/22 tablet,extended release sennosides 8.6 mg tablet (senna) 8.6 mg PO BID PRN Constipation 09/04/20 01/25/22 ferrous sulfate 324 mg (65 mg 324 mg PO DAILY 12/06/20 01/25/22 iron) tablet,delayed release mirtazapine 15 mg tablet (Remeron) 7.5 mg PO HS 12/06/20 01/25/22 apixaban 5 mg tablet (Eliquis) 5 mg PO Q12H 03/13/21 01/25/22 aspirin 81 mg chewable tablet 81 mg PO DAILY 03/13/21 01/25/22 polyethylene glycol 3350 17 gram 17 g PO DAILY PRN Constipation 03/20/21 01/25/22 oral powder packet (Miralax) Allergies Allergy/AdvReac Type Severity Reaction Status Date / Time No Known Allergies Allergy Verified 10/29/21 10:52 Review of Systems Review of Systems: Gen.: Denies fevers or chills ENT: Denies congestion Respiratory: Denies shortness of breath or cough CV: Denies chest pain GI: Denies abdominal pain nausea, emesis or diarrhea decreased urine output Musculoskeletal: Denies back pain or muscle pain Neuro: Reports altered mental status Skin: Denies rash Except as documented, all other systems reviewed and negative PMFSH Past Medical History Medical History Acute cholecystitis (09/2020) Treated with antibiotics and cholecystostomy tube. 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 Patient has resultant right hemiplegia and cognitive deficit. 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 Normal cardiac stress test (01/2021) Obstructive sleep apnea Intolerant to CPAP. Right femoral vein DVT Right hemiplegia Surgical History Surgical History History of cystoscopy (09/2020) With clot evacuation per Dr. Snyder. History of open reduction and internal fixation (ORIF) procedure Left ankle fracture. History of partial colectomy (03/20/21) And excess laparoscopic left colon resection with hand-sewn end-to-end anastomosis for colon cancer per Dr. Connolly. 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 He is currently at [facility]. Former smoker, quit 1990. No alcohol or illicit substance use. His son Abel Vergara is his healthcare power of associate attorney. Code status: Full code. Smoking packs per day: 1.5 Smoking cigarettes per day: 30.0 Years smoked: 28 Smoking pack-years: 42.00 Smoking status: Never
[2022-01-25] MEDS: SODIUM CHLORIDE 0.9% IV 1,000 ML 999 ML IV CONT ×2 (13:05→14:22)
[2022-01-25 13:37] LABS: Basophils Absolute Auto 0.1 K/mm3 (0.0-0.1); Basophils Percent Auto 0.2 % (0.2-1.2); Eosinophils Absolute Auto 0.2 K/mm3 (0-0.3); Eosinophils Percent Auto 0.7 % (0-4.4); Hematocrit 50.6 % (42.0-52.0); Hemoglobin 16.3 g/dL (14.0-18.0); Immature Granulocyte Absolute 0.29 K/mm3 (0.00-0.031); Immature Granulocyte Percent A 1.1 % (0-0.5); Lymphocytes Absolute Auto 0.67 K/mm3 (0.9-3.2); Lymphocytes Percent Auto 2.6 % (18.3-44.2); Mean Corpuscular HGB Conc 32.2 g/dl (32-36); Mean Corpuscular Hemoglobin 30.2 pg (26-34); Mean Corpuscular Volume 93.9 fl (80-100); Mean Platelet Volume 10.4 fl (7.4-10.4); Monocytes Absolute Auto 4.1 K/mm3 (0.1-0.6); Monocytes Percent Auto 15.9 % (2.6-8.5); Neutrophils Absolute Auto 20.3 K/mm3 (1.3-6.7); Neutrophils Percent Auto 79.5 % (45.5-73.1); Platelet Count Result 267 k/mm3 (150-375); Red Blood Count 5.39 M/mm3 (4.6-6.20); White Blood Count 25.6 K/mm3 (4.5-10.0)
[2022-01-25 13:50] LABS: Partial Thromboplastin Time 34.2 SECONDS (22.3-36.8)
[2022-01-25 13:51] LABS: Add Urine Microscopic? YES; Appearance Urine Cloudy (Clear); Bacteria Urine 3+ /hpf; Bilirubin Urine Negative (Negative); Blood Urine 1+ (Negative); Color Urine Amber (Yellow); Glucose Urine UA Negative (Negative); Ketones Urine Negative (Negative); Leukocyte Esterase Ur 3+ LEU/UL (Negative); Mucus Urine Rare /lpf; Nitrate Urine Negative (Negative); Protein Urine 3+ mg/dL (Negative); RBC Urine >75 /hpf (0-2); Specific Grav Ur 1.014 (1.001-1.035); Urobilinogen Urine Negative mg/dL (<2.0); WBC Clumps Urine Present /HPF; WBC Urine >75 /hpf
[2022-01-25 14:03] LABS: INR 1.5; Prothrombin Time 17.5 Seconds (11.1-14.7)
[2022-01-25 14:10] LABS: Alanine Aminotransferase 38 U/L (6-50); Albumin Level 4.9 g/dL (3.5-5.1); Alkaline Phosphatase 133 U/L (38-126); Anion Gap 20 mmol/L (8-16); Aspartate Amino Transferase 42 U/L (17-59); Bilirubin,Total 1.3 mg/dL (0.2-1.3); Blood Urea Nitrogen 37 mg/dL (9-20); Calcium 10.1 mg/dL (8.4-10.2); Carbon Dioxide 15 mmol/L (22-30); Chloride 108 mmol/L (98-107); Estimated CRCL calculation 29 ml/min; Estimated Glomerular Filt Rate 25; Glucose 159 mg/dL (65-110); Potassium 4.6 mmol/L (3.4-5.0); Sodium 143 mmol/L (137-145)
[2022-01-25 14:10] LABS: Lactic Acid Reflex 8.3 mmol/L (0.7-2.0)
[2022-01-25] MEDS: SODIUM CHLORIDE 0.9% IV 1,000 ML 125 ML IV CONT (15:09)
[2022-01-25 15:40] LABS: Alveolar/Arterial O2 Gradient 28.2 mmHg; Base Excess ABG -5.2 mEq/l (+/-2.0); Carboxyhemoglobin 0.5 % THb (0-2.0); Fractional Inspired Oxygen 21 %; HCO3 ABG 16.3 mEq/l (22.0-26.0); Methemoglobin ABG 0.4 %THb (0-1.5); Oxygen Content ABG 20.1 %vol (16.0-22.0); Oxygen Saturation ABG 97.7 % (95.0-100.0); Oxyhemoglobin 96.3 % THb (90.0-100.0); PO2 ABG 93.6 mmHg (80.0-100.0); PO2 FiO2 Ratio Arterial Blood 4.46 %; Reduced Hemoglobin 2.8 %THb (0-5.0); Total Hemoglobin 14.8 g/dL (12.0-18.0); pH ABG 7.464 (7.350-7.450)
[2022-01-25 15:43] LABS: PCO2 ABG 23.3 mmHg (35.0-45.0)
[2022-01-25 15:44] LABS: Device ROOM AIR; Modified Allen's Test Pass; Site Drawn LEFT RADIAL
--- NOTE | 2022-01-25 16:20 | PC.NURSE ---
This patient, Matti Vergara, was admitted to Intensive Care Unit-3. Patient/family oriented to hospital policies and general routines including ID bracelet, bed and alarms, visiting hours, pain management, procedures, bathroom and other care routines, personal items, smoking policy, room service/diet, and visiting hours. Information on how to activate the Rapid Response Team has been discussed. Patient/Family are encouraged to report perceived risks to care and to ask questions if they do not understand what they are told or what they should do.
[2022-01-25 16:35] LABS: Reflex Lactic Acid Yes or No Add Lactic
[2022-01-25] MEDS: SODIUM BICARBONATE 8.4% 50 MEQ/50 ML SYRINGE IV PUSH (17:15)
[2022-01-25] MEDS: SODIUM BICARBONATE 8.4% 150 MEQ in WATER, STERILE FOR INJECTION 950 ML IV CONT (17:19)
[2022-01-25 17:32] LABS: Lactic Acid Reflex 6.1 mmol/L (0.7-2.0)
--- NOTE | 2022-01-25 18:27 | WPDURCON ---
Assessment and Plan Assessment and plan (1) Septic shock: Code(s): A41.9 - Sepsis, unspecified organism; R65.21 - Severe sepsis with septic shock Status: Acute Plan 76M with history of CVA, previous bowel surgery, and chronic blanton presents with sepsis who was in retention ant catheter placed with over 3L, along with GILBERTO and CT findings with some question of potential enterovesicular fistula. - Continue catheter in place. Continue IV antibiotics and tailor to urine culture. - Monitor for post obstructive diuresis with labs - Unable to rule in or out fistula without a CT with IV / PO contrast - would treat infection and stabilize patient first prior to obtaining this imaging due to GILBERTO, do not need to ensure this diagnosis at this time. - Balance of care per primary team. Urology Consult Note HPI Date Seen: 01/25/22 Requesting Physician: Claudia Pelaez MD Primary Care Provider: Patel Benavides MD Consult Narrative Narrative: Matti Vergara is a 76 year old male with a complicated history significant for CVA, colon cancer s/p bowel resection, and chronic blanton catheter who presents with AMS and signs of sepsis. Came in from longterm due to AMS, and found to have leukocytosis and with a significant amount of urine in the bladder. Catheter was placed and 3.5L came out. Ct 2.5 with UA suspicious for infection, and CT showed signs of cystitis with some concern for possible enterovesicular fistula, therefore consulting urology. Review of Systems Constitutional: Comments: Alert ENT: Reports as per HPI [facility] Past Medical History Medical History Acute cholecystitis (09/2020) Treated with antibiotics and cholecystostomy tube. 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 Patient has resultant right hemiplegia and cognitive deficit. 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 Normal cardiac stress test (01/2021) Obstructive sleep apnea Intolerant to CPAP. Right femoral vein DVT Right hemiplegia Surgical History Surgical History History of cystoscopy (09/2020) With clot evacuation per Dr. Snyder. History of open reduction and internal fixation (ORIF) procedure Left ankle fracture. History of partial colectomy (03/20/21) And excess laparoscopic left colon resection with hand-sewn end-to-end anastomosis for colon cancer per Dr. Connolly. 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 He is currently at [facility]. Former smoker, quit 1990. No alcohol or illicit substance use. His son Abel Vergara is his healthcare power of admitted attorneys. Code status: Full code. Smoking packs per day: 1.5 Smoking cigarettes per day: 30.0 Years smoked: 28 Smoking pack-years: 42.00 Smoking status: Former smoker Alcohol intake: former Substance use: never Spiritual care concerns: No Meds Home Medications and Allergies Home Medications Medication Instructions Recorded Confirmed Type acetaminophen 325 mg tablet 650 mg PO Q4H PRN Pain (Scale 09/04/20 01/25/22 History (Tylenol) Score 1-3) atorvastatin 80 mg tablet 80 mg PO HS 09/04/20 01/25/22 History kolby
[2022-01-25 18:42] LABS: Anion Gap 15 mmol/L (8-16); Blood Urea Nitrogen 32 mg/dL (9-20); Calcium 9.2 mg/dL (8.4-10.2); Carbon Dioxide 22 mmol/L (22-30); Chloride 108 mmol/L (98-107); Estimated CRCL calculation 37 ml/min; Estimated Glomerular Filt Rate 42; Glucose 112 mg/dL (65-110); Potassium 4.3 mmol/L (3.4-5.0); Sodium 145 mmol/L (137-145)
--- NOTE | 2022-01-25 21:00 | PM.IMHP ---
H&P: HPI History of Present Illness Date/Time: 01/25/22 21:00 Chief Complaint: Altered mental status. Narrative: This is a 76-year-old male with history of stroke, hyperlipidemia, hypertension, anemia, GERD, and history of colon cancer who presented to the emergency department via EMS for evaluation of altered mental status. He is alert but not oriented and cannot provide an accurate history and as such a majority of the following is obtained via a review of his electronic medical records. At baseline he is alert and oriented x4 though he does have a mild cognitive deficit from previous stroke. [facility] noticed that his urine output had dropped off to almost nothing this morning and he was confused and not very interactive. Workup in the emergency department was significant for leukocytosis with a WBC of 25.6, acute kidney injury with a BUN and creatinine of 37 and 2.50 respectively, serum carbon dioxide of 15 with anion gap 20, lactic acidosis with a lactic acid level 8.3, and abnormal urinalysis with 3+ leukocyte esterase, 3+ bacteria, and greater than [address] of the abdomen and pelvis showed bladder wall thickening with surrounding perivesical inflammation and findings concerning for enterovesical fistula and moderate bilateral hydronephrosis. Chest x-ray and brain CT did not show any acute findings. His blood pressures occasionally were on the very low end of normal and given his severe sepsis picture he was admitted to the ICU for close monitoring. Since admission his vital signs have been very stable though he continues to be encephalopathic although improving. At the time my evaluation he will arouse to voice and he is able to tell me his name however he does not really answer any other questions. Review of Systems Review of Systems: Unable to obtain given current clinical condition as detailed above. [facility] Past Medical History Medical History Acute cholecystitis (09/2020) Treated with antibiotics and cholecystostomy tube. 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 Patient has resultant right hemiplegia and cognitive deficit. 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 Normal cardiac stress test (01/2021) Obstructive sleep apnea Intolerant to CPAP. Right femoral vein DVT Right hemiplegia Surgical History Surgical History History of cystoscopy (09/2020) With clot evacuation per Dr. Snyder. History of open reduction and internal fixation (ORIF) procedure Left ankle fracture. History of partial colectomy (03/20/21) And excess laparoscopic left colon resection with hand-sewn end-to-end anastomosis for colon cancer per Dr. Connolly. History of tonsillectomy History of vasectomy Hx laparoscopic cholecystectomy S/P laparoscopic-assisted sigmoidectomy Family History Family History Mother Unknown family medical history Lung cancer Father Myocardial infarct Social History Social History (Updated 01/26/22 @ 00:23 by Chandni Harrison PA-C) Social History: Healthcare power of staff attorney: Abel Vergara, son. Code status: Full code. Smoking packs per day: 1.5 Smoking cigarettes per day: 30.0 Years smoked: 28 Smoking pack-years: 42.00 Smoking status: Former smoker Alcohol intake: former Substance use: never Additional living arrangements comments: Resident at [facility]. 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 Spiritual care concerns: No Meds Home Medications and Terell
[2022-01-26] VITALS (9 sets, daily range): BP systolic 110–125; BP diastolic 48–71; PULSE 67–103; RESP 12–18; TEMP 36.9–37.8; O2SAT 97–98
[2022-01-26 00:25] LABS: Lactic Acid Reflex 2.2 mmol/L (0.7-2.0)
[2022-01-26 00:26] LABS: Anion Gap 12 mmol/L (8-16); Blood Urea Nitrogen 29 mg/dL (9-20); Calcium 9.2 mg/dL (8.4-10.2); Carbon Dioxide 28 mmol/L (22-30); Chloride 106 mmol/L (98-107); Estimated CRCL calculation 48 ml/min; Estimated Glomerular Filt Rate 59; Glucose 102 mg/dL (65-110); Magnesium 1.8 mg/dL (1.6-2.3); Potassium 3.8 mmol/L (3.4-5.0); Sodium 146 mmol/L (137-145)
[2022-01-26] MEDS: SODIUM CHLORIDE 0.9% IV 1,000 ML 80 ML IV CONT (01:05)
[2022-01-26 04:16] LABS: Basophils Absolute Auto 0.1 K/mm3 (0.0-0.1); Basophils Percent Auto 0.3 % (0.2-1.2); Eosinophils Percent Auto 0.2 % (0-4.4); Hematocrit 41.1 % (42.0-52.0); Hemoglobin 13.3 g/dL (14.0-18.0); Immature Granulocyte Absolute 0.07 K/mm3 (0.00-0.031); Immature Granulocyte Percent A 0.4 % (0-0.5); Lymphocytes Absolute Auto 1.94 K/mm3 (0.9-3.2); Lymphocytes Percent Auto 10.3 % (18.3-44.2); Mean Corpuscular HGB Conc 32.4 g/dl (32-36); Mean Corpuscular Hemoglobin 30.3 pg (26-34); Mean Corpuscular Volume 93.6 fl (80-100); Monocytes Absolute Auto 2.6 K/mm3 (0.1-0.6); Monocytes Percent Auto 13.5 % (2.6-8.5); Neutrophils Absolute Auto 14.3 K/mm3 (1.3-6.7); Neutrophils Percent Auto 75.3 % (45.5-73.1); Platelet Count Result 201 k/mm3 (150-375); Red Blood Count 4.39 M/mm3 (4.6-6.20); Red Cell Distribution Width 14.8 % (11.5-14.5); White Blood Count 18.9 K/mm3 (4.5-10.0)
[2022-01-26 04:27] LABS: Alanine Aminotransferase 19 U/L (6-50); Albumin Level 3.6 g/dL (3.5-5.1); Alkaline Phosphatase 85 U/L (38-126); Anion Gap 12 mmol/L (8-16); Aspartate Amino Transferase 48 U/L (17-59); Blood Urea Nitrogen 27 mg/dL (9-20); Calcium 9.1 mg/dL (8.4-10.2); Carbon Dioxide 27 mmol/L (22-30); Chloride 107 mmol/L (98-107); Estimated CRCL calculation 52 ml/min; Estimated Glomerular Filt Rate > 60; Glucose 98 mg/dL (65-110); Magnesium 1.9 mg/dL (1.6-2.3); Phosphorus 3.2 mg/dL (2.5-4.5); Potassium 3.6 mmol/L (3.4-5.0); Sodium 146 mmol/L (137-145)
--- NOTE | 2022-01-26 08:12 | WPDCNINT ---
Assessment and Plan Assessment and plan (1) Severe sepsis: Code(s): A41.9 - Sepsis, unspecified organism; R65.20 - Severe sepsis without septic shock Status: Acute Assessment and Plan: Severe sepsis secondary to UTI. CT scan showed bilateral hydronephrosis likely from urinary obstruction Ness was changed Blood and urine culture sent Continue empiric imipenem Patient was given volume resuscitation and has clinically improved Urine output is good He has not required any vasopressors (2) Urinary tract infection: Code(s): N39.0 - Urinary tract infection, site not specified Status: Acute Assessment and Plan: See above (3) Bilateral hydronephrosis: Code(s): N13.30 - Unspecified hydronephrosis Status: Acute Assessment and Plan: Bilateral hydronephrosis secondary to bladder obstruction which was resolved by replacing Ness (4) Abnormal computed tomography of abdomen and pelvis: Code(s): R93.5 - Abnormal findings on diagnostic imaging of other abdominal regions, including retroperitoneum Status: Acute Assessment and Plan: CT scan of abdomen pelvis showed IMPRESSION: 1. Abnormal bladder wall thickening with surrounding perivesical inflammation. Findings suspicious for cystitis. There is a thickened tubular structure superior to the bladder which may represent bowel or possibly communicating with the bladder, suspicious for enterovesical fistula. Recommend repeat examination with IV and oral contrast. 2: Moderate bilateral hydronephrosis. Patient was evaluated by Urology. Since his creatinine has improved, will order CT scan of abdomen pelvis with IV and p.o. contrast Patient clinically improved and creatinine has normalized (5) Acute kidney injury: Code(s): N17.9 - Acute kidney failure, unspecified Status: Acute Assessment and Plan: Secondary to sepsis and obstruction Improved with IV fluids and changing of Ness catheter Creatinine has now normalized Monitor urine output electrolytes and creatinine (6) Hypokalemia: Code(s): E87.6 - Hypokalemia Status: Acute Assessment and Plan: Change IV fluids to half normal saline with potassium Repeat BMP later today (7) Metabolic encephalopathy: Code(s): G93.41 - Metabolic encephalopathy Status: Acute Assessment and Plan: Patient is pleasantly confused. 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 He is unable to provide any meaningful history but I suspected secondary to DVT that is listed in his past medical history I will change it to Lovenox subQ since patient may need surgical intervention in case his CT scan shows any significant abnormality Plan DVT prophylaxis -Lovenox subQ Stress ulcer prophylaxis -PPI Nutrition -currently NPO Code Status - Full Code Transfer out of ICU today Bulk Picker Consult Note Consult date: 01/26/22 Reason for consult: Sepsis, UTI HPI: Matti Vergara is a 76 year old male with past med history of stroke, hyperlipidemia, hypertension, anemia, GERD, and history of colon cancer who presented to the emergency department via EMS for evaluation of altered mental status. He was awake alert but not oriented and was not able to provide any meaningful history. Per reports, at baseline he is alert and oriented x4 although he does have mild cognitive deficit from previous stroke. Staff at the residential noticed that his urine output had dropped off to almost nothing yesterday morning and he was confused and not very interactive. Workup in the emergency department was significant for leukocytosis with a WBC of 25.6, acute kidney injury with a BUN and creatinine of 37 and 2.50 respec
[2022-01-26] MEDS: KCL 20 MEQ/0.45% NS 1,000 ML 100 ML IV CONT ×2 (09:00→20:38)
[2022-01-26] MEDS: ENOXAPARIN 80 MG/0.8 ML SYRINGE SUB-Q ×2 (09:03→20:39)
[2022-01-26 10:13] LABS: Thyroid Stimulating Hormone Reflex 0.908 uIU/mL (0.465-4.68)
--- NOTE | 2022-01-26 13:49 | PC.NURSE ---
Hematuria output noted in blanton catheter, no clots noted. Catheter flushed with 20 ml normal saline, bladder scan obtained, and no retention noted. Patient denies discomfort. Dr. Hilario notified of change in output. No new orders obtained at this time. Will continue to monitor closely.
[2022-01-26] MEDS: MULTIVITAMINS THERAPEUTIC TAB (*BKC) 1 TABLET PO (14:48)
[2022-01-26] MEDS: PANTOPRAZOLE 40 MG TABLET PO (14:48)
[2022-01-26] MEDS: FERROUS SULFATE 324 MG TABLET PO (14:48)
[2022-01-26] MEDS: ASPIRIN 81 MG CHEWABLE TABLET PO (14:48)
--- NOTE | 2022-01-26 15:55 | PC.NURSE ---
This patient, Matti Vergara, was transferred to [ [id number]] on 01/26/22 at 1555. Personal belongings sent with patient. Report given to [ Olinda RO]. Appropriate documentation sent with patient.
--- NOTE | 2022-01-26 16:14 | PC.NURSE ---
This patient, Matti Vergara, was received from [ imu] on 01/26/22 at 1541. Patient/family oriented to unit policies and routines
[2022-01-26 16:29] LABS: Anion Gap 12 mmol/L (8-16); Blood Urea Nitrogen 23 mg/dL (9-20); Carbon Dioxide 24 mmol/L (22-30); Chloride 106 mmol/L (98-107); Estimated CRCL calculation 63 ml/min; Estimated Glomerular Filt Rate > 60; Glucose 85 mg/dL (65-110); Potassium 3.5 mmol/L (3.4-5.0); Sodium 142 mmol/L (137-145)
--- NOTE | 2022-01-26 18:04 | PHAR ---
PT'S HOME MED KORLYM 300 MG (MIFEPRISTONE) VERIFIED BY PHARMACY
[2022-01-26] MEDS: ATORVASTATIN 40 MG TABLET 80 MG PO (20:39)
[2022-01-26] MEDS: QUEtiapine FUMARATE 25 MG TABLET PO (20:40)
[2022-01-27] VITALS (7 sets, daily range): BP systolic 111–139; BP diastolic 60–71; PULSE 71–105; RESP 16–20; TEMP 37.1–37.2; O2SAT 95–97
--- NOTE | 2022-01-27 01:16 | PC.NURSE ---
Pt came in because he was not at baseline. Pt was transferred from ICU to 3 med/surg. Pt blood cultures came back with gram- bacilli in the aerobic culture. Pt still unable to answer A&O questions appropriately. Pt very lethargic and sleeping majority of shift. Will continue to monitor pt for any changes in status.
[2022-01-27] MEDS: KCL 20 MEQ/0.45% NS 1,000 ML 100 ML IV CONT ×2 (06:02→17:27)
[2022-01-27 06:14] LABS: Hematocrit 36.9 % (42.0-52.0); Hemoglobin 11.9 g/dL (14.0-18.0); Mean Corpuscular HGB Conc 32.2 g/dl (32-36); Mean Corpuscular Hemoglobin 29.6 pg (26-34); Mean Corpuscular Volume 91.8 fl (80-100); Mean Platelet Volume 11.2 fl (7.4-10.4); Platelet Count Result 166 k/mm3 (150-375); Red Blood Count 4.02 M/mm3 (4.6-6.20); Red Cell Distribution Width 14.4 % (11.5-14.5); White Blood Count 11.6 K/mm3 (4.5-10.0)
[2022-01-27 06:21] LABS: Alanine Aminotransferase 24 U/L (6-50); Albumin Level 3.3 g/dL (3.5-5.1); Alkaline Phosphatase 81 U/L (38-126); Anion Gap 6 mmol/L (8-16); Aspartate Amino Transferase 70 U/L (17-59); Bilirubin,Total 1.2 mg/dL (0.2-1.3); Blood Urea Nitrogen 21 mg/dL (9-20); Calcium 8.3 mg/dL (8.4-10.2); Carbon Dioxide 23 mmol/L (22-30); Chloride 107 mmol/L (98-107); Estimated CRCL calculation 63 ml/min; Estimated Glomerular Filt Rate > 60; Glucose 86 mg/dL (65-110); Magnesium 1.8 mg/dL (1.6-2.3); Phosphorus 2.9 mg/dL (2.5-4.5); Potassium 3.8 mmol/L (3.4-5.0); Sodium 136 mmol/L (137-145)
[2022-01-27] MEDS: ENOXAPARIN 80 MG/0.8 ML SYRINGE SUB-Q ×2 (08:49→21:17)
[2022-01-27] MEDS: PANTOPRAZOLE 40 MG TABLET PO (08:49)
[2022-01-27] MEDS: FERROUS SULFATE 324 MG TABLET PO (08:49)
[2022-01-27] MEDS: ASPIRIN 81 MG CHEWABLE TABLET PO (08:49)
[2022-01-27] MEDS: MULTIVITAMINS THERAPEUTIC TAB (*BKC) 1 TABLET PO (08:49)
--- NOTE | 2022-01-27 13:28 | PM.IMPN ---
Progress Note: A&P Assessment and Plan (1) Hypokalemia: Code(s): E87.6 - Hypokalemia Status: Acute (2) Abnormal computed tomography of abdomen and pelvis: Code(s): R93.5 - Abnormal findings on diagnostic imaging of other abdominal regions, including retroperitoneum Status: Acute (3) Bilateral hydronephrosis: Code(s): N13.30 - Unspecified hydronephrosis Status: Acute (4) Metabolic encephalopathy: Code(s): G93.41 - Metabolic encephalopathy Status: Acute (5) Acute kidney injury: Code(s): N17.9 - Acute kidney failure, unspecified Status: Acute (6) Urinary tract infection: Code(s): N39.0 - Urinary tract infection, site not specified Status: Acute (7) Severe sepsis: Code(s): A41.9 - Sepsis, unspecified organism; R65.20 - Severe sepsis without septic shock Status: Acute (8) Septic shock: Code(s): A41.9 - Sepsis, unspecified organism; R65.21 - Severe sepsis with septic shock Status: Acute (9) History of cerebrovascular accident: Code(s): Z86.73 - Personal history of transient ischemic attack (TIA), and cerebral infarction without residual deficits Status: Chronic (10) Bacteremia due to Gram-negative bacteria: Code(s): R78.81 - Bacteremia Status: Acute (11) Bacterial infection due to Proteus mirabilis: Code(s): A49.8 - Other bacterial infections of unspecified site Status: Acute (12) Bacteremia due to Proteus species: Code(s): R78.81 - Bacteremia; B96.4 - Proteus (mirabilis) (morganii) as the cause of diseases classified elsewhere Status: Acute (13) Urinary tract infection due to Proteus: Code(s): N39.0 - Urinary tract infection, site not specified; B96.4 - Proteus (mirabilis) (morganii) as the cause of diseases classified elsewhere Status: Acute (14) Hyperlipidemia: Code(s): E78.5 - Hyperlipidemia, unspecified Status: Acute (15) Hemiplegia affecting right dominant side: Qualifiers: Hemiplegia type: flaccid Hemiplegia etiology: late effect of cerebrovascular disease Cerebrovascular disease type: cerebral infarction Qualified Code(s): I69.351 - 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 side Code(s): G81.91 - Hemiplegia, unspecified affecting right dominant side Status: Chronic (16) Chronic anticoagulation: 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 CT scan showed bilateral hydronephrosis likely from urinary obstruction Ness was changed Blood and urine culture sent Continue empiric imipenem Patient was given volume resuscitation and has clinically improved Urine output is good He has not required any vasopressors Bilateral hydronephrosis secondary to bladder obstruction which was resolved by replacing Ness Patient was evaluated by Urology. Since his creatinine has improved, will order CT scan of abdomen pelvis with IV and p.o. contrast Patient clinically improved and creatinine has normalized Secondary to sepsis and obstruction Improved with IV fluids and changing of Ness catheter Creatinine has now normalized Monitor urine output electrolytes and creatinine Change IV fluids to half normal saline with potassium Repeat BMP later today Patient is pleasantly confused.? Baseline unknown CT scan shows chronic age-related changes and he has history of CVA Nonfocal exam Monitor Avoid sedatives Patient is on Eliquis.? He is unable to provide any meaningful history but I suspected secondary to DVT that is listed in his past medical history I will change it to Lovenox subQ since patient may need surgical intervention in case his CT scan shows any significant abnormality 01/27/2022 white blood cell count down trending in mental status improving GILBERTO resolve patient is positive for Proteus mirabilis in u
[2022-01-27] MEDS: ATORVASTATIN 40 MG TABLET 80 MG PO (21:16)
[2022-01-27] MEDS: QUEtiapine FUMARATE 25 MG TABLET PO (21:17)
[2022-01-28] MEDS: KCL 20 MEQ/0.45% NS 1,000 ML 100 ML IV CONT ×2 (00:56→16:56)
--- NOTE | 2022-01-28 02:30 | PC.NURSE ---
Pt alert to self today. Pt reoriented to hospital surrounding. Pt compliant with care. Pt still not at base line. Pt has tea colored urine in blanton. Will continue to monitor pt.
[2022-01-28 05:33] VITALS: BP 132/73; PULSE 75; RESP 20; TEMP 36.6; O2SAT 97
[2022-01-28 06:37] LABS: Hematocrit 38.8 % (42.0-52.0); Hemoglobin 12.4 g/dL (14.0-18.0); Mean Corpuscular Volume 93.9 fl (80-100); Mean Platelet Volume 10.3 fl (7.4-10.4); Platelet Count Result 187 k/mm3 (150-375); Red Blood Count 4.13 M/mm3 (4.6-6.20); White Blood Count 9.6 K/mm3 (4.5-10.0)
[2022-01-28 06:56] LABS: Alanine Aminotransferase 27 U/L (6-50); Albumin Level 3.2 g/dL (3.5-5.1); Alkaline Phosphatase 92 U/L (38-126); Anion Gap 8 mmol/L (8-16); Aspartate Amino Transferase 56 U/L (17-59); Bilirubin,Total 0.8 mg/dL (0.2-1.3); Blood Urea Nitrogen 15 mg/dL (9-20); Calcium 8.2 mg/dL (8.4-10.2); Carbon Dioxide 23 mmol/L (22-30); Chloride 104 mmol/L (98-107); Estimated CRCL calculation 63 ml/min; Estimated Glomerular Filt Rate > 60; Glucose 82 mg/dL (65-110); Magnesium 1.9 mg/dL (1.6-2.3); Phosphorus 3.6 mg/dL (2.5-4.5); Potassium 3.2 mmol/L (3.4-5.0); Sodium 135 mmol/L (137-145)
[2022-01-28 08:00] VITALS: PULSE 75; RESP 20; O2SAT 96
[2022-01-28 08:27] VITALS: O2SAT 96
[2022-01-28] MEDS: ASPIRIN 81 MG CHEWABLE TABLET PO (09:06)
[2022-01-28] MEDS: MULTIVITAMINS THERAPEUTIC TAB (*BKC) 1 TABLET PO (09:06)
[2022-01-28] MEDS: FERROUS SULFATE 324 MG TABLET PO (09:06)
[2022-01-28] MEDS: PANTOPRAZOLE 40 MG TABLET PO (09:06)
[2022-01-28] MEDS: ENOXAPARIN 80 MG/0.8 ML SYRINGE SUB-Q ×2 (09:06→21:00)
--- NOTE | 2022-01-28 10:23 | PM.IMPN ---
Progress Note: A&P Assessment and Plan (1) Septic shock: Code(s): A41.9 - Sepsis, unspecified organism; R65.21 - Severe sepsis with septic shock Status: Acute (2) Bacteremia due to Proteus species: Code(s): R78.81 - Bacteremia; B96.4 - Proteus (mirabilis) (morganii) as the cause of diseases classified elsewhere Status: Acute (3) Urinary tract infection due to Proteus: Code(s): N39.0 - Urinary tract infection, site not specified; B96.4 - Proteus (mirabilis) (morganii) as the cause of diseases classified elsewhere Status: Acute (4) Urinary retention: Code(s): R33.9 - Retention of urine, unspecified Status: Acute (5) Acute kidney injury: Code(s): N17.9 - Acute kidney failure, unspecified Status: Acute (6) Bilateral hydronephrosis: Code(s): N13.30 - Unspecified hydronephrosis Status: Acute (7) Hypokalemia: Code(s): E87.6 - Hypokalemia Status: Acute (8) Abnormal computed tomography of abdomen and pelvis: Code(s): R93.5 - Abnormal findings on diagnostic imaging of other abdominal regions, including retroperitoneum Status: Acute (9) Metabolic encephalopathy: Code(s): G93.41 - Metabolic encephalopathy Status: Acute (10) Hyperlipidemia: Code(s): E78.5 - Hyperlipidemia, unspecified Status: Acute (11) History of cerebrovascular accident: Code(s): Z86.73 - Personal history of transient ischemic attack (TIA), and cerebral infarction without residual deficits Status: Chronic (12) Hemiplegia affecting right dominant side: Qualifiers: Cerebrovascular disease type: cerebral infarction Hemiplegia etiology: late effect of cerebrovascular disease Hemiplegia type: flaccid Qualified Code(s): I69.351 - 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 side Code(s): G81.91 - Hemiplegia, unspecified affecting right dominant side Status: Chronic (13) Chronic anticoagulation: Code(s): Z79.01 - longterm (current) use of anticoagulants Status: Chronic (14) Colonic mass: Code(s): K63.89 - Other specified diseases of intestine Status: Acute (15) Chronic indwelling Ness catheter: Code(s): Z97.8 - Presence of other specified devices Status: Chronic (16) Catheter-associated urinary tract infection: Code(s): T83.511A - Infection and inflammatory reaction due to indwelling urethral catheter, initial encounter; N39.0 - Urinary tract infection, site not specified Status: Acute (17) Adenocarcinoma of sigmoid colon: Code(s): C18.7 - Malignant neoplasm of sigmoid colon Status: Chronic Plan 01/26/22 Severe sepsis secondary to UTI.? CT scan showed bilateral hydronephrosis likely from urinary obstruction Ness was changed Blood and urine culture sent Continue empiric imipenem Patient was given volume resuscitation and has clinically improved Urine output is good He has not required any vasopressors Bilateral hydronephrosis secondary to bladder obstruction which was resolved by replacing Ness Patient was evaluated by Urology. Since his creatinine has improved, will order CT scan of abdomen pelvis with IV and p.o. contrast Patient clinically improved and creatinine has normalized Secondary to sepsis and obstruction Improved with IV fluids and changing of Ness catheter Creatinine has now normalized Monitor urine output electrolytes and creatinine Change IV fluids to half normal saline with potassium Repeat BMP later today Patient is pleasantly confused.? Baseline unknown CT scan shows chronic age-related changes and he has history of CVA Nonfocal exam Monitor Avoid sedatives Patient is on Eliquis.? He is unable to provide any meaningful history but I suspected secondary to DVT that is listed in his past medical history I will change it to Lovenox subQ since patient may need surgical intervention in case
[2022-01-28] MEDS: POTASSIUM CHLORIDE 20 MEQ TABLET 40 MEQ PO (12:15)
[2022-01-28 14:00] VITALS: BP 107/68; PULSE 68; RESP 16; TEMP 36.7; O2SAT 98
[2022-01-28] MEDS: QUEtiapine FUMARATE 25 MG TABLET PO (21:00)
[2022-01-28] MEDS: TAMSULOSIN HCL 0.4 MG CAPSULE PO (21:00)
[2022-01-28] MEDS: ATORVASTATIN 40 MG TABLET 80 MG PO (21:00)
[2022-01-28 21:10] VITALS: BP 135/72; PULSE 74; RESP 18; TEMP 36.7; O2SAT 100
--- NOTE | 2022-01-29 00:17 | PC.NURSE ---
Pt is much more alert this evening than he has been the last 2 days. Pt went for CT with contrast at 2044 this evening. Pt continues to have blanton and urine is looking better than the previous 2 days. Pt was up in chair at the start of shift. Pt was returned to bed with the sarasteady. Pt sleeping now. Will continue to monitor.
[2022-01-29] MEDS: KCL 20 MEQ/0.45% NS 1,000 ML 100 ML IV CONT ×2 (03:47→17:44)
[2022-01-29 05:47] VITALS: BP 134/78; PULSE 63; RESP 18; TEMP 36.4; O2SAT 96
[2022-01-29 06:07] LABS: Hematocrit 35.8 % (42.0-52.0); Hemoglobin 11.9 g/dL (14.0-18.0); Mean Corpuscular HGB Conc 33.2 g/dl (32-36); Mean Corpuscular Hemoglobin 30.2 pg (26-34); Mean Corpuscular Volume 90.9 fl (80-100); Mean Platelet Volume 10.6 fl (7.4-10.4); Platelet Count Result 208 k/mm3 (150-375); Red Blood Count 3.94 M/mm3 (4.6-6.20); Red Cell Distribution Width 13.7 % (11.5-14.5); White Blood Count 8.6 K/mm3 (4.5-10.0)
[2022-01-29 06:26] LABS: Alanine Aminotransferase 28 U/L (6-50); Albumin Level 3.2 g/dL (3.5-5.1); Alkaline Phosphatase 86 U/L (38-126); Anion Gap 7 mmol/L (8-16); Aspartate Amino Transferase 45 U/L (17-59); Bilirubin,Total 0.6 mg/dL (0.2-1.3); Blood Urea Nitrogen 10 mg/dL (9-20); Calcium 8.3 mg/dL (8.4-10.2); Carbon Dioxide 22 mmol/L (22-30); Chloride 107 mmol/L (98-107); Estimated CRCL calculation 71 ml/min; Estimated Glomerular Filt Rate > 60; Glucose 91 mg/dL (65-110); Phosphorus 3.7 mg/dL (2.5-4.5); Potassium 3.6 mmol/L (3.4-5.0); Sodium 136 mmol/L (137-145)
[2022-01-29] MEDS: TAMSULOSIN HCL 0.4 MG CAPSULE PO (08:37)
[2022-01-29] MEDS: FERROUS SULFATE 324 MG TABLET PO (08:37)
[2022-01-29] MEDS: MULTIVITAMINS THERAPEUTIC TAB (*BKC) 1 TABLET PO (08:37)
[2022-01-29] MEDS: ASPIRIN 81 MG CHEWABLE TABLET PO (08:37)
[2022-01-29] MEDS: ENOXAPARIN 80 MG/0.8 ML SYRINGE SUB-Q ×2 (08:37→21:28)
[2022-01-29] MEDS: PANTOPRAZOLE 40 MG TABLET PO (08:37)
[2022-01-29 14:00] VITALS: BP 97/60; PULSE 86; RESP 16; TEMP 36.4; O2SAT 97
--- NOTE | 2022-01-29 14:08 | PC.NURSE ---
Report to MD that pt BP is soft. Will look at chart and let me know if we need any further interventions.
[2022-01-29] MEDS: SODIUM CHLORIDE 0.9% IV 1,000 ML 250 ML IV CONT (14:36)
--- NOTE | 2022-01-29 15:36 | PC.NURSE ---
Per Dr. Wall, pt seen over the weekend. Can be seen outpatient for further care.
[2022-01-29] MEDS: QUEtiapine FUMARATE 25 MG TABLET PO (21:28)
[2022-01-29] MEDS: ATORVASTATIN 40 MG TABLET 80 MG PO (21:28)
[2022-01-29 21:59] VITALS: BP 114/57; PULSE 71; RESP 18; TEMP 36; O2SAT 97
--- NOTE | 2022-01-30 00:26 | PC.NURSE ---
Pt is confused again today. Pt would like to go to the dentist and thinks we are able to make that appointment for him. Pt cooperative with care. Will continue to monitor pt.
[2022-01-30] MEDS: KCL 20 MEQ/0.45% NS 1,000 ML 100 ML IV CONT ×2 (05:05→17:19)
[2022-01-30 06:00] VITALS: BP 112/60; PULSE 66; RESP 18; TEMP 36.2; O2SAT 99
[2022-01-30 06:31] LABS: Hematocrit 35.4 % (42.0-52.0); Hemoglobin 11.6 g/dL (14.0-18.0); Mean Corpuscular HGB Conc 32.8 g/dl (32-36); Mean Corpuscular Hemoglobin 30.2 pg (26-34); Mean Corpuscular Volume 92.2 fl (80-100); Platelet Count Result 215 k/mm3 (150-375); Red Blood Count 3.84 M/mm3 (4.6-6.20); Red Cell Distribution Width 13.8 % (11.5-14.5); White Blood Count 8.5 K/mm3 (4.5-10.0)
[2022-01-30 06:46] LABS: Alanine Aminotransferase 29 U/L (6-50); Albumin Level 2.9 g/dL (3.5-5.1); Alkaline Phosphatase 79 U/L (38-126); Anion Gap 8 mmol/L (8-16); Aspartate Amino Transferase 38 U/L (17-59); Bilirubin,Total 0.3 mg/dL (0.2-1.3); Blood Urea Nitrogen 8 mg/dL (9-20); Carbon Dioxide 22 mmol/L (22-30); Chloride 108 mmol/L (98-107); Estimated CRCL calculation 80 ml/min; Estimated Glomerular Filt Rate > 60; Glucose 101 mg/dL (65-110); Magnesium 1.9 mg/dL (1.6-2.3); Phosphorus 3.4 mg/dL (2.5-4.5); Potassium 3.4 mmol/L (3.4-5.0); Sodium 138 mmol/L (137-145)
[2022-01-30] MEDS: MULTIVITAMINS THERAPEUTIC TAB (*BKC) 1 TABLET PO (09:26)
[2022-01-30] MEDS: ENOXAPARIN 80 MG/0.8 ML SYRINGE SUB-Q ×2 (09:27→20:31)
[2022-01-30] MEDS: TAMSULOSIN HCL 0.4 MG CAPSULE PO (09:27)
[2022-01-30] MEDS: ASPIRIN 81 MG CHEWABLE TABLET PO (09:27)
[2022-01-30] MEDS: PANTOPRAZOLE 40 MG TABLET PO (09:27)
[2022-01-30] MEDS: FERROUS SULFATE 324 MG TABLET PO (09:27)
[2022-01-30 14:00] VITALS: BP 105/69; PULSE 82; RESP 16; TEMP 36.6; O2SAT 99
--- NOTE | 2022-01-30 15:39 | WPDUROPN2 ---
Progress Note: A&P Assessment and Plan (1) Urinary retention: Code(s): R33.9 - Retention of urine, unspecified Status: Acute Assessment and Plan: Keep blanton in place, it is unclear as to the residual when blanton was inserted. (2) Urinary tract infection due to Proteus: Code(s): N39.0 - Urinary tract infection, site not specified; B96.4 - Proteus (mirabilis) (morganii) as the cause of diseases classified elsewhere Status: Acute Assessment and Plan: Continue IV Ceftriaxone. (3) Bilateral hydronephrosis: Code(s): N13.30 - Unspecified hydronephrosis Status: Acute Assessment and Plan: No imaging done to confirm resolution of hydro s/p catheter placement. Plan to get a ELSIE to see if hydro is improved or resolved. 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 Obtain Consent: Cystoscopy, possible bilateral retrograde pyelogram, possible bilateral stent placement. Subjective Subjective Date/Time Seen: 01/30/22 15:39 The patient's urine culture resulted with growth of Proteus, however his WBC is stable at 8.5, creatinine is 0.70. He is afebrile, but urine in catheter that was placed is bloody and draining to gravity. A CT scan per Dr. Hilario consult note was recommended with contrast to rule out a enterovesicular fistula. The repeat CT scan on 01/28/22 shows: Motion limited examination. Exam further limited by the lack of positive GI or contrast. Severe cystitis. Distal colitis/proctitis. Ascending infection, with likely left-sided and possibly bilateral pyelonephritis. Subtle loss of the fat plane between the sigmoid and the right posterior lateral aspect of the bladder. Review of Systems Cardiovascular: Cardiovascular: Reports no additional cardiovascular complaints Respiratory: Respiratory: Reports no additional respiratory complaints Gastrointestinal: Gastrointestinal: Denies abdominal pain, Denies nausea and Denies vomiting Genitourinary: Genitourinary: Reports hematuria and Denies flank pain Exam Const: General: cooperative Resp: Effort & Inspection: normal respiratory effort Cardio: Rate: regular rate GI: GI Palp: Yes Soft to palpation and No Tenderness to palpation present (GI) : General: Yes no CVA tenderness Meatus: meatus normal Urinary Catheter: Urinary Catheter: patent and draining, urine red and urine with clots Objective Data Vital Signs Vital Signs: Vital Signs - 24 hr 01/29/22 21:59 01/29/22 21:28 01/30/22 06:00 Temperature 96.8 F L 97.1 F L Pulse Rate 71 66 Respiratory Rate 18 18 Blood Pressure 114/57 L 112/60 Pulse Oximetry 97 99 Oxygen Delivery Room Air 01/30/22 14:00 Temperature 97.9 F Pulse Rate 82 Respiratory Rate 16 Blood Pressure 105/69 Pulse Oximetry 99 Oxygen Delivery Intake/Output Intake/Output: Intake & Output 01/27/22 01/28/22 01/29/22 01/30/22 23:59 23:59 23:59 23:59 Intake Total 2650 3120 3570 5240 Output Total 1300 1850 4075 2650 Balance 1350 1270 -505 2590 Meds/Results Medications: Active Medications Generic Name Dose Route Start Last Admin Trade Name Freq PRN Reason Stop Dose Admin Acetaminophen 650 mg 01/26/22 00:28 Acetaminophen 325 Mg Tablet PO Q4H PRN Pain (Scale Score 1-3) Apixaban 5 mg 01/26/22 00:30 01/26/22 01:32 Apixaban 5 Mg Tablet PO Not Given Q12HR [facility] Aspirin 81 mg 01/26/22 08:00 01/30/22 09:27 Aspirin 81 Mg Chewable Tablet PO 81 mg DAILY@0800 LUI Administration Atorvastatin Calcium 80 mg 01/26/22 00:45 01/29/22 21:28 Atorvastatin 40 Mg Tablet PO 80 mg HS LUI Administration Enoxaparin Sodium 80 mg 01/26/22 09:00 01/30/22 09:27 Enoxaparin 80 Mg/0.8 Ml Syringe SUB-Q 80 mg Q12HR LUI Administration Ferrous Sulfate 324 mg 01/26/22 08:00 01/30/22 09:27 Ferrous Sulfate 324 Mg Tablet P
[2022-01-30] MEDS: ATORVASTATIN 40 MG TABLET 80 MG PO (20:31)
[2022-01-30] MEDS: QUEtiapine FUMARATE 25 MG TABLET PO (20:31)
[2022-01-30 22:00] VITALS: BP 122/69; PULSE 71; RESP 18; TEMP 36.2; O2SAT 99
[2022-01-31] VITALS (10 sets, daily range): BP systolic 113–132; BP diastolic 55–74; PULSE 64–80; RESP 12–24; TEMP 36.1–37.1; O2SAT 98–100
[2022-01-31 06:45] LABS: Hematocrit 37.9 % (42.0-52.0); Hemoglobin 12.1 g/dL (14.0-18.0); Mean Corpuscular HGB Conc 31.9 g/dl (32-36); Mean Corpuscular Hemoglobin 29.4 pg (26-34); Mean Platelet Volume 10.5 fl (7.4-10.4); Platelet Count Result 247 k/mm3 (150-375); Red Blood Count 4.12 M/mm3 (4.6-6.20); Red Cell Distribution Width 13.7 % (11.5-14.5); White Blood Count 9.1 K/mm3 (4.5-10.0)
[2022-01-31 06:55] LABS: Alanine Aminotransferase 32 U/L (6-50); Albumin Level 3.4 g/dL (3.5-5.1); Alkaline Phosphatase 85 U/L (38-126); Anion Gap 7 mmol/L (8-16); Aspartate Amino Transferase 41 U/L (17-59); Bilirubin,Total 0.5 mg/dL (0.2-1.3); Blood Urea Nitrogen 8 mg/dL (9-20); Calcium 8.6 mg/dL (8.4-10.2); Carbon Dioxide 22 mmol/L (22-30); Chloride 107 mmol/L (98-107); Estimated CRCL calculation 80 ml/min; Estimated Glomerular Filt Rate > 60; Glucose 95 mg/dL (65-110); Magnesium 2.1 mg/dL (1.6-2.3); Phosphorus 3.6 mg/dL (2.5-4.5); Potassium 3.6 mmol/L (3.4-5.0); Sodium 136 mmol/L (137-145)
--- NOTE | 2022-01-31 10:33 | WPDHPUPDATE1 ---
History and Physical Update Update Date/Time: 01/31/22 10:33 History and Physical has been reviewed, including an updated exam of the patient. There are NO changes in the patient's condition. Risks, benefits, and alternatives have been discussed and questions answered. Patient agrees to proceed with procedure. Proceed with cysto with possible bilateral retrogrades and bilateral stent placements
--- NOTE | 2022-01-31 10:47 | PCNWS ---
Weekly nutritional screen. Patient was tolerating a regular diet with adequate intake at 75-100%. NPO this morning for a test. No weight loss reported. No nutritional needs at this time.
[2022-01-31] MEDS: LACTATED RINGERS 1,000 ML 30 ML IV CONT (11:40)
--- NOTE | 2022-01-31 11:49 | WPDANESEPPF ---
Anes - Initial Pre Proc Eval Procedure: Operation Date: 01/31/22 13:00 Proposed Procedures p Cystoscopy,Possible Bilateral Retrograde Pyelogram - Krisitan Beltran MD Date/Time: 01/31/22 11:49 Surgeon: Claudia Pelaez MD Pre Op Diagnosis: Severe Sepsis, UTI, ureterovescular fistula Patient Data Age: 76 Gender: M Height: 1.8 m Weight: 89 kg Last Vital Signs Temp 37.1 C 01/31/22 11:41 Pulse 76 01/31/22 11:41 Resp 16 01/31/22 11:41 BP 113/55 L 01/31/22 11:41 Pulse Ox 99 01/31/22 11:41 O2 Del Method Room Air 01/31/22 11:41 Allergies Allergy/AdvReac Type Severity Reaction Status Date / Time No Known Allergies Allergy Verified 10/29/21 10:52 Home Medications Medication Instructions Recorded Confirmed Type acetaminophen 325 mg tablet 650 mg PO Q4H PRN Pain (Scale 09/04/20 01/25/22 History (Tylenol) Score 1-3) atorvastatin 80 mg tablet 80 mg PO HS 09/04/20 01/25/22 History potassium chloride 20 mEq 20 meq PO BID 09/04/20 01/25/22 History tablet,extended release sennosides 8.6 mg tablet (senna) 8.6 mg PO BID PRN Constipation 09/04/20 01/25/22 History multivitamin with folic acid 400 1 tablet PO QAM #30 tabs 09/14/20 01/25/22 Rx mcg tablet (Thera) ergocalciferol (vitamin D2) 1,250 50,000 unit PO WEEKLY@0900 #7 caps 10/15/20 01/25/22 Rx mcg (50,000 unit) capsule (Vitamin D2) ferrous sulfate 324 mg (65 mg 324 mg PO DAILY 12/06/20 01/25/22 History iron) tablet,delayed release mirtazapine 15 mg tablet (Remeron) 7.5 mg PO HS 12/06/20 01/25/22 History quetiapine 25 mg tablet (Seroquel) 25 mg PO HS 30 days #30 tabs 12/14/20 01/25/22 Rx apixaban 5 mg tablet (Eliquis) 5 mg PO Q12H 03/13/21 01/25/22 History aspirin 81 mg chewable tablet 81 mg PO DAILY 03/13/21 01/25/22 History polyethylene glycol 3350 17 gram 17 g PO DAILY PRN Constipation 03/20/21 01/25/22 History oral powder packet (Miralax) hydrocodone 5 mg-acetaminophen 325 1 tablet PO Q8H PRN Pain Rated 4-6 03/23/21 01/25/22 Rx mg tablet #12 tabs pantoprazole 40 mg tablet,delayed 40 mg PO QAM #30 tabs 03/23/21 01/25/22 Rx release Laboratory Tests 01/31/22 01/31/22 05:56 05:57 WBC 9.1 K/mm3 K/mm3 (4.5-10.0) RBC 4.12 M/mm3 L M/mm3 (4.6-6.20) Hgb 12.1 g/dL L g/dL (14.0-18.0) Hct 37.9 % L % (42.0-52.0) MCV 92.0 fl fl (80-100) MCH 29.4 pg pg (26-34) MCHC 31.9 g/dl L g/dl (32-36) RDW 13.7 % % (11.5-14.5) Plt Count 247 k/mm3 k/mm3 (150-375) MPV 10.5 fl H fl (7.4-10.4) Sodium 136 mmol/L L mmol/L (137-145) Potassium 3.6 mmol/L mmol/L (3.4-5.0) Chloride 107 mmol/L mmol/L (98-107) Carbon Dioxide 22 mmol/L mmol/L (22-30) Anion Gap 7 mmol/L L mmol/L (8-16) BUN 8 mg/dL L mg/dL (9-20) Creatinine 0.70 mg/dL mg/dL (0.7-1.3) Estim Creat Clear Calc 80 ml/min ml/min Estimated GFR > 60 (59 - ) Glucose 95 mg/dL mg/dL (65-110) Calcium 8.6 mg/dL mg/dL (8.4-10.2) Phosphorus 3.6 mg/dL mg/dL (2.5-4.5) Magnesium 2.1 mg/dL mg/dL (1.6-2.3) Total Bilirubin 0.5 mg/dL mg/dL (0.2-1.3) AST 41 U/L U/L (17-59) ALT 32 U/L U/L (6-50) Alkaline Phosphatase 85 U/L U/L (38-126) Total Protein 7.0 g/dL g/dL (6.3-8.2) Albumin 3.4 g/dL L g/dL (3.5-5.1) Patient hx anesthesia problems: none Family hx anesthesia problems: none Results Review: All pre-operative results and documents have been reviewed as part of the pre-operative evaluation. [facility] Past Medical History Medical History Acute cholecystitis (09/2020) Treated with antibiotics and cholecystostomy tube. 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
--- NOTE | 2022-01-31 12:50 | PCPTNOTE ---
The patient treatment was not able to be completed today due to out of room for procedure. Will plan to continue treatment per plan of care.
[2022-01-31] MEDS: LIDOCAINE HCL 2% GEL UROJET 10 ML PKG MUCOUS MEM (13:24)
--- NOTE | 2022-01-31 13:28 | P.OP_ITS ---
Procedure Note - Detailed Date of Procedure 01/31/22 Pre-op Diagnosis Severe Sepsis, UTI, Post-op Diagnosis Same Procedure Performed Cystoscopy, bilateral retrograde pyelograms, Ness exchange Surgeon Kristian Beltran MD Anesthesia General Description of Procedure Patient is taken the operative suite correctly identified. Once anesthesia was obtained was placed in dorsal lithotomy position and prepped draped usual sterile fashion. The prior Ness was removed removed. He does have a urethral erosion just proximal to the coronal ridge. We placed a 22 [place] scope into the bladder direct vision. There are no urethral strictures. The prostate has some mild lateral lobe hypertrophy. Upon entering the bladder there was no tumors noted. I did not see any form of fistula. There was typical catheter irritation. The left ureteral orifice was cannulated with a [place] a pyelogram was performed. There was no evidence of hydronephrosis. The right jesu trigone was somewhat raised. We needed to get an angled Glidewire in order to advance it into the orifice to advance the [place]. Pyelogram was then also performed. There was no evidence of ureteral dilatation. Contrast made its way all up to the collecting system. The calices were not dilated. He does have somewhat of a prominent extrarenal pelvis. [place] was removed. Efflux was seen coming from the right ureteral orifice. Given his normal renal function we did not leave any stents at this time. 2% viscous lidocaine was inserted into the urethra and a 16 [place] Ness was placed with 10 cc in the balloon. Patient was taken recovery stable condition. At 1 point time he was getting monthly catheter changes will need to see if that is still occurring. Estimated Blood Loss 0 Urine Output 500 Drains Yes Packing No Pathology None sent Complications No immediate complications Condition Stable Disposition PACU
--- NOTE | 2022-01-31 14:56 | P.PNIM_ITS ---
Progress Note: A&P Assessment and Plan (1) Septic shock: Code(s): A41.9 - Sepsis, unspecified organism; R65.21 - Severe sepsis with septic shock Status: Acute (2) Bacteremia due to Proteus species: Code(s): R78.81 - Bacteremia; B96.4 - Proteus (mirabilis) (morganii) as the cause of diseases classified elsewhere Status: Acute (3) Urinary tract infection due to Proteus: Code(s): N39.0 - Urinary tract infection, site not specified; B96.4 - Proteus (mirabilis) (morganii) as the cause of diseases classified elsewhere Status: Acute (4) Urinary retention: Code(s): R33.9 - Retention of urine, unspecified Status: Acute (5) Acute kidney injury: Code(s): N17.9 - Acute kidney failure, unspecified Status: Acute (6) Bilateral hydronephrosis: Code(s): N13.30 - Unspecified hydronephrosis Status: Acute (7) Hypokalemia: Code(s): E87.6 - Hypokalemia Status: Acute (8) Abnormal computed tomography of abdomen and pelvis: Code(s): R93.5 - Abnormal findings on diagnostic imaging of other abdominal regions, including retroperitoneum Status: Acute (9) Metabolic encephalopathy: Code(s): G93.41 - Metabolic encephalopathy Status: Acute (10) Hyperlipidemia: Code(s): E78.5 - Hyperlipidemia, unspecified Status: Acute (11) History of cerebrovascular accident: Code(s): Z86.73 - Personal history of transient ischemic attack (TIA), and cerebral infarction without residual deficits Status: Chronic (12) Hemiplegia affecting right dominant side: Qualifiers: Hemiplegia type: flaccid Hemiplegia etiology: late effect of cerebrovascular disease Cerebrovascular disease type: cerebral infarction Qualified Code(s): I69.351 - 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 side Code(s): G81.91 - Hemiplegia, unspecified affecting right dominant side Status: Chronic (13) Chronic anticoagulation: Code(s): Z79.01 - skilled nursing (current) use of anticoagulants Status: Chronic (14) Colonic mass: Code(s): K63.89 - Other specified diseases of intestine Status: Acute (15) Chronic indwelling Ness catheter: Code(s): Z97.8 - Presence of other specified devices Status: Chronic (16) Catheter-associated urinary tract infection: Code(s): T83.511A - Infection and inflammatory reaction due to indwelling urethral catheter, initial encounter; N39.0 - Urinary tract infection, site not specified Status: Acute (17) Adenocarcinoma of sigmoid colon: Code(s): C18.7 - Malignant neoplasm of sigmoid colon Status: Chronic Plan 01/26/22 Severe sepsis secondary to UTI.? CT scan showed bilateral hydronephrosis likely from urinary obstruction Ness was changed Blood and urine culture sent Continue empiric imipenem Patient was given volume resuscitation and has clinically improved Urine output is good He has not required any vasopressors Bilateral hydronephrosis secondary to bladder obstruction which was resolved by replacing Ness Patient was evaluated by Urology. Since his creatinine has improved, will order CT scan of abdomen pelvis with IV and p.o. contrast Patient clinically improved and creatinine has normalized Secondary to sepsis and obstruction Improved with IV fluids and changing of Ness catheter Creatinine has now normalized Monitor urine output electrolytes and creatinine Change IV fluids to half normal saline with potassium Repeat BMP lat
[2022-01-31] MEDS: ATORVASTATIN 40 MG TABLET 80 MG PO (20:23)
[2022-01-31] MEDS: QUEtiapine FUMARATE 25 MG TABLET PO (20:25)
[2022-01-31] MEDS: ENOXAPARIN 80 MG/0.8 ML SYRINGE SUB-Q (20:25)
[2022-02-01] VITALS (7 sets, daily range): BP systolic 91–142; BP diastolic 34–75; PULSE 65–90; RESP 12–16; TEMP 36.2–37; O2SAT 98–100
[2022-02-01] MEDS: KCL 20 MEQ/0.45% NS 1,000 ML 100 ML IV CONT ×2 (04:55→16:10)
[2022-02-01] MEDS: FERROUS SULFATE 324 MG TABLET PO (08:09)
[2022-02-01] MEDS: ASPIRIN 81 MG CHEWABLE TABLET PO (08:09)
[2022-02-01] MEDS: PANTOPRAZOLE 40 MG TABLET PO (08:09)
[2022-02-01] MEDS: TAMSULOSIN HCL 0.4 MG CAPSULE PO (08:09)
[2022-02-01] MEDS: MULTIVITAMINS THERAPEUTIC TAB (*BKC) 1 TABLET PO (08:10)
[2022-02-01] MEDS: ENOXAPARIN 80 MG/0.8 ML SYRINGE SUB-Q ×2 (08:10→20:52)
--- NOTE | 2022-02-01 13:11 | WPDANESPN ---
Anes - Prog Note Post-Op Date/Time: 02/01/22 13:11 Cardiovascular status: normal Respiratory status: normal Airway patency: baseline Mental status: baseline Post-Op hydration status: normal Vital Signs: Last Vital Signs Temp 36.5 C 02/01/22 08:00 Pulse 76 02/01/22 08:00 Resp 16 02/01/22 08:00 BP 131/59 L 02/01/22 08:00 Pulse Ox 100 02/01/22 08:00 O2 Del Method Room Air 01/31/22 20:00 O2 Flow Rate 8 01/31/22 13:33 Pain Score (VAS): 05/30 I/O: Intake & Output 01/31/22 02/01/22 02/01/22 23:59 07:59 15:59 Intake Total 50 1010 Output Total 550 Balance -067 38 9123 Laboratory Tests 01/31/22 05:56 01/31/22 05:57 Post-procedural complaints: none Patient Feedback: Patient satisfied with anesthetic care.
[2022-02-01] MEDS: QUEtiapine FUMARATE 25 MG TABLET PO (20:51)
[2022-02-01] MEDS: ATORVASTATIN 40 MG TABLET 80 MG PO (20:51)
[2022-02-02] MEDS: KCL 20 MEQ/0.45% NS 1,000 ML 100 ML IV CONT ×2 (04:08→14:07)
[2022-02-02 05:00] VITALS: BP 118/50; PULSE 62; RESP 16; TEMP 36.7; O2SAT 97
[2022-02-02] MEDS: TAMSULOSIN HCL 0.4 MG CAPSULE PO (08:06)
[2022-02-02] MEDS: PANTOPRAZOLE 40 MG TABLET PO (08:06)
[2022-02-02] MEDS: MULTIVITAMINS THERAPEUTIC TAB (*BKC) 1 TABLET PO (08:06)
[2022-02-02] MEDS: ENOXAPARIN 80 MG/0.8 ML SYRINGE SUB-Q ×2 (08:06→20:24)
[2022-02-02] MEDS: ASPIRIN 81 MG CHEWABLE TABLET PO (08:06)
[2022-02-02] MEDS: FERROUS SULFATE 324 MG TABLET PO (08:07)
[2022-02-02 09:00] VITALS: BP 109/62; PULSE 70; RESP 20; TEMP 36.2; O2SAT 98
[2022-02-02 13:00] VITALS: BP 113/59; PULSE 91; RESP 18; TEMP 36.2; O2SAT 100
--- NOTE | 2022-02-02 13:55 | PM.IMPN ---
Progress Note: A&P Assessment and Plan (1) Septic shock: Code(s): A41.9 - Sepsis, unspecified organism; R65.21 - Severe sepsis with septic shock Status: Acute (2) Bacteremia due to Proteus species: Code(s): R78.81 - Bacteremia; B96.4 - Proteus (mirabilis) (morganii) as the cause of diseases classified elsewhere Status: Acute (3) Urinary tract infection due to Proteus: Code(s): N39.0 - Urinary tract infection, site not specified; B96.4 - Proteus (mirabilis) (morganii) as the cause of diseases classified elsewhere Status: Acute (4) Urinary retention: Code(s): R33.9 - Retention of urine, unspecified Status: Acute (5) Acute kidney injury: Code(s): N17.9 - Acute kidney failure, unspecified Status: Acute (6) Bilateral hydronephrosis: Code(s): N13.30 - Unspecified hydronephrosis Status: Acute (7) Hypokalemia: Code(s): E87.6 - Hypokalemia Status: Acute (8) Abnormal computed tomography of abdomen and pelvis: Code(s): R93.5 - Abnormal findings on diagnostic imaging of other abdominal regions, including retroperitoneum Status: Acute (9) Metabolic encephalopathy: Code(s): G93.41 - Metabolic encephalopathy Status: Acute (10) Hyperlipidemia: Code(s): E78.5 - Hyperlipidemia, unspecified Status: Acute (11) History of cerebrovascular accident: Code(s): Z86.73 - Personal history of transient ischemic attack (TIA), and cerebral infarction without residual deficits Status: Chronic (12) Hemiplegia affecting right dominant side: Qualifiers: Hemiplegia type: flaccid Hemiplegia etiology: late effect of cerebrovascular disease Cerebrovascular disease type: cerebral infarction Qualified Code(s): I69.351 - 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 side Code(s): G81.91 - Hemiplegia, unspecified affecting right dominant side Status: Chronic (13) Chronic anticoagulation: Code(s): Z79.01 - [facility] (current) use of anticoagulants Status: Chronic (14) Colonic mass: Code(s): K63.89 - Other specified diseases of intestine Status: Acute (15) Chronic indwelling Ness catheter: Code(s): Z97.8 - Presence of other specified devices Status: Chronic (16) Catheter-associated urinary tract infection: Code(s): T83.511A - Infection and inflammatory reaction due to indwelling urethral catheter, initial encounter; N39.0 - Urinary tract infection, site not specified Status: Acute (17) Adenocarcinoma of sigmoid colon: Code(s): C18.7 - Malignant neoplasm of sigmoid colon Status: Chronic Plan 01/26/22 Severe sepsis secondary to UTI.? CT scan showed bilateral hydronephrosis likely from urinary obstruction Ness was changed Blood and urine culture sent Continue empiric imipenem Patient was given volume resuscitation and has clinically improved Urine output is good He has not required any vasopressors Bilateral hydronephrosis secondary to bladder obstruction which was resolved by replacing Ness Patient was evaluated by Urology. Since his creatinine has improved, will order CT scan of abdomen pelvis with IV and p.o. contrast Patient clinically improved and creatinine has normalized Secondary to sepsis and obstruction Improved with IV fluids and changing of Ness catheter Creatinine has now normalized Monitor urine output electrolytes and creatinine Change IV fluids to half normal saline with potassium Repeat BMP later today Patient is pleasantly confused.? Baseline unknown CT scan shows chronic age-related changes and he has history of CVA Nonfocal exam Monitor Avoid sedatives Patient is on Eliquis.? He is unable to provide any meaningful history but I suspected secondary to DVT that is listed in his past medical history I will change it to Lovenox subQ since patient may need surgical intervention in case
[2022-02-02 19:36] VITALS: BP 135/58; PULSE 78; RESP 16; TEMP 36.4; O2SAT 98
[2022-02-02] MEDS: ATORVASTATIN 40 MG TABLET 80 MG PO (20:23)
[2022-02-02] MEDS: QUEtiapine FUMARATE 25 MG TABLET PO (20:24)
[2022-02-02 23:39] VITALS: BP 120/55; PULSE 74; RESP 16; TEMP 36.6; O2SAT 98
[2022-02-03] MEDS: KCL 20 MEQ/0.45% NS 1,000 ML 100 ML IV CONT ×3 (00:41→17:42)
[2022-02-03 05:00] VITALS: BP 120/78; PULSE 71; RESP 18; TEMP 36.4; O2SAT 98
[2022-02-03 06:36] LABS: Hematocrit 38.2 % (42.0-52.0); Hemoglobin 12.5 g/dL (14.0-18.0); Mean Corpuscular HGB Conc 32.7 g/dl (32-36); Mean Corpuscular Volume 91.6 fl (80-100); Mean Platelet Volume 9.7 fl (7.4-10.4); Platelet Count Result 362 k/mm3 (150-375); Red Blood Count 4.17 M/mm3 (4.6-6.20); Red Cell Distribution Width 13.8 % (11.5-14.5); White Blood Count 13.6 K/mm3 (4.5-10.0)
[2022-02-03 06:52] LABS: Anion Gap 9 mmol/L (8-16); Blood Urea Nitrogen 8 mg/dL (9-20); Calcium 8.6 mg/dL (8.4-10.2); Carbon Dioxide 27 mmol/L (22-30); Chloride 104 mmol/L (98-107); Estimated CRCL calculation 71 ml/min; Estimated Glomerular Filt Rate > 60; Glucose 107 mg/dL (65-110); Potassium 3.9 mmol/L (3.4-5.0); Sodium 140 mmol/L (137-145)
[2022-02-03] MEDS: ENOXAPARIN 80 MG/0.8 ML SYRINGE SUB-Q ×2 (08:15→20:33)
[2022-02-03] MEDS: TAMSULOSIN HCL 0.4 MG CAPSULE PO (08:15)
[2022-02-03] MEDS: ASPIRIN 81 MG CHEWABLE TABLET PO (08:15)
[2022-02-03] MEDS: PANTOPRAZOLE 40 MG TABLET PO (08:15)
[2022-02-03] MEDS: FERROUS SULFATE 324 MG TABLET PO (08:15)
[2022-02-03] MEDS: MULTIVITAMINS THERAPEUTIC TAB (*BKC) 1 TABLET PO (08:15)
[2022-02-03 15:50] VITALS: BP 128/65; PULSE 88; RESP 14; TEMP 36.9; O2SAT 93
[2022-02-03] MEDS: QUEtiapine FUMARATE 25 MG TABLET PO (20:33)
[2022-02-03] MEDS: ATORVASTATIN 40 MG TABLET 80 MG PO (20:33)
[2022-02-03 21:52] VITALS: BP 120/66; PULSE 74; RESP 20; TEMP 36.8; O2SAT 100
[2022-02-04 01:19] LABS: SARS-CoV-2 RNA PCR Negative
[2022-02-04] MEDS: KCL 20 MEQ/0.45% NS 1,000 ML 100 ML IV CONT (04:46)
[2022-02-04 05:27] VITALS: BP 120/64; PULSE 58; RESP 16; TEMP 36.9; O2SAT 98
[2022-02-04 06:24] LABS: Hematocrit 39.4 % (42.0-52.0); Hemoglobin 12.6 g/dL (14.0-18.0); Mean Corpuscular Hemoglobin 30.1 pg (26-34); Mean Platelet Volume 10.1 fl (7.4-10.4); Platelet Count Result 357 k/mm3 (150-375); Red Blood Count 4.19 M/mm3 (4.6-6.20); White Blood Count 8.8 K/mm3 (4.5-10.0)
[2022-02-04 06:41] LABS: Anion Gap 9 mmol/L (8-16); Blood Urea Nitrogen 8 mg/dL (9-20); Carbon Dioxide 27 mmol/L (22-30); Chloride 104 mmol/L (98-107); Estimated CRCL calculation 71 ml/min; Estimated Glomerular Filt Rate > 60; Glucose 93 mg/dL (65-110); Magnesium 1.9 mg/dL (1.6-2.3); Potassium 3.9 mmol/L (3.4-5.0); Sodium 140 mmol/L (137-145)
[2022-02-04] MEDS: ENOXAPARIN 80 MG/0.8 ML SYRINGE SUB-Q ×2 (08:29→20:30)
[2022-02-04] MEDS: ASPIRIN 81 MG CHEWABLE TABLET PO (08:30)
[2022-02-04] MEDS: TAMSULOSIN HCL 0.4 MG CAPSULE PO (08:30)
[2022-02-04] MEDS: FERROUS SULFATE 324 MG TABLET PO (08:30)
[2022-02-04] MEDS: MULTIVITAMINS THERAPEUTIC TAB (*BKC) 1 TABLET PO (08:31)
[2022-02-04] MEDS: PANTOPRAZOLE 40 MG TABLET PO (08:31)
--- NOTE | 2022-02-04 13:08 | PM.DS ---
DS: Admitting Diagnosis Discharge Date 02/04/2022 Admitting Diagnosis Altered mental status. DS: Discharge Diagnosis Discharge Diagnosis (1) Septic shock: Code(s): A41.9 - Sepsis, unspecified organism; R65.21 - Severe sepsis with septic shock Status: Acute (2) Bacteremia due to Proteus species: Code(s): R78.81 - Bacteremia; B96.4 - Proteus (mirabilis) (morganii) as the cause of diseases classified elsewhere Status: Acute (3) Urinary tract infection due to Proteus: Code(s): N39.0 - Urinary tract infection, site not specified; B96.4 - Proteus (mirabilis) (morganii) as the cause of diseases classified elsewhere Status: Acute (4) Urinary retention: Code(s): R33.9 - Retention of urine, unspecified Status: Acute (5) Acute kidney injury: Code(s): N17.9 - Acute kidney failure, unspecified Status: Acute (6) Bilateral hydronephrosis: Code(s): N13.30 - Unspecified hydronephrosis Status: Acute (7) Hypokalemia: Code(s): E87.6 - Hypokalemia Status: Acute (8) Abnormal computed tomography of abdomen and pelvis: Code(s): R93.5 - Abnormal findings on diagnostic imaging of other abdominal regions, including retroperitoneum Status: Acute (9) Metabolic encephalopathy: Code(s): G93.41 - Metabolic encephalopathy Status: Acute (10) Hyperlipidemia: Code(s): E78.5 - Hyperlipidemia, unspecified Status: Acute (11) History of cerebrovascular accident: Code(s): Z86.73 - Personal history of transient ischemic attack (TIA), and cerebral infarction without residual deficits Status: Chronic (12) Hemiplegia affecting right dominant side: Qualifiers: Hemiplegia type: flaccid Hemiplegia etiology: late effect of cerebrovascular disease Cerebrovascular disease type: cerebral infarction Qualified Code(s): I69.351 - 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 side Code(s): G81.91 - Hemiplegia, unspecified affecting right dominant side Status: Chronic (13) Chronic anticoagulation: Code(s): Z79.01 - long-term (current) use of anticoagulants Status: Chronic (14) Colonic mass: Code(s): K63.89 - Other specified diseases of intestine Status: Acute (15) Chronic indwelling Ness catheter: Code(s): Z97.8 - Presence of other specified devices Status: Chronic (16) Catheter-associated urinary tract infection: Code(s): T83.511A - Infection and inflammatory reaction due to indwelling urethral catheter, initial encounter; N39.0 - Urinary tract infection, site not specified Status: Acute (17) Adenocarcinoma of sigmoid colon: Code(s): C18.7 - Malignant neoplasm of sigmoid colon Status: Chronic Plan 01/26/22 Severe sepsis secondary to UTI.? CT scan showed bilateral hydronephrosis likely from urinary obstruction Ness was changed Blood and urine culture sent Continue empiric imipenem Patient was given volume resuscitation and has clinically improved Urine output is good He has not required any vasopressors Bilateral hydronephrosis secondary to bladder obstruction which was resolved by replacing Ness Patient was evaluated by Urology. Since his creatinine has improved, will order CT scan of abdomen pelvis with IV and p.o. contrast Patient clinically improved and creatinine has normalized Secondary to sepsis and obstruction Improved with IV fluids and changing of Ness catheter Creatinine has now normalized Monitor urine output electrolytes and creatinine Change IV fluids to half normal saline with potassium Repeat BMP later today Patient is pleasantly confused.? Baseline unknown CT scan shows chronic age-related changes and he has history of CVA Nonfocal exam Monitor Avoid sedatives Patient is on Eliquis.? He is unable to provide any meaningful history but I suspected secondary to DVT that is listed in his pa
[2022-02-04 14:00] VITALS: BP 118/72; PULSE 85; RESP 16; TEMP 36.2; O2SAT 97
[2022-02-04 14:38] LABS: EDCOVIDSCREEN Negative (Negative)
[2022-02-04] MEDS: QUEtiapine FUMARATE 25 MG TABLET PO (20:30)
[2022-02-04] MEDS: ATORVASTATIN 40 MG TABLET 80 MG PO (20:30)
== END 2022-02-04 21:00 | DRG 698 ==
LOC: ANHED 13:35 → ANHICU 15:15 → ANH3MEDSUR 01-27 09:30 → ANHICU 02-06 14:10
PROVIDERS: Internal Medicine; Physician Assistant; Urology; Admitting Provider Hospitalist; Emergency Provider Emergency Medicine; PCP Family Medicine; Visit Provider Family Medicine
PROC: 0TJB8ZZ Inspection of Bladder, Via Natural or Artificial Opening Endoscopic (ICD-10-PCS; CPT 52352; principal; 2022-01-31 13:00)
DX: T83.511A Infection and inflammatory reaction due to indwelling urethral catheter, initial encounter (principal); A41.59 Other Gram-negative sepsis; R65.21 Severe sepsis with septic shock; G93.41 Metabolic encephalopathy; N17.9 Acute kidney failure, unspecified; I69.351 Hemiplegia and hemiparesis following cerebral infarction affecting right dominant side; N13.30 Unspecified hydronephrosis; R33.9 Retention of urine, unspecified; N39.0 Urinary tract infection, site not specified; Z20.822 Contact with and (suspected) exposure to COVID-19; B96.4 Proteus (mirabilis) (morganii) as the cause of diseases classified elsewhere; E87.6 Hypokalemia; E78.5 Hyperlipidemia, unspecified; I10 Essential (primary) hypertension; G47.33 Obstructive sleep apnea (adult) (pediatric); D64.9 Anemia, unspecified; I69.319 Unspecified symptoms and signs involving cognitive functions following cerebral infarction; Z90.49 Acquired absence of other specified parts of digestive tract; Z79.01 Long term (current) use of anticoagulants; Z85.038 Personal history of other malignant neoplasm of large intestine; Z86.718 Personal history of other venous thrombosis and embolism; Z87.891 Personal history of nicotine dependence
CPT/HCPCS: 36415; 36600; 51702; 70450; 71045; 74176; 74177; 74420; 76775; 80048; 80053; 81001; 82375; 82565; 82805; 83050; 83605; 83735; 84100; 84443; 85025; 85027; 85610; 85730; 87040; 87077; 87086; 87088; 87186; 87426; 93005; 96365; 96375; 97110; 97161; 97166; 97530; 97535; 99285; A9270; C1758; C1769; C9803; G0378; J0692; J0696; J0743; J1650; J2405; J2704; J3010; J3370; J7030; J7120; Q9966; Q9967; U0003; U0005

== ENCOUNTER 2022-04-03 22:23 | Inpatient (IN) | payer MEDICARE, SELFPAY ==
--- NOTE | ~2022-04-03 | US_ITS ---
EXAMINATION: US renal BI DATE: 04/05/2022 11:45 INDICATION: Hematuria TECHNIQUE: Multiple ultrasound grayscale images of the kidneys were obtained. COMPARISON: None. FINDINGS: The right kidney measures 12.2 x 5.0 x 5.6 cm. The left kidney measures 4.0 x 5.6 x 5.4 cm. The kidne ys demonstrate normal echogenicity. Persistent mild caliectasis in the left kidney with no eleuterio hydr onephrosis in either kidney. No stones identified. The bladder is decompressed around a Ness cathet er which limits evaluation.. IMPRESSION: 1. Persistent mild caliectasis at the left kidney. 2. Normal right kidney. Reviewed, dictated and finalized at location A. 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
[2022-04-03 22:28] VITALS: BP 124/103; PULSE 78; RESP 20; TEMP 36.4; O2SAT 98
--- NOTE | 2022-04-03 22:45 | ED.MALEGU ---
HPI - Male Genitourinary General Chief complaint: Urogenital-Male Stated complaint: lac below penis- cath pulled out clots present Time Seen by Provider: 04/03/22 22:30 Source: patient Mode of arrival: ambulatory Limitations: no limitations History of Present Illness HPI Narrative: 76-year-old [facility] from [facility] presents today with concerns for bleeding from his urethra. Patient has a chronic Ness which was removed by nursing staff at the facility today. After removal they noted blood had sent the patient here. Patient does have a history of UTIs and has had a chronic Ness for a long time now. Also noted to the ventral side of the penis there is what appears to be a chronic ulceration. No active bleeding from that ulceration but blood is noted coming out of the tip of the urethra and the ulceration. Related Data Home Medications Medication Instructions Recorded Confirmed acetaminophen 325 mg tablet 650 mg PO Q4H PRN Pain (Scale 09/04/20 01/25/22 (Tylenol) Score 1-3) atorvastatin 80 mg tablet 80 mg PO HS 09/04/20 01/25/22 potassium chloride 20 mEq 20 meq PO BID 09/04/20 01/25/22 tablet,extended release sennosides 8.6 mg tablet (senna) 8.6 mg PO BID PRN Constipation 09/04/20 01/25/22 ferrous sulfate 324 mg (65 mg 324 mg PO DAILY 12/06/20 01/25/22 iron) tablet,delayed release mirtazapine 15 mg tablet (Remeron) 7.5 mg PO HS 12/06/20 01/25/22 apixaban 5 mg tablet (Eliquis) 5 mg PO Q12H 03/13/21 01/25/22 aspirin 81 mg chewable tablet 81 mg PO DAILY 03/13/21 01/25/22 polyethylene glycol 3350 17 gram 17 g PO DAILY PRN Constipation 03/20/21 01/25/22 oral powder packet (Miralax) Allergies Allergy/AdvReac Type Severity Reaction Status Date / Time No Known Allergies Allergy Verified 10/29/21 10:52 Review of Systems Review of Systems: CONSTITUTIONAL: Denies fever, chills, or sweats. EYES: Denies visual changes, redness, or discharge. ENT: Denies rhinorrhea, congestion, sore throat, or otalgia. CARDIOVASCULAR: Denies chest pain, palpitations, or edema. RESPIRATORY: Denies cough or dyspnea. GASTROINTESTINAL: Denies abdominal pain, nausea, vomiting, or diarrhea. GENITOURINARY: Hematuria after Ness removed at [facility]. SKIN: Denies rash or itching. [facility] Past Medical History Medical History Acute cholecystitis (09/2020) Treated with antibiotics and cholecystostomy tube. 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 Patient has resultant right hemiplegia and cognitive deficit. 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 Normal cardiac stress test (01/2021) Obstructive sleep apnea Intolerant to CPAP. Right femoral vein DVT Right hemiplegia Surgical History Surgical History History of cystoscopy (09/2020) With clot evacuation per Dr. Snyder. History of open reduction and internal fixation (ORIF) procedure Left ankle fracture. History of partial colectomy (03/20/21) And excess laparoscopic left colon resection with hand-sewn end-to-end anastomosis for colon cancer per Dr. Connolly. History of tonsillectomy History of vasectomy Hx laparoscopic cholecystectomy S/P laparoscopic-assisted sigmoidectomy Family History Family History Mother Unknown family medical history Lung cancer Father Myocardial infarct Social History Social History Social History: Healthcare power of sprinkler inspector: Abel Vergara, son. Code status: Full code. Smoking packs per day: 1.5 Smoking cigarett
[2022-04-03 23:02] LABS: Basophils Absolute Auto 0.1 K/mm3 (0.0-0.1); Basophils Percent Auto 0.6 % (0.2-1.2); Eosinophils Absolute Auto 0.3 K/mm3 (0-0.3); Eosinophils Percent Auto 3.2 % (0-4.4); Hemoglobin 13.9 g/dL (14.0-18.0); Immature Granulocyte Absolute 0.03 K/mm3 (0.00-0.031); Immature Granulocyte Percent A 0.4 % (0-0.5); Lymphocytes Absolute Auto 2.64 K/mm3 (0.9-3.2); Lymphocytes Percent Auto 32.4 % (18.3-44.2); Mean Corpuscular HGB Conc 32.3 g/dl (32-36); Mean Corpuscular Hemoglobin 30.1 pg (26-34); Mean Corpuscular Volume 93.1 fl (80-100); Mean Platelet Volume 10.1 fl (7.4-10.4); Monocytes Absolute Auto 0.8 K/mm3 (0.1-0.6); Monocytes Percent Auto 9.3 % (2.6-8.5); Neutrophils Absolute Auto 4.4 K/mm3 (1.3-6.7); Neutrophils Percent Auto 54.1 % (45.5-73.1); Platelet Count Result 224 k/mm3 (150-375); Red Blood Count 4.62 M/mm3 (4.6-6.20); Red Cell Distribution Width 14.3 % (11.5-14.5); White Blood Count 8.1 K/mm3 (4.5-10.0)
[2022-04-03 23:15] LABS: Alanine Aminotransferase 19 U/L (6-50); Albumin Level 4.2 g/dL (3.5-5.1); Alkaline Phosphatase 105 U/L (38-126); Anion Gap 7 mmol/L (8-16); Aspartate Amino Transferase 27 U/L (17-59); Bilirubin,Total 0.6 mg/dL (0.2-1.3); Blood Urea Nitrogen 15 mg/dL (9-20); Calcium 9.3 mg/dL (8.4-10.2); Carbon Dioxide 28 mmol/L (22-30); Chloride 104 mmol/L (98-107); Estimated CRCL calculation 65 ml/min; Estimated Glomerular Filt Rate > 60; Glucose 105 mg/dL (65-110); Potassium 3.9 mmol/L (3.4-5.0); Sodium 139 mmol/L (137-145)
[2022-04-03 23:17] LABS: INR 1.2
[2022-04-03 23:19] LABS: Partial Thromboplastin Time 37.1 SECONDS (22.3-36.8)
[2022-04-03] MEDS: LIDOCAINE HCL 2% GEL UROJET 10 ML PKG (23:30)
[2022-04-03 23:31] VITALS: BP 131/69; PULSE 82; RESP 18; O2SAT 100
[2022-04-03 23:46] LABS: Add Urine Microscopic? YES; Bilirubin Urine Negative (Negative); Blood Urine 2+ (Negative); Color Urine Light Yellow (Yellow); Glucose Urine UA Negative (Negative); Ketones Urine Negative (Negative); Leukocyte Esterase Ur 3+ LEU/UL (Negative); Nitrate Urine Positive (Negative); Protein Urine Negative (Negative); Urobilinogen Urine 0.2 mg/dL (<2.0); pH Urine 7.5 (5.0-9.0)
[2022-04-03 23:47] VITALS: BP 96/46; PULSE 90; RESP 24
[2022-04-04] VITALS (26 sets, daily range): BP systolic 96–165; BP diastolic 50–142; PULSE 88–116; RESP 13–27; TEMP 37.9–38.2; O2SAT 97–100; BMI 27.1
[2022-04-04 00:08] LABS: Bacteria Urine Trace /hpf; RBC Urine 21-50 /hpf (0-2); WBC Urine >75 /hpf
--- NOTE | 2022-04-04 00:08 | PC.NURSE ---
[facility] staff report no urine output from chronic indwelling blanton. Staff removed blanton in attempt to change it, but when she removed it, blood started squirting out . Upon arrival moderate amount of blood noted in depends. He does take eliquis. 22Fr 3-way blanton placed in anticipation for CBI. Large blood clot drained from bladder. Urine sample obtained and sent to lab. No more bleeding noted from penis.
[2022-04-04 00:10] LABS: Appearance Urine Cloudy (Clear)
--- NOTE | 2022-04-04 01:51 | PC.NURSE ---
Pt is becoming increasingly more confused. This RN witnessed pt pulling at his blanton multiple times. Multiple techniques attempted such as distraction, reorienting pt, and relaxation, but pt continues to pull at his blanton and panel monitor wires. Pt also attempting to get out of bed on multiple occasions. Requested order for restraints and Bina Cyr [employer] notified.
[2022-04-04] MEDS: diphenhydrAMINE HCl INJ 50 MG/ML VIAL 12.5 MG IV PUSH (02:14)
[2022-04-04] MEDS: SODIUM CHLORIDE 0.9% IV 1,000 ML 75 ML IV CONT ×2 (02:14→09:55)
[2022-04-04] MEDS: HALOPERIDOL LACTATE 5 MG/ML VIAL 2 MG IV PUSH (02:14)
[2022-04-04 02:39] LABS: Influenza A QL RT-PCR Negative (Negative); Influenza B QL RT-PCR Negative (Negative); SARS-CoV-2 RNA PCR Negative
--- NOTE | 2022-04-04 06:27 | PC.NURSE ---
Called pt's sister Chichi at [phone] with updates. No questions or concerns at this time.
--- NOTE | 2022-04-04 07:17 | PC.NURSE ---
Nurse report given to Yancy RO
--- NOTE | 2022-04-04 08:29 | PC.NURSE ---
heart healthy breakfast tray ordered
--- NOTE | 2022-04-04 10:20 | PM.IMHP ---
H&P: HPI History of Present Illness Date/Time: 04/04/22 10:20 Chief Complaint: This is a 76-year-old gentleman with a past medical history of dyslipidemia, atrial fibrillation, custodial resident who presented on 04/03/2022 with concerns for bleeding from his urethra and fevers.? Patient has a chronic indwelling Ness which was removed by nursing staff at the facility yesterday.? After removal they noted blood had sent the patient here.? Patient does have a history of UTIs and has had a chronic Ness for a long time now.? Also noted to the ventral side of the penis there is what appears to be a chronic ulceration.? No active bleeding from that ulceration but blood is noted coming out of the tip of the urethra and the ulceration. Patient's vital signs are : temperature of 100.7, a HR of 108, a RR of 13, a pulse oximetry of 98%, a BP of 118/66. Patient has a cognitive deficit due to old cerebrovascular accident and is not able to contribute to history taking in a meaningful way. Information is gathered from the ED chart. Review of Systems Review of Systems: CONSTITUTIONAL: Positive for fevers, chills, night sweats, tiredness, fatigue, malaise, anorexia or weight loss. CARDIOVASCULAR: Negative for chest pain, palpitations, dizziness, orthopnea or lower extremity edema. RESPIRATORY: Negative for shortness of breath, cough, wheezing, sputum. GENITOURINARY: Negative for frequency, nocturia, dysuria. Positive for hematuria. GYNECOLOGIC: Negative for abnormal bleeding. HEMATOLOGIC: Negative for any abnormal bleeding or bruising. MUSCULOSKELETAL: Negative for joint swelling, stiffness or pain. SKIN: Negative for rashes, eruptions, lesions or dryness. NEUROLOGIC: Negative for any focal neurologic complaints. PSYCHIATRIC: Negative for anxiety, panic, depression. [facility] Past Medical History Medical History Acute cholecystitis (09/2020) Treated with antibiotics and cholecystostomy tube. 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 Patient has resultant right hemiplegia and cognitive deficit. 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 Normal cardiac stress test (01/2021) Obstructive sleep apnea Intolerant to CPAP. Right femoral vein DVT Right hemiplegia Surgical History Surgical History History of cystoscopy (09/2020) With clot evacuation per Dr. Snyder. History of open reduction and internal fixation (ORIF) procedure Left ankle fracture. History of partial colectomy (03/20/21) And excess laparoscopic left colon resection with hand-sewn end-to-end anastomosis for colon cancer per Dr. Connolly. History of tonsillectomy History of vasectomy Hx laparoscopic cholecystectomy S/P laparoscopic-assisted sigmoidectomy Family History Family History Mother Unknown family medical history Lung cancer Father Myocardial infarct Social History Social History Social History: Healthcare power of regulatory attorney: Abel Vergara, son. Code status: Full code. Smoking packs per day: 1.5 Smoking cigarettes per day: 30.0 Years smoked: 28 Smoking pack-years: 42.00 Smoking status: Former smoker Alcohol intake: never Substance use: never Substance use type: does not use Additional living arrangements comments: Resident at [facility]. 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 Spiritual care concerns: No Meds Home Medications and Allergies Home Medication
--- NOTE | 2022-04-04 11:28 | PC.NURSE ---
heart healthy lunch tray ordered
--- NOTE | 2022-04-04 13:49 | PC.NURSE ---
spoke w/ yahir from [facility] w/ an update
--- NOTE | 2022-04-04 14:02 | PC.NURSE ---
Report given to Nichelle. Patient denies pain. VSS. Sister at bedside.
--- NOTE | 2022-04-04 15:36 | PC.NURSE ---
This patient, Matti Vergara, was admitted to [facility] Surg Room 322-01. Patient/family oriented to hospital policies and general routines including ID bracelet, bed and alarms, visiting hours, pain management, procedures, bathroom and other care routines, personal items, smoking policy, room service/diet, and visiting hours. Information on how to activate the Rapid Response Team has been discussed. Patient/Family are encouraged to report perceived risks to care and to ask questions if they do not understand what they are told or what they should do.
[2022-04-04] MEDS: MIRTAZAPINE 7.5 MG TABLET PO (21:06)
[2022-04-04] MEDS: ATORVASTATIN 40 MG TABLET 80 MG PO (21:06)
[2022-04-04] MEDS: QUEtiapine FUMARATE 25 MG TABLET PO (21:06)
[2022-04-04] MEDS: POTASSIUM CHLORIDE 20 MEQ TABLET.ER PO (21:07)
--- NOTE | 2022-04-05 05:50 | PC.NURSE ---
Pt has been resting all shift. Pt has had no complaints and expresses no needs. Will continue to monitor pt.
[2022-04-05 06:00] VITALS: BP 106/70; PULSE 101; RESP 18; TEMP 37.6; O2SAT 96
[2022-04-05 06:44] LABS: Basophils Absolute Auto 0.1 K/mm3 (0.0-0.1); Basophils Percent Auto 0.6 % (0.2-1.2); Eosinophils Absolute Auto 0.1 K/mm3 (0-0.3); Eosinophils Percent Auto 0.6 % (0-4.4); Hematocrit 37.6 % (42.0-52.0); Hemoglobin 12.3 g/dL (14.0-18.0); Immature Granulocyte Absolute 0.05 K/mm3 (0.00-0.031); Immature Granulocyte Percent A 0.4 % (0-0.5); Lymphocytes Absolute Auto 2.05 K/mm3 (0.9-3.2); Lymphocytes Percent Auto 14.4 % (18.3-44.2); Mean Corpuscular HGB Conc 32.7 g/dl (32-36); Mean Corpuscular Hemoglobin 29.6 pg (26-34); Mean Corpuscular Volume 90.4 fl (80-100); Mean Platelet Volume 10.4 fl (7.4-10.4); Monocytes Absolute Auto 1.9 K/mm3 (0.1-0.6); Neutrophils Absolute Auto 10.1 K/mm3 (1.3-6.7); Platelet Count Result 176 k/mm3 (150-375); Red Blood Count 4.16 M/mm3 (4.6-6.20); White Blood Count 14.2 K/mm3 (4.5-10.0)
[2022-04-05 07:02] LABS: Anion Gap 5 mmol/L (8-16); Blood Urea Nitrogen 13 mg/dL (9-20); Calcium 8.6 mg/dL (8.4-10.2); Carbon Dioxide 28 mmol/L (22-30); Chloride 104 mmol/L (98-107); Estimated CRCL calculation 59 ml/min; Estimated Glomerular Filt Rate > 60; Glucose 101 mg/dL (65-110); Potassium 3.9 mmol/L (3.4-5.0); Sodium 137 mmol/L (137-145)
[2022-04-05] MEDS: SODIUM CHLORIDE 0.9% IV 1,000 ML 75 ML IV CONT ×2 (07:09→20:08)
[2022-04-05] MEDS: PANTOPRAZOLE 40 MG TABLET PO (08:02)
[2022-04-05] MEDS: ASPIRIN 81 MG CHEWABLE TABLET PO (08:02)
[2022-04-05] MEDS: FERROUS SULFATE 324 MG TABLET PO (08:02)
[2022-04-05] MEDS: POTASSIUM CHLORIDE 20 MEQ TABLET.ER PO ×2 (08:03→16:53)
[2022-04-05] MEDS: MULTIVITAMINS THERAPEUTIC TAB (*BKC) 1 TABLET PO (08:03)
[2022-04-05] MEDS: TAMSULOSIN HCL 0.4 MG CAPSULE PO (08:03)
--- NOTE | 2022-04-05 10:44 | WPDURCON ---
Assessment and Plan Assessment and plan (1) UTI (urinary tract infection): Code(s): N39.0 - Urinary tract infection, site not specified Status: Acute (2) Bleeding from urethra in male: Code(s): N36.8 - Other specified disorders of urethra Status: Acute (3) Urinary retention: Code(s): R33.9 - Retention of urine, unspecified Status: Acute Plan 1. Agree wtih rocephin, culture pending. 2. Maintain catheter. 3. Outpatient follow up with Dr. Beltran. Urology Consult Note HPI Date Seen: 04/05/22 Requesting Physician: Nicholas Olmos MD Primary Care Provider: Patel Benavides MD Consult Narrative Narrative: Matti Vergara is a 76 year old male with a chronic indwelling Ness. alf removed it yesterday and noted bleeding so he was brought to [facility] for evaluation. Fever overnight. Ness replaced, currently draining susan urine. Patient denies pain. Cysto retrograde in January with Dr. Beltran. Small urethral erosion noted. Review of Systems Constitutional: Constitutional: Reports no additional constitutional complaints ENT: Reports system reviewed and no additional complaints, except as documented Cardiovascular: Cardiovascular: Reports no additional cardiovascular complaints Respiratory: Respiratory: Reports no additional respiratory complaints Gastrointestinal: Gastrointestinal: Reports no additional gastrointestinal complaints Genitourinary: Genitourinary: Reports hematuria Musculoskeletal: Musculoskeletal: Reports no additional musculoskeletal complaints Integumentary/Breasts: Skin/Breast: Reports system reviewed and no additional complaints, except as docu Neurologic: Reports system reviewed and no additional complaints, except as documented Psychiatric: Psychiatric: Reports no additional psychiatric complaints [facility] Past Medical History Medical History Acute cholecystitis (09/2020) Treated with antibiotics and cholecystostomy tube. 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 Patient has resultant right hemiplegia and cognitive deficit. 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 Normal cardiac stress test (01/2021) Obstructive sleep apnea Intolerant to CPAP. Right femoral vein DVT Right hemiplegia Surgical History Surgical History History of cystoscopy (09/2020) With clot evacuation per Dr. Snyder. History of open reduction and internal fixation (ORIF) procedure Left ankle fracture. History of partial colectomy (03/20/21) And excess laparoscopic left colon resection with hand-sewn end-to-end anastomosis for colon cancer per Dr. Connolly. History of tonsillectomy History of vasectomy Hx laparoscopic cholecystectomy S/P laparoscopic-assisted sigmoidectomy Family History Family History Mother Unknown family medical history Lung cancer Father Myocardial infarct Social History Social History Social History: Healthcare power of ip attorney: Abel Vergara, son. Code status: Full code. Smoking packs per day: 1.5 Smoking cigarettes per day: 30.0 Years smoked: 28 Smoking pack-years: 42.00 Smoking status: Former smoker Alcohol intake: never Substance use: never Substance use type: does not use Additional living arrangements comments: Resident at [facility]. 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 Spiritual care concerns: No Meds Home Medicat
[2022-04-05 18:23] VITALS: BP 101/64; PULSE 87; RESP 16; TEMP 36.6; O2SAT 94
--- NOTE | 2022-04-05 18:29 | PM.IMPN ---
Progress Note: A&P Assessment and Plan (1) UTI (urinary tract infection): Code(s): N39.0 - Urinary tract infection, site not specified Status: Acute (2) Bleeding from urethra in male: Code(s): N36.8 - Other specified disorders of urethra Status: Acute (3) Urinary retention: Code(s): R33.9 - Retention of urine, unspecified Status: Acute (4) Urinary tract infection due to Proteus: Code(s): N39.0 - Urinary tract infection, site not specified; B96.4 - Proteus (mirabilis) (morganii) as the cause of diseases classified elsewhere Status: Acute (5) Bacteremia due to Proteus species: Code(s): R78.81 - Bacteremia; B96.4 - Proteus (mirabilis) (morganii) as the cause of diseases classified elsewhere Status: Acute (6) Bacterial infection due to Proteus mirabilis: Code(s): A49.8 - Other bacterial infections of unspecified site Status: Acute (7) Bilateral hydronephrosis: Code(s): N13.30 - Unspecified hydronephrosis Status: Acute (8) Metabolic encephalopathy: Code(s): G93.41 - Metabolic encephalopathy Status: Acute Plan 76-year-old male from [facility] presents today with concerns for bleeding from his urethra.? Patient has a chronic Ness which was removed by nursing staff at the facility today.? After removal they noted blood had sent the patient here.? Patient does have a history of UTIs and has had a chronic Ness for a long time now.? Also noted to the ventral side of the penis there is what appears to be a chronic ulceration.? No active bleeding from that ulceration but blood is noted coming out of the tip of the urethra and the ulceration. -Urinary tract infection: patient is hemodynamically stable and febrile. he presents with hematuria. He was appropriately started on ceftriaxone that will continue. Follow-up blood and urine cultures. They remain unrevealing at the time of this dictation. The patient urine culture from his admission on 01/25/2022 was growing Proteus. He underwent a cystoscopy on 01/31/2022 revealing a urethral erosion just proximal to the coronal ridge, mild lateral lobe hypertrophy of the prostate. - Hematuria. Patient is on chronic anticoagulation with Eliquis. We will image the urinary tract with a renal bladder ultrasound. Urology has been consulted. Will follow up their recommendation. Patient has a history of urinary retention and bilateral hydronephrosis. Ness was replaced. Outpatient follow up with Dr. Beltran - history of CVA: For maintain fall precaution. - Dyslipidemia continue atorvastatin. - History of constipation: Continue bowel regimen. - Chronic anticoagulation with low-dose aspirin and apixaban. Currently will hold the apixaban in the setting of hematuria. - Code status, see prior. Related Data Time Spent With Patient Time with patient: 15 - 25 minutes Subjective Date/time seen: 04/05/22 18:29 Interval history: S : Patient was seen and examined at the bedside. He denies any complaints. Review of Systems Constitutional: Constitutional: Reports no additional constitutional complaints ENT: Reports system reviewed and no additional complaints, except as documented Cardiovascular: Cardiovascular: Reports no additional cardiovascular complaints Respiratory: Respiratory: Reports no additional respiratory complaints Gastrointestinal: Gastrointestinal: Reports no additional gastrointestinal complaints Genitourinary: Genitourinary: Reports hematuria Musculoskeletal: Musculoskeletal: Reports no additional musculoskeletal complaints Integumentary/Breasts: Skin/Breast: Reports system reviewed and no additional complaints, except as docu Neurologic: Reports system reviewed and no additional complaints, except as documented Psychiatric: Psychiatric: Reports no additional psychiatric complaints Exam Narrative: GENERAL: The patient is alert and oriented in self only and in no apparen
[2022-04-05 19:52] VITALS: BP 113/53; PULSE 81; RESP 18; TEMP 36.1; O2SAT 96
[2022-04-05] MEDS: QUEtiapine FUMARATE 25 MG TABLET PO (20:06)
[2022-04-05] MEDS: ATORVASTATIN 40 MG TABLET 80 MG PO (20:07)
[2022-04-05] MEDS: MIRTAZAPINE 7.5 MG TABLET PO (20:07)
--- NOTE | 2022-04-05 21:44 | PC.NURSE ---
Pt is resting in bed. Pt is unable to participate and contribute fully in plan of care. Pt has no complaints of pain at this time. Will continue to monitor pt.
[2022-04-06 03:27] VITALS: BP 99/63; PULSE 63; RESP 18; TEMP 36.4; O2SAT 96
[2022-04-06] MEDS: SODIUM CHLORIDE 0.9% IV 1,000 ML 75 ML IV CONT (07:58)
[2022-04-06] MEDS: TAMSULOSIN HCL 0.4 MG CAPSULE PO (07:59)
[2022-04-06] MEDS: ASPIRIN 81 MG CHEWABLE TABLET PO (07:59)
[2022-04-06] MEDS: FERROUS SULFATE 324 MG TABLET PO (08:00)
[2022-04-06] MEDS: MULTIVITAMINS THERAPEUTIC TAB (*BKC) 1 TABLET PO (08:00)
[2022-04-06] MEDS: PANTOPRAZOLE 40 MG TABLET PO (08:00)
[2022-04-06] MEDS: POTASSIUM CHLORIDE 20 MEQ TABLET.ER PO (08:00)
--- NOTE | 2022-04-06 09:37 | WPDUROPN2 ---
Progress Note: A&P Assessment and Plan (1) UTI (urinary tract infection): Code(s): N39.0 - Urinary tract infection, site not specified Status: Acute Assessment and Plan: Proteus- patient improving on ceftriaxone, consider transitioning to oral antibiotic such as augmentin per C&S. Follow up with Dr. Beltran in 1-2 weeks. Urology will sign off at this time. Subjective Subjective Date/Time Seen: 04/06/22 09:37 CARLOS, patient reports he is feeling better, urine pale yellow. Exam Narrative: NAD, resting comfortably in bed, A&Ox3 RRR EWOB S/NT/ND pale yellow urine draining into gravity bag. Objective Data Vital Signs Vital Signs: Vital Signs - 24 hr 04/05/22 18:23 04/05/22 19:52 04/05/22 20:00 Temperature 97.9 F 97 F L Pulse Rate 87 81 Respiratory Rate 16 18 Blood Pressure 101/64 113/53 L Pulse Oximetry 94 96 Oxygen Delivery Room Air 04/06/22 03:27 04/06/22 08:00 Temperature 97.6 F Pulse Rate 63 Respiratory Rate 18 Blood Pressure 99/63 L Pulse Oximetry 96 Oxygen Delivery Room Air Intake/Output Intake/Output: Intake & Output 04/03/22 04/04/22 04/05/22 04/06/22 23:59 23:59 23:59 23:59 Intake Total 2390 1720 1880 Output Total 1100 2300 850 Balance 1290 -580 1030 Meds/Results Medications: Active Medications Generic Name Dose Route Start Last Admin Trade Name Freq PRN Reason Stop Dose Admin Acetaminophen 650 mg 04/04/22 20:25 Acetaminophen 325 Mg Tablet PO Q4H PRN Pain (Scale Score 1-3) Hydrocodone Bitart/Acetaminophen 1 tab 04/04/22 20:25 Hydrocodone/Acetaminophen (*Crx) 5-325 Mg Tablet PO Q8H PRN Pain Rated 4-6 Aspirin 81 mg 04/05/22 09:00 04/06/22 07:59 Aspirin 81 Mg Chewable Tablet PO 81 mg DAILY LUI Administration Atorvastatin Calcium 80 mg 04/04/22 21:00 04/05/22 20:07 Atorvastatin 40 Mg Tablet PO 80 mg HS LUI Administration Ferrous Sulfate 324 mg 04/05/22 09:00 04/06/22 08:00 Ferrous Sulfate 324 Mg Tablet PO 324 mg DAILY LUI Administration Ceftriaxone Sodium/Dextrose 1 gm in 50 mls @ 100 mls/hr 04/04/22 21:00 04/05/22 20:06 Rocephin 1 Gm/D5w 50 Ml IVPB 100 mls/hr Q24H LUI Administration Sodium Chloride 1,000 mls @ 75 mls/hr 04/04/22 00:55 04/06/22 07:58 Normal Saline Iv IV CONT 75 mls/hr .[id number] LUI Administration Mirtazapine 7.5 mg 04/04/22 21:00 04/05/22 20:07 Mirtazapine 7.5 Mg Tablet PO 7.5 mg HS LUI Administration Multivitamins Therapeutic 1 tablet 04/05/22 09:00 04/06/22 08:00 Multivitamins Therapeutic Tab (*Bkc) PO 1 tablet QAM LUI Administration Pantoprazole Sodium 40 mg 04/05/22 09:00 04/06/22 08:00 Pantoprazole 40 Mg Tablet PO 40 mg QAM LUI Administration Polyethylene Glycol 17 gm 04/04/22 20:25 Polyethylene Glycol 3350 17 Gm Powd.Pack PO DAILY PRN Constipation Potassium Chloride 20 meq 04/04/22 20:35 04/06/22 08:00 Potassium Chloride 20 Meq Tablet.Er PO 20 meq BID LUI Administration Quetiapine Fumarate 25 mg 04/04/22 21:00 04/05/22 20:06 Quetiapine Fumarate 25 Mg Tablet PO 25 mg HS LUI Administration Senna 8.6 mg 04/04/22 20:25 Sennosides 8.6 Mg Tablet PO BID PRN Constipation Tamsulosin HCl 0.4 mg 04/05/22 09:00 04/06/22 07:59 Tamsulosin Hcl 0.4 Mg Capsule PO 0.4 mg QAM LUI Administration Radiology Results: ITS Impressions Renal Ultrasound 04/05/22 18:31 IMPRESSION: 1. Persistent mild caliectasis at the left kidney. 2. Normal right kidney.
--- NOTE | 2022-04-06 13:35 | PM.DS ---
DS: Admitting Diagnosis Discharge Date 04/06/2022 Admitting Diagnosis (1) UTI (urinary tract infection): (2) Bleeding from urethra in male: (3) Urinary retention: (4) Bacteremia due to Proteus species: (5) Unspecified hydronephrosis (6)History of stroke with residual deficit. (7)Atrial fibrillation (8) Metabolic encephalopathy: DS: Discharge Diagnosis Discharge Diagnosis (1) UTI (urinary tract infection): Code(s): N39.0 - Urinary tract infection, site not specified Status: Acute (2) Bleeding from urethra in male: Code(s): N36.8 - Other specified disorders of urethra Status: Acute (3) Urinary retention: Code(s): R33.9 - Retention of urine, unspecified Status: Acute (4) Urinary tract infection due to Proteus: Code(s): N39.0 - Urinary tract infection, site not specified; B96.4 - Proteus (mirabilis) (morganii) as the cause of diseases classified elsewhere Status: Acute (5) Bacteremia due to Proteus species: Code(s): R78.81 - Bacteremia; B96.4 - Proteus (mirabilis) (morganii) as the cause of diseases classified elsewhere Status: Acute (6) Bacterial infection due to Proteus mirabilis: Code(s): A49.8 - Other bacterial infections of unspecified site Status: Acute (7) Bilateral hydronephrosis: Code(s): N13.30 - Unspecified hydronephrosis Status: Acute (8) Metabolic encephalopathy: Code(s): G93.41 - Metabolic encephalopathy Status: Acute Plan 76-year-old male from group home presented to the emergency room on 04/03 with concerns for bleeding from his urethra.? Patient has a chronic Ness which was removed by nursing staff at the facility prior to admission.? After removal they noted blood had sent the patient here.? Patient does have a history of UTIs and has had a chronic Ness for a long time now.? Also noted to the ventral side of the penis there is what appears to be a chronic ulceration.? No active bleeding from that ulceration but blood is noted coming out of the tip of the urethra and the ulceration. -Urinary tract infection: patient is hemodynamically stable and febrile on admission; he was started on ceftriaxone.Blood cultures remain unrevealing at the time of discharge. Urine cultures are growing Proteus mirabili sensitive to augmentin. He will receive a 7-day course of augmentin upon discharge. Urology was consulted. He will need a repeat cystoscopy as an outpatient. He underwent a cystoscopy on 01/31/2022 revealing a urethral erosion just proximal to the coronal ridge, mild lateral lobe hypertrophy of the prostate. - Hematuria. Patient is on chronic anticoagulation with Eliquis. Renal bladder ultrasound shows persistent mild caliectasis at the left kidney. Patient has a history of urinary retention and bilateral hydronephrosis. Ness was replaced. Outpatient follow up with Dr. Beltran - history of CVA: fall precautions were maintained. - Dyslipidemia continue atorvastatin. - History of constipation: Continue bowel regimen. - Chronic anticoagulation with low-dose aspirin and apixaban. Currently will hold the apixaban in the setting of hematuria. Apixaban will be held for 1 week, to be resumed by the PCP at the 7-day follow up appointment. - Code status, full code. Related Data DS: Summary Hospital Course Hospital Course: 76-year-old male from group home presented to the emergency room on 04/03 with concerns for bleeding from his urethra.? Patient has a chronic Ness which was removed by nursing staff at the facility prior to admission.? After removal they noted blood had sent the patient here.? Patient does have a history of UTIs and has had a chronic Ness for a long time now.? Also noted to the ventral side of the penis there is what appears to be a chronic ulceration.? No active bleeding from that ulceration but blood is noted coming out of the tip of the urethra and the ulceration. -Urinary tract infection: patient is h
[2022-04-06 14:00] VITALS: BP 119/73; PULSE 89; RESP 16; TEMP 36.4; O2SAT 97
[2022-04-06 14:27] LABS: EDCOVIDSCREEN Negative (Negative)
== END 2022-04-06 16:00 | DRG 698 ==
LOC: ANHED 04-04 02:52 → ANH3MEDSUR 04-04 03:28
PROVIDERS: Admitting Provider Internal Medicine; Emergency Provider Nurse Practitioner Family; PCP Family Medicine; Visit Provider Internal Medicine
DX: T83.511A Infection and inflammatory reaction due to indwelling urethral catheter, initial encounter (principal); G93.41 Metabolic encephalopathy; I48.20 Chronic atrial fibrillation, unspecified; I69.351 Hemiplegia and hemiparesis following cerebral infarction affecting right dominant side; N13.30 Unspecified hydronephrosis; N39.0 Urinary tract infection, site not specified; N36.8 Other specified disorders of urethra; N48.5 Ulcer of penis; I10 Essential (primary) hypertension; I67.1 Cerebral aneurysm, nonruptured; E78.5 Hyperlipidemia, unspecified; B96.4 Proteus (mirabilis) (morganii) as the cause of diseases classified elsewhere; R33.9 Retention of urine, unspecified; G47.33 Obstructive sleep apnea (adult) (pediatric); Z20.822 Contact with and (suspected) exposure to COVID-19; I69.319 Unspecified symptoms and signs involving cognitive functions following cerebral infarction; Z85.038 Personal history of other malignant neoplasm of large intestine; Z86.718 Personal history of other venous thrombosis and embolism; Z87.891 Personal history of nicotine dependence; Z79.01 Long term (current) use of anticoagulants; Z79.82 Long term (current) use of aspirin; Z90.49 Acquired absence of other specified parts of digestive tract
CPT/HCPCS: 36415; 51702; 76775; 80048; 80053; 81001; 85025; 85610; 85730; 87077; 87086; 87186; 87426; 87636; 96361; 96365; 96375; 99285; A9270; C9803; G0378; J0696; J1200; J1630; J7030

== ENCOUNTER 2022-04-28 01:26 | Day surgery (SDC) | payer MEDICARE, SELFPAY ==
[2022-04-18 13:48] VITALS: BMI 27.0
--- NOTE | 2022-04-27 08:28 | PM.HPGS ---
History of Present Illness History of Present Illness Consent: Risks, benefits, and alternatives have been discussed and questions answered. Patient agrees to proceed with procedure. Chief complaint: Fam of Colon Ca Narrative: Matti Vergara is a 76 year old male Here for colon cancer screening. Little over 1 year ago he had resection of a obstructing neoplasm is distal descending colon. The pathology report was: ?- COLONIC ADENOCARCINOMA, MODERATELY DIFFERENTIATED, 12.5 x 4.0 x 3.5 CM,? INVADING THROUGH MUSCULARIS PROPRIA AND EXTENSIVELY INVOLVING PERICOLONIC FAT, NOT INVOLVING RESECTION MARGINS. ?? - TWENTY BENIGN PERICOLONIC LYMPH NODES (0/20) (SEE COMMENT). Review of Systems Review of Systems: All systems reviewed & are unremarkable except as noted in HPI and below PMFSH Past Medical History Medical History Acute cholecystitis (09/2020) Treated with antibiotics and cholecystostomy tube. 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 Patient has resultant right hemiplegia and cognitive deficit. 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 Normal cardiac stress test (01/2021) Obstructive sleep apnea Intolerant to CPAP. Right femoral vein DVT Right hemiplegia Surgical History Surgical History History of cystoscopy (09/2020) With clot evacuation per Dr. Snyder. History of open reduction and internal fixation (ORIF) procedure Left ankle fracture. History of partial colectomy (03/20/21) And excess laparoscopic left colon resection with hand-sewn end-to-end anastomosis for colon cancer per Dr. Connolly. History of tonsillectomy History of vasectomy Hx laparoscopic cholecystectomy S/P laparoscopic-assisted sigmoidectomy Family History Family History Mother Unknown family medical history Lung cancer Father Myocardial infarct Social History Social History Social History: Healthcare power of robotics software engineer: Abel Vergara, son. Code status: Full code. Smoking packs per day: 1.5 Smoking cigarettes per day: 30.0 Years smoked: 28 Smoking pack-years: 42.00 Smoking status: Former smoker Tobacco type: cigarettes Alcohol intake: never Substance use: never Substance use type: does not use Living arrangements: [facility] Additional living arrangements comments: Resident at [facility]. 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 Spiritual care concerns: No Meds Home Medications and Allergies Home Medications Medication Instructions Recorded Confirmed Type acetaminophen 325 mg tablet 650 mg PO Q4H PRN Pain (Scale 09/04/20 04/18/22 History (Tylenol) Score 1-3) atorvastatin 80 mg tablet 80 mg PO HS 09/04/20 04/18/22 History potassium chloride 20 mEq 20 meq PO BID 09/04/20 04/18/22 History tablet,extended release sennosides 8.6 mg tablet (senna) 8.6 mg PO BID PRN Constipation 09/04/20 04/18/22 History multivitamin with folic acid 400 1 tablet PO QAM #30 tabs 09/14/20 04/18/22 Rx mcg tablet (Thera) ergocalciferol (vitamin D2) 1,250 50,000 unit PO WEEKLY@0900 #7 caps 10/15/20 04/18/22 Rx mcg (50,000 unit) capsule (Vitamin D2) ferrous sulfate 324 mg (65 mg 324 mg PO DAILY 12/06/20 04/18/22 History iron) tablet,delayed release mirtazapine 15 mg tablet (Remeron) 7.5 mg PO HS 12/06/20 04/18/22 History quetiapine 25 mg tablet (Seroquel) 25 mg PO HS 30 days #30 tabs 12/14/20 04/18/22 Rx apixaban 5 mg tablet (Eliquis) 5 mg PO Q12H
[2022-04-28 10:20] VITALS: BP 138/68; PULSE 70; RESP 18; TEMP 36.4; O2SAT 100; BMI 27.0
[2022-04-28] MEDS: LACTATED RINGERS 1,000 ML 150 ML IV CONT (10:56)
--- NOTE | 2022-04-28 11:10 | WPDANESEPPF ---
Anes - Initial Pre Proc Eval Procedure: Operation Date: 04/28/22 11:30 Proposed Procedures p Screening Colonoscopy - Mckay Wall MD Date/Time: 04/28/22 11:10 Surgeon: Mckay Wall MD Pre Op Diagnosis: Fam of Colon Ca Patient Data Age: 76 Gender: M Height: 1.83 m Weight: 90.5 kg Last Vital Signs Temp 97.6 F 04/28/22 10:20 Pulse 70 04/28/22 10:20 Resp 18 04/28/22 10:20 BP 138/68 04/28/22 10:20 Pulse Ox 100 04/28/22 10:20 O2 Del Method Room Air 04/28/22 10:20 Allergies Allergy/AdvReac Type Severity Reaction Status Date / Time No Known Allergies Allergy Verified 10/29/21 10:52 Home Medications Medication Instructions Recorded Confirmed Type acetaminophen 325 mg tablet 650 mg PO Q4H PRN Pain (Scale 09/04/20 04/18/22 History (Tylenol) Score 1-3) atorvastatin 80 mg tablet 80 mg PO HS 09/04/20 04/18/22 History potassium chloride 20 mEq 20 meq PO BID 09/04/20 04/18/22 History tablet,extended release sennosides 8.6 mg tablet (senna) 8.6 mg PO BID PRN Constipation 09/04/20 04/18/22 History multivitamin with folic acid 400 1 tablet PO QAM #30 tabs 09/14/20 04/18/22 Rx mcg tablet (Thera) ergocalciferol (vitamin D2) 1,250 50,000 unit PO WEEKLY@0900 #7 caps 10/15/20 04/18/22 Rx mcg (50,000 unit) capsule (Vitamin D2) ferrous sulfate 324 mg (65 mg 324 mg PO DAILY 12/06/20 04/18/22 History iron) tablet,delayed release mirtazapine 15 mg tablet (Remeron) 7.5 mg PO HS 12/06/20 04/18/22 History quetiapine 25 mg tablet (Seroquel) 25 mg PO HS 30 days #30 tabs 12/14/20 04/18/22 Rx apixaban 5 mg tablet (Eliquis) 5 mg PO Q12H 03/13/21 04/18/22 History aspirin 81 mg chewable tablet 81 mg PO DAILY 03/13/21 04/18/22 History polyethylene glycol 3350 17 gram 17 g PO DAILY PRN Constipation 03/20/21 04/18/22 History oral powder packet (Miralax) pantoprazole 40 mg tablet,delayed 40 mg PO QAM #30 tabs 03/23/21 04/18/22 Rx release hydrocodone 5 mg-acetaminophen 325 1 tablet PO Q8H PRN Pain Rated 4-6 02/04/22 04/18/22 Rx mg tablet #12 tabs tamsulosin 0.4 mg capsule 0.4 mg PO QAM #30 caps 02/04/22 04/18/22 Rx Patient hx anesthesia problems: none Family hx anesthesia problems: none Results Review: All pre-operative results and documents have been reviewed as part of the pre-operative evaluation. [facility] Past Medical History Medical History Acute cholecystitis (09/2020) Treated with antibiotics and cholecystostomy tube. 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 Patient has resultant right hemiplegia and cognitive deficit. 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 Normal cardiac stress test (01/2021) Obstructive sleep apnea Intolerant to CPAP. Right femoral vein DVT Right hemiplegia Surgical History Surgical History History of cystoscopy (09/2020) With clot evacuation per Dr. Snyder. History of open reduction and internal fixation (ORIF) procedure Left ankle fracture. History of partial colectomy (03/20/21) And excess laparoscopic left colon resection with hand-sewn end-to-end anastomosis for colon cancer per Dr. Connolly. History of tonsillectomy History of vasectomy Hx laparoscopic cholecystectomy S/P laparoscopic-assisted sigmoidectomy Family History Family History Mother Unknown family medical history Lung cancer Father Myocardial infarct Social History Social History Social History: Healthcare power of engineer automated equipment: Abel Vergara, son.
[2022-04-28 11:33] VITALS: BP 88/52; PULSE 64; RESP 20; O2SAT 93
[2022-04-28 11:43] VITALS: BP 101/67; PULSE 68; RESP 20; O2SAT 98
[2022-04-28 11:53] VITALS: BP 127/95; PULSE 61; RESP 18; O2SAT 98
--- NOTE | 2022-04-28 12:27 | SUR.PHASEII ---
Called and gave report on patient to Maria G at [facility]. Answered all questions at this time. Maria G states she understands orders and will resume medications and Eliquis today as ordered. Sending paper work with patient and aid Queenie.
== END 2022-04-28 12:29 | disposition home or self-care (01) ==
PROVIDERS: PCP Family Medicine; Visit Provider Internal Medicine Gastroenterology
PROC: 0DJD8ZZ Inspection of Lower Intestinal Tract, Via Natural or Artificial Opening Endoscopic (ICD-10-PCS; CPT 45378; principal; 2022-04-28 11:30)
DX: Z08 Encounter for follow-up examination after completed treatment for malignant neoplasm (principal); Z98.0 Intestinal bypass and anastomosis status; Z90.49 Acquired absence of other specified parts of digestive tract; Z85.038 Personal history of other malignant neoplasm of large intestine; I69.351 Hemiplegia and hemiparesis following cerebral infarction affecting right dominant side; I69.319 Unspecified symptoms and signs involving cognitive functions following cerebral infarction; I10 Essential (primary) hypertension; E78.5 Hyperlipidemia, unspecified; G47.33 Obstructive sleep apnea (adult) (pediatric); Z87.891 Personal history of nicotine dependence; Z79.01 Long term (current) use of anticoagulants; Z79.82 Long term (current) use of aspirin
CPT/HCPCS: 45378; J2001; J2704; J7120

== ENCOUNTER 2022-05-06 09:31 | Outpatient (CLI) | payer MEDICARE, SELFPAY ==
[2022-05-06 09:46] LABS: Basophils Absolute Auto 0.1 K/mm3 (0.0-0.1); Basophils Percent Auto 0.7 % (0.2-1.2); Eosinophils Absolute Auto 0.2 K/mm3 (0-0.3); Eosinophils Percent Auto 2.8 % (0-4.4); Hematocrit 42.8 % (42.0-52.0); Hemoglobin 13.9 g/dL (14.0-18.0); Immature Granulocyte Absolute 0.02 K/mm3 (0.00-0.031); Immature Granulocyte Percent A 0.2 % (0-0.5); Lymphocytes Absolute Auto 2.73 K/mm3 (0.9-3.2); Lymphocytes Percent Auto 32.9 % (18.3-44.2); Mean Corpuscular HGB Conc 32.5 g/dl (32-36); Mean Corpuscular Hemoglobin 30.4 pg (26-34); Mean Corpuscular Volume 93.7 fl (80-100); Mean Platelet Volume 9.7 fl (7.4-10.4); Monocytes Absolute Auto 0.9 K/mm3 (0.1-0.6); Monocytes Percent Auto 10.3 % (2.6-8.5); Neutrophils Absolute Auto 4.4 K/mm3 (1.3-6.7); Neutrophils Percent Auto 53.1 % (45.5-73.1); Platelet Count Result 236 k/mm3 (150-375); Red Blood Count 4.57 M/mm3 (4.6-6.20); Red Cell Distribution Width 14.5 % (11.5-14.5); White Blood Count 8.3 K/mm3 (4.5-10.0)
[2022-05-06 09:52] LABS: Blood Urea Nitrogen 17 mg/dL (8-26); Carbon Dioxide 28 mmol/L (22-30); Chloride 101 mmol/L (98-109); Estimated Glomerular Filt Rate > 60; Glucose 97 mg/dL (70-105); Ionized Calcium (POC) 1.24 mmol/L (1.11-1.31); Potassium 4.3 mmol/L (3.5-4.9); Sodium 140 mmol/L (138-146)
[2022-05-06 13:36] LABS: Alanine Aminotransferase 20 U/L (6-50); Albumin Level 4.1 g/dL (3.5-5.1); Alkaline Phosphatase 86 U/L (38-126); Anion Gap 7 mmol/L (8-16); Aspartate Amino Transferase 27 U/L (17-59); Bilirubin,Total 0.5 mg/dL (0.2-1.3); Blood Urea Nitrogen 16 mg/dL (9-20); Calcium 8.8 mg/dL (8.4-10.2); Carbon Dioxide 28 mmol/L (22-30); Chloride 104 mmol/L (98-107); Estimated Glomerular Filt Rate > 60; Glucose 94 mg/dL (65-110); Potassium 4.4 mmol/L (3.4-5.0); Sodium 139 mmol/L (137-145)
[2022-05-06 14:05] LABS: Carcinoembryonic Antigen 2.6 ng/mL (0.0-3.0)
== END 2022-05-06 09:32 | disposition home or self-care (01) ==
LOC: ANHLAB 09:32
PROVIDERS: PCP Family Medicine; Visit Provider Internal Medicine Hematology & Oncology
DX: Z85.038 Personal history of other malignant neoplasm of large intestine (principal)
CPT/HCPCS: 36415; 80047; 80053; 82378; 85025

== ENCOUNTER 2022-09-03 09:38 | Outpatient (CLI) | payer MEDICARE, SELFPAY ==
--- NOTE | ~2022-09-03 | CT_ITS ---
EXAMINATION: CT abdomen pelvis w con DATE: 09/03/2022 10:19 INDICATION: Malignant neoplasm of descending colon. TECHNIQUE: Computed tomography (CT) of the abdomen and pelvis was performed with 100 mL Omnipaque 350 intravenous contrast. Automated exposure control and iterative reconstruction technique were employe d. The dose-length product was 1211.73 mGy-cm. COMPARISON: CT abdomen and pelvis 01/28/2022 FINDINGS: The visualized portions of the lung bases demonstrate mild atelectasis. No pleural effusion . The heart size is normal. There are coronary artery calcifications. No pericardial effusion. There are cysts in the liver measuring up to 13 mm. The gallbladder is absent. The spleen, pancreas, and ri ght adrenal gland are normal. There is chronic thickening of left adrenal gland, likely benign. The k idneys are normal. There is a 5 mm cyst in left kidney. There is a 3 mm stone in left kidney. There i s calcified atherosclerosis of the aorta and many of the other arteries. There is an umbilical hernia containing fat. The Ness balloon is in the prostatic urethra. There is a right inguinal hernia cont aining fat. There are no dilated loops of bowel. The appendix is normal. There are no pathologically enlarged lymph nodes. There is no free intraperitoneal fluid. There is chronic diffuse bladder wall t hickening, which may be secondary to chronic outlet obstruction or neurogenic bladder. There is mild thoracic and lumbar spondylosis. There are multiple chronic compression fractures in the spine. IMPRESSION: 1. No evidence of metastatic disease. 2. Ness catheter in abnormal position with the balloon in the prostatic urethra. Reviewed, dictated and finalized at location A. IMPRESSION: 1. No evidence of metastatic disease. 2. Ness catheter in abnormal position with the balloon in the prostatic urethr a.
[2022-09-03 10:14] LABS: Estimated Glomerular Filt Rate > 60
[2022-09-03 11:00] LABS: Basophils Percent Auto 0.5 % (0.2-1.2); Eosinophils Absolute Auto 0.2 K/mm3 (0-0.3); Eosinophils Percent Auto 2.7 % (0-4.4); Hematocrit 44.6 % (42.0-52.0); Hemoglobin 14.6 g/dL (14.0-18.0); Immature Granulocyte Absolute 0.02 K/mm3 (0.00-0.031); Immature Granulocyte Percent A 0.3 % (0-0.5); Lymphocytes Absolute Auto 2.45 K/mm3 (0.9-3.2); Lymphocytes Percent Auto 31.5 % (18.3-44.2); Mean Corpuscular HGB Conc 32.7 g/dl (32-36); Mean Corpuscular Hemoglobin 30.8 pg (26-34); Mean Corpuscular Volume 94.1 fl (80-100); Mean Platelet Volume 10.2 fl (7.4-10.4); Monocytes Absolute Auto 0.8 K/mm3 (0.1-0.6); Monocytes Percent Auto 9.8 % (2.6-8.5); Neutrophils Absolute Auto 4.3 K/mm3 (1.3-6.7); Neutrophils Percent Auto 55.2 % (45.5-73.1); Platelet Count Result 220 k/mm3 (150-375); Red Blood Count 4.74 M/mm3 (4.6-6.20); Red Cell Distribution Width 14.2 % (11.5-14.5); White Blood Count 7.8 K/mm3 (4.5-10.0)
[2022-09-03 11:20] LABS: Alanine Aminotransferase 19 U/L (6-50); Albumin Level 4.1 g/dL (3.5-5.1); Alkaline Phosphatase 107 U/L (38-126); Anion Gap 5 mmol/L (8-16); Aspartate Amino Transferase 27 U/L (17-59); Bilirubin,Total 0.9 mg/dL (0.2-1.3); Blood Urea Nitrogen 11 mg/dL (9-20); Carbon Dioxide 31 mmol/L (22-30); Chloride 100 mmol/L (98-107); Estimated Glomerular Filt Rate > 60; Glucose 91 mg/dL (65-110); Potassium 3.9 mmol/L (3.4-5.0); Sodium 136 mmol/L (137-145)
[2022-09-03 11:45] LABS: Carcinoembryonic Antigen 2.9 ng/mL (0.0-3.0)
== END 2022-09-03 09:39 | disposition home or self-care (01) ==
PROVIDERS: PCP Family Medicine; Visit Provider Internal Medicine Hematology & Oncology
DX: C18.6 Malignant neoplasm of descending colon (principal)
CPT/HCPCS: 74177; 80053; 82378; 85025; Q9967

== ENCOUNTER 2023-03-18 10:16 | Outpatient (CLI) | payer MEDICARE, SELFPAY ==
[2023-03-18 10:37] LABS: Basophils Absolute Auto 0.1 K/mm3 (0.0-0.1); Basophils Percent Auto 0.6 % (0.2-1.2); Eosinophils Percent Auto 12.6 % (0-4.4); Hematocrit 42.7 % (42.0-52.0); Hemoglobin 13.7 g/dL (14.0-18.0); Immature Granulocyte Absolute 0.02 K/mm3 (0.00-0.031); Immature Granulocyte Percent A 0.3 % (0-0.5); Lymphocytes Absolute Auto 2.13 K/mm3 (0.9-3.2); Lymphocytes Percent Auto 26.8 % (18.3-44.2); Mean Corpuscular HGB Conc 32.1 g/dl (32-36); Mean Corpuscular Hemoglobin 30.2 pg (26-34); Mean Corpuscular Volume 94.3 fl (80-100); Mean Platelet Volume 10.2 fl (7.4-10.4); Monocytes Absolute Auto 0.8 K/mm3 (0.1-0.6); Monocytes Percent Auto 10.6 % (2.6-8.5); Neutrophils Absolute Auto 3.9 K/mm3 (1.3-6.7); Neutrophils Percent Auto 49.1 % (45.5-73.1); Platelet Count Result 210 k/mm3 (150-375); Red Blood Count 4.53 M/mm3 (4.6-6.20); Red Cell Distribution Width 14.6 % (11.5-14.5)
== END 2023-03-18 10:17 | disposition home or self-care (01) ==
PROVIDERS: PCP Family Medicine; Visit Provider Internal Medicine Hematology & Oncology
DX: C18.6 Malignant neoplasm of descending colon (principal)
CPT/HCPCS: 36415; 85025

== ENCOUNTER 2023-05-12 10:35 | Inpatient (IN) | payer MEDICARE, SELFPAY ==
[2023-05-12] VITALS (13 sets, daily range): BP systolic 117–142; BP diastolic 72–98; PULSE 52–86; RESP 13–16; TEMP 36.3–36.7; O2SAT 96–100; BMI 27.6
--- NOTE | ~2023-05-12 | CT_ITS ---
EXAMINATION: CT abdomen pelvis wo con DATE: 05/12/2023 12:08 INDICATION: Abdominal pain. Right lower quadrant pain. TECHNIQUE: Computed tomography (CT) of the abdomen and pelvis was performed with 100 cc Omnipaque 350 intravenous contrast. The dose-length product was 1359.08 mGy-cm. Automated exposure control and ite rative reconstruction technique were employed. COMPARISON: CT dated 09/03/2022. FINDINGS: Lung bases are unremarkable. Heart size normal. No significant pleural or pericardial effus ion. Small cysts of the left hepatic lobe near the dome of the liver. The spleen, pancreas, adrenal g lands are unremarkable. There is a 3 mm nonobstructing left renal stone. No right renal stone. Ness catheter present in the bladder. Nonobstructive bowel gas pattern. Normal appendix. Prostate gland is mildly prominent. There is a new burst fracture of L4 with retropulsion posteriorly measuring 3 mm. There is approximately 30% loss of vertebral body height. There are chronic fracture deformities of m ultiple lower thoracic and lumbar vertebra unchanged. IMPRESSION: 1. No acute abdominal abnormality. 2: Age-indeterminate L4 burst fracture with posterior retropulsion measuring 3 mm, new since prior CT dated 09/03/2022. 3: Nonobstructing left nephrolithiasis. Reviewed, dictated and finalized at location L. OWS SERVER ARCHITECT
--- NOTE | ~2023-05-12 | MR_ITS ---
EXAMINATION: MR brain/brain stem wo/w con DATE: 05/12/2023 17:51 INDICATION: Cerebrovascular accident. TECHNIQUE: Magnetic resonance imaging (MRI) of the brain and brainstem was performed without and with 10 mL MultiHance intravenous contrast. COMPARISON: Head CT 05/12/2023 FINDINGS: There is no intracranial hemorrhage, acute infarction, or abnormal intracranial mass lesion . There are scattered areas of nonspecific increased T2-weighted signal intensity in the cerebral whi te matter, which is within normal limits for the patient's age. The ventricles are normal in size. Th e orbits are normal. There is mild mucosal thickening in the ethmoid sinuses. The mastoid air cells a re normal. IMPRESSION: 1. Normal brain. Reviewed, dictated and finalized at location E. ER INFLATED PAD IMPRESSION: 1. Normal brain.
--- NOTE | ~2023-05-12 | CT_ITS ---
EXAMINATION: CTA BRAIN/CAROTID DATE: 05/12/2023 12:08 INDICATION: Altered mental status TECHNIQUE: Computed tomographic angiography (CTA) of the head and neck was performed with 100 mL Omni paque-350 intravenous contrast. Multiplanar reconstructions and maximum intensity projection 3D-recon structions of the carotid arteries and of the intracranial arteries were created by the technologist on a separate workstation. Precontrast CT of the head was also obtained. Automated exposure control and iterative reconstruction technique were employed.The dose-length product was 1769.82 mGy-cm. COMPARISON: None. FINDINGS: Carotid arteries: There is small amount of nonhemodynamically significant atherosclerotic plaque along the normal calib er thoracic aorta with no dissection. There is 40% stenosis of the right carotid bulb relative to nor mal distal artery lumen diameter (NASCET criteria). There is 40% stenosis of the left carotid bulb re lative to normal distal artery lumen diameter. Right vertebral artery is dominant. There is mild <50% stenosis at the origin of the right vertebral artery. Moderate 50-70% stenosis at the origin of the left vertebral artery. Mild biapical pleural-parenchymal scarring. Superior mediastinum is unremarkab le. Severe cervical spondylosis. Mild upper thoracic levocurvature with mild spondylosis. Head: No acute intracranial hemorrhage, acute infarction or abnormal extra axial fluid collection. There is mild scattered white matter hypoattenuation consistent with chronic small vessel ischemic disease. S ymmetric prominence of the sulci and ventricles consistent with mild to moderate age-appropriate diff use cerebral volume loss. No mass/mass effect. No abnormally enhancing brain lesions on postcontrast imaging. The orbits and mastoid air cells are normal. Mild mucosal thickening in the left sphenoid an d bilateral ethmoid sinuses. Intracranial arteries Atherosclerotic plaque without hemodynamic significant stenosis at the bilateral carotid siphons. The right vertebral artery is dominant. There is a segmental occlusion of the left vertebral artery. The re is no hemodynamically significant stenosis in the right vertebral, basilar and bilateral internal carotid arteries. There are no aneurysms identified. Both A1 and P1 segments are patent. Cerebral a rterial arborization appears symmetric. IMPRESSION: 1. 40% stenosis of the right carotid bulb relative to normal distal artery lumen diameter (NASCET cri teria). 2. 40% stenosis of the left carotid bulb relative to normal distal artery lumen diameter. 3. Moderate 50-70% stenosis at the origin of the left vertebral artery. 4. Segmental occlusion of the intracranial left vertebral artery. 5. Age-related changes in the brain including mild to moderate diffuse volume loss and mild scattered white matter hypoattenuation consistent with chronic small vessel schema disease. No acute intracran ial process or abnormally enhancing brain lesions. Reviewed, dictated and finalized at location A. FABRICATING MACHINE TENDER IMPRESSION: 1. 40% stenosis of the right carotid bulb relative to normal distal artery lume n diameter (NASCET criteria). 2. 40% stenosis of the left carotid bulb relative to normal distal artery lumen diameter. 3. Moderate 50-70% stenosis at the origin of the left vertebral artery. 4. Segmental occlusion of the intracranial left vertebral artery. 5. Age-related changes in the brain including mild to moderate diffuse volume l oss and mild scattered white matter hypoattenuation consistent with chronic sma ll vessel schema disease. No acute intracranial process or abnormally enhancing brain lesions.
--- NOTE | 2023-05-12 10:40 | ECG_ITS ---
Measurements Intervals Julian Rate: 70 P: 66 CA: 192 QRS: 23 QRSD: 84 T: 16 QT: 357 QTc: 387 Interpretive Statements SINUS RHYTHM ATRIAL PREMATURE COMPLEXES LOW QRS VOLTAGE IN PRECORDIAL LEADS BASELINE ARTIFACT- I, II, III, AVR, AVL, AVF, V1-V6 BORDERLINE ECG COMPARED TO ECG 01/25/2022 12:51:10 SINUS RHYTHM NOW PRESENT Electronically Signed On 05-12-2023 11:24:27 MEDIA/INSTRUCTIONAL DESIGNER by Donny Sherman D.O.
[2023-05-12 11:19] LABS: Basophils Absolute Auto 0.1 K/mm3 (0.0-0.1); Basophils Percent Auto 0.6 % (0.2-1.2); Eosinophils Absolute Auto 0.2 K/mm3 (0-0.3); Eosinophils Percent Auto 2.5 % (0-4.4); Hematocrit 45.8 % (42.0-52.0); Hemoglobin 14.8 g/dL (14.0-18.0); Immature Granulocyte Absolute 0.02 K/mm3 (0.00-0.031); Immature Granulocyte Percent A 0.2 % (0-0.5); Lymphocytes Absolute Auto 2.64 K/mm3 (0.9-3.2); Lymphocytes Percent Auto 29.3 % (18.3-44.2); Mean Corpuscular HGB Conc 32.3 g/dl (32-36); Mean Corpuscular Hemoglobin 30.3 pg (26-34); Mean Corpuscular Volume 93.9 fl (80-100); Mean Platelet Volume 10.3 fl (7.4-10.4); Monocytes Percent Auto 10.9 % (2.6-8.5); Neutrophils Absolute Auto 5.1 K/mm3 (1.3-6.7); Neutrophils Percent Auto 56.5 % (45.5-73.1); Platelet Count Result 300 k/mm3 (150-375); Red Blood Count 4.88 M/mm3 (4.6-6.20); Red Cell Distribution Width 13.5 % (11.5-14.5)
[2023-05-12 11:29] LABS: INR 0.9; Prothrombin Time 12.9 Seconds (11.1-14.7)
[2023-05-12 11:30] LABS: Partial Thromboplastin Time 31.5 SECONDS (22.3-36.8)
[2023-05-12 11:41] LABS: Alanine Aminotransferase 36 U/L (6-50); Albumin Level 4.2 g/dL (3.5-5.1); Alkaline Phosphatase 171 U/L (38-126); Anion Gap 6 mmol/L (8-16); Aspartate Amino Transferase 74 U/L (17-59); Bilirubin,Total 0.8 mg/dL (0.2-1.3); Blood Urea Nitrogen 14 mg/dL (9-20); Calcium 9.3 mg/dL (8.4-10.2); Carbon Dioxide 29 mmol/L (22-30); Chloride 102 mmol/L (98-107); Estimated CRCL calculation 60 ml/min; Estimated Glomerular Filt Rate > 60; Glucose 90 mg/dL (65-110); Potassium 4.4 mmol/L (3.4-5.0); Sodium 137 mmol/L (137-145)
--- NOTE | 2023-05-12 11:41 | ED.AMS ---
HPI - Altered Mental Status General Chief Complaint: Altered Mental Status Stated Complaint: AMS Time Seen by Provider: 05/12/23 10:50 History of Present Illness HPI narrative: 77-year-old male presenting to the emergency department for evaluation of increased confusion and lethargy over the course of the last week. Patient does have a prior history of CVA and has right-sided deficit that is unchanged. Patient resides at [facility] for this deficit. Patient did have a prostate biopsy a few weeks ago and is scheduled to have a PET scan today due to concern for metastasis. Family states that the patient does have good days and bad days regarding his mentation but that he has been having a steady decline over the course of the last week. Related Data Home Medications Medication Instructions Recorded Confirmed acetaminophen 325 mg tablet 650 mg PO Q4H PRN Pain (Scale 09/04/20 05/12/23 (Tylenol) Score 1-3) atorvastatin 80 mg tablet 80 mg PO HS 09/04/20 05/12/23 potassium chloride 20 mEq 20 meq PO BID 09/04/20 05/12/23 tablet,extended release sennosides 8.6 mg tablet (senna) 8.6 mg PO BID PRN Constipation 09/04/20 05/12/23 famotidine 20 mg tablet 20 mg PO BID 05/12/23 05/12/23 Allergies Allergy/AdvReac Type Severity Reaction Status Date / Time No Known Allergies Allergy Verified 05/07/22 10:13 Review of Systems Review of Systems: All systems reviewed & are unremarkable except as noted in HPI and below PMFSH Past Medical History Medical History (Updated 05/12/23 @ 19:09 by Nghia Brody MD) Acute cholecystitis (09/2020) Treated with antibiotics and cholecystostomy tube. Adenocarcinoma of sigmoid colon Atherosclerotic cerebrovascular disease See CTA of the head and neck taken 05/12/2023. 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 Patient has resultant right hemiplegia and cognitive deficit. 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 Normal cardiac stress test (01/2021) Obstructive sleep apnea Intolerant to CPAP. Right femoral vein DVT Right hemiplegia Surgical History Surgical History (Updated 05/12/23 @ 14:48 by Chandni Harrison PA-C) History of cystoscopy (09/2020) With clot evacuation per Dr. Snyder. History of laparoscopic cholecystectomy History of open reduction and internal fixation (ORIF) procedure Left ankle fracture. History of partial colectomy (03/20/21) And excess laparoscopic left colon resection with hand-sewn end-to-end anastomosis for colon cancer per Dr. Connolly. History of tonsillectomy History of vasectomy Status post laparoscopic-assisted sigmoidectomy Family History Family History Mother Unknown family medical history Lung cancer Father Myocardial infarct Social History Social History (Updated 05/12/23 @ 14:48 by Chandni Harrison PA-C) Social History: Healthcare power of patent prosecution attorney: Abel Vergara, son. Code status: Full code. Smoking packs per day: 1.5 Smoking cigarettes per day: 30.0 Years smoked: 28 Smoking pack-years: 42.00 Smoking status: Former smoker Tobacco type: cigarettes Alcohol intake: never Substance use: never Substance use type: does not use Living arrangements: senior living Additional living arrangements comments: Resident at [facility]. Spiritual care concerns: No Exam Narrative: APPEARANCE: Alert but confused HEAD: normocephalic, atraumatic. EYES: PERRLA/EOMI, conjunctivae clear. NOSE: Normal no drainage EARS:TMS clear with good light reflex. THROAT: Pharynx clear, no exudate. NECK: Supple. No adenopathy, no masses. RESPIRATORY: Airway
[2023-05-12 12:09] LABS: Influenza A QL RT-PCR Negative (Negative); Influenza B QL RT-PCR Negative (Negative); RSV RNA, RT-PCR Negative (Negative); SARS-CoV-2 RNA PCR Negative (Negative)
--- NOTE | 2023-05-12 12:34 | PC.NURSE ---
blanton cath was clamped and UA obtained using sterile technique.
[2023-05-12 12:43] LABS: Appearance Urine Clear (Clear); Bacteria Urine None Seen /hpf; Bilirubin Urine Negative (Negative); Blood Urine 2+ (Negative); Color Urine Yellow (Yellow); Glucose Urine UA Negative (Negative); Ketones Urine Negative (Negative); Leukocyte Esterase Ur 1+ LEU/UL (Negative); Nitrate Urine Negative (Negative); Non Pathogenic Casts 0-2; Protein Urine Negative (Negative); RBC Urine 51-100 /hpf (0-2); Squamous Epithelial Cell Urine None seen /hpf (Few); Urobilinogen Urine 0.2 mg/dL (<2.0); pH Urine 6.5 (5.0-9.0)
[2023-05-12 12:54] LABS: Specific Grav Ur 1.048 (1.001-1.035)
[2023-05-12 12:56] LABS: Add Urine Microscopic? YES
--- NOTE | 2023-05-12 14:44 | PM.IMHP ---
H&P: HPI History of Present Illness Date/Time: 05/12/23 16:00 Chief Complaint: Altered mental status. Narrative: This is a 77-year-old male with history of stroke (residual right hemiparesis and mild cognitive deficit), hypertension, hyperlipidemia, anemia, gastroesophageal reflux disease, and colon cancer who presented to the emergency department via EMS for evaluation of altered mental status. The baseline he is reportedly alert and oriented x3 however today he has been much more confused. As such he is not the best historian and some of the following history is obtained via a review of his EMR as well as information provided by his family members. He has reportedly been increasingly confused and more lethargic over the course of the past week or so. Aside from mild discomfort in the right flank, he has no complaints and he denies recent illnesses and at the time my evaluation he denies headache, visual changes, change in his baseline focal weakness, difficulty speaking and swallowing, fever, chills, sweats, cold and flu symptoms, chest pain, shortness a breath, nausea, vomiting, and diarrhea. He has an indwelling catheter and has not noticed any change in his urine and he denies suprapubic and lower back pain. There are no reports of recent falls, infections, or changes in medications. [id number] a reports that he recently had a prostate biopsy and was scheduled to have a PET scan today. He was afebrile on arrival to the emergency department with stable vital signs. CMP and CBC were pretty unremarkable aside from an AST of 74 and ALT of 171. Urine specific gravity was elevated and UA was positive for 2+ blood, 1+ leukocyte esterase, and 6 to 10 WBC. No bacteria were noted on microscopy. Urine drug screen was negative. He tested negative for influenza, RSV, and COVID. CTA of the head and neck showed atherosclerotic disease and age-related changes with a segmental occlusion of the intracranial left vertebral artery. CT of the abdomen and pelvis showed no acute abdominal abnormalities, age-indeterminate L4 burst fracture, and nonobstructing left nephrolithiasis. He is being admitted in this setting for further evaluation and closer monitoring. Review of Systems Review of Systems: Reviewed and negative except for as per HPI. [facility] Past Medical History Medical History Acute cholecystitis (09/2020) Treated with antibiotics and cholecystostomy tube. Adenocarcinoma of sigmoid colon Atherosclerotic cerebrovascular disease See CTA of the head and neck taken 05/12/2023. 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 Patient has resultant right hemiplegia and cognitive deficit. 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 Normal cardiac stress test (01/2021) Obstructive sleep apnea Intolerant to CPAP. Right femoral vein DVT Right hemiplegia Surgical History Surgical History History of cystoscopy (09/2020) With clot evacuation per Dr. Snyder. History of laparoscopic cholecystectomy History of open reduction and internal fixation (ORIF) procedure Left ankle fracture. History of partial colectomy (03/20/21) And excess laparoscopic left colon resection with hand-sewn end-to-end anastomosis for colon cancer per Dr. Connolly. History of tonsillectomy History of vasectomy Status post laparoscopic-assisted sigmoidectomy Family History Family History Mother Unknown family medical history Lung cancer Father Myocardial infarct Social History Social History (Reviewed 05/12/23 @ 20
[2023-05-12 16:02] LABS: Amphetamine Screen Urine Negative (Negative); Barbiturate Screen Urine Negative (Negative); Benzodiazepines Screen Urine Negative (Negative); Cannabinoid Screen Urine Negative (Negative); Cocaine Screen Urine Negative (Negative); Methadone Screen Urine Negative (Negative); Opiate Screen Urine Negative (Negative); Phencyclidine Screen Urine Negative (Negative)
--- NOTE | 2023-05-12 16:18 | ADMGEN ---
This patient, Matti Vergara, was admitted to [facility] Surg Room 331-01. Patient/family oriented to hospital policies and general routines including ID bracelet, bed and alarms, visiting hours, pain management, procedures, bathroom and other care routines, personal items, smoking policy, room service/diet, and visiting hours. Information on how to activate the Rapid Response Team has been discussed. Patient/Family are encouraged to report perceived risks to care and to ask questions if they do not understand what they are told or what they should do.
--- NOTE | 2023-05-12 18:51 | PC.NURSE ---
Patient is refusing telemetry placement. He continues to pull it off, and is now not letting me connect the leads. Patient is confused. Will inform material handler 1st shift to attempt again when patient calms down.
[2023-05-12 22:44] LABS: Glucose Point of Care 107 mg/dl (65-105)
[2023-05-12] MEDS: QUEtiapine FUMARATE 25 MG TABLET PO (23:45)
[2023-05-12] MEDS: ATORVASTATIN 40 MG TABLET 80 MG PO (23:45)
[2023-05-13] VITALS (7 sets, daily range): BP systolic 117–128; BP diastolic 60–80; PULSE 60–81; RESP 16–18; TEMP 36.3–36.7; O2SAT 91–100
[2023-05-13 06:10] LABS: Hematocrit 45.2 % (42.0-52.0); Hemoglobin 14.9 g/dL (14.0-18.0); Mean Corpuscular Hemoglobin 30.4 pg (26-34); Mean Corpuscular Volume 92.2 fl (80-100); Mean Platelet Volume 10.1 fl (7.4-10.4); Platelet Count Result 284 k/mm3 (150-375); Red Cell Distribution Width 13.4 % (11.5-14.5)
[2023-05-13 06:18] LABS: Ammonia < 9 umol/L (9-30)
[2023-05-13 06:22] LABS: Alanine Aminotransferase 33 U/L (6-50); Albumin Level 3.9 g/dL (3.5-5.1); Alkaline Phosphatase 196 U/L (38-126); Anion Gap 8 mmol/L (8-16); Aspartate Amino Transferase 59 U/L (17-59); Bilirubin,Total 0.9 mg/dL (0.2-1.3); Blood Urea Nitrogen 12 mg/dL (9-20); CRP < 0.5 mg/dL (<1.0); Calcium 9.1 mg/dL (8.4-10.2); Carbon Dioxide 26 mmol/L (22-30); Chloride 103 mmol/L (98-107); Estimated CRCL calculation 0 ml/min; Estimated Glomerular Filt Rate > 60; Glucose 99 mg/dL (65-110); Magnesium 2.1 mg/dL (1.6-2.3); Potassium 3.9 mmol/L (3.4-5.0); Sodium 137 mmol/L (137-145)
--- NOTE | 2023-05-13 08:19 | PM.IMPN ---
Progress Note: A&P Assessment and Plan (1) Altered mental status: Code(s): R41.82 - Altered mental status, unspecified Status: Acute Assessment and Plan: Workup to this point is unremarkable with normal MRI not significantly changed CTA and quite normal labs. Urinalysis shows 6-10 white blood cells with 1+ leukocyte esterase. We will initiate Rocephin treatment pending urine culture as patient has a history of encephalopathy with infections. (2) Atherosclerotic cerebrovascular disease: Code(s): I67.2 - Cerebral atherosclerosis Status: Acute Assessment and Plan: Normal MRI despite known left vertebral artery occlusion and prior stroke as a result (3) Benign prostatic hyperplasia: Code(s): N40.0 - Benign prostatic hyperplasia without lower urinary tract symptoms Status: Acute Assessment and Plan: A Ness catheter in place due to the urinary retention Time Spent With Patient Time with patient: 25 - 35 minutes Subjective Date/time seen: 05/13/23 08:19 Interval history: Patient was sent to the emergency department from the group home for altered mental status. Workup has been benign to this point however patient is still extremely confused. He can only tell me his name at this time and his date of . He states that he is 87 years old but really he is only 77. He cannot say where we are located or what year it is states that it is the 3rd month of the year. He denies any symptoms including headache fever chills nausea vomiting constipation diarrhea abdominal pain chest pain shortness a breath leg swelling or pain anywhere. Review of Systems Review of Systems: Reviewed and negative except for as per HPI. Exam Narrative: General:?Nontoxic appearing male sitting up in bed. HEENT:??PERRL, EOMI. Sclera anicteric. Moist mucous membranes. Neck:??Supple. No obvious carotid bruits. Respiratory:?Respirations are nonlabored.? Lung sounds are diminished due to poor effort. Cardiovascular:??Regular rate and rhythm with S1-S2. Gastrointestinal:??Abdomen is soft, nontender, and nondistended with positive bowel sounds.?No guarding or rebound tenderness. Genitourinary:?Ness catheter draining yellow urine. Skin:??Warm and dry. Extremities:??No cyanosis, clubbing, or significant edema. Radial and pedal pulses intact. Neurological:??Alert to name and date of . He could not tell me his accurate age or the current year.? Right hemiplegia from previous stroke. Right arm is contracted though he can wiggle his hands and toes on the right side. Psychiatric:?Cooperative, confused. Objective Data Vital Signs Vital Signs: Vital Signs - 24 hr 05/12/23 11:11 05/12/23 11:16 05/12/23 11:30 Temperature 36.6 C 36.7 C Pulse Rate 86 68 77 Respiratory Rate 16 13 14 Blood Pressure 123/72 135/76 Pulse Oximetry 98 99 Oxygen Delivery Room Air 05/12/23 11:31 05/12/23 11:45 05/12/23 11:46 Temperature Pulse Rate 75 74 76 Respiratory Rate 15 13 15 Blood Pressure 133/82 131/80 Pulse Oximetry 100 100 Oxygen Delivery 05/12/23 12:12 05/12/23 12:15 05/12/23 13:15 Temperature 36.6 C Pulse Rate 73 76 Respiratory Rate 15 16 13 Blood Pressure 132/80 Pulse Oximetry 100 100 100 Oxygen Delivery 05/12/23 13:58 05/12/23 15:25 05/12/23 16:23 Temperature 36.6 C 36.3 C L Pulse Rate 76 77 Respiratory Rate 14 16 Blood Pressure 142/96 H 128/93 H Pulse Oximetry 97 96 Oxygen Delivery Room Air 05/12/23 19:52 05/12/23 20:38 05/13/23 00:00 Temperature 36.6 C Pulse Rate 77 52 L 79 Respiratory Rate 16 16 Blood Pressure 117/98 H Pulse Oximetry 96 96 Oxygen Delivery Room Air 05/13/23 04:00 05/13/23 05:16 Temperature 36.4 C Pulse Rate 65 79 Respiratory Rate 16 Blood Pressure 128/72 Pulse Oximetry 96 Oxygen Delivery Intake/Output Intake/Output: Intake & Output 05/10/23 05/11/23 05/12/23 05/13/23 23:59 23:59 23:59 23:59
[2023-05-13] MEDS: TAMSULOSIN HCL 0.4 MG CAPSULE PO (08:48)
[2023-05-13] MEDS: PANTOPRAZOLE 40 MG TABLET PO (08:48)
[2023-05-13] MEDS: ASPIRIN 81 MG ENTERIC TABLET PO (08:49)
[2023-05-13] MEDS: LORATADINE 10 MG TABLET PO (08:49)
[2023-05-13] MEDS: POTASSIUM CHLORIDE 20 MEQ ER TABLET PO ×2 (08:49→17:53)
[2023-05-13] MEDS: FERROUS SULFATE 325 MG TABLET DR BY MOUTH (08:49)
[2023-05-13] MEDS: FAMOTIDINE 20 MG TABLET PO ×2 (08:49→20:23)
[2023-05-13] MEDS: cefTRIAXone 2 GM/NS 100 ML 2 GM/100 ML BAG IVPB (14:07)
[2023-05-13] MEDS: ATORVASTATIN 40 MG TABLET 80 MG PO (20:23)
[2023-05-13] MEDS: ACETAMINOPHEN 325 MG TABLET 650 MG PO (20:23)
[2023-05-13] MEDS: MIRTAZAPINE 7.5 MG TABLET PO (20:23)
[2023-05-13] MEDS: QUEtiapine FUMARATE 25 MG TABLET PO (20:23)
[2023-05-14 05:54] VITALS: BP 130/80; PULSE 77; RESP 16; TEMP 36.1; O2SAT 98
[2023-05-14 06:03] LABS: Basophils Absolute Auto 0.1 K/mm3 (0.0-0.1); Basophils Percent Auto 0.6 % (0.2-1.2); Eosinophils Absolute Auto 0.2 K/mm3 (0-0.3); Eosinophils Percent Auto 1.6 % (0-4.4); Hematocrit 47.7 % (42.0-52.0); Hemoglobin 15.2 g/dL (14.0-18.0); Immature Granulocyte Absolute 0.05 K/mm3 (0.00-0.031); Immature Granulocyte Percent A 0.4 % (0-0.5); Lymphocytes Absolute Auto 1.84 K/mm3 (0.9-3.2); Lymphocytes Percent Auto 13.9 % (18.3-44.2); Mean Corpuscular HGB Conc 31.9 g/dl (32-36); Mean Corpuscular Hemoglobin 30.6 pg (26-34); Mean Platelet Volume 10.5 fl (7.4-10.4); Monocytes Absolute Auto 1.5 K/mm3 (0.1-0.6); Monocytes Percent Auto 11.6 % (2.6-8.5); Neutrophils Absolute Auto 9.5 K/mm3 (1.3-6.7); Neutrophils Percent Auto 71.9 % (45.5-73.1); Platelet Count Result 270 k/mm3 (150-375); Red Blood Count 4.97 M/mm3 (4.6-6.20); Red Cell Distribution Width 13.4 % (11.5-14.5); White Blood Count 13.2 K/mm3 (4.5-10.0)
[2023-05-14 06:14] LABS: Ammonia < 9 umol/L (9-30)
[2023-05-14 06:17] LABS: Alanine Aminotransferase 31 U/L (6-50); Albumin Level 4.1 g/dL (3.5-5.1); Alkaline Phosphatase 205 U/L (38-126); Anion Gap 9 mmol/L (8-16); Aspartate Amino Transferase 46 U/L (17-59); Bilirubin,Total 1.1 mg/dL (0.2-1.3); Blood Urea Nitrogen 12 mg/dL (9-20); Calcium 9.2 mg/dL (8.4-10.2); Carbon Dioxide 26 mmol/L (22-30); Chloride 102 mmol/L (98-107); Estimated CRCL calculation 66 ml/min; Estimated Glomerular Filt Rate > 60; Glucose 102 mg/dL (65-110); Magnesium 2.2 mg/dL (1.6-2.3); Potassium 4.2 mmol/L (3.4-5.0); Sodium 137 mmol/L (137-145)
[2023-05-14 06:58] LABS: Procalcitonin 0.1 ng/mL
[2023-05-14] MEDS: LORATADINE 10 MG TABLET PO (09:16)
[2023-05-14] MEDS: FERROUS SULFATE 325 MG TABLET DR BY MOUTH (09:16)
[2023-05-14] MEDS: ASPIRIN 81 MG ENTERIC TABLET PO (09:16)
[2023-05-14] MEDS: POTASSIUM CHLORIDE 20 MEQ ER TABLET PO (09:16)
[2023-05-14] MEDS: FAMOTIDINE 20 MG TABLET PO ×2 (09:16→21:41)
[2023-05-14] MEDS: TAMSULOSIN HCL 0.4 MG CAPSULE PO (09:16)
[2023-05-14] MEDS: PANTOPRAZOLE 40 MG TABLET PO (09:16)
[2023-05-14 10:43] VITALS: O2SAT 95
[2023-05-14] MEDS: cefTRIAXone 2 GM/NS 100 ML 2 GM/100 ML BAG IVPB (13:46)
[2023-05-14 14:00] VITALS: BP 125/56; PULSE 71; RESP 17; TEMP 36.5; O2SAT 94
--- NOTE | 2023-05-14 14:27 | PM.IMPN ---
Progress Note: A&P Assessment and Plan (1) Altered mental status: Qualifiers: Altered mental status type: transient alteration of awareness Qualified Code(s): R40.4 - Transient alteration of awareness Code(s): R41.82 - Altered mental status, unspecified Status: Acute (2) Atherosclerotic cerebrovascular disease: Code(s): I67.2 - Cerebral atherosclerosis Status: Acute (3) Benign prostatic hyperplasia: Qualifiers: Lower urinary tract symptom presence: symptoms present Lower urinary tract symptom detail: urinary obstruction Qualified Code(s): N40.1 - Benign prostatic hyperplasia with lower urinary tract symptoms; N13.8 - Other obstructive and reflux uropathy Code(s): N40.0 - Benign prostatic hyperplasia without lower urinary tract symptoms Status: Acute Plan AMS -likely secondary to UTI -MRI showed normal findings patient does have a HX of previous stroke -HX of cerebral atherosclerosis -resume statin UTI -Urine cultures pending Leukocytes+ -Continue IV hydration. -Monitor CBC, CMP watch for sepsis. -Monitor vital signs. -Rociphen -Monitor for obstructive uropathy and pyelonephritis BPH -IV fluids -Ness placed for retention -Bladder trials in the AM -resumed flomax Time Spent With Patient Time with patient: 15 - 25 minutes Subjective Date/time seen: 05/14/23 14:27 Interval history: 05/13/2023: Patient was sent to the emergency department from the senior living for altered mental status. Workup has been benign to this point however patient is still extremely confused. He can only tell me his name at this time and his date of . He states that he is 87 years old but really he is only 77. He cannot say where we are located or what year it is states that it is the 3rd month of the year. He denies any symptoms including headache fever chills nausea vomiting constipation diarrhea abdominal pain chest pain shortness a breath leg swelling or pain anywhere. 05/14/2023: Patient pleasantly confused reports no pain, WBC trending up 13.2 today still waiting on UA culture/sensitivity. RN reported diarrhea and recent ABX therapy O/P c-diff ordered negative. Review of Systems Review of Systems: All systems reviewed & are unremarkable except as noted in HPI and below Exam Narrative: Physical Exam: - GENERAL: Alert pleasantly confused. No acute distress. Well-nourished. - EYES: EOMI. No scleral icterus. PERRLA. - HENT: Moist mucous membranes. No cervical lymphadenopathy. - LUNGS: Clear to auscultation bilaterally. No accessory muscle use. - CARDIOVASCULAR: Regular rate and rhythm. No murmur. No JVD. S1-S2 - ABDOMEN: Soft, non-tender and non-distended. No palpable masses. - EXTREMITIES: No edema. Non-tender -SKIN: No rashes or lesions. Skin warm, dry. - NEUROLOGIC: No focal neurological deficits. CN II-XII grossly intact - PSYCHIATRIC: Confused. Objective Data Vital Signs Vital Signs: Vital Signs - 24 hr 05/13/23 20:20 05/13/23 20:00 05/14/23 05:54 Temperature 97.3 F L 97.0 F L Pulse Rate 81 81 77 Respiratory Rate 18 18 16 Blood Pressure 127/80 130/80 Pulse Oximetry 100 100 98 Oxygen Delivery Room Air 05/14/23 10:43 Temperature Pulse Rate Respiratory Rate Blood Pressure Pulse Oximetry 95 Oxygen Delivery Room Air Intake/Output Intake/Output: Intake & Output 05/11/23 05/12/23 05/13/23 05/14/23 23:59 23:59 23:59 23:59 Intake Total 240 910 962 Output Total 500 950 601 Balance -260 -40 361 Meds/Results Medications: Active Medications Generic Name Dose Route Start Last Admin Trade Name Freq PRN Reason Stop Dose Admin Acetaminophen 650 mg 05/12/23 14:53 05/13/23 20:23 Acetaminophen 325 Mg Tablet PO 650 mg Q6H PRN Administration Mild Pain (1-3) or Fever Aspirin 81 mg 05/13/23 09:00 05/14/23 09:16 Aspirin 81 Mg Enteric Tablet PO 81 mg QAM LUI Administration Atorvasta
[2023-05-14 14:28] LABS: Toxigenic C. Diff NEGATIVE (NEGATIVE)
[2023-05-14 20:00] VITALS: PULSE 78; RESP 16; O2SAT 97
[2023-05-14 21:30] VITALS: BP 133/69; PULSE 76; RESP 16; TEMP 36.6; O2SAT 97
[2023-05-14] MEDS: ACETAMINOPHEN 325 MG TABLET 650 MG PO (21:40)
[2023-05-14] MEDS: MIRTAZAPINE 7.5 MG TABLET PO (21:41)
[2023-05-14] MEDS: ATORVASTATIN 40 MG TABLET 80 MG PO (21:41)
[2023-05-14] MEDS: QUEtiapine FUMARATE 25 MG TABLET PO (21:41)
[2023-05-15 04:55] VITALS: BP 127/75; PULSE 64; RESP 16; TEMP 36.3; O2SAT 100
[2023-05-15 06:21] LABS: Basophils Absolute Auto 0.1 K/mm3 (0.0-0.1); Eosinophils Absolute Auto 0.3 K/mm3 (0-0.3); Eosinophils Percent Auto 4.2 % (0-4.4); Hematocrit 48.5 % (42.0-52.0); Hemoglobin 15.5 g/dL (14.0-18.0); Immature Granulocyte Absolute 0.03 K/mm3 (0.00-0.031); Immature Granulocyte Percent A 0.4 % (0-0.5); Lymphocytes Absolute Auto 2.16 K/mm3 (0.9-3.2); Lymphocytes Percent Auto 27.4 % (18.3-44.2); Mean Corpuscular Hemoglobin 29.8 pg (26-34); Mean Corpuscular Volume 93.3 fl (80-100); Mean Platelet Volume 10.8 fl (7.4-10.4); Monocytes Absolute Auto 1.1 K/mm3 (0.1-0.6); Monocytes Percent Auto 13.3 % (2.6-8.5); Neutrophils Absolute Auto 4.2 K/mm3 (1.3-6.7); Neutrophils Percent Auto 53.7 % (45.5-73.1); Platelet Count Result 274 k/mm3 (150-375); Red Cell Distribution Width 13.3 % (11.5-14.5); White Blood Count 7.9 K/mm3 (4.5-10.0)
[2023-05-15 06:30] LABS: Alanine Aminotransferase 28 U/L (6-50); Albumin Level 4.3 g/dL (3.5-5.1); Alkaline Phosphatase 204 U/L (38-126); Anion Gap 11 mmol/L (8-16); Aspartate Amino Transferase 41 U/L (17-59); Blood Urea Nitrogen 14 mg/dL (9-20); Calcium 9.4 mg/dL (8.4-10.2); Carbon Dioxide 23 mmol/L (22-30); Chloride 104 mmol/L (98-107); Estimated CRCL calculation 66 ml/min; Estimated Glomerular Filt Rate > 60; Glucose 96 mg/dL (65-110); Magnesium 2.3 mg/dL (1.6-2.3); Potassium 3.8 mmol/L (3.4-5.0); Sodium 138 mmol/L (137-145)
[2023-05-15 08:00] VITALS: PULSE 64; RESP 16; O2SAT 100
--- NOTE | 2023-05-15 11:04 | PM.DS ---
DS: Admitting Diagnosis Discharge Date 05/15/2023 Admitting Diagnosis AMS DS: Discharge Diagnosis Discharge Diagnosis (1) Altered mental status: Qualifiers: Altered mental status type: transient alteration of awareness Qualified Code(s): R40.4 - Transient alteration of awareness Code(s): R41.82 - Altered mental status, unspecified Status: Acute (2) Atherosclerotic cerebrovascular disease: Code(s): I67.2 - Cerebral atherosclerosis Status: Acute (3) Benign prostatic hyperplasia: Qualifiers: Lower urinary tract symptom presence: symptoms present Lower urinary tract symptom detail: urinary obstruction Qualified Code(s): N40.1 - Benign prostatic hyperplasia with lower urinary tract symptoms; N13.8 - Other obstructive and reflux uropathy Code(s): N40.0 - Benign prostatic hyperplasia without lower urinary tract symptoms Status: Acute Plan AMS-RESOLVED back to baseline -UTI R/O -MRI showed normal findings patient does have a HX of previous stroke -HX of cerebral atherosclerosis -resume statin added Aspirin 81mg UTI-Ruled OUT per cultures -Chronic indwelling catheter -Catheter care and hygiene -change monthly BPH -Ness -resumed flomax DS: Summary Hospital Course Hospital Course: Chief Complaint: Altered mental status. Narrative: This is a 77-year-old male with history of stroke (residual right hemiparesis and mild cognitive deficit), hypertension, hyperlipidemia, anemia, gastroesophageal reflux disease, and colon cancer who presented to the emergency department via EMS for evaluation of altered mental status. The baseline he is reportedly alert and oriented x3 however today he has been much more confused. As such he is not the best historian and some of the following history is obtained via a review of his EMR as well as information provided by his family members. He has reportedly been increasingly confused and more lethargic over the course of the past week or so. Aside from mild discomfort in the right flank, he has no complaints and he denies recent illnesses and at the time my evaluation he denies headache, visual changes, change in his baseline focal weakness, difficulty speaking and swallowing, fever, chills, sweats, cold and flu symptoms, chest pain, shortness a breath, nausea, vomiting, and diarrhea. He has an indwelling catheter and has not noticed any change in his urine and he denies suprapubic and lower back pain. There are no reports of recent falls, infections, or changes in medications. [id number] a reports that he recently had a prostate biopsy and was scheduled to have a PET scan today. He was afebrile on arrival to the emergency department with stable vital signs. CMP and CBC were pretty unremarkable aside from an AST of 74 and ALT of 171. Urine specific gravity was elevated and UA was positive for 2+ blood, 1+ leukocyte esterase, and 6 to 10 WBC. No bacteria were noted on microscopy. Urine drug screen was negative. He tested negative for influenza, RSV, and COVID. CTA of the head and neck showed atherosclerotic disease and age-related changes with a segmental occlusion of the intracranial left vertebral artery. CT of the abdomen and pelvis showed no acute abdominal abnormalities, age-indeterminate L4 burst fracture, and nonobstructing left nephrolithiasis. He is being admitted in this setting for further evaluation and closer monitoring. Interval history: 05/13/2023:? [facility].? Workup has been benign to this point however patient is still extremely confused.? He can only tell me his name at this time and his date of .? He states that he is 87 years old but really he is only 77.? He cannot say where we are located or what year it is states that it is the 3rd month of the year.? He denies any symptoms including headache fever chills nausea vomiting constipation diarrhe
[2023-05-15] MEDS: LORATADINE 10 MG TABLET PO (12:02)
[2023-05-15] MEDS: ASPIRIN 81 MG ENTERIC TABLET PO (12:02)
[2023-05-15] MEDS: POTASSIUM CHLORIDE 20 MEQ ER TABLET PO (12:03)
[2023-05-15] MEDS: PANTOPRAZOLE 40 MG TABLET PO (12:03)
[2023-05-15] MEDS: FAMOTIDINE 20 MG TABLET PO (12:03)
[2023-05-15] MEDS: TAMSULOSIN HCL 0.4 MG CAPSULE PO (12:03)
[2023-05-15] MEDS: FERROUS SULFATE 325 MG TABLET DR BY MOUTH (12:03)
[2023-05-15 13:04] LABS: SARS-CoV-2 RNA PCR Negative (Negative)
== END 2023-05-15 14:23 | DRG 71 ==
LOC: ANHED 14:17 → ANH3MEDSUR 14:24 → ANH2MED 05-13 15:05 → ANH3MEDSUR 05-13 15:05
PROVIDERS: Nurse Practitioner; Physician Assistant; Admitting Provider Internal Medicine; Emergency Provider Emergency Medicine; PCP Family Medicine; Visit Provider Nurse Practitioner Family
DX: I67.2 Cerebral atherosclerosis (principal); I69.351 Hemiplegia and hemiparesis following cerebral infarction affecting right dominant side; I65.02 Occlusion and stenosis of left vertebral artery; I25.10 Atherosclerotic heart disease of native coronary artery without angina pectoris; I10 Essential (primary) hypertension; E78.5 Hyperlipidemia, unspecified; N40.1 Benign prostatic hyperplasia with lower urinary tract symptoms; R19.7 Diarrhea, unspecified; R33.8 Other retention of urine; G47.33 Obstructive sleep apnea (adult) (pediatric); I67.1 Cerebral aneurysm, nonruptured; K21.9 Gastro-esophageal reflux disease without esophagitis; I69.319 Unspecified symptoms and signs involving cognitive functions following cerebral infarction; Z20.822 Contact with and (suspected) exposure to COVID-19; Z87.891 Personal history of nicotine dependence; Z11.52 Encounter for screening for COVID-19; Z85.038 Personal history of other malignant neoplasm of large intestine
CPT/HCPCS: 36415; 70496; 70498; 70553; 74176; 80053; 80307; 81001; 82140; 82607; 82948; 83735; 84145; 84443; 85025; 85027; 85610; 85730; 86140; 87086; 87088; 87493; 87635; 87637; 93005; 96374; 99285; A9270; A9577; G0378; J0696; Q9967

== ENCOUNTER 2023-06-01 12:32 | Outpatient (CLI) | payer OTHER, MEDICARE, SELFPAY ==
--- NOTE | ~2023-06-01 | PE_ITS ---
EXAMINATION: PET_PETPSMAST_PT DATE: 06/01/2023 16:14 INDICATION: Malignant neoplasm of prostate. TECHNIQUE: 8.941 mCi of piflufolastat F-18 was administered intravenously. Low dose computed tomograp hy (CT) images were acquired from the base of the brain to the proximal thighs for attenuation correc tion and anatomic localization. Automated exposure control was employed. Dose-length product (DLP) wa s 793 mGy-cm. Positron emission tomography (PET) images were acquired in the same distribution. COMPARISON: CT abdomen pelvis 05/12/2023, 09/03/22 FINDINGS: Head/neck: There are no pathologically enlarged lymph nodes. Chest: There is mild scarring at the lung apices. There is mild emphysema. There is mild atelectasis bilaterally. There is a 5 mm nodule in left upper lobe, likely benign. No pleural effusion. The heart size is normal. There are coronary artery calcifications. No pericardial effusion. There is a small sliding hiatal hernia. There is bilateral gynecomastia. There is chronic height loss of multiple vert ebral bodies. Abdomen/pelvis/proximal thighs: There is a 14 mm cyst in the liver. The gallbladder is absent. The sp val, pancreas, and adrenal glands are normal. There is cortical thinning of the kidneys. There is a 3 mm stone in left kidney. There is calcified atherosclerosis of the aorta and many of the other hiren marlin. Stool distends the rectum. There is mild fat stranding around the rectosigmoid. There is divert iculosis of the colon. There is a large volume of stool in the colon. There are no pathologically enl arged lymph nodes. There are normal sized bilateral external iliac and inguinal lymph nodes with maxi mum SUV up to 3.4, probably benign. The prostate is mildly enlarged. There is increased activity in t he prostate with maximum SUV of 75.5. The Ness catheter balloon is in the prosthetic urethra. The bl adder is decompressed. There is a right inguinal hernia containing fat. There is prominent fat in lef t inguinal canal that may be a hernia. There is chronic height loss of multiple vertebral bodies. The re is a healing subacute burst fracture of L4 with increased activity, probably benign based on the C T appearance. IMPRESSION: 1. Mildly enlarged prostate with increased activity, consistent with primary malignancy. No specific evidence of metastatic disease. 2. Ness catheter balloon in the prosthetic urethra. Reviewed, dictated and finalized at location A. 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 Mildly enlarged prostate with increased activity, consistent with primary ma lignancy. No specific evidence of metastatic disease. 2. Ness catheter balloon in the prosthetic urethra.
== END 2023-06-01 12:33 | disposition home or self-care (01) ==
PROVIDERS: PCP Family Medicine; Visit Provider Urology
DX: C61 Malignant neoplasm of prostate (principal)
CPT/HCPCS: 78815; A9595

== ENCOUNTER 2023-09-21 10:42 | Outpatient (CLI) | payer OTHER, MEDICARE, SELFPAY ==
[2023-09-21 11:00] LABS: Basophils Absolute Auto 0.1 K/mm3 (0.0-0.1); Basophils Percent Auto 0.6 % (0.2-1.2); Eosinophils Absolute Auto 0.3 K/mm3 (0-0.3); Eosinophils Percent Auto 3.4 % (0-4.4); Hematocrit 41.4 % (42.0-52.0); Hemoglobin 13.5 g/dL (14.0-18.0); Immature Granulocyte Absolute 0.03 K/mm3 (0.00-0.031); Immature Granulocyte Percent A 0.4 % (0-0.5); Lymphocytes Absolute Auto 2.81 K/mm3 (0.9-3.2); Lymphocytes Percent Auto 33.8 % (18.3-44.2); Mean Corpuscular HGB Conc 32.6 g/dl (32-36); Mean Corpuscular Hemoglobin 31.3 pg (26-34); Mean Corpuscular Volume 96.1 fl (80-100); Mean Platelet Volume 10.2 fl (7.4-10.4); Monocytes Absolute Auto 0.9 K/mm3 (0.1-0.6); Neutrophils Absolute Auto 4.2 K/mm3 (1.3-6.7); Neutrophils Percent Auto 50.8 % (45.5-73.1); Platelet Count Result 233 k/mm3 (150-375); Red Blood Count 4.31 M/mm3 (4.6-6.20); Red Cell Distribution Width 13.6 % (11.5-14.5); White Blood Count 8.3 K/mm3 (4.5-10.0)
[2023-09-21 11:05] LABS: Blood Urea Nitrogen 15 mg/dL (8-26); Carbon Dioxide 28 mmol/L (22-30); Chloride 101 mmol/L (98-109); Estimated Glomerular Filt Rate > 60; Glucose 96 mg/dL (70-105); Ionized Calcium (POC) 1.14 mmol/L (1.11-1.31); Potassium 4.1 mmol/L (3.5-4.9); Sodium 139 mmol/L (138-146)
[2023-09-21 12:11] LABS: Alanine Aminotransferase 19 U/L (6-50); Albumin Level 4.3 g/dL (3.5-5.1); Alkaline Phosphatase 92 U/L (38-126); Anion Gap 7 mmol/L (4-12); Aspartate Amino Transferase 29 U/L (17-59); Bilirubin,Total 0.7 mg/dL (0.2-1.3); Blood Urea Nitrogen 16 mg/dL (9-20); Calcium 9.2 mg/dL (8.4-10.2); Carbon Dioxide 26 mmol/L (22-30); Chloride 104 mmol/L (98-107); Estimated Glomerular Filt Rate > 60; Glucose 96 mg/dL (65-110); Potassium 4.3 mmol/L (3.4-5.0); Sodium 137 mmol/L (137-145)
[2023-09-21 12:39] LABS: Carcinoembryonic Antigen 4.4 ng/mL (0.0-3.0); Prostate Specific Antigen 0.8 ng/mL (< OR = 4.0)
== END 2023-09-21 10:43 | disposition home or self-care (01) ==
PROVIDERS: PCP Family Medicine; Visit Provider Internal Medicine Hematology & Oncology
DX: C18.6 Malignant neoplasm of descending colon (principal); R97.20 Elevated prostate specific antigen [PSA]
CPT/HCPCS: 36415; 80047; 80053; 82378; 84153; 85025

== ENCOUNTER 2023-09-22 16:02 | Emergency (ER) | payer OTHER, MEDICARE, SELFPAY ==
[2023-09-22] VITALS (7 sets, daily range): BP systolic 112–164; BP diastolic 72–113; PULSE 63–67; RESP 13–17; TEMP 36.7; O2SAT 98–100
--- NOTE | ~2023-09-22 | CT_ITS ---
EXAMINATION: CT abdomen pelvis w con DATE: 09/22/2023 18:20 INDICATION: abd pain, diarrhea, increased gas TECHNIQUE: Computed tomography (CT) of the abdomen and pelvis was performed with 100 mL Omnipaque-350 intravenous contrast. Automated exposure control and iterative reconstruction technique were employe d. The dose-length product was 1164.48 mGy-cm. COMPARISON: 05/12/2023. FINDINGS: Lower thorax: Coronary artery and aortic valve calcification. Liver: Simple liver cyst near the dome. Biliary/Gallbladder: Gallbladder is absent. No bile duct dilation. Pancreas: No mass or duct dilation. Spleen: Normal. Adrenals:No mass. Kidneys: No suspicious mass, obstructing stone, or hydronephrosis. Mild bilateral atrophy and cortica l thinning. Punctate left midpole nonobstructing calcification. Left midpole hypodensity, too small t o characterize but likely represents a cyst. GI tract: Small hiatal hernia. Mild distal sigmoid and rectal wall edema. No small or large bowel dil ation. Normal appendix. Mesentery/Peritoneum: No ascites, mass, or free air. Retroperitoneum: No mass. Atherosclerotic abdominal aortic and/or arterial calcifications. Pelvis: Urinary bladder decompressed by Ness catheter with persistent wall thickening. Prostatomegal y. Soft Tissues: Soft tissues and body wall unremarkable. Bones: L4 burst fracture with increased height loss, now 60%. Unchanged 3 mm posterior retropulsion. Stable multilevel mild compression fractures in the lower thoracic spine. IMPRESSION: Mild distal sigmoid and rectal wall edema may represent distal colitis/proctitis. Increased height loss at the L4 burst fracture. Reviewed, dictated and finalized at location K. IMPRESSION: Mild distal sigmoid and rectal wall edema may represent distal colitis/proctiti s. Increased height loss at the L4 burst fracture.
--- NOTE | ~2023-09-22 | XR_ITS ---
EXAMINATION: XR chest 2V Exam Date/Time: 09/22/2023 18:05 CDT HISTORY: ams Comparison: 01/25/2022; CT chest 12/26/2021; CT abdomen pelvis 05/12/2023. RESULT: Lines, tubes, and devices: None. Lungs and pleura: Low volumes in the lateral view. No focal consolidation, pleural effusion, or pneu mothorax. Cardiomediastinal silhouette: Stable. Other: No acute upper abdominal finding. Multilevel vertebral body height loss in the lower thoracic spine, stable since the comparison CT. IMPRESSION: No acute cardiopulmonary process. Reviewed, dictated and finalized at location K.
--- NOTE | ~2023-09-22 | CT_ITS ---
EXAMINATION: CT brain wo con DATE: 09/22/2023 17:13 INDICATION: ams . TECHNIQUE: Computed tomography (CT) of the head was performed without intravenous contrast. The mA wa s adjusted according to patient size. Iterative reconstruction technique was employed. The dose-lengt h product was 681.00 mGy-cm. COMPARISON: 05/12/2023. FINDINGS: No acute intracranial hemorrhage or extra-axial fluid collection. No hydrocephalus, mass, or herniation. No acute ischemic infarct. Unremarkable dural venous sinus attenuation. No acute osseous abnormality. Mild ethmoid and inferior right maxillary mucosal thickening, the remaining aerated spaces are clear. Moderate atrophy and chronic white matter change. Atherosclerotic intracranial calcification. Bilater al basal ganglia calcification. IMPRESSION: No acute intracranial process. Reviewed, dictated and finalized at location K.
--- NOTE | 2023-09-22 16:04 | ECG_ITS ---
[facility] [address] Test Date: 2023-09-22 Pat Name: Matti Vergara Department: Room: Gender: M Assistant Community Director: VALENTINA : 1945 Requested By: Alonso Zamora Order Number: [id number] Reading MD: Win Mehta M.D. Measurements Intervals [place] Rate: 65 P: 29 WV: 231 QRS: 29 QRSD: 73 T: 48 QT: 374 QTc: 390 Interpretive Statements SINUS RHYTHM WITH FIRST DEGREE AV BLOCK LOW QRS VOLTAGE IN PRECORDIAL LEADS [QRS DEFLECTION < 1.0 mV IN CHEST LEADS] SIGNIFICANT BASELINE ARTIFACT WHICH LIMITS INTERPRETATION No previous ECG available for comparison Electronically Signed On 09-23-2023 13:50:25 CDT by Win Mehta M.D.
[2023-09-22 16:24] LABS: Basophils Absolute Auto 0.1 K/mm3 (0.0-0.1); Basophils Percent Auto 0.7 % (0.2-1.2); Eosinophils Absolute Auto 0.3 K/mm3 (0-0.3); Eosinophils Percent Auto 2.6 % (0-4.4); Hematocrit 43.1 % (42.0-52.0); Hemoglobin 14.2 g/dL (14.0-18.0); Immature Granulocyte Absolute 0.03 K/mm3 (0.00-0.031); Immature Granulocyte Percent A 0.3 % (0-0.5); Lymphocytes Absolute Auto 3.47 K/mm3 (0.9-3.2); Lymphocytes Percent Auto 33.4 % (18.3-44.2); Mean Corpuscular HGB Conc 32.9 g/dl (32-36); Mean Corpuscular Hemoglobin 31.1 pg (26-34); Mean Corpuscular Volume 94.3 fl (80-100); Mean Platelet Volume 10.2 fl (7.4-10.4); Monocytes Absolute Auto 1.1 K/mm3 (0.1-0.6); Neutrophils Absolute Auto 5.4 K/mm3 (1.3-6.7); Platelet Count Result 230 k/mm3 (150-375); Red Blood Count 4.57 M/mm3 (4.6-6.20); White Blood Count 10.4 K/mm3 (4.5-10.0)
[2023-09-22 16:34] LABS: Alanine Aminotransferase 18 U/L (6-50); Albumin Level 4.5 g/dL (3.5-5.1); Alkaline Phosphatase 106 U/L (38-126); Anion Gap 9 mmol/L (4-12); Aspartate Amino Transferase 26 U/L (17-59); Bilirubin,Total 0.6 mg/dL (0.2-1.3); Blood Urea Nitrogen 14 mg/dL (9-20); Calcium 9.4 mg/dL (8.4-10.2); Carbon Dioxide 27 mmol/L (22-30); Chloride 104 mmol/L (98-107); Estimated CRCL calculation 67 ml/min; Estimated Glomerular Filt Rate > 60; Glucose 96 mg/dL (65-110); Potassium 4.1 mmol/L (3.4-5.0); Sodium 140 mmol/L (137-145)
[2023-09-22 16:41] LABS: INR 0.9; Prothrombin Time 12.8 Seconds (11.1-14.7)
[2023-09-22 16:42] LABS: Partial Thromboplastin Time 29.1 Seconds (22.3-36.8)
[2023-09-22 16:52] LABS: Appearance Urine Clear (Clear); Bacteria Urine None Seen /hpf; Bilirubin Urine Negative (Negative); Blood Urine Negative (Negative); Color Urine Yellow (Yellow); Glucose Urine UA Negative (Negative); Ketones Urine Negative (Negative); Leukocyte Esterase Ur 1+ LEU/UL (Negative); Need Manual Microscopic Reviewed; Nitrate Urine Negative (Negative); Non Pathogenic Casts 0-2; Protein Urine Negative (Negative); RBC Urine 0-2 /hpf (0-2); Specific Grav Ur 1.005 (1.001-1.035); Squamous Epithelial Cell Urine None Seen /hpf (Few); WBC Urine 0-5 /hpf (0-3); pH Urine 7.5 (5.0-9.0)
[2023-09-22 16:54] LABS: Add Urine Microscopic? YES
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
[2023-09-22] MEDS: AMOXICILLIN/CLAVULANATE K 875-125 MG TAB 1 TABLET PO (19:48)
== END 2023-09-22 22:49 ==
PROVIDERS: Family Medicine; Emergency Provider Physician Assistant; PCP Family Medicine
DX: R41.0 Disorientation, unspecified (principal); I69.319 Unspecified symptoms and signs involving cognitive functions following cerebral infarction; K52.9 Noninfective gastroenteritis and colitis, unspecified; I69.351 Hemiplegia and hemiparesis following cerebral infarction affecting right dominant side; I67.2 Cerebral atherosclerosis; I10 Essential (primary) hypertension; E78.5 Hyperlipidemia, unspecified; N40.0 Benign prostatic hyperplasia without lower urinary tract symptoms; G47.33 Obstructive sleep apnea (adult) (pediatric); Z86.718 Personal history of other venous thrombosis and embolism; Z85.038 Personal history of other malignant neoplasm of large intestine; Z87.891 Personal history of nicotine dependence; Z90.49 Acquired absence of other specified parts of digestive tract; Z79.82 Long term (current) use of aspirin; Z79.899 Other long term (current) drug therapy; Z79.01 Long term (current) use of anticoagulants; I44.0 Atrioventricular block, first degree
CPT/HCPCS: 36415; 70450; 71046; 74177; 80053; 81001; 85025; 85610; 85730; 87077; 87086; 87088; 87147; 87181; 87186; 93005; 99284; A9270; Q9967

== ENCOUNTER 2023-10-28 14:43 | Outpatient (NON) | payer MEDICARE, SELFPAY ==
[2023-10-28 15:45] LABS: Appearance Urine Cloudy (Clear); Bacteria Urine 4+ /hpf; Bilirubin Urine Negative (Negative); Blood Urine Non-Hemolyzed Trace (Negative); Budding Yeast Urine Present /hpf; Color Urine Yellow (Yellow); Glucose Urine UA Negative (Negative); Ketones Urine Negative (Negative); Leukocyte Esterase Ur 3+ LEU/UL (Negative); Need Manual Microscopic Reviewed; Nitrate Urine Negative (Negative); Protein Urine Trace mg/dL (Negative); RBC Urine 0-2 /hpf (0-2); Specific Grav Ur 1.015 (1.001-1.035); Squamous Epithelial Cell Urine None Seen /hpf (Few); Urobilinogen Urine 0.2 mg/dL (<2.0); WBC Urine >100 /hpf (0-3); pH Urine 6.5 (5.0-9.0)
[2023-10-28 15:46] LABS: Add Urine Microscopic? YES
== END 2023-10-28 14:44 | disposition home or self-care (01) ==
PROVIDERS: PCP Family Medicine; Visit Provider Family Medicine
DX: N39.0 Urinary tract infection, site not specified (principal)
CPT/HCPCS: 81001; 87077; 87086; 87186

== ENCOUNTER 2024-01-05 15:56 | Emergency (ER) | payer MEDICARE, SELFPAY ==
[2024-01-05 15:58] VITALS: BP 113/58; PULSE 62; RESP 18; TEMP 36.7; O2SAT 96
--- NOTE | 2024-01-05 16:28 | ED.GENADULT ---
HPI - General Adult General Chief complaint: Unspecified Stated complaint: accidental picc line removal Time Seen by Provider: 01/05/24 16:24 History of Present Illness HPI narrative: 78-year-old male presenting with PICC line removal. He is coming from a local nursing facility. He has a PICC in place for IV antibiotics. Sounds like he somewhat regularly pulls out his PICC line but they are normally able to fully remove it. The nursing facility was scared to fully remove it so they brought him in for evaluation. He has no complaints. Related Data Home Medications Medication Instructions Recorded Confirmed acetaminophen 325 mg tablet 650 mg PO Q4H PRN Pain (Scale 09/04/20 11/19/23 (Tylenol) Score 1-3) atorvastatin 80 mg tablet 80 mg PO HS 09/04/20 11/19/23 potassium chloride 20 mEq 20 meq PO BID 09/04/20 11/19/23 tablet,extended release sennosides 8.6 mg tablet (senna) 8.6 mg PO BID PRN Constipation 09/04/20 11/19/23 famotidine 20 mg tablet 20 mg PO BID 05/12/23 11/19/23 cetirizine 10 mg tablet 10 mg PO DAILY 05/13/23 11/19/23 ergocalciferol (vitamin D2) 1,250 1,250 mcg PO WEEKLY 05/13/23 11/19/23 mcg (50,000 unit) capsule ferrous sulfate 325 mg (65 mg 325 mg PO DAILY 05/13/23 11/19/23 iron) tablet hydrocodone 5 mg-acetaminophen 325 1 tablet PO Q8H PRN pain 4-6 05/13/23 11/19/23 mg tablet mirtazapine 7.5 mg tablet 7.5 mg PO QHS 05/13/23 11/19/23 polyethylene glycol 3350 17 gram 17 g PO DAILY PRN Constipation 05/13/23 11/19/23 oral powder packet (Miralax) Allergies Allergy/AdvReac Type Severity Reaction Status Date / Time No Known Allergies Allergy Verified 09/22/23 16:22 Review of Systems Review of Systems: All systems reviewed & are unremarkable except as noted in HPI and below PMFSH Past Medical History Medical History Acute cholecystitis (09/2020) Treated with antibiotics and cholecystostomy tube. Adenocarcinoma of sigmoid colon Atherosclerotic cerebrovascular disease See CTA of the head and neck taken 05/12/2023. 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 Patient has resultant right hemiplegia and cognitive deficit. 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 Normal cardiac stress test (01/2021) Obstructive sleep apnea Intolerant to CPAP. Right femoral vein DVT Right hemiplegia Surgical History Surgical History History of cystoscopy (09/2020) With clot evacuation per Dr. Snyder. History of laparoscopic cholecystectomy History of open reduction and internal fixation (ORIF) procedure Left ankle fracture. History of partial colectomy (03/20/21) And excess laparoscopic left colon resection with hand-sewn end-to-end anastomosis for colon cancer per Dr. Connolly. History of tonsillectomy History of vasectomy Status post laparoscopic-assisted sigmoidectomy Family History Family History Mother Unknown family medical history Lung cancer Father Myocardial infarct Social History Social History Social History: Healthcare power of health care attorney: Abel Vergara, son. Code status: Full code. Smoking packs per day: 1.5 Smoking cigarettes per day: 30.0 Years smoked: 28 Smoking pack-years: 42.00 Smoking status: Former smoker Tobacco type: cigarettes Alcohol intake: never Substance use: never Substance use type: does not use Living arrangements: residential Additional living arrangements comments: Resident at [facility]. Spiritual care
--- NOTE | 2024-01-05 16:30 | PC.NURSE ---
Pt arrives to ed with picc line to left upper arm dangling with most of catheter out of arm. PICC removed and dressing applied.
== END 2024-01-05 17:17 ==
LOC: ANHED 16:45
PROVIDERS: Emergency Provider Emergency Medicine; PCP Family Medicine
DX: Z45.2 Encounter for adjustment and management of vascular access device (principal); I69.351 Hemiplegia and hemiparesis following cerebral infarction affecting right dominant side; I69.319 Unspecified symptoms and signs involving cognitive functions following cerebral infarction; I67.2 Cerebral atherosclerosis; I10 Essential (primary) hypertension; E78.5 Hyperlipidemia, unspecified; N40.0 Benign prostatic hyperplasia without lower urinary tract symptoms; G47.33 Obstructive sleep apnea (adult) (pediatric); Z85.038 Personal history of other malignant neoplasm of large intestine; Z86.718 Personal history of other venous thrombosis and embolism; Z87.891 Personal history of nicotine dependence; Z90.49 Acquired absence of other specified parts of digestive tract; Z79.899 Other long term (current) drug therapy
CPT/HCPCS: 99282

== ENCOUNTER 2024-02-09 17:34 | Emergency (ER) | payer MEDICARE, SELFPAY ==
--- NOTE | ~2024-02-09 | CT_ITS ---
EXAMINATION: CT brain wo con DATE: 02/09/2024 18:14 INDICATION: Altered mental status TECHNIQUE: Computed tomography (CT) of the head was performed without intravenous contrast. Sagittal and coronal reconstructions were performed. The mA was adjusted according to patient size. Iterative reconstruction technique was employed. The dose-length product was 681.00 mGy-cm. COMPARISON: head CT dated 09/21/2022 FINDINGS: No acute intracranial hemorrhage, acute infarction or abnormal extra axial fluid collection. There is mild scattered white matter hypoattenuation consistent with chronic small vessel ischemic disease. S ymmetric prominence of the sulci consistent with moderate age-appropriate diffuse cerebral volume los s. Ventricles are normal and symmetric. No mass/mass effect. Intracranial calcified cerebral atherosc lerosis is noted. The orbits, paranasal sinuses and mastoid air cells are normal. IMPRESSION: 1. No acute intracranial process. 2. Age-related changes including moderate diffuse volume loss and mild scattered white matter hypoatt enuation consistent with chronic small vessel ischemic disease. Reviewed, dictated and finalized at location A. IMPRESSION: 1. No acute intracranial process. 2. Age-related changes including moderate diffuse volume loss and mild scattere d white matter hypoattenuation consistent with chronic small vessel ischemic di sease.
[2024-02-09 17:34] VITALS: BP 148/75; PULSE 63; RESP 20; TEMP 36.6; O2SAT 97
--- NOTE | 2024-02-09 17:42 | ECG_ITS ---
Test Date: 2024-02-09 17:48:51 Measurements Intervals [place] Rate: 61 P: 58 WA: 199 QRS: 38 QRSD: 82 T: 43 QT: 413 QTc: 419 Interpretive Statements SINUS RHYTHM POSSIBLE LEFT ATRIAL ENLARGEMENT [-0.1mV P-WAVE IN V1/V2] LOW QRS VOLTAGE IN PRECORDIAL LEADS [QRS DEFLECTION < 1.0 mV IN CHEST LEADS] POSSIBLE RIGHT VENTRICULAR CONDUCTION DELAY [RSR (QR) IN V1/V2] ABNORMAL ECG Compared to ECG 09/22/2023 16:09:41 First degree AV block no longer present Electronically Signed On 02-10-2024 10:17:22 CDT by Wiliam Newton M.D.
[2024-02-09 17:57] LABS: Basophils Absolute Auto 0.1 K/mm3 (0.0-0.1); Basophils Percent Auto 0.5 % (0.2-1.2); Eosinophils Absolute Auto 0.3 K/mm3 (0-0.3); Eosinophils Percent Auto 3.4 % (0-4.4); Hematocrit 41.3 % (42.0-52.0); Hemoglobin 13.7 g/dL (14.0-18.0); Immature Granulocyte Absolute 0.02 K/mm3 (0.00-0.031); Immature Granulocyte Percent A 0.2 % (0-0.5); Lymphocytes Absolute Auto 2.74 K/mm3 (0.9-3.2); Lymphocytes Percent Auto 28.9 % (18.3-44.2); Mean Corpuscular HGB Conc 33.2 g/dl (32-36); Mean Corpuscular Hemoglobin 31.9 pg (26-34); Mean Platelet Volume 10.3 fl (7.4-10.4); Monocytes Absolute Auto 1.3 K/mm3 (0.1-0.6); Monocytes Percent Auto 13.2 % (2.6-8.5); Neutrophils Absolute Auto 5.1 K/mm3 (1.3-6.7); Neutrophils Percent Auto 53.8 % (45.5-73.1); Platelet Count Result 224 k/mm3 (150-375); Red Cell Distribution Width 13.5 % (11.5-14.5); White Blood Count 9.5 K/mm3 (4.5-10.0)
--- NOTE | 2024-02-09 18:11 | ED.AMS ---
HPI - Altered Mental Status General Chief Complaint: Altered Mental Status Stated Complaint: SOB, AMS Time Seen by Provider: 02/09/24 17:50 Source: patient and EMS Mode of arrival: EMS Limitations: dementia History of Present Illness HPI narrative: Patient is an 78-year-old male, with past medical history of CVA with residual right-sided hemiplegia, dementia, who presents to the ED via EMS with report of altered mental status. Patient is resident of [facility]. Per report, patient was acting strangely today and not walking around as much as he usually does. Typically A&O X1 at baseline. Patient unable to provide any further information. Related Data Home Medications Medication Instructions Recorded Confirmed acetaminophen 325 mg tablet 650 mg PO Q4H PRN Pain (Scale 09/04/20 01/14/24 (Tylenol) Score 1-3) atorvastatin 80 mg tablet 80 mg PO HS 09/04/20 01/14/24 potassium chloride 20 mEq 20 meq PO BID 09/04/20 01/14/24 tablet,extended release sennosides 8.6 mg tablet (senna) 8.6 mg PO BID PRN Constipation 09/04/20 01/14/24 famotidine 20 mg tablet 20 mg PO BID 05/12/23 01/14/24 cetirizine 10 mg tablet 10 mg PO DAILY 05/13/23 01/14/24 ergocalciferol (vitamin D2) 1,250 1,250 mcg PO WEEKLY 05/13/23 01/14/24 mcg (50,000 unit) capsule ferrous sulfate 325 mg (65 mg 325 mg PO DAILY 05/13/23 01/14/24 iron) tablet hydrocodone 5 mg-acetaminophen 325 1 tablet PO Q8H PRN pain 4-6 05/13/23 01/14/24 mg tablet mirtazapine 7.5 mg tablet 7.5 mg PO QHS 05/13/23 01/14/24 polyethylene glycol 3350 17 gram 17 g PO DAILY PRN Constipation 05/13/23 01/14/24 oral powder packet (Miralax) Allergies Allergy/AdvReac Type Severity Reaction Status Date / Time No Known Allergies Allergy Verified 09/22/23 16:22 Review of Systems Review of Systems: All systems reviewed & are unremarkable except as noted in HPI. All systems reviewed & are unremarkable except as noted in HPI and below PMFSH Past Medical History Medical History Acute cholecystitis (09/2020) Treated with antibiotics and cholecystostomy tube. Adenocarcinoma of sigmoid colon Atherosclerotic cerebrovascular disease See CTA of the head and neck taken 05/12/2023. 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 Patient has resultant right hemiplegia and cognitive deficit. 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 Normal cardiac stress test (01/2021) Obstructive sleep apnea Intolerant to CPAP. Right femoral vein DVT Right hemiplegia Surgical History Surgical History History of cystoscopy (09/2020) With clot evacuation per Dr. Snyder. History of laparoscopic cholecystectomy History of open reduction and internal fixation (ORIF) procedure Left ankle fracture. History of partial colectomy (03/20/21) And excess laparoscopic left colon resection with hand-sewn end-to-end anastomosis for colon cancer per Dr. Connolly. History of tonsillectomy History of vasectomy Status post laparoscopic-assisted sigmoidectomy Family History Family History Mother Unknown family medical history Lung cancer Father Myocardial infarct Social History Social History Social History: Healthcare power of siebel consultant: Abel Vergara, son. Code status: Full code. Smoking packs per day: 1.5 Smoking cigarettes per day: 30.0 Years smoked: 28 Smoking pack-years: 42.00 Smoking status: Former smoker Tobacco type: cigarettes Alcohol intake: n
[2024-02-09 18:15] LABS: Prothrombin Time 13.3 Seconds (11.1-14.7)
[2024-02-09 18:16] LABS: Partial Thromboplastin Time 25.9 Seconds (22.3-36.8)
[2024-02-09 18:17] LABS: Alanine Aminotransferase 44 U/L (6-50); Albumin Level 4.1 g/dL (3.5-5.1); Alkaline Phosphatase 93 U/L (38-126); Anion Gap 8 mmol/L (4-12); Aspartate Amino Transferase 41 U/L (17-59); Bilirubin,Total 0.5 mg/dL (0.2-1.3); Blood Urea Nitrogen 16 mg/dL (9-20); Calcium 9.4 mg/dL (8.4-10.2); Carbon Dioxide 28 mmol/L (22-30); Chloride 102 mmol/L (98-107); Estimated CRCL calculation 70 ml/min; Estimated Glomerular Filt Rate > 60; Glucose 89 mg/dL (65-110); Potassium 4.1 mmol/L (3.4-5.0); Sodium 138 mmol/L (137-145)
[2024-02-09 18:26] LABS: Add Urine Microscopic? YES; Appearance Urine Turbid (Clear); Bacteria Urine 4+ /hpf; Bilirubin Urine Negative (Negative); Blood Urine 2+ (Negative); Budding Yeast Urine Present /hpf; Color Urine Yellow (Yellow); Glucose Urine UA Negative (Negative); Ketones Urine Negative (Negative); Leukocyte Esterase Ur 3+ LEU/UL (Negative); Need Manual Microscopic Reviewed; Nitrate Urine Positive (Negative); Non Pathogenic Casts >20; Protein Urine 2+ mg/dL (Negative); Specific Grav Ur 1.019 (1.001-1.035); Squamous Epithelial Cell Urine None Seen /hpf (Few); WBC Urine >100 /hpf (0-3); pH Urine 6.5 (5.0-9.0)
[2024-02-09 19:14] VITALS: BP 131/93; PULSE 55; RESP 11; O2SAT 97
--- NOTE | 2024-02-09 19:15 | PC.NURSE ---
This RN received report from JIA Aguirre who stated she replaced pt blanton catheter due to condition of the blanton that he was brought in with.
[2024-02-09 20:38] VITALS: BP 132/67; PULSE 55; RESP 18; O2SAT 96
== END 2024-02-09 20:59 ==
PROVIDERS: Emergency Medicine; Emergency Provider Physician Assistant; PCP Family Medicine
DX: T83.511A Infection and inflammatory reaction due to indwelling urethral catheter, initial encounter (principal); R41.82 Altered mental status, unspecified; F03.90 Unspecified dementia, unspecified severity, without behavioral disturbance, psychotic disturbance, mood disturbance, and anxiety; I10 Essential (primary) hypertension; I69.951 Hemiplegia and hemiparesis following unspecified cerebrovascular disease affecting right dominant side; I69.919 Unspecified symptoms and signs involving cognitive functions following unspecified cerebrovascular disease; E78.5 Hyperlipidemia, unspecified; N40.0 Benign prostatic hyperplasia without lower urinary tract symptoms; G47.33 Obstructive sleep apnea (adult) (pediatric); Z86.718 Personal history of other venous thrombosis and embolism; Z85.038 Personal history of other malignant neoplasm of large intestine; Z87.891 Personal history of nicotine dependence; Z90.49 Acquired absence of other specified parts of digestive tract; Z79.82 Long term (current) use of aspirin; Z79.899 Other long term (current) drug therapy; Y84.6 Urinary catheterization as the cause of abnormal reaction of the patient, or of later complication, without mention of misadventure at the time of the procedure; R94.31 Abnormal electrocardiogram [ECG] [EKG]
CPT/HCPCS: 36415; 70450; 80053; 81001; 83605; 85025; 85610; 85730; 87077; 87086; 87186; 93005; 96365; 99284; J0696